=== PATIENT | female | born 1950 | race Caucasian/White ===

== ENCOUNTER 2021-12-03 17:05 | Outpatient (CLI) | payer MEDICARE, BC, SELFPAY | END 2021-12-03 17:06 | disposition home or self-care (01) | LOC: AMB 12-08 12:17 | PROVIDERS: Visit Provider Family Medicine | DX: E11.65 Type 2 diabetes mellitus with hyperglycemia (principal); R42 Dizziness and giddiness | CPT/HCPCS: A0425; A0428; A0429 ==

== ENCOUNTER 2021-12-03 17:31 | Emergency (ER) | payer MEDICARE, BC, SELFPAY ==
[2021-12-03 17:50] VITALS: BP 159/56; PULSE 74; RESP 18; TEMP 36; O2SAT 91; BMI 50.9
--- NOTE | 2021-12-03 18:02 | ED_ITS ---
HPI - General Adult General Chief complaint: Diabetic Related Problem Stated complaint: Ill Time Seen by Provider: 12/03/21 18:02 History of Present Illness HPI narrative: 71yo morbidly obese female patient with h/o diabetes-poorly controlled, HTN, thyroid disease, and anxiety presents to the ED for concerns of elevated glucose. The patient's glucose was 489 at [place] when checked. She then took 40u of her insulin and requested transfer to the ED for evaluation. The patient has recently been treated for chronic pain with a spinal stimulator that was implanted. The patient states that she was also recently seen and evaluated for bilateral buttock ulcers, but she reports she was discharged from wound care. The patient reports continued chronic pain, poorly controlled. She denies other acute concern or complaint. See nursing notes for details. Related Data Previous Rx's Medication Instructions Recorded menthol 0.44 %-zinc oxide 20.6 % 1 applic TOPICAL QID PRN #113 g 12/03/21 topical ointment (Calmoseptine) Allergies Allergy/AdvReac Type Severity Reaction Status Date / Time clarithromycin [From Biaxin] Allergy Verified 12/03/21 17:50 codeine Allergy Verified 12/03/21 17:50 morphine Allergy Verified 12/03/21 17:50 tramadol [From Ultram] Allergy Verified 12/03/21 17:50 vancomycin Allergy Verified 12/03/21 17:50 Review of Systems Const: Reports: fatigue and malaise; Denies: fever or chills Cardio: Reports: shortness of breath with exertion; Denies: chest pain, palpitations or shortness of breath when lying down Resp: Reports: shortness of breath GI: Denies: nausea, vomiting, diarrhea or constipation : Denies: painful urination or urinary frequency Musculo: Reports: back pain, extremity pain, limited range of motion, muscle cramps and muscle weakness Integ/Breast: Reports: sores (bilateral buttock) Neuro: Reports: lack of coordination (due to significant chronic pain, poorly controlled) Psych: Reports: anxiety Endo: Reports: fatigue PFSH PFSH Medical History Anxiety Chronic CHF (congestive heart failure) Chronic venous hypertension (idiopathic) with inflammation of unspecified lower extremity Disorder of lipoprotein metabolism Erythema Essential hypertension Gastro-esophageal reflux disease with esophagitis Gastroparesis Hypothyroid Iron deficiency anemia Lymphedema Major depression Methicillin resistant Staphylococcus aureus infection as the cause of diseases classified elsewhere Morbid (severe) obesity due to excess calories Non-pressure 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 limited to breakdown of skin Obstructive sleep apnea Paroxysmal atrial fibrillation Type 2 diabetes mellitus Social History Smoking Status: Never smoker Do you use any of these nicotine containing products: None How often do you have a drink containing alcohol: never AUDIT-C Alcohol total score: 0 Non-prescribed substance use: denies use Exam Const: Vital Signs, click to edit/add: Vital Signs - 24 hr 12/03/21 17:50 Temperature 96.8 F L Pulse Rate [Right Pulse Oximeter] 74 Respiratory Rate 18 Blood Pressure [Ri ght Upper Arm] 159/56 H Pulse Oximetry 91 Documenting provider has reviewed patient's vital signs: yes Common normals: no apparent distress, oriented x3, alert and well nourished General appearance: cooperative and in distress (appears uncomfortable) moderate Nutritional appearance: obese morbidly obese Orientation/consciousness: Yes awake, Yes oriented to person, Yes oriented to place and Yes oriented to time Resp: Common normals: normal respiratory effort, no use of accessory muscles and clear to auscultation bilaterally Auscultation: clear to auscultation bilaterally Cardio: Common normals: regular rate, regular rhythm, S1 normal heart sound and S2 normal heart sound Rate: regular rate Rhythm: regular rhythm Heart sounds: S1 normal and S2 normal GI: Common normals: soft to palpation and non-tender Inspection: normal to inspection Palpation: soft Rectal Exam - Female: visual inspection normal and other (bilateral buttock pressure ulcers, stage I) Back & Pelvis: General back: tenderness (wound CDI some serous drainage noted on bandage, healing as expected) Lumbar spine/lower back: pain with ROM Pelvis: buttock abnormal Buttock abnormal laterality: bilateral Bilateral buttock abnormal details: tenderness and other (stage 1 pressure ulcers over ischial prominences) Extremity: Other: bilateral LE wrapped with compression velcro bandages; ROM limited 2/2 body habitus and chronic pain Neuro: Common normals: oriented x3 Sensorium/orientation: awake, alert, oriented to person, oriented to place and oriented to time Gait (neuro): shuffling (stooped, requiring assistance of three) Psych: Appearance: grossly normal and unkempt Insight: insight good Judgement: judgment good Course Course Hospital Course: Naomie presented to the ED with elevated glucoses. Her recent change in medications have been insufficient to control her elevated glucoses. In addition, she has poorly controlled pain that is chronic that is currently under evaluation with her primary and surgeon. Finally, the patient has bilateral buttock ulcers, stage 1, that need monitoring due to body habitus and poor mobility. She has had improvement in her glucose values - which while high will continue to benefit from her dose adjustments of insulin and continued dietary modifications. 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 Reevaluation(s) Reevaluation #1: The results have been discussed with the patient, and she has verbalized understanding. She understands the importance of increasing protein and decreasing carbohydrates. In addition, she will attempt follow-up with increased fluids and improved sliding scale coverage. She will have her chronic pain managed by her primary and surgical consultants. Her vital signs have remained stable and her glucose has improved with fluids. Time: 20:49 Vital Signs Vital signs: Initial Vital Signs Temperature 96.8 F L 12/03/21 17:50 Temperature Source Temporal Artery Scan 12/03/21 17:50 Pulse Rate 74 12/03/21 17:50 Respiratory Rate 18 12/03/21 17:50 Blood Pressure 159/56 H 12/03/21 17:50 Blood Pressure Mean 90 12/03/21 17:50 Pulse Oximetry 91 12/03/21 17:50 Oxygen Delivery Method 12/03/21 17:50 Vital Signs Temperature 96.8 F L 12/03/21 17:50 Pulse Rate 74 12/03/21 17:50 Respiratory Rate 18 12/03/21 17:50 Blood Pressure 159/56 H 12/03/21 17:50 Pulse Oximetry 91 12/03/21 17:50 Temperature 96.8 F L 12/03/21 17:50 Pulse Rate 74 12/03/21 17:50 Respiratory Rate 18 12/03/21 17:50 Blood Pressure 159/56 H 12/03/21 17:50 Pulse Oximetry 91 12/03/21 17:50 Medical Decision Making Medical Records Medical records reviewed: Yes I reviewed the patient's medical records Lab Data Lab results reviewed: Yes I reviewed the patient's lab results Lab results narrative: Corrected Na 133 Labs: Lab Results 12/03/21 12/03/21 12/03/21 Range/Units 18:25 18:25 18:25 WBC 12.12 H (4.50-11.00) K/uL RBC 4.10 (4.00-5.20) m/uL Hgb 10.6 L (12.0-16.0) gm/dL Hct 33.5 (33.0-51.0) % MCV 82 (80-100) fL MCH 26 (26-34) pg MCHC 32 (32-36) gm/dL RDW Coeff of Trina 15.9 H (11.5-15.5) % Plt Count 331 (140-440) K/uL Neut % (Auto) 70.9 (42.0-72.0) % Lymph % (Auto) 16.9 L (20-44) % [place] % (Auto) 6.8 (0.0-11.0) % Eos % (Auto) 4.4 (0.0-7.0) % Baso % (Auto) 0.1 (0.0-3.0) % Neut # (Auto) 8.60 H (1.7-7.0) K/uL Lymph # (Auto) 2.00 (0.90-2.90) K/uL [place] # (Auto) 0.80 (0.00-0.90) K/UL Eos # (Auto) 0.50 (0.00-0.50) K/uL Baso # (Auto) 0.00 (0.00-0.30) K/uL Abs Immat Gran (auto) 0.11 (0.00-0.30) K/uL Sodium 128 L (135-149) mmol/L Potassium 3.5 L (3.6-5.1) mmol/L Chloride 94 L (96-114) mmol/L Carbon Dioxide 27 (20-32) mmol/L BUN 28 (7-30) mg/dL Creatinine 1.1 (0.5-1.5) mg/dL Estimated Creat Clear 42.21 Estimated GFR 54 ml/min Glucose 465 H* (60-115) mg/dL Calcium 8.7 (8.4-10.6) mg/dL Magnesium 1.9 (1.5-2.6) mg/dL Urine Color Yellow (Yellow) Urine Appearance Clear (Clear) Urine pH 6.0 (5.0-8.5) Ur Specific [place] <= 1.005 (1.000-1.030) Urine Protein Negative (Negative) Urine Glucose (UA) 3+ A (Negative) Urine Ketones Negative (Negative) Urine Blood Trace-lysed A (Negative) Urine Nitrite Negative (Negative) Urine Bilirubin Negative (Negative) Urine Urobilinogen 0.2 (0.2-1.0) Ur Leukocyte Esterase Negative (Negative) Urine RBC 0-2 (0-2) Urine WBC 0-2 (0-5) Ur Squamous Epith Cells Few (None-Few) Urine Bacteria Few A (None) Discharge Plan Discharge Clinical Impression: Chronic pain following surgery or procedure Decubitus ulcer of buttock, stage 1 Qualifiers: Laterality: unspecified laterality Qualified Code(s): L89.301 - Pressure ulcer of unspecified buttock, stage 1 Hyperglycemia due to type 2 diabetes mellitus Qualifiers: Diabetes mellitus [facility] insulin use: with [facility] use Qualified Code(s): E11.65 - Type 2 diabetes mellitus with hyperglycemia Patient Disposition: Home, Self-Care Condition: Improved Instructions: Chronic Pain (ED), Wound Healing and Your Diet (ED) Additional Instructions: Thank you for choosing [facility] for your care today. Your care today was on an emergency basis and is not intended to be a substitute for on-going care with your primary physician. I recommend calling primary care for follow-up in the next 3-5 days for follow-up as needed and to review any labs, testing, or imaging you have had in the Emergency Department. In addition, you will need wound care follow-up for a bilateral buttock ulcers to avoid progression or worsening of condition. Please make sure you take your insulin as directed, increase your fluids, and decrease your carbohydrate intake. If new or worsenin g symptoms develop or you have any concerns in the meantime, please call your primary care clinic or return to the ER for re-evaluation. Activity Level: Activity as Tolerated, Up with assist and Use Walker Discharge Diet: Diabetic and Heart Healthy (2 gm sodium, low fat) Prescriptions: New menthol-zinc oxide [Calmoseptine] 0.44-20.6 % ointment 1 applic topical QID PRN (Reason: skin irritation) Qty: 113 0RF Follow Up/Referrals: Provider,Not a Local [Primary Care Provider] - Stand Alone Forms: [facility] [employer] Info Instructions
[2021-12-03 18:50] LABS: Basophils Percent Auto 0.1 % (0.0-3.0); Eosinophils Percent Auto 4.4 % (0.0-7.0); Hematocrit 33.5 % (33.0-51.0); Hemoglobin* 10.6 gm/dL (12.0-16.0); Immature Granulocytes Abs Auto 0.11 K/uL (0.00-0.30); Lymphocytes Percent Auto 16.9 % (20-44); Mean Corpuscular HGB Conc 32 gm/dL (32-36); Mean Corpuscular Hemoglobin 26 pg (26-34); Mean Corpuscular Volume 82 fL (80-100); Monocytes Percent Auto 6.8 % (0.0-11.0); Neutrophils Percent Auto 70.9 % (42.0-72.0); Platelet Count* 331 K/uL (140-440); RDW Coefficient of Variation % 15.9 % (11.5-15.5); White Blood Count* 12.12 K/uL (4.50-11.00)
[2021-12-03 18:56] LABS: Slide Review Reflex No
[2021-12-03 19:00] LABS: Appearance Urine Clear (Clear); Bilirubin Urine Negative (Negative); Blood Urine Trace-lysed (Negative); Color Urine Yellow (Yellow); Glucose Urine 3+ (Negative); Ketones Urine Negative (Negative); Leukocyte Esterase Urine Negative (Negative); Nitrite Urine Negative (Negative); Protein Urine Negative (Negative); Specific Gravity Urine <= 1.005 (1.000-1.030); Urobilinogen Urine 0.2 (0.2-1.0)
--- NOTE | 2021-12-03 19:03 | ED.NURSE ---
1808--called [facility] and talked to Philip Dinero. patient receives flex inject touch pen insulin 32 units TID bfore meals and sliding scale of 0-12 units. patient received the 12 units at 1651. had a stimulator block in on other day. patient did not receive any steroids that would alter the blood sugar per Philip manager staffing nurse.
[2021-12-03 19:12] LABS: Chloride* 94 mmol/L (96-114)
[2021-12-03 19:13] LABS: Potassium* 3.5 mmol/L (3.6-5.1); Sodium* 128 mmol/L (135-149)
[2021-12-03] MEDS: 0.9 % SODIUM CHLORIDE 1000 ml 1,000 ML IV (19:13)
[2021-12-03 19:15] LABS: Creatinine* 1.1 mg/dL (0.5-1.5); Est. Creatinine Clearance* 42.21; Estimated Glomerular Filt Rate 54 ml/min
[2021-12-03 19:16] LABS: Blood Urea Nitrogen* 28 mg/dL (7-30); Calcium* 8.7 mg/dL (8.4-10.6); Carbon Dioxide* 27 mmol/L (20-32); Magnesium* 1.9 mg/dL (1.5-2.6)
[2021-12-03 19:19] LABS: Bacteria Urine Few; RBC Urine 0-2 (0-2); Squamous Epithelial Cell Urine Few (None-Few); WBC Urine 0-2 (0-5)
[2021-12-03 19:22] LABS: Glucose* 465 mg/dL (60-115)
[2021-12-03] MEDS: ONDANSETRON 2 MG/ML inj 4 MG IVP (20:46)
[2021-12-03 21:19] VITALS: BP 142/72; PULSE 74; RESP 18; TEMP 36.7; O2SAT 96
== END 2021-12-03 21:39 | disposition home or self-care (01) ==
PROVIDERS: Emergency Provider Family Medicine
DX: M54.9 Dorsalgia, unspecified (principal); E11.65 Type 2 diabetes mellitus with hyperglycemia; Z79.4 Long term (current) use of insulin; L89.301 Pressure ulcer of unspecified buttock, stage 1
CPT/HCPCS: 36415; 80048; 81003; 81015; 82947; 83735; 85025; 87086; 87186; 96374; 99284; J2405; J7030

== ENCOUNTER 2021-12-03 21:30 | Outpatient (CLI) | payer MEDICARE, BC, SELFPAY | END 2021-12-03 21:31 | disposition home or self-care (01) | LOC: AMB 12-08 20:39 | PROVIDERS: Visit Provider Family Medicine | DX: R53.1 Weakness (principal) | CPT/HCPCS: A0425; A0428 ==

== ENCOUNTER 2021-12-17 21:00 | Outpatient (CLI) | payer MEDICARE, BC, SELFPAY | END 2021-12-17 21:01 | disposition home or self-care (01) | LOC: SLEEP 06-03 10:02 | PROVIDERS: PCP Family Medicine; Visit Provider Internal Medicine | DX: G47.33 Obstructive sleep apnea (adult) (pediatric) (principal) | CPT/HCPCS: 95810 ==

== ENCOUNTER 2022-01-24 14:26 | Outpatient (CLI) | payer MEDICARE, BC, SELFPAY | END 2022-01-24 14:27 | disposition home or self-care (01) | LOC: AMB 02-06 16:08 | PROVIDERS: PCP Family Medicine; Visit Provider Family Medicine | DX: I95.9 Hypotension, unspecified (principal); I49.9 Cardiac arrhythmia, unspecified | CPT/HCPCS: A0425; A0427 ==

== ENCOUNTER 2022-01-24 15:03 | Inpatient (IN) | payer MEDICARE, BC, SELFPAY ==
[2022-01-24] VITALS (11 sets, daily range): BP systolic 91–147; BP diastolic 43–91; PULSE 42–82; RESP 16–24; TEMP 36.4–36.7; O2SAT 82–95; BMI 50.1; BMI 55.7
--- NOTE | 2022-01-24 15:23 | ED.GENADULT ---
HPI - General Adult General Time Seen by Provider: 15:23 Date Seen: 01/24/22 Chief complaint: Hypotension Stated complaint: Lightheaded Time Seen by Provider: 01/24/22 15:22 Source: patient, RN notes reviewed and other (Clinic provider did call ahead, Dr. Stewart) Mode of arrival: ambulatory Limitations: no limitations History of Present Illness HPI narrative: Patient is a 71-year-old female referred by Dr. Stewart from [facility] where she was being seen for concern of her legs being red warm and more swollen. Patient had refused to reportedly come to the ER this past Thursday. Dr. Stewart noted that she was hypotensive, pulse was 42. He felt that her mental status was a bit more altered with difficulty concentrating and difficulty following directions. He thought she had increased lower extremity edema and they were somewhat red but she has a history of bilateral edema. She also is in chronic respiratory failure with hypercapnia and hypoxia per his report. She has had a history of septic shock as well. He felt she would be best suited coming in for further evaluation management. She states she has been short of breath. She does not wear home oxygen. She resides at [place]. She does endorse increasing edema. She has no acute pain complaints at this time, has had no chest pain. On arrival from the clinic via EMS, she was noted to be hypoxic in the 80s, looked pale and did not look well per nursing staff. On our initial monitoring her pulse was in the 30s, they did put on pacer pads but then she came up into the 40s and 50s, by the time I was in the room they were attempting to establish an IV and she was back into the 60s. Her physician had wrote to stop her metoprolol 200 mg and start 100 mg. When I review her med rec she is on a total of 300 mg of metoprolol XL daily and Cardizem CD 120 mg daily. He did also order Duricef twice daily for 7 days, obviously neither of these changes have been initiated as she came to the ED instead of going back to [place]. She does have diabetes, historically poorly controlled, hypertension, thyroid disease, anxiety. She also has chronic pain and has a spinal stimulator and is on chronic pain meds. Related Data Home Medications Medication Instructions Recorded Confirmed albuterol sulfate 90 mcg/actuation 2 puff inhalation Q6H PRN 01/24/22 01/24/22 aerosol inhaler (Ventolin HFA) aspirin 81 mg tablet,delayed 81 mg PO DAILY 01/24/22 01/24/22 release (Adult Low Dose Aspirin) atorvastatin 80 mg tablet 80 mg PO DAILY 01/24/22 01/24/22 buprenorphine HCl 150 mcg buccal 150 mcg buccal Q12H 01/24/22 01/24/22 film (Belbuca) buspirone 30 mg tablet 30 mg PO BID 01/24/22 01/24/22 diltiazem HCl 120 mg 120 mg PO DAILY 01/24/22 01/24/22 capsule,extended release 24 hr duloxetine 60 mg capsule,delayed 120 mg PO DAILY 01/24/22 01/24/22 release ferrous gluconate 324 mg (37.5 mg 324 mg PO TIDWM 01/24/22 01/24/22 iron) tablet fluticasone propionate 50 1 spray intranasal DAILY PRN 01/24/22 01/24/22 mcg/actuation nasal spray,suspension gabapentin 400 mg capsule 400 mg PO DAILY 01/24/22 01/24/22 insulin aspart 32 unit subcut TIDWM 01/24/22 01/24/22 (niacinamide)(U-100) 100 unit/mL(3 mL) subcutaneous pen (Fiasp FlexTouch U-100 Insulin) levothyroxine 50 mcg tablet 50 mcg PO DAILY 01/24/22 01/24/22 magnesium oxide 400 mg PO DAILY 01/24/22 01/24/22 metoclopramide HCl 10 mg tablet 10 mg PO ACHS 01/24/22 01/24/22 metoprolol succinate 100 mg 100 mg PO DAILY 01/24/22 01/24/22 tablet,extended release 24 hr montelukast 10 mg tablet 10 mg PO HS 01/24/22 01/24/22 omeprazole 20 mg capsule,delayed 20 mg PO BID 01/24/22 01/24/22 release sumatriptan succinate 50 mg tablet 50 mg PO BID PRN 01/24/22 01/24/22 tizanidine 4 mg tablet 4 mg PO TID 01/24/22 01/24/22 torsemide 20 mg tablet 20 mg PO DAILY 01/24/22 01/24/22 trazodone 100 mg tablet 100 mg PO HS PRN 01/24/22 01/24/22 Previous Rx's Medication Instructions Recorded menthol 0.44 %-zinc oxide 20.6 % 1 applic topical QID PRN skin 12/03/21 topical ointment (Calmoseptine) irritation #113 grams Allergies Allergy/AdvReac Type Severity Reaction Status Date / Time clarithromycin [From Biaxin] Allergy Verified 12/03/21 17:50 codeine Allergy Verified 12/03/21 17:50 morphine Allergy Verified 12/03/21 17:50 tramadol [From Ultram] Allergy Verified 12/03/21 17:50 vancomycin Allergy Verified 12/03/21 17:50 Review of Systems Status of ROS: Reports: 10 or more systems reviewed and unremarkable except as noted in History and below [facility] Medical History Anxiety Chronic CHF (congestive heart failure) Chronic venous hypertension (idiopathic) with inflammation of unspecified lower extremity Disorder of lipoprotein metabolism Erythema Essential hypertension Gastro-esophageal reflux disease with esophagitis Gastroparesis Hypothyroid Iron deficiency anemia Lymphedema Major depression Methicillin resistant Staphylococcus aureus infection as the cause of diseases classified elsewhere Morbid (severe) obesity due to excess calories Non-pressure 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 limited to breakdown of skin Obstructive sleep apnea Paroxysmal atrial fibrillation Type 2 diabetes mellitus Social History Smoking Status: Never smoker Do you use any of these nicotine containing products: None How often do you have a drink containing alcohol: never AUDIT-C Alcohol total score: 0 Non-prescribed substance use: denies use Exam Const: Vital Signs, click to edit/add: Vital Signs - 24 hr 01/24/22 15:06 01/24/22 16:07 01/24/22 15:48 Temperature 97.5 F L Pulse Rate [Pulse Oximeter] 42 L 63 61 Respiratory Rate 24 Blood Pressure [Le ft Upper Arm] 91/43 L 117/57 L 101/62 Pulse Oximetry 91 95 95 Oxygen Delivery Me thod Room Air Nasal Cannula Nasal Cannula Oxygen Flow Rate 2 Documenting provider has reviewed patient's vital signs: yes Common normals: no apparent distress, oriented x3, no limitations and alert General appearance: cooperative and comfortable Nutritional appearance: obese morbidly obese HENMT: Common normals: normocephalic, head/scalp atraumatic, hearing grossly normal bilaterally, external nose normal, nasal mucous membranes and turbinates normal and moist oral mucous membranes Head and scalp: normocephalic and atraumatic Nose: external nose normal and nasal mucous membranes and turbinates normal Eye: Common normals: PERRL, EOMs intact bilaterally, conjunctivae normal and no scleral icterus Conjunctiva: conjunctiva(e) normal Pupil: PERRL Neck & C-Spine: Common normals: full ROM (Neck is thick, very difficult to appreciate any jugular venous distention.), no lymphadenopathy, no JVD and thyroid normal Thyroid: thyroid normal Resp: Common normals: normal respiratory effort, no retractions, no use of accessory muscles and clear to auscultation bilaterally Auscultation: clear to auscultation bilaterally Cardio: Common normals: no JVD, regular rate, regular rhythm, S1 normal heart sound, S2 normal heart sound, no gallops, no clicks, no murmurs and no rub Rate: regular rate Rhythm: regular rhythm Heart sounds: S1 normal and S2 normal GI: Common normals: Normal to inspection, nondistended, normoactive bowel sounds present, soft to palpation, non-tender, no hepatosplenomegaly and no masses Palpation: soft and no hepatosplenomegaly Extremity: Other: Has compression stockings and wraps on her lower extremities. Can see some mildly warm erythema extending particularly above the right 1, does seem to be some dependent erythema that I can see peaking above the stocking and wraps on both legs. She does not seem to be tender, has severe lower extremity edema. We will need to take down the leg wraps. Neuro: Common normals: oriented x3 Sensorium/orientation: alert Course Course Hospital Course: Nursing staff alerted me to the fact that shortly after arriving here while on monitoring her pulse dropped into the 30s. Nursing staff did place pacer pads, they were attempting to start an IV and it did rebound back up into the 60s. She was denying any significant symptomatology at that time. We will work her up for cardiac, pulmonary, infectious etiology. Will give her a 250 normal mL saline bolus. They are going to initiate Duricef today and have her metoprolol dose dropped in half due to low blood pressure of 40s in the clinic. It may need to be further withheld seen her drop into the 30s. Will make sure her troponin is okay. Is likely going to need hospitalization. Will need to help differentiate her erythema of her lower extremities from it being from cellulitis versus pseudo cellulitis with other possible etiologies being venous stasis/lymphedema/dermatitis. Reevaluation(s) Reevaluation #1: We had attempted to turn patient's oxygen off a bit ago and she went down back into the low 80s. Nursing staff did put her on 1 L. I recommended maybe going to just half a L. This is a patient with chronic respiratory failure. Respiratory therapy did come down to see her. Have talked to our hospitalist and a.m. awaiting him to come down for admission. With the bradycardic spells, I think she needs cardiac monitoring and titration down of her rate suppressing medicines. Time: 17:33 Vital Signs Vital signs: Initial Vital Signs Temperature 97.5 F L 01/24/22 15:06 Temperature Source Oral 01/24/22 15:06 Pulse Rate 42 L 01/24/22 15:06 Respiratory Rate 24 01/24/22 15:06 Blood Pressure 91/43 L 01/24/22 15:06 Blood Pressure Mean 59 01/24/22 15:06 Blood Pressure Position Supine 01/24/22 15:06 Pulse Oximetry 91 01/24/22 15:06 Oxygen Delivery Method 01/24/22 15:06 Vital Signs Temperature 97.5 F L 01/24/22 15:06 Pulse Rate 42 L 01/24/22 15:06 Respiratory Rate 24 01/24/22 15:06 Blood Pressure 91/43 L 01/24/22 15:06 Pulse Oximetry 91 01/24/22 15:06 Oxygen Delivery Method 01/24/22 15:06 Temperature 97.5 F L 01/24/22 15:06 Pulse Rate 63 01/24/22 16:07 Respiratory Rate 24 01/24/22 15:06 Blood Pressure 117/57 L 01/24/22 16:07 Pulse Oximetry 95 01/24/22 16:07 Oxygen Delivery Method 01/24/22 16:07 Oxygen Flow Rate 2 01/24/22 16:07 Medical Decision Making Lab Data Lab results reviewed: Yes I reviewed the patient's lab results Labs: Lab Results 01/24/22 01/24/22 01/24/22 Range/Units 15:20 15:25 15:25 WBC 14.00 H (4.50-11.00) K/uL RBC 3.91 L (4.00-5.20) m/uL Hgb 10.4 L (12.0-16.0) gm/dL Hct 34.7 (33.0-51.0) % MCV 89 (80-100) fL MCH 27 (26-34) pg MCHC 30 L (32-36) gm/dL RDW Coeff of Trina 16.2 H (11.5-15.5) % Plt Count 401 (140-440) K/uL Neut % (Auto) 74.6 H (42.0-72.0) % Lymph % (Auto) 11.6 L (20-44) % [place] % (Auto) 8.7 (0.0-11.0) % Eos % (Auto) 3.5 (0.0-7.0) % Baso % (Auto) 0.2 (0.0-3.0) % Neut # (Auto) 10.40 H (1.7-7.0) K/uL Lymph # (Auto) 1.60 (0.90-2.90) K/uL [place] # (Auto) 1.20 H (0.00-0.90) K/UL Eos # (Auto) 0.50 (0.00-0.50) K/uL Baso # (Auto) 0.00 (0.00-0.30) K/uL Abs Immat Gran (auto) 0.19 (0.00-0.30) K/uL VBG pH (7.32-7.43) VBG pCO2 (40-50) mmHG VBG pO2 (25-47) mmHG VBG HCO3 (21-28) mmol/L Sodium 137 (135-149) mmol/L Potassium 4.8 (3.6-5.1) mmol/L Chloride 99 (96-114) mmol/L Carbon Dioxide 28 (20-32) mmol/L BUN 28 (7-30) mg/dL Creatinine 1.5 (0.5-1.5) mg/dL Estimated Creat Clear 30.95 Estimated GFR 37 ml/min Glucose 119 H (60-115) mg/dL Lactate (0.5-1.9) mmol/L Calcium 9.1 (8.4-10.6) mg/dL Magnesium (1.5-2.6) mg/dL Total Bilirubin 0.5 (0.1-1.5) mg/dL AST 26 (12-35) U/L ALT 19 (4-35) U/L Alkaline Phosphatase 183 H (40-150) U/L Troponin I (0.01-0.04) ng/mL C-Reactive Protein 1.7 H (0.5-1.0) mg/dL NT-Pro-B Natriuret Pep (0-125) PG/mL Total Protein 7.6 (6.0-8.3) g/dL Albumin 3.9 (3.3-5.0) g/dL Procalcitonin (<0.50) ng/mL SARS-CoV-2 (PCR) Negative SARS-CoV-2 (Negative) 01/24/22 01/24/22 Range/Units 15:25 15:25 WBC (4.50-11.00) K/uL RBC (4.00-5.20) m/uL Hgb (12.0-16.0) gm/dL Hct (33.0-51.0) % MCV (80-100) fL MCH (26-34) pg MCHC (32-36) gm/dL RDW Coeff of Trina (11.5-15.5) % Plt Count (140-440) K/uL Neut % (Auto) (42.0-72.0) % Lymph % (Auto) (20-44) % [place] % (Auto) (0.0-11.0) % Eos % (Auto) (0.0-7.0) % Baso % (Auto) (0.0-3.0) % Neut # (Auto) (1.7-7.0) K/uL Lymph # (Auto) (0.90-2.90) K/uL [place] # (Auto) (0.00-0.90) K/UL Eos # (Auto) (0.00-0.50) K/uL Baso # (Auto) (0.00-0.30) K/uL Abs Immat Gran (auto) (0.00-0.30) K/uL VBG pH 7.293 L (7.32-7.43) VBG pCO2 61 H* (40-50) mmHG VBG pO2 22.8 L (25-47) mmHG VBG HCO3 30 H (21-28) mmol/L Sodium (135-149) mmol/L Potassium (3.6-5.1) mmol/L Chloride (96-114) mmol/L Carbon Dioxide (20-32) mmol/L BUN (7-30) mg/dL Creatinine (0.5-1.5) mg/dL Estimated Creat Clear Estimated GFR ml/min Glucose (60-115) mg/dL Lactate 2.5 H (0.5-1.9) mmol/L Calcium (8.4-10.6) mg/dL Magnesium 2.3 (1.5-2.6) mg/dL Total Bilirubin (0.1-1.5) mg/dL AST (12-35) U/L ALT (4-35) U/L Alkaline Phosphatase (40-150) U/L Troponin I < 0.01 L (0.01-0.04) ng/mL C-Reactive Protein (0.5-1.0) mg/dL NT-Pro-B Natriuret Pep 2730 H (0-125) PG/mL Total Protein (6.0-8.3) g/dL Albumin (3.3-5.0) g/dL Procalcitonin 0.07 (<0.50) ng/mL SARS-CoV-2 (PCR) (Negative) Imaging Data Chest x-ray: Attestation: I have reviewed the pertinent imaging results. Radiologist's impression: Patient: CROW ALMAZAN Facility:?[facility] Patient ID:?[id number] Site Patient ID:?[id number]. Site :?[id number] Study:?XRay Chest PORTABLE-01/24/2022 3:45:19 PM Ordering Physician:Shama Pena Final Report: INDICATION: sob, hypotension, bradycardia TECHNIQUE: Chest 1 view. COMPARISON: 07/02/21 FINDINGS: Cardiovascular and mediastinum: Heart size and vasculature are normal in caliber and appearance. Mediastinum is within normal limits. Lungs and pleural space: Lungs are clear. No sign of infiltrate or mass. No sign of pleural effusion. No pneumothorax. Bones and soft tissues: No significant findings. IMPRESSION: Unremarkable chest. Dictated by: Carlos Pagan MD @ 01/24/2022 16:02:01 (Electronic Signature) ECG Data Attestation: I personally reviewed and interpreted this ECG as follows: (Sinus rhythm, 64 beats per minute, first-degree AV block. Bifascicular block. No acute ischemia noted.) Critical Care Time Critical Care Time Critical Care Time: No Discharge Plan Discharge Clinical Impression: Chronic respiratory failure with hypoxia and hypercapnia, Bradycardia, Hypotension Patient Disposition: Admitted As Inpatient Prescriptions: No Action menthol-zinc oxide [Calmoseptine] 0.44-20.6 % ointment 1 applic topical QID PRN (Reason: skin irritation) Qty: 113 0RF albuterol sulfate [Ventolin HFA] 90 mcg/actuation HFA aerosol inhaler 2 puff INHALATION Q6H PRN aspirin [Adult Low Dose Aspirin] 81 mg tablet,delayed release (DR/EC) 81 mg PO DAILY atorvastatin 80 mg tablet 80 mg PO DAILY buspirone 30 mg tablet 30 mg PO BID diltiazem HCl 120 mg capsule,extended release 24hr 120 mg PO DAILY duloxetine 60 mg capsule,delayed release(DR/EC) 120 mg PO DAILY buprenorphine HCl [Belbuca] 150 mcg film 150 mcg BUCCAL Q12H ferrous gluconate 324 mg (37.5 mg iron) tablet 324 mg PO TIDWM gabapentin 400 mg capsule 400 mg PO DAILY levothyroxine 50 mcg tablet 50 mcg PO DAILY fluticasone propionate 50 mcg/actuation spray,suspension 1 spray INTRANASAL DAILY PRN Fiasp FlexTouch U-100 Insulin 100 unit/mL (3 mL) insulin pen 32 unit SUBCUT TIDWM magnesium oxide 400 mg magnesium capsule 400 mg PO DAILY torsemide 20 mg tablet 20 mg PO DAILY tizanidine 4 mg tablet 4 mg PO TID metoprolol succinate 100 mg tablet extended release 24 hr 100 mg PO DAILY sumatriptan succinate 50 mg tablet 50 mg PO BID PRN trazodone 100 mg tablet 100 mg PO HS PRN omeprazole 20 mg capsule,delayed release(DR/EC) 20 mg PO BID montelukast 10 mg tablet 10 mg PO HS metoclopramide HCl 10 mg tablet 10 mg PO ACHS Follow Up/Referrals: Germania Jones MD [Primary Care Provider] -
[2022-01-24] MEDS: 0.9 % SODIUM CHLORIDE 250 ml 250 ML IV (15:25)
--- NOTE | 2022-01-24 15:28 | CRLHL7_ITS ---
For Patients: As a result of the Century Cures Act, medical imaging exams and procedure reports are released immediately into your electronic medical record. You may view this report before your referring provider. If you have questions, please contact your health care provider. INDICATION: sob, hypotension, bradycardia TECHNIQUE: Chest 1 view. COMPARISON: 07/02/21 FINDINGS: Cardiovascular and mediastinum: Heart size and vasculature are normal in caliber and appearance. Mediastinum is within normal limits. Lungs and pleural space: Lungs are clear. No sign of infiltrate or mass. No sign of pleural effusion. No pneumothorax. Bones and soft tissues: No significant findings. IMPRESSION: Unremarkable chest. Dictated by: Carlos Pagan MD @ 01/24/2022 16:02:01 (Electronically Signed)
[2022-01-24 15:43] LABS: HCO3 VBG 30 mmol/L (21-28); Lactate* 2.5 mmol/L (0.5-1.9); PO2 VBG 22.8 mmHG (25-47); pH VBG 7.293 (7.32-7.43)
[2022-01-24 15:44] LABS: Basophils Percent Auto 0.2 % (0.0-3.0); Eosinophils Percent Auto 3.5 % (0.0-7.0); Hematocrit 34.7 % (33.0-51.0); Hemoglobin* 10.4 gm/dL (12.0-16.0); Immature Granulocytes Abs Auto 0.19 K/uL (0.00-0.30); Lymphocytes Percent Auto 11.6 % (20-44); Mean Corpuscular HGB Conc 30 gm/dL (32-36); Mean Corpuscular Hemoglobin 27 pg (26-34); Mean Corpuscular Volume 89 fL (80-100); Monocytes Percent Auto 8.7 % (0.0-11.0); Neutrophils Percent Auto 74.6 % (42.0-72.0); Platelet Count* 401 K/uL (140-440); RDW Coefficient of Variation % 16.2 % (11.5-15.5); Red Blood Count 3.91 m/uL (4.00-5.20)
[2022-01-24 15:45] LABS: PCO2 VBG 61 mmHG (40-50); Slide Review Reflex No
[2022-01-24 15:56] LABS: Chloride* 99 mmol/L (96-114)
[2022-01-24 15:57] LABS: Albumin* 3.9 g/dL (3.3-5.0); Sodium* 137 mmol/L (135-149)
[2022-01-24 15:58] LABS: Potassium* 4.8 mmol/L (3.6-5.1)
[2022-01-24 15:59] LABS: Magnesium* 2.3 mg/dL (1.5-2.6)
[2022-01-24 16:00] LABS: Bilirubin Total* 0.5 mg/dL (0.1-1.5); Creatinine* 1.5 mg/dL (0.5-1.5); Est. Creatinine Clearance* 30.95; Estimated Glomerular Filt Rate 37 ml/min
[2022-01-24 16:01] LABS: Alanine Aminotransferase* 19 U/L (4-35); Alkaline Phosphatase* 183 U/L (40-150); Aspartate Amino Transferase* 26 U/L (12-35); Blood Urea Nitrogen* 28 mg/dL (7-30); Calcium* 9.1 mg/dL (8.4-10.6); Carbon Dioxide* 28 mmol/L (20-32); Glucose* 119 mg/dL (60-115); Total Protein* 7.6 g/dL (6.0-8.3)
[2022-01-24 16:03] LABS: C Reactive Protein* 1.7 mg/dL (0.5-1.0)
[2022-01-24 16:09] LABS: NT Pro B Type NatriureticPept* 2730 PG/mL (0-125)
[2022-01-24 16:13] LABS: Troponin I* < 0.01 ng/mL (0.01-0.04)
[2022-01-24 16:14] LABS: SARS PCR* Negative SARS-CoV-2 (Negative)
[2022-01-24 16:17] LABS: Procalcitonin* 0.07 ng/mL (<0.50)
--- NOTE | 2022-01-24 16:26 | ED.NURSE ---
dr keen aware of pco2 of 61. is less diaphoretic. hr in the low 60s, 02 sats have been greater than 93% on 1 l n/c. has chronic pain in her back 09/24.
--- NOTE | 2022-01-24 16:51 | ED.NURSE ---
02 off per request of dr keen. will be admitted. venkata damico aware of admission. has been sleepy. hr has been 58-64.
--- NOTE | 2022-01-24 17:10 | ED.NURSE ---
sats dropped to 80 after 02 removed. need ed to replace the 02 at 1 l nc and sats increased to low 90s. dr keen informed.
--- NOTE | 2022-01-24 17:51 | W.PC.EDHO ---
Primary Language: Preferred Language: Orientation Status: [] Alert & Oriented [] Slight Confusion [] Known Dx Dementia Transfers By: [] Assist of 1 [] Assist of 2 [] Lift Active Medications Discontinued Medications Generic Name Dose Route Start Last Admin Trade Name Meagan PRN Reason Stop Dose Admin Sodium Chloride 250 mls @ 250 mls/hr 01/24/22 15:29 01/24/22 16:25 0.9 % Sodium Chloride 250 Ml IV 01/24/22 16:28 Infused .Q1H ONE Infusion Description of Symptoms ED Triage Present Problem pt at [facility] for appointment for lower Description extremities. pt found to be hypotensive 80-90's and bradycardiac 40-50's there. pt does c/o lightheaded and dizzy. nausea during ambulance ride. Female History Patient No Pain Pain Intensity [Back] 5 Pain Intensity 5 Pain Scale Used Numeric (1 - 10) IV Insertion/Site Date of IV Line Insertion [ 01/24/22 Right Antecubital] Oxygen Administration Pulse Oximetry 95 Pulse Oximetry 95 Pulse Oximetry 91 Oxygen Delivery Method Nasal Cannula Oxygen Delivery Method Nasal Cannula Oxygen Delivery Method Room Air Oxygen Flow Rate 2 Cardiac Monitoring EKG Method 12 Lead
--- NOTE | 2022-01-24 18:13 | P.IMHP_ITS ---
Hospitalist- H&P: HPI History of Present Illness Time Seen by Provider: 17:45 Date Seen: 01/24/22 Chief complaint: Lightheaded Narrative: Naomie Pena is a 71 year old woman who presented to her primary care clinic today to see her primary care physician, Dr. Stewart, for evaluation of concerns of increasing erythema of bilateral lower extremities. This is not a new problem for the patient. She often presents for assessment and management of unilateral or bilateral lower extremity erythema. She is often treated empirically for possible cellulitis. Such was the case today. Her physician recommended that she take a 7 day course of Duricef twice daily. Noteworthy however is the fact that the patient has chronic bilateral lower extremity venous insufficiency. She does have a Velcro compression wraps that she utilizes. Unfortunately she does not keep her legs elevated throughout the day and often keeps her legs in the dip in the dependent position. Still not clear to me the most recent time that she was properly fitted for her Velcro compression wraps. Noteworthy is that she historically has had venous stasis ulcers and has historically been treated for the same in the [place] wound clinic but these wounds have since resolved. While being assessed in the clinic she was also found to be bradycardic with a heart rate of about 40 beats per minute. This is new for this patient. She does ordinarily take 2 different negative chronotropic agents, metoprolol succinate 200 mg once daily as well as diltiazem CD 120 mg once daily. Patient noted a sense of dizziness or lightheadedness when her heart rate was so low. Her clinician made the recommendation that the patient decrease her dose of the metoprolol succinate from 200 mg daily down to 100 mg daily. Because of this bradycardia however the patient's physician refer the patient to the emergency department for further assessment and interventions. When patient 1st arrived in our emergency department her heart rate was in the upper 30s to lower 40s. She complains lightheadedness. Denied any chest heaviness, pressure, tightness, or pain. Denies any dyspnea at rest, paroxysmal nocturnal dyspnea, orthopnea. Denied any syncope. Denied nausea or vomiting. Denies any new arm or back or neck discomforts. Denies any palpitations. Patient was given 250 mg of normal saline IV. Her symptoms improved. Her heart rate gradually improved. She has been in our emergency department for a few hours and her heart rate has been stable in the 60s. She has been on 1 L oxygen per minute via nasal cannula continuously maintaining her saturations in the mid 90s, with end-tidal CO2 is ranging from 30-50. Electrocardiogram demonstrated a sinus bradycardia with no ischemic changes. Normal troponin I levels. Lactate minimally elevated at 2.5. BNP 2700. Procalcitonin 0.07. Chest x-ray without any acute findings. White blood cell count and electrolyte assessment unchanged from baseline. Given the patient's symptoms and low heart rates it is decided to admit the patient to the hospital for observation overnight and monitor her response to the lower dose of her metoprolol succinate in combination with her standard dose of diltiazem CD. Review of Systems Status of ROS: Reports: 10 or more systems reviewed and unremarkable except as noted in History and below Narrative: Resides at [facility] in [place]. Requires assistance with many of her activities of daily living. Needs assistance with medication setup and dispensation. Needs assistance with application of her Velcro compression wraps. Needs assistance with other self cares. Has chronic back pain. On chronic opioids for treatment of the same. Denies fevers, rigors, diaphoresis. No recent trauma or injury. Continues to use her CPAP at night. An overnight sleep study performed on 12/17/2021 confirmed underlying obstructive sleep apnea and was undertaken to assess adequacy of her intervention. CPAP started at 8 cm of water and ended up with 12 cm of water with much better control of her obstructive events. That adjustment was made about 1 month ago. No weight gain or weight loss. No night sweats. No polyuria, polydipsia, polyphagia. No heat or cold intolerance. Blood sugars have been elevated as high as 500 recently. Continues to adjust insulin levels accordingly. Denies any change in bowel or bladder habits. No new focal motor neurologic deficits. Quite weak and requires assistance with repositioning while in the emergency department. This is not new. Primary care physician is Dr. Prince. Her brother Jaden and her friend Jaden are her designated melendez of litigation attorney. [facility] Medical History Anxiety Chronic CHF (congestive heart failure) Chronic venous hypertension (idiopathic) with inflammation of unspecified lower extremity Disorder of lipoprotein metabolism Erythema Essential hypertension Gastro-esophageal reflux disease with esophagitis Gastroparesis Hypothyroid Iron deficiency anemia Lymphedema Major depression Methicillin resistant Staphylococcus aureus infection as the cause of diseases classified elsewhere Morbid (severe) obesity due to excess calories Non-pressure 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 limited to breakdown of skin Obstructive sleep apnea Paroxysmal atrial fibrillation Polypharmacy Type 2 diabetes mellitus Social History Smoking Status: Never smoker Do you use any of these nicotine containing products: None How often do you have a drink containing alcohol: never AUDIT-C Alcohol total score: 0 Non-prescribed substance use: denies use Meds Home Medications and Allergies Home Medications Medication Instructions Recorded Confirmed Type acetaminophen 500 mg tablet 1,000 mg PO TID 01/24/22 01/24/22 History albuterol sulfate 90 mcg/actuation 2 puff inhalation Q6H PRN 01/24/22 01/24/22 History aerosol inhaler (Ventolin HFA) aluminum-mag hydroxide-simethicone 5 - 10 ml PO TID PRN 01/24/22 01/24/22 History 200 mg-200 mg-20 mg/5 mL oral susp (Advanced Antacid-Antigas) aspirin 81 mg tablet,delayed 81 mg PO DAILY 01/24/22 01/24/22 History release (Adult Low Dose Aspirin) atorvastatin 80 mg tablet 80 mg PO DAILY 01/24/22 01/24/22 History buprenorphine HCl 300 mcg buccal 300 mcg buccal BID 01/24/22 01/24/22 History film (Belbuca) buspirone 30 mg tablet 30 mg PO BID 01/24/22 01/24/22 History calcium carbonate 500 mg calcium 1,000 - 2,000 mg PO TID PRN 01/24/22 01/24/22 History (1,250 mg) chewable tablet (Calcium 500) cefadroxil 500 mg capsule 500 mg PO BID 01/24/22 01/24/22 History dextromethorphan HBr 15 mg/5 mL 15 - 30 mg PO Q6H PRN 01/24/22 01/24/22 History oral liquid diclofenac sodium 1 % topical gel 2 g topical QID 01/24/22 01/24/22 History (Arthritis Pain (diclofenac)) diltiazem HCl 120 mg 120 mg PO DAILY 01/24/22 01/24/22 History capsule,extended release 24 hr diphenhydramine HCl 25 mg capsule 25 - 50 mg PO Q8H PRN 01/24/22 01/24/22 History (Aler-Cap) duloxetine 60 mg capsule,delayed 120 mg PO DAILY 01/24/22 01/24/22 History release ferrous gluconate 324 mg (37.5 mg 324 mg PO TIDWM 01/24/22 01/24/22 History iron) tablet fluconazole 150 mg tablet 150 mg PO Q7D 01/24/22 01/24/22 History fluticasone propionate 50 1 spray intranasal DAILY PRN 01/24/22 01/24/22 History mcg/actuation nasal spray,suspension gabapentin 400 mg capsule 400 mg PO DAILY 01/24/22 01/24/22 History guaifenesin 100 mg/5 mL oral 100 - 200 mg PO Q6H PRN 01/24/22 01/24/22 History liquid (Adult Tussin Chest Congestion) ibuprofen 200 mg tablet (Addaprin) 200 - 400 mg PO Q6H PRN 01/24/22 01/24/22 History insulin aspart 32 unit subcut TIDWM 01/24/22 01/24/22 History (niacinamide)(U-100) 100 unit/mL(3 mL) subcutaneous pen (Fiasp FlexTouch U-100 Insulin) insulin degludec 200 unit/mL (3 130 unit subcut HS 01/24/22 01/24/22 History mL) subcutaneous pen (Tresiba FlexTouch U-200 insulin) levothyroxine 50 mcg tablet 50 mcg PO DAILY 01/24/22 01/24/22 History loperamide 2 mg capsule 2 - 4 mg PO Q6H PRN 01/24/22 01/24/22 History magnesium hydroxide 400 mg/5 mL 15 - 30 ml PO DAILY PRN 01/24/22 01/24/22 History oral suspension (Milk of Magnesia) magnesium oxide 400 mg PO DAILY 01/24/22 01/24/22 History metoclopramide HCl 10 mg tablet 10 mg PO ACHS 01/24/22 01/24/22 History metoprolol succinate 100 mg 100 mg PO DAILY 01/24/22 01/24/22 History tablet,extended release 24 hr montelukast 10 mg tablet 10 mg PO HS 01/24/22 01/24/22 History nystatin 100,000 unit/gram topical 1 applic topical TID 01/24/22 01/24/22 History powder (Nystop) omeprazole 20 mg capsule,delayed 20 mg PO BID 01/24/22 01/24/22 History release ondansetron 4 mg disintegrating 4 mg PO Q8H PRN 01/24/22 01/24/22 History tablet oxycodone 5 mg tablet 5 - 10 mg PO Q4H PRN 01/24/22 01/24/22 History polyethylene glycol 3350 17 17 g PO DAILY 01/24/22 01/24/22 History gram/dose oral powder (Miralax) sumatriptan succinate 50 mg tablet 50 mg PO BID PRN 01/24/22 01/24/22 History tizanidine 4 mg tablet 4 mg PO TID 01/24/22 01/24/22 History torsemide 20 mg tablet 20 mg PO DAILY 01/24/22 01/24/22 History trazodone 100 mg tablet 100 mg PO HS PRN 01/24/22 01/24/22 History Allergies Allergy/AdvReac Type Severity Reaction Status Date / Time clarithromycin [From Biaxin] Allergy Verified 12/03/21 17:50 codeine Allergy Verified 12/03/21 17:50 morphine Allergy Verified 12/03/21 17:50 tramadol [From Ultram] Allergy Verified 12/03/21 17:50 vancomycin Allergy Verified 12/03/21 17:50 Exam Narrative: Exam Narrative: Awake, alert, articulate, cooperative. Oriented to self, place, time, situation. Mood and affect are congruent. Hearing is preserved. Normal tympanic membranes. Midline nasal septum. Dentition in fair repair. Tight oral aperture. No icterus. Pupils equally round and reactive to light and accommodation. Extraocular muscles intact. Vision grossly normal. Full neck. Midline trachea. Normal thyroid. No lymphadenopathy in the pre or postauricular chains, anterior or posterior cervical chains, submandibular or submental fossa, supra or infraclavicular fossa, or axilla bilaterally. Lungs are clear to auscultation. Heart tones are slow but regular with normal S1-S2, without murmur, gallop, or rub. Abdomen is obese, with active bowel sounds, soft, nontender. No CVA tenderness. Extremities with chronic lymphedema with erythema of both legs below the knee, well-circumscribed, consistent with chronic stasis dermatitis. No lymphangitis spread of any kind. No focal motor neurologic deficits. She needs assistance adjusting herself in the exam table in order to be comfortable. It takes 2 to assist her with this. Const: Vital Signs, click to edit/add: Vital Signs - 24 hr 01/24/22 15:06 01/24/22 16:07 01/24/22 15:48 Temperature 97.5 F L Pulse Rate [Pulse Oximeter] 42 L 63 61 Respiratory Rate 24 Blood Pressure [Le ft Upper Arm] 91/43 L 117/57 L 101/62 Pulse Oximetry 91 95 95 Oxygen Delivery Me thod Room Air Nasal Cannula Nasal Cannula Oxygen Flow Rate 2 Documenting provider has reviewed patient's vital signs: yes Hospitalist - H&P: Result Labs Labs: Short CBC 01/24/22 Range/Units 15:25 WBC 14.00 H (4.50-11.00) K/uL Hgb 10.4 L (12.0-16.0) gm/dL Hct 34.7 (33.0-51.0) % Plt Count 401 (140-440) K/uL BMP 01/24/22 15:25 Sodium 137 Potassium 4.8 Chloride 99 Carbon Dioxide 28 BUN 28 Creatinine 1.5 Glucose 119 H Calcium 9.1 Cardiac Enzymes 01/24/22 Range/Units 15:25 Troponin I < 0.01 L (0.01-0.04) ng/mL Liver Function 01/24/22 Range/Units 15:25 Total Bilirubin 0.5 (0.1-1.5) mg/dL AST 26 (12-35) U/L ALT 19 (4-35) U/L Alkaline Phosphatase 183 H (40-150) U/L Albumin 3.9 (3.3-5.0) g/dL ECG Attestation: I personally reviewed and interpreted this ECG as follows: ECG interpretation date: 01/24/22 ECG interpretation time: 18:00 Prior ECG tracings: not available for review Interpretation: Sinus bradycardia without ischemic changes or dysrhythmia. Heart rate 64. First degree AV block and bifascicular block. Imaging Chest x-ray: Attestation: I have reviewed the pertinent imaging results. Radiologist's impression: No acute changes. Unremarkable chest. Assessment and Plan Assessment and plan (1) Bradycardia: Problem comment: Likely related to use of negative chronotropic agents, metoprolol succinate and diltiazem CD. Status: Acute Assessment and Plan: 1. Admit to observation. 2. Hold the metoprolol succinate and diltiazem CD for now. 3. Monitor on telemetry. Serial electrocardiogram. Serial troponin I's. (2) Hypotension: Problem comment: Likely related to various antihypertensive medications and diuretics. Status: Acute Assessment and Plan: 1. Improved with low volume saline IV fluid bolus. 2. Continue to monitor closely while she is in observation status. (3) Polypharmacy: Status: Acute Assessment and Plan: 1. Patient is on so many medications that even with help from the staff at [facility] it appears as though she is having complications from her use of multiple medications. 2. This will require ongoing monitoring and intervention per her primary care physician. (4) Stasis dermatitis of lower extremity due to chronic peripheral vascular hypertension: Problem comment: bilateral Status: Acute Assessment and Plan: 1. Will order compression wraps while here in the hospital. 2. Will need ongoing monitoring and measurement to make certain that her Velcro compression wraps are the proper size and fit for her. 3. Her primary care physician started her on Duricef 500 mg twice daily, will continue the same while she is here in the hospital for now. (5) Chronic respiratory failure with hypoxia and hypercapnia: Status: Acute Assessment and Plan: 1. Monitor closely while in hospital. 2. Continue with her CPAP. Plan 1. Reviewed with patient. She is agreeable to the above stated plans and recommendations. 2. Continue with other supportive efforts.
--- NOTE | 2022-01-24 18:25 | ED.NURSE ---
to m/s 260 via cart.
[2022-01-24 19:20] LABS: HCO3 VBG 32 mmol/L (21-28); PCO2 VBG 58 mmHG (40-50); PO2 VBG 23.9 mmHG (25-47); pH VBG 7.348 (7.32-7.43)
--- NOTE | 2022-01-24 19:36 | PC.NURSE ---
Pt up to floor at 1830. up to commode to void 50cc's with Ax2 and can be Ax1 going further as she tolerated this well and steady on feet with BSC, walker and GB. 02 88% when sleeping, 1L 02 placed. Pt has old healed pressure wound to L and R buttock, closed, blanchable and covered with Mepi's. Erythema to BLE - outlined with marker. Report given to BRAN Bray at 1900.
[2022-01-24] MEDS: OXYCODONE 5 MG TABLET PO (20:33)
[2022-01-24] MEDS: OMEPRAZOLE 20 MG CAPSULE DR PO (20:33)
[2022-01-24] MEDS: ACETAMINOPHEN 500 MG TABLET 1000 MG PO (20:33)
[2022-01-24] MEDS: METOCLOPRAMIDE 10 MG TABLET PO (20:34)
[2022-01-24] MEDS: BUSPIRONE 10 MG TABLET 30 MG PO (20:34)
[2022-01-24] MEDS: MONTELUKAST 10 MG TABLET PO (20:34)
[2022-01-24] MEDS: TIZANIDINE HCL 4 MG TABLET PO (20:34)
--- NOTE | 2022-01-24 21:08 | PC.NURSE ---
Nurse from [facility] called to check on pt. Pt gave verbal ok to discuss her stay here and medically why she was here.
[2022-01-25] VITALS (12 sets, daily range): BP systolic 144–188; BP diastolic 64–90; PULSE 74–80; RESP 18–22; TEMP 36.8–36.9; O2SAT 91–95
[2022-01-25] MEDS: TRAZODONE HCL 50 MG TABLET 100 MG PO ×2 (02:38→22:30)
[2022-01-25] MEDS: OXYCODONE 5 MG TABLET PO ×3 (02:38→22:20)
[2022-01-25] MEDS: LEVOTHYROXINE 50 MCG TABLET PO (06:22)
[2022-01-25] MEDS: OMEPRAZOLE 20 MG CAPSULE DR PO ×3 (06:22→22:22)
--- NOTE | 2022-01-25 06:40 | PC.NURSE ---
Addendum entered by Inez Garcia RN 01/25/22 06:52: Cellulitis to bilateral extremities remained within previously drawn lines. Original Note: [id number]: Patient cooperative with cares. Chronic pain controlled with PRN Oxycodone and Aqua-K pad. A1,walker,GB. Patient is not feeling as lightheaded as when I came in. BG 113. VSS. 1Lt NC to maintain O2 sats >90%.
[2022-01-25 06:57] LABS: HCO3 VBG 30 mmol/L (21-28); PCO2 VBG 45 mmHG (40-50); pH VBG 7.434 (7.32-7.43)
[2022-01-25 07:00] LABS: Hematocrit 30.2 % (33.0-51.0); Hemoglobin* 9.4 gm/dL (12.0-16.0); Mean Corpuscular HGB Conc 31 gm/dL (32-36); Mean Corpuscular Hemoglobin 27 pg (26-34); Mean Corpuscular Volume 88 fL (80-100); Platelet Count* 324 K/uL (140-440); Red Blood Count 3.45 m/uL (4.00-5.20); White Blood Count* 11.01 K/uL (4.50-11.00)
[2022-01-25 07:05] LABS: Slide Review Reflex No
[2022-01-25 07:23] LABS: Albumin* 3.6 g/dL (3.3-5.0); Chloride* 101 mmol/L (96-114); Potassium* 4.7 mmol/L (3.6-5.1); Sodium* 135 mmol/L (135-149)
[2022-01-25 07:26] LABS: Blood Urea Nitrogen* 27 mg/dL (7-30); Calcium* 8.8 mg/dL (8.4-10.6); Carbon Dioxide* 29 mmol/L (20-32); Creatinine* 1.1 mg/dL (0.5-1.5); Est. Creatinine Clearance* 42.21; Estimated Glomerular Filt Rate 54 ml/min; Glucose* 111 mg/dL (60-115); Phosphorus* 4.1 mg/dL (2.5-4.5)
[2022-01-25] MEDS: METOCLOPRAMIDE 10 MG TABLET PO ×3 (08:05→22:40)
[2022-01-25] MEDS: ACETAMINOPHEN 500 MG TABLET 1000 MG PO ×3 (08:45→22:29)
[2022-01-25] MEDS: CEFAZOLIN 1 GM in 0.9 % SODIUM CHLORIDE Mini-bag 100 ML IVPB ×2 (08:46→16:18)
[2022-01-25] MEDS: FERROUS SULFATE 325 MG TABLET PO ×3 (08:46→20:47)
[2022-01-25] MEDS: GABAPENTIN 100 MG CAPSULE 400 MG PO (09:34)
[2022-01-25] MEDS: SODIUM CHLORIDE 0.9 % (FLUSH) 10 ML SYRINGE 5 ML IVF ×2 (09:35→22:25)
[2022-01-25] MEDS: TIZANIDINE HCL 4 MG TABLET PO ×3 (09:36→22:21)
[2022-01-25] MEDS: BUSPIRONE 10 MG TABLET 30 MG PO ×2 (09:36→22:22)
[2022-01-25] MEDS: ASPIRIN 81 MG TABLET EC PO (09:37)
[2022-01-25] MEDS: ATORVASTATIN CALCIUM 40 MG TABLET 80 MG PO (09:37)
[2022-01-25] MEDS: dilTIAZem 120 MG CAP.ER.24H PO (09:38)
[2022-01-25] MEDS: DULOXETINE 30 MG CAPSULE DR 120 MG PO (09:38)
[2022-01-25] MEDS: MAGNESIUM OXIDE 400 MG TABLET PO (09:39)
[2022-01-25] MEDS: METOPROLOL SUCCINATE (XL) 100 MG TAB PO (09:39)
[2022-01-25] MEDS: TORSEMIDE 20 MG TABLET PO (09:40)
[2022-01-25 09:44] LABS: Hemoglobin A1C* 9.55 % (0-5.6)
--- NOTE | 2022-01-25 10:13 | PM.IMPN1 ---
Progress Note: A&P Assessment and plan (1) Stasis dermatitis of lower extremity due to chronic peripheral vascular hypertension: Problem details: bilateral Status: Acute Assessment and Plan: Not super clear if this is a superimposed cellulitis. However there is a dramatic improvement overnight which would really only be from compression and elevation. She did not receive antibiotics till this morning. But I will continue Ancef over the next 24 hours and continue to monitor the improvement in both swelling and, erythema (2) Chronic respiratory failure with hypoxia and hypercapnia: Status: Acute Assessment and Plan: Much improved since her rate improved. Continue to monitor. CO2 retention has resolved. Chest x-ray was reviewed. (3) Chronic CHF (congestive heart failure): Problem details: Preliminary echo results showed that he she has good LV systolic function. LVH which is not new. MR which is not new. However her tricuspid regurg has increased and her pulmonary hypertension has worsened. Status: Acute Assessment and Plan: BMP is much above baseline. The last I can see is 205 in 05/06. It is over 2730 this morning. We will follow this up with an echocardiogram and daily weights. She needs a low-salt diet. (4) Polypharmacy: Status: Acute Assessment and Plan: Pharmacy to help we review and remove unnecessary medications or medications that are causing side effects. (5) Lymphedema: Status: Acute Assessment and Plan: Lymphatic pumps be ideal for this patient. (6) Type 2 diabetes mellitus: Status: Acute Assessment and Plan: Surprisingly her blood sugar is about 105 this morning. We have held her long-acting insulin which is Tresiba, which would be substituted for Levemir here in the hospital. I have also held her scheduled NovoLog. She still has sliding scale. Ave A1c is greater than 9. So most certainly she will need treatment we need to avoid hypoglycemia. (7) Hypothyroid: Status: Acute Assessment and Plan: I will add a TSH to her morning labs (8) Bradycardia: Problem details: Likely related to use of negative chronotropic agents, metoprolol succinate and diltiazem CD. Status: Acute Assessment and Plan: Essentially resolved. Her hypertension without the side effect of bradycardia will be the next step. Subjective Date Seen: 01/25/22 Interval history: Daily Progress Note - Hospital Medicine Day #: 2 CC: I feel better, more energy. I think I have a UTI again. Did yesterday with symptomatic bradycardia and worsening cellulitis verses stasis dermatitis/venous insufficiency. Patient lives at [facility] and walks with a walker. It may be appointment in clinic because her legs looked redder and bigger to her. Right greater than left. But while at the clinic she was noted to have a heart rate at 40 with significant doses of Lopressor. She was sent to the ED for further management. Her ?cellulitis? was outlined. However there were no antibiotics administered. Her home meds were continued. Other than, obviously, her negative chronotropic agents. This morning she feels better. She UTI. When I unwrapped her legs, I sat her up and she was able to tell me that they definitely looked better. OVERNIGHT UPDATES FROM STAFF & MED, LAB, IMAGING UPDATES Total time is 35 minutes with greater than 50% spent in counseling and coordination of care. 144/70 Pulse 80 Resp is 18 afebrile 1 L nasal cannula oxygen 152 kilos CBC is remarkable for a drop in her hemoglobin from baseline of 10.6 down to 9.4 Wbc's 11,000 mildly elevated from a baseline CO2 retention has much improved. A1c 9.5 which is consistent with her history of 9.7 No urine was collected EKG shows first-degree AV block, much improved sinus bradycardia Unremarkable chest x-ray 2 blood cultures pending Review of Systems: See subjective Cardiac: No new chest pain/pressure/palpitations. Respiratory: no new dyspnea. GI: No abdominal bloating Objective: No acute distress Vitals: see above Lungs: Clear. Cardiac: S1S2. Legs: Large lower extremities with intact skin. Bright erythema noted right greater than left. Outlined, previously and is receding. Warm to the touch. Disposition/Potential discharge - Likely to return to previous living situation. Exam Const: Vital Signs, click to edit/add: Vital Signs - 24 hr 01/24/22 15:06 01/24/22 16:07 01/24/22 15:48 Temperature 97.5 F L Pulse Rate Pulse Rate [Pulse Oximeter] 42 L 63 61 Respiratory Rate 24 Blood Pressure [Le ft Arm] Blood Pressure [Le ft Upper Arm] 91/43 L 117/57 L 101/62 Pulse Oximetry 91 95 95 Oxygen Delivery Me thod Room Air Nasal Cannula Nasal Cannula Oxygen Flow Rate 2 01/24/22 16:30 01/24/22 17:00 01/24/22 17:30 Temperature Pulse Rate Pulse Rate [Pulse Oximeter] 59 L 82 65 Respiratory Rate 16 16 24 Blood Pressure [Le ft Arm] Blood Pressure [Le ft Upper Arm] 122/64 130/65 143/72 H Pulse Oximetry 94 82 L 94 Oxygen Delivery Me thod Nasal Cannula Room Air Room Air Oxygen Flow Rate 1 01/24/22 18:00 01/24/22 18:56 01/24/22 21:00 Temperature 98.1 F Pulse Rate Pulse Rate [Pulse Oximeter] 63 70 Respiratory Rate 22 20 Blood Pressure [Le ft Arm] 147/69 H Blood Pressure [Le ft Upper Arm] 134/91 H Pulse Oximetry 95 93 94 Oxygen Delivery Me thod Nasal Cannula Nasal Cannula Nasal Cannula Oxygen Flow Rate 1.0 1.0 01/24/22 21:00 01/24/22 22:52 01/24/22 23:00 Temperature 97.9 F Pulse Rate 59 L Pulse Rate [Pulse Oximeter] 59 L Respiratory Rate 20 Blood Pressure [Le ft Arm] 127/59 L Blood Pressure [Le ft Upper Arm] Pulse Oximetry 94 93 Oxygen Delivery Me thod Nasal Cannula Nasal Cannula Oxygen Flow Rate 1.0 1.0 01/24/22 23:00 01/24/22 23:00 01/25/22 03:00 Temperature 98.5 F Pulse Rate Pulse Rate [Pulse Oximeter] 59 L 74 Respiratory Rate 20 20 22 Blood Pressure [Le ft Arm] 168/70 H Blood Pressure [Le ft Upper Arm] Pulse Oximetry 93 94 Oxygen Delivery Me thod Nasal Cannula Nasal Cannula Oxygen Flow Rate 1.0 1.0 01/25/22 08:36 01/25/22 08:41 01/25/22 07:31 Temperature 98.4 F Pulse Rate 76 Pulse Rate [Pulse Oximeter] 80 Respiratory Rate 18 Blood Pressure [Le ft Arm] 144/70 H Blood Pressure [Le ft Upper Arm] Pulse Oximetry 95 95 Oxygen Delivery Me thod Nasal Cannula Nasal Cannula Oxygen Flow Rate 1 1 Labs Labs: Laboratory Results - last 24 hr 01/24/22 01/24/22 01/24/22 15:20 15:25 15:25 WBC 14.00 H RBC 3.91 L Hgb 10.4 L Hct 34.7 MCV 89 MCH 27 MCHC 30 L RDW Coeff of Trina 16.2 H Plt Count 401 Neut % (Auto) 74.6 H Lymph % (Auto) 11.6 L [place] % (Auto) 8.7 Eos % (Auto) 3.5 Baso % (Auto) 0.2 Neut # (Auto) 10.40 H Lymph # (Auto) 1.60 [place] # (Auto) 1.20 H Eos # (Auto) 0.50 Baso # (Auto) 0.00 Abs Immat Gran (auto) 0.19 VBG pH VBG pCO2 VBG pO2 VBG HCO3 Sodium 137 Potassium 4.8 Chloride 99 Carbon Dioxide 28 BUN 28 Creatinine 1.5 Estimated Creat Clear 30.95 Estimated GFR 37 Glucose 119 H Hemoglobin A1c Lactate Calcium 9.1 Phosphorus Magnesium Total Bilirubin 0.5 AST 26 ALT 19 Alkaline Phosphatase 183 H Troponin I C-Reactive Protein 1.7 H NT-Pro-B Natriuret Pep Total Protein 7.6 Albumin 3.9 Procalcitonin SARS-CoV-2 (PCR) Negative SARS-CoV-2 01/24/22 01/24/22 01/24/22 15:25 15:25 19:16 WBC RBC Hgb Hct MCV MCH MCHC RDW Coeff of Trina Plt Count Neut % (Auto) Lymph % (Auto) [place] % (Auto) Eos % (Auto) Baso % (Auto) Neut # (Auto) Lymph # (Auto) [place] # (Auto) Eos # (Auto) Baso # (Auto) Abs Immat Gran (auto) VBG pH 7.293 L 7.348 VBG pCO2 61 H* 58 H VBG pO2 22.8 L 23.9 L VBG HCO3 30 H 32 H Sodium Potassium Chloride Carbon Dioxide BUN Creatinine Estimated Creat Clear Estimated GFR Glucose Hemoglobin A1c Lactate 2.5 H 1.0 Calcium Phosphorus Magnesium 2.3 Total Bilirubin AST ALT Alkaline Phosphatase Troponin I < 0.01 L C-Reactive Protein NT-Pro-B Natriuret Pep 2730 H Total Protein Albumin Procalcitonin 0.07 SARS-CoV-2 (PCR) 01/25/22 01/25/22 01/25/22 06:22 06:22 06:22 WBC 11.01 H RBC 3.45 L Hgb 9.4 L Hct 30.2 L MCV 88 MCH 27 MCHC 31 L RDW Coeff of Trina Plt Count 324 Neut % (Auto) Lymph % (Auto) [place] % (Auto) Eos % (Auto) Baso % (Auto) Neut # (Auto) Lymph # (Auto) [place] # (Auto) Eos # (Auto) Baso # (Auto) Abs Immat Gran (auto) VBG pH 7.434 H VBG pCO2 45 VBG pO2 194.0 H VBG HCO3 30 H Sodium 135 Potassium 4.7 Chloride 101 Carbon Dioxide 29 BUN 27 Creatinine 1.1 Estimated Creat Clear 42.21 Estimated GFR 54 Glucose 111 Hemoglobin A1c Lactate 1.0 Calcium 8.8 Phosphorus 4.1 Magnesium Total Bilirubin AST ALT Alkaline Phosphatase Troponin I C-Reactive Protein NT-Pro-B Natriuret Pep Total Protein Albumin 3.6 Procalcitonin SARS-CoV-2 (PCR) 01/25/22 06:53 WBC RBC Hgb Hct MCV MCH MCHC RDW Coeff of Trina Plt Count Neut % (Auto) Lymph % (Auto) [place] % (Auto) Eos % (Auto) Baso % (Auto) Neut # (Auto) Lymph # (Auto) [place] # (Auto) Eos # (Auto) Baso # (Auto) Abs Immat Gran (auto) VBG pH VBG pCO2 VBG pO2 VBG HCO3 Sodium Potassium Chloride Carbon Dioxide BUN Creatinine Estimated Creat Clear Estimated GFR Glucose Hemoglobin A1c 9.55 H Lactate Calcium Phosphorus Magnesium Total Bilirubin AST ALT Alkaline Phosphatase Troponin I C-Reactive Protein NT-Pro-B Natriuret Pep Total Protein Albumin Procalcitonin SARS-CoV-2 (PCR)
[2022-01-25 13:12] LABS: Appearance Urine Clear (Clear); Color Urine Yellow (Yellow)
[2022-01-25 13:13] LABS: Bilirubin Urine Negative (Negative); Blood Urine Negative (Negative); Glucose Urine Negative (Negative); Ketones Urine Negative (Negative); Protein Urine Negative (Negative); Specific Gravity Urine <= 1.005 (1.000-1.030); pH Urine 5.5 (5.0-8.5)
[2022-01-25 13:14] LABS: Leukocyte Esterase Urine 1+ (Negative); Nitrite Urine Negative (Negative); RBC Urine 0-2 (0-2); Squamous Epithelial Cell Urine Few (None-Few); Urobilinogen Urine 0.2 (0.2-1.0); WBC Urine 25-50 (0-5)
[2022-01-25 13:15] LABS: Bacteria Urine Few
[2022-01-25] MEDS: FUROSEMIDE 10 MG/ML inj 40 MG IVP (16:17)
[2022-01-25] MEDS: ONDANSETRON ODT 4 MG TAB PO (21:31)
[2022-01-25] MEDS: MONTELUKAST 10 MG TABLET PO (22:21)
[2022-01-25] MEDS: NYSTATIN POWDER 1 APPLIC TOPICAL (22:22)
[2022-01-26] VITALS (9 sets, daily range): BP systolic 148–190; BP diastolic 59–84; PULSE 72–97; RESP 16–20; TEMP 36.6–36.8; O2SAT 90–92
[2022-01-26] MEDS: CEFAZOLIN 1 GM in 0.9 % SODIUM CHLORIDE Mini-bag 100 ML IVPB ×3 (00:38→16:23)
[2022-01-26] MEDS: OXYCODONE 5 MG TABLET PO ×4 (02:30→22:48)
[2022-01-26] MEDS: LEVOTHYROXINE 50 MCG TABLET PO (06:45)
[2022-01-26 07:08] LABS: HCO3 VBG 34 mmol/L (21-28); PCO2 VBG 56 mmHG (40-50); pH VBG 7.393 (7.32-7.43)
--- NOTE | 2022-01-26 07:11 | PC.NURSE ---
END OF SHIFT NOTE: NIGHT UNEVENTFUL. PT WITH MULTIPLE INCONTINENT VOIDS IN BRIEF. PT UNABLE TO SLEEP IN BED D/T BACK PAIN. BLE REDNESS DECREASING. PT HOME TEDS WET FROM URINE; HANDWASHED AND HANG DRYING IN BATHROOM. PAIN RELIEVED WITH PRN OXY. AMBULATES WITH WALKER, A1, GB.
[2022-01-26 07:30] LABS: Albumin* 3.7 g/dL (3.3-5.0); Chloride* 97 mmol/L (96-114); Potassium* 4.1 mmol/L (3.6-5.1); Sodium* 136 mmol/L (135-149)
[2022-01-26 07:33] LABS: Aspartate Amino Transferase* 16 U/L (12-35); Bilirubin Total* 0.5 mg/dL (0.1-1.5); Blood Urea Nitrogen* 22 mg/dL (7-30); Carbon Dioxide* 34 mmol/L (20-32); Cholesterol* 109 mg/dL (90-199); Creatinine* 0.9 mg/dL (0.5-1.5); Est. Creatinine Clearance* 46.43; Estimated Glomerular Filt Rate 68 ml/min; Total Protein* 7.1 g/dL (6.0-8.3)
[2022-01-26 07:34] LABS: Alanine Aminotransferase* 13 U/L (4-35); Alkaline Phosphatase* 155 U/L (40-150); Calcium* 9.1 mg/dL (8.4-10.6); Glucose* 187 mg/dL (60-115); HDL Cholesterol* 26 mg/dL (>=50); LDL Cholesterol Calculated 49 mg/dL (<100); Magnesium* 2.1 mg/dL (1.5-2.6); Triglycerides* 171 mg/dL (40-149)
[2022-01-26 07:36] LABS: C Reactive Protein* 2.1 mg/dL (0.5-1.0)
[2022-01-26 08:01] LABS: Hematocrit 30.7 % (33.0-51.0); Hemoglobin* 9.6 gm/dL (12.0-16.0); Mean Corpuscular HGB Conc 31 gm/dL (32-36); Mean Corpuscular Hemoglobin 27 pg (26-34); Mean Corpuscular Volume 87 fL (80-100); Red Blood Count 3.53 m/uL (4.00-5.20); White Blood Count* 8.48 K/uL (4.50-11.00)
[2022-01-26 08:02] LABS: Platelet Count* 283 K/uL (140-440)
[2022-01-26 08:04] LABS: Slide Review Reflex No
[2022-01-26] MEDS: ATORVASTATIN CALCIUM 40 MG TABLET 80 MG PO (08:43)
[2022-01-26] MEDS: TORSEMIDE 20 MG TABLET PO (08:43)
[2022-01-26] MEDS: GABAPENTIN 100 MG CAPSULE 400 MG PO (08:44)
[2022-01-26] MEDS: ACETAMINOPHEN 500 MG TABLET 1000 MG PO ×3 (08:44→20:40)
[2022-01-26] MEDS: MAGNESIUM OXIDE 400 MG TABLET PO (08:45)
[2022-01-26] MEDS: TIZANIDINE HCL 4 MG TABLET PO ×3 (08:45→20:40)
[2022-01-26] MEDS: METOPROLOL SUCCINATE (XL) 100 MG TAB PO (08:46)
[2022-01-26] MEDS: ASPIRIN 81 MG TABLET EC PO (08:46)
[2022-01-26] MEDS: dilTIAZem 120 MG CAP.ER.24H PO (08:47)
[2022-01-26] MEDS: OMEPRAZOLE 20 MG CAPSULE DR PO ×2 (08:47→20:40)
[2022-01-26] MEDS: FERROUS SULFATE 325 MG TABLET PO ×3 (08:47→17:33)
[2022-01-26] MEDS: NYSTATIN POWDER 1 APPLIC TOPICAL ×3 (08:48→21:03)
[2022-01-26] MEDS: polyethylene glycoL 3350 17 GM PACK PO (08:48)
[2022-01-26] MEDS: METOCLOPRAMIDE 10 MG TABLET PO ×4 (08:48→20:41)
[2022-01-26] MEDS: DULOXETINE 30 MG CAPSULE DR 120 MG PO (08:51)
[2022-01-26] MEDS: BUSPIRONE 10 MG TABLET 30 MG PO ×2 (08:56→20:41)
--- NOTE | 2022-01-26 08:59 | P.IMPN_ITS ---
Progress Note: A&P Assessment and plan (1) Stasis dermatitis of lower extremity due to chronic peripheral vascular hypertension: Problem details: bilateral, shiny red. Hint of bolus formation. Not extending past outlined ink. Swollen. 2+ pedal edema. -reviewed 2019 lymphedema clinic notes. Patient did not follow-up. Patient states that she does not like compression pumps -continue Ancef Q 8. Likely switch to oral tomorrow. Referral back to outpatient lymphedema clinic. Status: Acute (2) Pulmonary hypertension: Problem details: Continue diuretic plan. She got 1 dose of IV Lasix with excellent diuresis overnight. She is down 3.5 kg 1. Normal left ventricular size, moderately increased wall thickness, normal global systolic function, calculated EF of 69 %. 2. Right ventricular cavity size is normal, global systolic RV function is normal. 3. Mildly enlarged left atrium. 4. The aortic valve is sclerotic, no stenosis and mild regurgitation. 5. The mitral valve is sclerotic, mild to moderate mitral regurgitation. 6. Moderate tricuspid regurgitation. 7. Grade 2 pattern of LV diastolic filling. Tricuspid regurgitation is moderate. The tricuspid regurgitant velocity is 3.4 m/s, the estimated right ventricular systolic pressure is 47 mmHg plus right atrial pressure. There is elevated estimated pulmonary pressure by tricuspid regurgitation velocity and right atrial pressure Status: Acute Assessment and Plan: . (3) Chronic respiratory failure with hypoxia and hypercapnia: Problem details: O2 dependence has resolved. This is most likely related to chronic pulmonary hypertension related to her body habitus. Status: Acute (4) Polypharmacy: Status: Acute (5) Lymphedema: Problem details: Patient will need referral back to the lymphedema clinic. Status: Acute (6) Type 2 diabetes mellitus: Problem details: She was on a tremendous amount a Tresiba insulin, 130 units at bedtime from her home medication reconciliation. Knowing that we have not really used that eleazar unt of insulin here in the hospital, makes me wonder if she was either adherent to the 130 units or if she was not absorbing such a large dose of insulin into her subcutaneous tissue. I have restarted her mealtime insulin as her blood sugars have climbed and I am going to start back with just 20 units of insulin glargine at night. Insulin Education once again will be given to the patient. Status: Acute (7) Hypothyroid: Problem details: Continue home med Status: Acute (8) Bradycardia: Problem details: Resolved. Likely related to use of negative chronotropic agents, metoprolol succinate and diltiazem CD. Status: Acute (9) Chronic CHF (congestive heart failure): Problem details: Chronic systolic congestive Heart failure, preserved EF. Primarily pulmonary hypertension. Class 2. Status: Acute (10) Essential hypertension: Problem details: We decreased her metoprolol to 100 mg daily secondary to bradycardia and hypotension. We will continue her diltiazem at 120 mg. I have added losartan 50 mg daily. Status: Acute Subjective Date Seen: 01/26/22 Interval history: Daily Progress Note - Hospital Medicine Day #: 3 CC: I am not sure my legs are any better. I was up a lot urinating. I breathing better. Bradycardia has resolved with reduction in her Lopressor. Blood pressure has clearly increased without the extra chronotropic agent. I have added losartan.. Patient lives at [place] and walks with a walker. Patient that she had a UTI. We checked a urine and this was a mildly suspicious. There has been no growth overnight in her urine culture. OVERNIGHT UPDATES FROM STAFF & MED, LAB, IMAGING UPDATES Blood pressures jumped to 190/84. Pulse 79. Afebrile. Now on room air Admitted at 152 kilos, now 148 kilos CBC has downtrended nicely now there is no significant leukocytosis Hemoglobin is stable at 9.6 CO2 retention has climbed back to 56. For echo yesterday shows her LVH which is chronic but her pulmonary hypertension is worse. Metabolic panel is reassuring CRP marginally elevated 1.8-2.1 BMP 2750, up from 2730 A1c 9.5 which is consistent with her history of 9.7 EKG shows first-degree AV block, much improved sinus bradycardia Unremarkable chest x-ray 2 blood cultures remain negative Review of Systems: See subjective Cardiac: No new chest pain/pressure/palpitations. Respiratory: no new dyspnea. GI: No abdominal bloating Objective: No acute distress Vitals: see above Lungs: Clear. Cardiac: S1S2. Legs: Large lower extremities with intact skin. Bright erythema noted right greater than left. A couple of early forming blisters noted, especially on the right. Not consistent with bolus pemphigoidlined, previously outline initially receded, about the same as yesterday. Warm to the touch. 2+ pedal edema. Disposition/Potential discharge - hopefully in the morning. Likely to return to previous living situation. [place]. Exam Const: Vital Signs, click to edit/add: Vital Signs - 24 hr 01/25/22 11:19 01/25/22 15:00 01/25/22 15:00 Temperature 98.5 F Pulse Rate 78 Pulse Rate [Pulse Oximeter] 78 76 Respiratory Rate 18 18 Blood Pressure [Le ft Arm] 154/64 H Pulse Oximetry 91 Oxygen Delivery Me thod Room Air Oxygen Flow Rate 01/25/22 15:00 01/25/22 15:32 01/25/22 21:00 Temperature 98.5 F 98.4 F Pulse Rate Pulse Rate [Pulse Oximeter] 76 74 Respiratory Rate 18 18 20 Blood Pressure [Le ft Arm] 151/67 H 170/90 H Pulse Oximetry 92 92 92 Oxygen Delivery Me thod Room Air Room Air Room Air Oxygen Flow Rate 1 01/26/22 01:00 01/25/22 23:00 01/25/22 23:00 Temperature Pulse Rate 72 Pulse Rate [Pulse Oximeter] 74 Respiratory Rate 20 20 Blood Pressure [Le ft Arm] Pulse Oximetry 92 Oxygen Delivery Me thod Room Air Oxygen Flow Rate 0 01/25/22 23:55 01/26/22 03:00 Temperature 98.2 F 97.8 F Pulse Rate Pulse Rate [Pulse Oximeter] 77 79 Respiratory Rate 18 20 Blood Pressure [Le ft Arm] 188/78 H 190/84 H Pulse Oximetry 92 90 Oxygen Delivery Me thod Room Air Room Air Oxygen Flow Rate 0 Labs Labs: Laboratory Results - last 24 hr 01/25/22 01/25/22 01/25/22 06:22 06:53 11:29 WBC RBC Hgb Hct MCV MCH MCHC Plt Count VBG pH VBG pCO2 VBG pO2 VBG HCO3 Sodium Potassium Chloride Carbon Dioxide BUN Creatinine Estimated Creat Clear Estimated GFR Glucose Hemoglobin A1c 9.55 H Calcium Magnesium Total Bilirubin AST ALT Alkaline Phosphatase C-Reactive Protein Total Protein Albumin Triglycerides Cholesterol LDL Cholesterol, Calc HDL Cholesterol TSH 4.340 H Urine Color Yellow Urine Appearance Clear Urine pH 5.5 Ur Specific [place] <= 1.005 Urine Protein Negative Urine Glucose (UA) Negative Urine Ketones Negative Urine Blood Negative Urine Nitrite Negative Urine Bilirubin Negative Urine Urobilinogen 0.2 Ur Leukocyte Esterase 1+ A Urine RBC 0-2 Urine WBC 25-50 A Ur Squamous Epith Cells Few Urine Bacteria Few A 09/11/22 09/11/22 09/11/22 06:15 06:15 06:15 WBC 8.48 RBC 3.53 L Hgb 9.6 L Hct 30.7 L MCV 87 MCH 27 MCHC 31 L Plt Count 283 VBG pH 7.393 VBG pCO2 56 H VBG pO2 39.0 VBG HCO3 34 H Sodium 136 Potassium 4.1 Chloride 97 Carbon Dioxide 34 H BUN 22 Creatinine 0.9 Estimated Creat Clear 46.43 Estimated GFR 68 Glucose 187 H Hemoglobin A1c Calcium 9.1 Magnesium 2.1 Total Bilirubin 0.5 AST 16 ALT 13 Alkaline Phosphatase 155 H C-Reactive Protein 2.1 H Total Protein 7.1 Albumin 3.7 Triglycerides 171 H Cholesterol 109 LDL Cholesterol, Calc 49 HDL Cholesterol 26 L TSH Urine Color Urine Appearance Urine pH Ur Specific Magnolia Urine Protein Urine Glucose (UA) Urine Ketones Urine Blood Urine Nitrite Urine Bilirubin Urine Urobilinogen Ur Leukocyte Esterase Urine RBC Urine WBC Ur Squamous Epith Cells Urine Bacteria
[2022-01-26] MEDS: SODIUM CHLORIDE 0.9 % (FLUSH) 10 ML SYRINGE 5 ML IVF ×2 (09:04→21:03)
[2022-01-26] MEDS: LOSARTAN POTASSIUM 50 MG TABLET PO (09:09)
[2022-01-26 09:16] LABS: NT Pro B Type NatriureticPept* 2750 PG/mL (0-125)
--- NOTE | 2022-01-26 15:39 | PC.NURSE ---
End of shift: Patient pleasant and cooperative. Patient vitally stable, lungs clear, BS WNL, IV intact. Patient SBA with walker. Patient rates leg and back pain 7-8/10, 5 mg of oxy given once along with scheduled Tylenol. Bilateral extremities are reddened but not hot. Bilateral legs sarah wrapped with patient's Velcro wraps over them. Patient tolerating regular diet and urinating. Patient used toilet x3 and brief was changed once. Brief was well soiled. Patient's BS's were 160 and 178
[2022-01-26] MEDS: MONTELUKAST 10 MG TABLET PO (20:41)
[2022-01-26] MEDS: TRAZODONE HCL 50 MG TABLET 100 MG PO (22:48)
[2022-01-27] MEDS: CEFAZOLIN 1 GM in 0.9 % SODIUM CHLORIDE Mini-bag 100 ML IVPB ×2 (00:33→09:13)
[2022-01-27 00:35] VITALS: PULSE 71
[2022-01-27] MEDS: LEVOTHYROXINE 50 MCG TABLET PO (06:33)
[2022-01-27 06:43] LABS: HCO3 VBG 34 mmol/L (21-28); PCO2 VBG 48 mmHG (40-50); PO2 VBG 95.1 mmHG (25-47); pH VBG 7.462 (7.32-7.43)
[2022-01-27 06:44] LABS: Hematocrit 31.2 % (33.0-51.0); Hemoglobin* 9.7 gm/dL (12.0-16.0); Mean Corpuscular HGB Conc 31 gm/dL (32-36); Mean Corpuscular Hemoglobin 27 pg (26-34); Mean Corpuscular Volume 87 fL (80-100); Platelet Count* 274 K/uL (140-440); White Blood Count* 8.36 K/uL (4.50-11.00)
--- NOTE | 2022-01-27 06:53 | PC.NURSE ---
END OF SHIFT NOTE: PT PLEASANT AND COOPERATIVE. INCONTINENT OF BLADDER. WEARS BRIEF WITH XL PAD INSERT. AMBULATES WITH WALKER, GB, SBA. RATES CHRONIC BLE AND BACK PAIN 6-8/10 WITH RELIEF WITH PRN OXY. VS AND WNL; AFEBRILE.
[2022-01-27 07:11] LABS: Slide Review Reflex No
[2022-01-27 07:50] VITALS: BP 157/63; PULSE 89; RESP 22; TEMP 37; O2SAT 92
[2022-01-27 07:52] LABS: Chloride* 99 mmol/L (96-114); Sodium* 136 mmol/L (135-149)
[2022-01-27 07:55] LABS: Carbon Dioxide* 31 mmol/L (20-32); Creatinine* 0.8 mg/dL (0.5-1.5); Est. Creatinine Clearance* 46.43; Estimated Glomerular Filt Rate 79 ml/min
[2022-01-27 07:56] LABS: Blood Urea Nitrogen* 19 mg/dL (7-30); Calcium* 9.3 mg/dL (8.4-10.6); Glucose* 126 mg/dL (60-115)
[2022-01-27 07:58] LABS: C Reactive Protein* 1.2 mg/dL (0.5-1.0)
[2022-01-27 08:05] LABS: NT Pro B Type NatriureticPept* 2000 PG/mL (0-125)
[2022-01-27] MEDS: GABAPENTIN 100 MG CAPSULE 400 MG PO (09:09)
[2022-01-27] MEDS: FERROUS SULFATE 325 MG TABLET PO ×2 (09:09→11:30)
[2022-01-27] MEDS: BUSPIRONE 10 MG TABLET 30 MG PO (09:09)
[2022-01-27] MEDS: ACETAMINOPHEN 500 MG TABLET 1000 MG PO (09:09)
[2022-01-27] MEDS: TORSEMIDE 20 MG TABLET PO (09:10)
[2022-01-27] MEDS: ATORVASTATIN CALCIUM 40 MG TABLET 80 MG PO (09:10)
[2022-01-27] MEDS: polyethylene glycoL 3350 17 GM PACK PO (09:10)
[2022-01-27] MEDS: MAGNESIUM OXIDE 400 MG TABLET PO (09:10)
[2022-01-27] MEDS: LOSARTAN POTASSIUM 50 MG TABLET PO (09:10)
[2022-01-27] MEDS: dilTIAZem 120 MG CAP.ER.24H PO (09:10)
[2022-01-27] MEDS: TIZANIDINE HCL 4 MG TABLET PO (09:10)
[2022-01-27] MEDS: ASPIRIN 81 MG TABLET EC PO (09:11)
[2022-01-27] MEDS: NYSTATIN POWDER 1 APPLIC TOPICAL (09:11)
[2022-01-27] MEDS: METOPROLOL SUCCINATE (XL) 100 MG TAB PO (09:11)
[2022-01-27] MEDS: SODIUM CHLORIDE 0.9 % (FLUSH) 10 ML SYRINGE 5 ML IVF (09:12)
[2022-01-27] MEDS: DULOXETINE 30 MG CAPSULE DR 120 MG PO (09:20)
[2022-01-27] MEDS: OXYCODONE 5 MG TABLET PO (11:30)
[2022-01-27] MEDS: METOCLOPRAMIDE 10 MG TABLET PO (11:30)
--- NOTE | 2022-01-27 12:09 | P.DS_ITS ---
DS: Providers Provider Date Seen: 01/27/22 Date of admission: 01/26/22 20:33 Primary care physician: Germania Jones MD Admitting Clinician: Daniel Sibley MD Consults: 01/24/22 21:45 Consult to Occupational Therapy [CONS] Routine Comment: Reason(s) for OT Consult:: Difficulty Managing ADLs Any Restrictions?:: Unknown Consult to Physical Therapy [CONS] Routine Comment: Reason(s) for PT Consult:: Unstable Gait Any Restrictions?:: Unknown Attending Physician on discharge: Dayami Washburn MD Date of Discharge: 01/27/22 DS: Diagnosis Discharge Diagnosis (1) Pulmonary hypertension: Status: Acute Problem details: I kept her on her daily Demadex at discharge, no change. 1. Normal left ventricular size, moderately increased wall thickness, normal global systolic function, calculated EF of 69 %. 2. Right ventricular cavity size is normal, global systolic RV function is normal. 3. Mildly enlarged left atrium. 4. The aortic valve is sclerotic, no stenosis and mild regurgitation. 5. The mitral valve is sclerotic, mild to moderate mitral regurgitation. 6. Moderate tricuspid regurgitation. 7. Grade 2 pattern of LV diastolic filling. Tricuspid regurgitation is moderate. The tricuspid regurgitant velocity is 3.4 m/s, the estimated right ventricular systolic pressure is 47 mmHg plus right atrial pressure. There is elevated estimated pulmonary pressure by tricuspid regurgitation velocity and right atrial pressure (2) Essential hypertension: Status: Acute Problem details: We decreased her metoprolol to 100 mg daily secondary to bradycardia and hypote nsion. We will continue her diltiazem at 120 mg. I have added losartan 50 mg daily. (3) Type 2 diabetes mellitus: Status: Acute Problem details: She was on a tremendous amount a Tresiba insulin, 130 units at bedtime from her home medication reconciliation. Knowing that we have not really used that a mount of insulin here in the hospital, makes me wonder if she was either adherent to the 130 units or if she was not absorbing such a large dose of insulin into her subcutaneous tissue. I have restarted her mealtime insulin as her blood sugars have climbed and I am going to start back with just 20 units of insulin glargine at night. Insulin Education once again will be given to the patient. (4) Hypothyroid: Status: Acute Problem details: Continue home med (5) Lymphedema: Status: Acute Problem details: Patient will need referral back to the lymphedema clinic. (6) Chronic CHF (congestive heart failure): Status: Acute Problem details: Chronic systolic congestive Heart failure, preserved EF. Primarily pulmonary hypertension. Class 2. (7) Polypharmacy: Status: Acute (8) Stasis dermatitis of lower extremity due to chronic peripheral vascular hypertension: Status: Acute Problem details: cefadroxil 500mg BID. Referral back to outpatient lymphedema clinic. DS: Summary Hospital Course Hospital Course: HOSPITALIST DISCHARGE SUMMARY ATTENDING PHYSICIAN: Dayami Washburn MD FINAL DIAGNOSIS: Pulmonary hypertension with mild acute congestive symptoms Mild cellulitis, superimposed chronic stasis dermatitis HOSPITAL FOLLOWUP ISSUES: 1. History of acute bradycardia. This was felt to be secondary to a 200 mg dose of Lopressor she had previously been on. Once we stopped the 200 mg, changing it to 100 mg, her bradycardia resolved. This can continue to be monitored including her new hypertensive regimen. 2.. Blood glucose monitoring. Patient should check her sugars 3 to 4 times a day. We drastically changed does of her Tresiba, long-acting insulin. She came in on 130 units at bedtime, we felt she was not absorbing this large amount. We changed her to 20 units of an equivalent long-acting insulin and we feel she can resume her meal-time insulin, FIASP at 15 UNITS, with meals. Her blood sugars ran 100 and 200s. 3. Mild cellulitis on superimposed stasis dermatitis. Finish oral antibiotic as previously prescribed before admission. Cefadroxil 500mg BID for 5 days. REFERRALS WHILE ADMITTED: PT, OT REFERRALS AFTER DISCHARGE: 1. Lymphedema clinic. Patient needs continued Education about wraps and pumps. BRIEF HOSPITAL COURSE: Maite came in with acute bradycardia and presyncope. Reading this was likely related to beta blockade. Change the dose of her beta-dena, her bradycardia resolved. We updated her echocardiogram and this showed worsening pulmonary hypertension but otherwise stable findings. We adjusted her blood pressure medication. With the reduction of Lopressor to 100 mg, we added losartan 50 mg daily. We also diuresed her and she lost a few lb related to some acute mild acute congestive symptoms. We gave her IV Ancef for bilateral mild cellulitis. Her legs will likely chronically be swollen and red. Would like to see her return to the lymphedema clinic for further cares. VITAL SIGN, MEDICATION, LAB/MICRO, IMAGING SUMMARY (full details available in account tabs or by records request) DISCHARGE MEDICATIONS: See Reconciled list REVIEW OF SYSTEMS No new chest pain or dyspnea Pain controlled No voiding difficulties Tolerating diet challenge PHYSICAL EXAM: CONSTITUTIONAL: Alert. Stating she feels better today than she has previously. VITAL SIGNS: see record. HEENT: Normocephalic, atraumatic. PERRL, EOMI, conjunctivae pink, no scleral icterus. Ears and nose externally normal. Pharynx normal. NECK: No JVD. No carotid bruit, no thyromegaly, no adenopathy. CHEST: Clear to auscultation bilaterally. HEART: S1 and S2 normal. Edema 2+ pitting edema ABDOMEN: Soft, nontender. Normal bowel sounds. MUSCULOSKELETAL: No gross joint deformity or swelling. NEURO: Cranial nerves intact. Grossly intact. No asymmetric findings. SKIN: Large erythematous swollen bilateral lower extremities. 2+ pitting edema PSYCHIATRIC: Mood euthymic. DISPOSITION: [facility] Time spent on discharge 37 minutes. . Time Spent with Patient Time attestation: Total time spent providing and/or coordinating discharge services: Exam Const: Vital Signs, click to edit/add: Vital Signs - 24 hr 01/26/22 16:00 01/26/22 16:00 01/26/22 16:00 Temperature 98.3 F Pulse Rate Pulse Rate [Pulse Oximeter] 82 82 Respiratory Rate 18 20 18 Blood Pressure [Le ft Forearm] 169/70 H Pulse Oximetry 90 90 Oxygen Delivery Me thod Room Air Room Air Oxygen Flow Rate 0 0 01/26/22 18:25 01/26/22 20:45 01/27/22 00:35 Temperature 98.0 F Pulse Rate 75 71 Pulse Rate [Pulse Oximeter] 75 Respiratory Rate 18 Blood Pressure [Le ft Forearm] 161/74 H Pulse Oximetry 92 Oxygen Delivery Me thod Room Air Oxygen Flow Rate 0 01/26/22 23:00 01/26/22 23:00 01/26/22 23:00 Temperature 98.1 F Pulse Rate Pulse Rate [Pulse Oximeter] 74 74 Respiratory Rate 18 18 18 Blood Pressure [Le ft Forearm] 162/67 H Pulse Oximetry 91 91 Oxygen Delivery Me thod Room Air Room Air Oxygen Flow Rate 0 0 DS: Data Data Completed and Pending Labs on day of discharge: Labs from last 24 hours 01/27/22 01/27/22 01/27/22 06:11 06:11 06:11 WBC 8.36 RBC 3.60 L Hgb 9.7 L Hct 31.2 L MCV 87 MCH 27 MCHC 31 L Plt Count 274 VBG pH 7.462 H VBG pCO2 48 VBG pO2 95.1 H VBG HCO3 34 H Sodium 136 Potassium 4.0 Chloride 99 Carbon Dioxide 31 BUN 19 Creatinine 0.8 Estimated Creat Clear 46.43 Estimated GFR 79 Glucose 126 H Calcium 9.3 C-Reactive Protein 1.2 H NT-Pro-B Natriuret Pep 2000 H Preliminary micro results at discharge 01/24/22 15:45 Blood Culture - Preliminary Blood NO GROWTH AFTER 48 HOURS 01/24/22 15:25 Blood Culture - Preliminary Blood NO GROWTH AFTER 48 HOURS Discharge Plan Discharge Disposition: Xfer Other Date of Admission: 01/26/22 20:33 Attending Provider on Discharge: Dayami Washburn Primary Care Provider: Germania Jones I Condition: Improved Anticipated Discharge Date/Time: 01/27/22 11:39 Discharge Medications: New metoprolol succinate 100 mg Tablet Extended Release 24 Hr 100 mg PO DAILY Qty: 30 0RF losartan 50 mg Tablet 50 mg PO DAILY Qty: 30 0RF Continued menthol-zinc oxide [Calmoseptine] 0.44-20.6 % ointment 1 applic topical QID PRN (Reason: skin irritation) Qty: 113 0RF albuterol sulfate [Ventolin HFA] 90 mcg/actuation HFA aerosol inhaler 2 puff INHALATION Q6H PRN aspirin [Adult Low Dose Aspirin] 81 mg tablet,delayed release (DR/EC) 81 mg PO DAILY atorvastatin 80 mg tablet 80 mg PO DAILY buspirone 30 mg tablet 30 mg PO BID diltiazem HCl 120 mg capsule,extended release 24hr 120 mg PO DAILY duloxetine 60 mg capsule,delayed release(DR/EC) 120 mg PO DAILY ferrous gluconate 324 mg (37.5 mg iron) tablet 324 mg PO TIDWM gabapentin 400 mg capsule 400 mg PO DAILY levothyroxine 50 mcg tablet 50 mcg PO DAILY fluticasone propionate 50 mcg/actuation spray,suspension 1 spray INTRANASAL DAILY PRN magnesium oxide 400 mg magnesium capsule 400 mg PO DAILY torsemide 20 mg tablet 20 mg PO DAILY tizanidine 4 mg tablet 4 mg PO TID sumatriptan succinate 50 mg tablet 50 mg PO BID PRN trazodone 100 mg tablet 100 mg PO HS PRN omeprazole 20 mg capsule,delayed release(DR/EC) 20 mg PO BID montelukast 10 mg tablet 10 mg PO HS metoclopramide HCl 10 mg tablet 10 mg PO ACHS acetaminophen 500 mg tablet 1,000 mg PO TID diclofenac sodium [Arthritis Pain (diclofenac)] 1 % gel 2 g topical QID fluconazole 150 mg tablet 150 mg PO Q7D Rx Instructions: WEEKLY ON THURSDAY nystatin [Nystop] 100,000 unit/gram powder 1 applic TOPICAL TID polyethylene glycol 3350 [Miralax] 17 gram/dose powder 17 g PO DAILY alum-mag hydroxide-simeth [Advanced Antacid-Antigas] 200-200-20 mg/5 mL suspension 5 - 10 ml PO TID PRN loperamide 2 mg capsule 2 - 4 mg PO Q6H PRN calcium carbonate [Calcium 500] 500 mg calcium (1,250 mg) tablet,chewable 1,000 - 2,000 mg PO TID PRN dextromethorphan HBr 15 mg/5 mL liquid 15 - 30 mg PO Q6H PRN guaifenesin [Adult Tussin Chest Congestion] 100 mg/5 mL liquid 100 - 200 mg PO Q6H PRN diphenhydramine HCl [Aler-Cap] 25 mg capsule 25 - 50 mg PO Q8H PRN ibuprofen [Addaprin] 200 mg tablet 200 - 400 mg PO Q6H PRN magnesium hydroxide [Milk of Magnesia] 400 mg/5 mL suspension 15 - 30 ml PO DAILY PRN ondansetron 4 mg tablet,disintegrating 4 mg PO Q8H PRN oxycodone 5 mg tablet 5 - 10 mg PO Q4H PRN buprenorphine HCl [Belbuca] 300 mcg film 300 mcg BUCCAL BID cefadroxil 500 mg capsule 500 mg PO BID Qty: 10 0RF Changed Tresiba FlexTouch U-200 200 unit/mL (3 mL) insulin pen 20 unit subcut HS Qty: 9 0RF Fiasp FlexTouch U-100 Insulin 100 unit/mL (3 mL) insulin pen 15 unit SUBCUT TIDWM Qty: 15 0RF Rx Instructions: PLUS SLIDING SCALE Discontinued metoprolol succinate 100 mg tablet extended release 24 hr 100 mg PO DAILY Discharge Orders: Discharge Order (Routine); Ordered 01/27/22 Ordered By: Dayami Washburn Activity Restrictions/Additional Instructions: Important change to her insulin therapy UPDATED 01/27/22 @ 3460 1. RESUME FIASP INSULIN AT 15 UNITS WITH MEALS AND SLIDING SCALE 2. ONLY 20 units of Tresiba (long acting insulin) each night. Previously she had been on 130 UNITS and we don't feel she was absorbing this insulin thus it isn't such a giant drop in dose of insulin. Her blood sugars have fairly well controlled here. 3. DECREASED her metoprolol XL from 200 mg daily to 100 mg daily. 4. Added losartan 50 mg daily for hypertension Activity Level: Activity as Tolerated Discharge Diet: Heart Healthy (2 gm sodium, low fat) Follow Up Appointments: Germania Jones MD [Primary Care Provider] - None (as needed) Forms: [facility] Info Instructions Hospital Course: HOSPITALIST DISCHARGE SUMMARY ATTENDING PHYSICIAN: Dayami Washburn MD FINAL DIAGNOSIS: Pulmonary hypertension with mild acute congestive symptoms Mild cellulitis, superimposed chronic stasis dermatitis HOSPITAL FOLLOWUP ISSUES: 1. History of acute bradycardia. This was felt to be secondary to a 200 mg dose of Lopressor she had previously been on. Once we stopped the 200 mg, changing it to 100 mg, her bradycardia resolved. This can continue to be monitored including her new hypertensive regimen. 2.. Blood glucose monitoring. Patient should check her sugars 3 to 4 times a day. We drastically changed does of her Tresiba, long-acting insulin. She came in on 130 units at bedtime, we felt she was not absorbing this large amount. We changed her to 20 units of an equivalent long-acting insulin and we feel she can resume her meal-time insulin, FIASP at 15 UNITS, with meals. Her blood sugars ran 100 and 200s. 3. Mild cellulitis on superimposed stasis dermatitis. Finish oral antibiotic as previously prescribed before admission. Cefadroxil 500mg BID for 5 days. REFERRALS WHILE ADMITTED: PT, OT REFERRALS AFTER DISCHARGE: 1. Lymphedema clinic. Patient needs continued Education about wraps and pumps. BRIEF HOSPITAL COURSE: Maite came in with acute bradycardia and presyncope. Reading this was likely related to beta blockade. Change the dose of her beta-dena, her bradycardia resolved. We updated her echocardiogram and this showed worsening pulmonary hypertension but otherwise stable findings. We adjusted her blood pressure medication. With the reduction of Lopressor to 100 mg, we added losartan 50 mg daily. We also diuresed her and she lost a few lb related to some acute mild acute congestive symptoms. We gave her IV Ancef for bilateral mild cellulitis. Her legs will likely chronically be swollen and red. Would like to see her return to the lymphedema clinic for further cares. VITAL SIGN, MEDICATION, LAB/MICRO, IMAGING SUMMARY (full details available in account tabs or by records request) DISCHARGE MEDICATIONS: See Reconciled list REVIEW OF SYSTEMS No new chest pain or dyspnea Pain controlled No voiding difficulties Tolerating diet challenge PHYSICAL EXAM: CONSTITUTIONAL: Alert. Stating she feels better today than she has previously. VITAL SIGNS: see record. HEENT: Normocephalic, atraumatic. PERRL, EOMI, conjunctivae pink, no scleral icterus. Ears and nose externally normal. Pharynx normal. NECK: No JVD. No carotid bruit, no thyromegaly, no adenopathy. CHEST: Clear to auscultation bilaterally. HEART: S1 and S2 normal. Edema 2+ pitting edema ABDOMEN: Soft, nontender. Normal bowel sounds. MUSCULOSKELETAL: No gross joint deformity or swelling. NEURO: Cranial nerves intact. Grossly intact. No asymmetric findings. SKIN: Large erythematous swollen bilateral lower extremities. 2+ pitting edema PSYCHIATRIC: Mood euthymic. DISPOSITION: [facility] home Time spent on discharge 37 minutes. .
[2022-01-27 12:56] VITALS: PULSE 80
--- NOTE | 2022-01-27 13:18 | PC.NURSE ---
Please see [facility] for medications provided on day shift. BG 118 prior to bkfst and 195 prior to lunch. Report called to Ktety @ 1040am ([phone]) at [place], d/c orders faxed per request of accepting facility. Pt signed her d/c paperwork per protocol. Care information provided for [facility] in manila envelope. Pt discharged via w/c to 1320 pm with her belongings via van transport to [facility].
--- NOTE | 2022-01-27 13:51 | PC.SOCIAL ---
Pt will return to [facility] per their transportation, Pt. has [facility] for a nurse for wound care. They have been sent a new face to face form for home care services.
== END 2022-01-27 13:20 | disposition home health service (06) | DRG 314 ==
LOC: ED 17:58 → MEDSURG 18:03
PROVIDERS: Admitting Provider Internal Medicine; Emergency Provider Family Medicine; PCP Family Medicine; Visit Provider Family Medicine
DX: I27.20 Pulmonary hypertension, unspecified (principal); J96.21 Acute and chronic respiratory failure with hypoxia; J96.22 Acute and chronic respiratory failure with hypercapnia; L03.116 Cellulitis of left lower limb; L03.115 Cellulitis of right lower limb; Z68.43 Body mass index [BMI] 50.0-59.9, adult; I50.22 Chronic systolic (congestive) heart failure; I45.2 Bifascicular block; I95.9 Hypotension, unspecified; R00.1 Bradycardia, unspecified; T44.7X5A Adverse effect of beta-adrenoreceptor antagonists, initial encounter; I08.1 Rheumatic disorders of both mitral and tricuspid valves; I89.0 Lymphedema, not elsewhere classified; I87.2 Venous insufficiency (chronic) (peripheral); E66.01 Morbid (severe) obesity due to excess calories; I48.0 Paroxysmal atrial fibrillation; G47.33 Obstructive sleep apnea (adult) (pediatric); I11.0 Hypertensive heart disease with heart failure; E11.9 Type 2 diabetes mellitus without complications; Z79.4 Long term (current) use of insulin; I44.0 Atrioventricular block, first degree; E03.9 Hypothyroidism, unspecified; F41.9 Anxiety disorder, unspecified; F32.9 Major depressive disorder, single episode, unspecified; K21.9 Gastro-esophageal reflux disease without esophagitis
CPT/HCPCS: 36415; 71045; 80048; 80053; 80061; 80069; 81001; 82803; 82947; 83036; 83605; 83735; 83880; 84145; 84443; 84484; 85025; 85027; 86140; 87040; 87086; 87635; 93005; 93306; 93307; 97116; 97161; 97165; 97535; 99284; 99285; G0378; A9270; J0690; J1940; J7050

== ENCOUNTER 2022-03-24 15:23 | Emergency (ER) | payer MEDICARE, BC, SELFPAY ==
[2022-03-24 15:37] VITALS: BP 148/76; PULSE 70; RESP 18; TEMP 36.3; O2SAT 95; BMI 54.2
--- NOTE | 2022-03-24 17:17 | ED.GENADULT ---
HPI - General Adult General Time Seen by Provider: 17:18 Date Seen: 03/24/22 Chief complaint: Extremity Pain/Injury, Lower Stated complaint: Sores,rashes on legs - Swollen / Red Time Seen by Provider: 03/24/22 16:45 Source: patient Mode of arrival: wheelchair Limitations: no limitations History of Present Illness HPI narrative: Patient is a 71 year white female with congestive heart failure who wears braces on her legs for edema/basically compression wraps, he has noticed redness over the medial upper knees bilaterally down to her ankles staff is concerned about cellulitis and sent her to the emergency department she has apparently had chronic lymphedema, stasis dermatitis lower extremities with peripheral vascular hypertension. She has had no fevers chills shortness of breath. She has had no rigors. She has not been on antibiotics by her report. She is on a multitude of medications that are reviewed, her chart was reviewed. His medical history is reviewed. She has multiple allergies but does not appear to be allergic to penicillin or cephalosporin. Related Data Home Medications Medication Instructions Recorded Confirmed acetaminophen 500 mg tablet 1,000 mg PO TID 01/24/22 01/24/22 albuterol sulfate 90 mcg/actuation 2 puff inhalation Q6H PRN 01/24/22 01/24/22 aerosol inhaler (Ventolin HFA) aluminum-mag hydroxide-simethicone 5 - 10 ml PO TID PRN 01/24/22 01/24/22 200 mg-200 mg-20 mg/5 mL oral susp (Advanced Antacid-Antigas) aspirin 81 mg tablet,delayed 81 mg PO DAILY 01/24/22 01/24/22 release (Adult Low Dose Aspirin) atorvastatin 80 mg tablet 80 mg PO DAILY 01/24/22 01/24/22 buprenorphine HCl 300 mcg buccal 300 mcg buccal BID 01/24/22 01/24/22 film (Belbuca) buspirone 30 mg tablet 30 mg PO BID 01/24/22 01/24/22 calcium carbonate 500 mg calcium 1,000 - 2,000 mg PO TID PRN 01/24/22 01/24/22 (1,250 mg) chewable tablet (Calcium 500) dextromethorphan HBr 15 mg/5 mL 15 - 30 mg PO Q6H PRN 01/24/22 01/24/22 oral liquid diclofenac sodium 1 % topical gel 2 g topical QID 01/24/22 01/24/22 (Arthritis Pain (diclofenac)) diltiazem HCl 120 mg 120 mg PO DAILY 01/24/22 01/24/22 capsule,extended release 24 hr diphenhydramine HCl 25 mg capsule 25 - 50 mg PO Q8H PRN 01/24/22 01/24/22 (Aler-Cap) duloxetine 60 mg capsule,delayed 120 mg PO DAILY 01/24/22 01/24/22 release ferrous gluconate 324 mg (37.5 mg 324 mg PO TIDWM 01/24/22 01/24/22 iron) tablet fluconazole 150 mg tablet 150 mg PO Q7D 01/24/22 01/24/22 fluticasone propionate 50 1 spray intranasal DAILY PRN 01/24/22 01/24/22 mcg/actuation nasal spray,suspension gabapentin 400 mg capsule 400 mg PO DAILY 01/24/22 01/24/22 guaifenesin 100 mg/5 mL oral 100 - 200 mg PO Q6H PRN 01/24/22 01/24/22 liquid (Adult Tussin Chest Congestion) ibuprofen 200 mg tablet (Addaprin) 200 - 400 mg PO Q6H PRN 01/24/22 01/24/22 levothyroxine 50 mcg tablet 50 mcg PO DAILY 01/24/22 01/24/22 loperamide 2 mg capsule 2 - 4 mg PO Q6H PRN 01/24/22 01/24/22 magnesium hydroxide 400 mg/5 mL 15 - 30 ml PO DAILY PRN 01/24/22 01/24/22 oral suspension (Milk of Magnesia) magnesium oxide 400 mg PO DAILY 01/24/22 01/24/22 metoclopramide HCl 10 mg tablet 10 mg PO ACHS 01/24/22 01/24/22 montelukast 10 mg tablet 10 mg PO HS 01/24/22 01/24/22 nystatin 100,000 unit/gram topical 1 applic topical TID 01/24/22 01/24/22 powder (Nystop) omeprazole 20 mg capsule,delayed 20 mg PO BID 01/24/22 01/24/22 release ondansetron 4 mg disintegrating 4 mg PO Q8H PRN 01/24/22 01/24/22 tablet oxycodone 5 mg tablet 5 - 10 mg PO Q4H PRN 01/24/22 01/24/22 polyethylene glycol 3350 17 17 g PO DAILY 01/24/22 01/24/22 gram/dose oral powder (Miralax) sumatriptan succinate 50 mg tablet 50 mg PO BID PRN 01/24/22 01/24/22 tizanidine 4 mg tablet 4 mg PO TID 01/24/22 01/24/22 torsemide 20 mg tablet 20 mg PO DAILY 01/24/22 01/24/22 trazodone 100 mg tablet 100 mg PO HS PRN 01/24/22 01/24/22 Previous Rx's Medication Instructions Recorded menthol 0.44 %-zinc oxide 20.6 % 1 applic topical QID PRN skin 12/03/21 topical ointment (Calmoseptine) irritation #113 grams cefadroxil 500 mg capsule 500 mg PO BID #10 caps 01/27/22 insulin aspart 15 unit subcut TIDWM #15 mL 01/27/22 (niacinamide)(U-100) 100 unit/mL(3 mL) subcutaneous pen (Fiasp FlexTouch U-100 Insulin) insulin degludec 200 unit/mL (3 20 unit (0.1 mL) subcut HS #9 mL 01/27/22 mL) subcutaneous pen (Tresiba FlexTouch U-200 insulin) losartan 50 mg tablet 50 mg PO DAILY #30 tabs 01/27/22 metoprolol succinate 100 mg 100 mg PO DAILY #30 tabs 01/27/22 tablet,extended release 24 hr amoxicillin 875 mg-potassium 1 tab PO BID #14 tabs 03/24/22 clavulanate 125 mg tablet cephalexin 500 mg capsule 500 mg PO BID #14 caps 03/24/22 Allergies Allergy/AdvReac Type Severity Reaction Status Date / Time amoxicillin Allergy Unknown Verified 03/24/22 17:43 celecoxib Allergy Unknown Verified 03/24/22 17:43 nickel Allergy Unknown Verified 03/24/22 17:43 rofecoxib Allergy Unknown Verified 03/24/22 17:43 clarithromycin [From Biaxin] Allergy Verified 12/03/21 17:50 codeine Allergy Verified 12/03/21 17:50 morphine Allergy Verified 12/03/21 17:50 tramadol [From Ultram] Allergy Verified 12/03/21 17:50 vancomycin Allergy Verified 12/03/21 17:50 Review of Systems Status of ROS: Reports: 6 or more systems reviewed and unremarkable except as noted in History and below [facility] Medical History Anxiety Chronic CHF (congestive heart failure) Chronic venous hypertension (idiopathic) with inflammation of unspecified lower extremity Disorder of lipoprotein metabolism Erythema Essential hypertension Gastro-esophageal reflux disease with esophagitis Gastroparesis Hypothyroid Iron deficiency anemia Lymphedema Major depression Methicillin resistant Staphylococcus aureus infection as the cause of diseases classified elsewhere Morbid (severe) obesity due to excess calories Non-pressure 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 limited to breakdown of skin Obstructive sleep apnea Paroxysmal atrial fibrillation Polypharmacy Pulmonary hypertension Type 2 diabetes mellitus Social History 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, ISAMAR, DVM, DDS) Smoking Status: Former smoker Do you use any of these nicotine containing products: None How often do you have a drink containing alcohol: monthly or less How often do you have six or more drinks on one occasion: Never AUDIT-C Alcohol total score: 1 Non-prescribed substance use: denies use Caffeine: Yes (coke) service: No Exam Narrative: Exam Narrative: Objective patient's vital signs unremarkable, she is alert and pleasant Lower extremities show red cells and some warmth bilaterally up to her knees from her ankles. She does have a elastic type wrap on both legs. Send reports that both legs are identical. Pulses regular There is no eggs, they are mildly tender and her legs are slightly warm. Const: Vital Signs, click to edit/add: Vital Signs - 24 hr 03/24/22 15:37 Temperature 97.3 F L Pulse Rate [Pulse Oximeter] 70 Respiratory Rate 18 Blood Pressure [Le ft Upper Arm] 148/76 H Pulse Oximetry 95 Oxygen Delivery Me thod Room Air Course Vital Signs Vital signs: Initial Vital Signs Temperature 97.3 F L 03/24/22 15:37 Temperature Source Temporal Artery Scan 03/24/22 15:37 Pulse Rate 70 03/24/22 15:37 Respiratory Rate 18 03/24/22 15:37 Blood Pressure 148/76 H 03/24/22 15:37 Blood Pressure Mean 100 03/24/22 15:37 Blood Pressure Position Sitting 03/24/22 15:37 Pulse Oximetry 95 03/24/22 15:37 Oxygen Delivery Method 03/24/22 15:37 Vital Signs Temperature 97.3 F L 03/24/22 15:37 Pulse Rate 70 03/24/22 15:37 Respiratory Rate 18 03/24/22 15:37 Blood Pressure 148/76 H 03/24/22 15:37 Pulse Oximetry 95 03/24/22 15:37 Oxygen Delivery Method 03/24/22 15:37 Temperature 97.3 F L 03/24/22 15:37 Pulse Rate 70 03/24/22 15:37 Respiratory Rate 18 03/24/22 15:37 Blood Pressure 148/76 H 03/24/22 15:37 Pulse Oximetry 95 03/24/22 15:37 Oxygen Delivery Method 03/24/22 15:37 Medical Decision Making MDM Narrative Medical decision making narrative: She has been wearing compression wraps on her legs for congestive heart failure chronic lymphedema. It appears cellulitis of the legs as well, possibly an allergic reaction even to the wraps, but I a favored cellulitic process. She does not have a fever, I think we can treat her with antibiotics would give her Rocephin 1 g IV IM and follow that with Augmentin 875 b.i.d. x7 days. Would have her not use her compression dressed dressings are still leggings for the next few days, update primary care in the next 48 hours with symptoms, return to ED sooner problems or concerns. Of note she has no shortness of breath, rigors, chills, fever. Addendum: The patient had an allergy to amoxicillin listed on her retirement chart, so she was given Keflex instead 500 b.i.d. x7 days thanks Discharge Plan Discharge Clinical Impression: Cellulitis Patient Disposition: Home w/ Parent or Adult Condition: Stable Additional Instructions: Rocephin IM now, start cephalexin b.i.d. x7 days tomorrow would also avoid using the lower extremity wraps for the next few days, update primary care in the next 48 hours, elevate the legs as much as possible. Return as needed Activity Level: Light activity Diet Detail: No change in her present diet Prescriptions: New amoxicillin-pot clavulanate 875-125 mg tablet 1 tab PO BID Qty: 14 0RF cephalexin 500 mg capsule 500 mg PO BID Qty: 14 0RF No Action menthol-zinc oxide [Calmoseptine] 0.44-20.6 % ointment 1 applic topical QID PRN (Reason: skin irritation) Qty: 113 0RF albuterol sulfate [Ventolin HFA] 90 mcg/actuation HFA aerosol inhaler 2 puff INHALATION Q6H PRN aspirin [Adult Low Dose Aspirin] 81 mg tablet,delayed release (DR/EC) 81 mg PO DAILY atorvastatin 80 mg tablet 80 mg PO DAILY buspirone 30 mg tablet 30 mg PO BID diltiazem HCl 120 mg capsule,extended release 24hr 120 mg PO DAILY duloxetine 60 mg capsule,delayed release(DR/EC) 120 mg PO DAILY ferrous gluconate 324 mg (37.5 mg iron) tablet 324 mg PO TIDWM gabapentin 400 mg capsule 400 mg PO DAILY levothyroxine 50 mcg tablet 50 mcg PO DAILY fluticasone propionate 50 mcg/actuation spray,suspension 1 spray INTRANASAL DAILY PRN magnesium oxide 400 mg magnesium capsule 400 mg PO DAILY torsemide 20 mg tablet 20 mg PO DAILY tizanidine 4 mg tablet 4 mg PO TID sumatriptan succinate 50 mg tablet 50 mg PO BID PRN trazodone 100 mg tablet 100 mg PO HS PRN omeprazole 20 mg capsule,delayed release(DR/EC) 20 mg PO BID montelukast 10 mg tablet 10 mg PO HS metoclopramide HCl 10 mg tablet 10 mg PO ACHS acetaminophen 500 mg tablet 1,000 mg PO TID diclofenac sodium [Arthritis Pain (diclofenac)] 1 % gel 2 g topical QID fluconazole 150 mg tablet 150 mg PO Q7D Rx Instructions: WEEKLY ON THURSDAY nystatin [Nystop] 100,000 unit/gram powder 1 applic TOPICAL TID polyethylene glycol 3350 [Miralax] 17 gram/dose powder 17 g PO DAILY alum-mag hydroxide-simeth [Advanced Antacid-Antigas] 200-200-20 mg/5 mL suspension 5 - 10 ml PO TID PRN loperamide 2 mg capsule 2 - 4 mg PO Q6H PRN calcium carbonate [Calcium 500] 500 mg calcium (1,250 mg) tablet,chewable 1,000 - 2,000 mg PO TID PRN dextromethorphan HBr 15 mg/5 mL liquid 15 - 30 mg PO Q6H PRN guaifenesin [Adult Tussin Chest Congestion] 100 mg/5 mL liquid 100 - 200 mg PO Q6H PRN diphenhydramine HCl [Aler-Cap] 25 mg capsule 25 - 50 mg PO Q8H PRN ibuprofen [Addaprin] 200 mg tablet 200 - 400 mg PO Q6H PRN magnesium hydroxide [Milk of Magnesia] 400 mg/5 mL suspension 15 - 30 ml PO DAILY PRN ondansetron 4 mg tablet,disintegrating 4 mg PO Q8H PRN oxycodone 5 mg tablet 5 - 10 mg PO Q4H PRN buprenorphine HCl [Belbuca] 300 mcg film 300 mcg BUCCAL BID cefadroxil 500 mg capsule 500 mg PO BID Qty: 10 0RF Tresiba FlexTouch U-200 200 unit/mL (3 mL) insulin pen 20 unit subcut HS Qty: 9 0RF metoprolol succinate 100 mg Tablet Extended Release 24 Hr 100 mg PO DAILY Qty: 30 0RF losartan 50 mg Tablet 50 mg PO DAILY Qty: 30 0RF Fiasp FlexTouch U-100 Insulin 100 unit/mL (3 mL) insulin pen 15 unit SUBCUT TIDWM Qty: 15 0RF Rx Instructions: PLUS SLIDING SCALE Follow Up/Referrals: Germania Jones MD [Primary Care Provider] - Stand Alone Forms: MyHealth Info Instructions
[2022-03-24] MEDS: cefTRIAXone 1 GM VIAL IM (17:52)
[2022-03-24] MEDS: LIDOCAINE 1% 5 ml (pf) 5 ML VIAL 2.1 ML IM (17:53)
== END 2022-03-24 18:13 | disposition home or self-care (01) ==
PROVIDERS: Emergency Provider Family Medicine; PCP Family Medicine
DX: L03.116 Cellulitis of left lower limb (principal); L03.115 Cellulitis of right lower limb
CPT/HCPCS: 96372; 99283; J0696

== ENCOUNTER 2022-07-08 05:00 | Outpatient (CLI) | payer MEDICARE, BC, SELFPAY | END 2022-07-08 05:01 | disposition home or self-care (01) | LOC: AMB 11:59 | PROVIDERS: PCP Family Medicine; Visit Provider Family Medicine | DX: R11.2 Nausea with vomiting, unspecified (principal) | CPT/HCPCS: A0425; A0427 ==

== ENCOUNTER 2022-07-08 05:31 | Emergency (ER) | payer MEDICARE, BC, SELFPAY ==
[2022-07-08 05:41] VITALS: BP 188/82; PULSE 79; RESP 18; TEMP 36.6; O2SAT 92; BMI 59.9
--- NOTE | 2022-07-08 05:57 | ED.NAVMDI ---
HPI - Nausea/Vomiting/Diarrhea General Chief complaint: Nausea/Vomiting Stated complaint: Vomiting Time Seen by Provider: 07/08/22 05:36 History of Present Illness HPI Narrative: 71-year-old woman presenting to the emergency department via EMS after an episode of vomiting. She had 1 episode of vomiting. 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 Fell asleep again woke nauseated shortly after that and vomited. Extensive past medical and does take a lot of pills typically. She does take proton pump inhibitor. Otherwise notes that has been experiencing lot of shaking lately. Sounds like that is been going back for many months. She has inquired about this. Sounds as though there was some question about whether might be medication related. She did receive she says Zofran from EMS and feels better in that regard. Did not have fever particular pain prior to this episode today. She feels better now overall. She would like to avoid an IV if possible she says. No chest pain or new shortness of breath. Related Data Home Medications Medication Instructions Recorded Confirmed acetaminophen 500 mg tablet 1,000 mg PO TID 01/24/22 01/24/22 albuterol sulfate 90 mcg/actuation 2 puff inhalation Q6H PRN 01/24/22 01/24/22 aerosol inhaler (Ventolin HFA) aluminum-mag hydroxide-simethicone 5 - 10 ml PO TID PRN 01/24/22 01/24/22 200 mg-200 mg-20 mg/5 mL oral susp (Advanced Antacid-Antigas) aspirin 81 mg tablet,delayed 81 mg PO DAILY 01/24/22 01/24/22 release (Adult Low Dose Aspirin) atorvastatin 80 mg tablet 80 mg PO DAILY 01/24/22 01/24/22 buprenorphine HCl 300 mcg buccal 300 mcg buccal BID 01/24/22 01/24/22 film (Belbuca) buspirone 30 mg tablet 30 mg PO BID 01/24/22 01/24/22 calcium carbonate 500 mg calcium 1,000 - 2,000 mg PO TID PRN 01/24/22 01/24/22 (1,250 mg) chewable tablet (Calcium 500) dextromethorphan HBr 15 mg/5 mL 15 - 30 mg PO Q6H PRN 01/24/22 01/24/22 oral liquid diclofenac sodium 1 % topical gel 2 g topical QID 01/24/22 01/24/22 (Arthritis Pain (diclofenac)) diltiazem HCl 120 mg 120 mg PO DAILY 01/24/22 01/24/22 capsule,extended release 24 hr diphenhydramine HCl 25 mg capsule 25 - 50 mg PO Q8H PRN 01/24/22 01/24/22 (Aler-Cap) duloxetine 60 mg capsule,delayed 120 mg PO DAILY 01/24/22 01/24/22 release ferrous gluconate 324 mg (37.5 mg 324 mg PO TIDWM 01/24/22 01/24/22 iron) tablet fluconazole 150 mg tablet 150 mg PO Q7D 01/24/22 01/24/22 fluticasone propionate 50 1 spray intranasal DAILY PRN 01/24/22 01/24/22 mcg/actuation nasal spray,suspension gabapentin 400 mg capsule 400 mg PO DAILY 01/24/22 01/24/22 guaifenesin 100 mg/5 mL oral 100 - 200 mg PO Q6H PRN 01/24/22 01/24/22 liquid (Adult Tussin Chest Congestion) ibuprofen 200 mg tablet (Addaprin) 200 - 400 mg PO Q6H PRN 01/24/22 01/24/22 levothyroxine 50 mcg tablet 50 mcg PO DAILY 01/24/22 01/24/22 loperamide 2 mg capsule 2 - 4 mg PO Q6H PRN 01/24/22 01/24/22 magnesium hydroxide 400 mg/5 mL 15 - 30 ml PO DAILY PRN 01/24/22 01/24/22 oral suspension (Milk of Magnesia) magnesium oxide 400 mg PO DAILY 01/24/22 01/24/22 metoclopramide HCl 10 mg tablet 10 mg PO ACHS 01/24/22 01/24/22 montelukast 10 mg tablet 10 mg PO HS 01/24/22 01/24/22 nystatin 100,000 unit/gram topical 1 applic topical TID 01/24/22 01/24/22 powder (Nystop) omeprazole 20 mg capsule,delayed 20 mg PO BID 01/24/22 01/24/22 release ondansetron 4 mg disintegrating 4 mg PO Q8H PRN 01/24/22 01/24/22 tablet oxycodone 5 mg tablet 5 - 10 mg PO Q4H PRN 01/24/22 01/24/22 polyethylene glycol 3350 17 17 g PO DAILY 01/24/22 01/24/22 gram/dose oral powder (Miralax) sumatriptan succinate 50 mg tablet 50 mg PO BID PRN 01/24/22 01/24/22 tizanidine 4 mg tablet 4 mg PO TID 01/24/22 01/24/22 torsemide 20 mg tablet 20 mg PO DAILY 01/24/22 01/24/22 trazodone 100 mg tablet 100 mg PO HS PRN 01/24/22 01/24/22 Previous Rx's Medication Instructions Recorded menthol 0.44 %-zinc oxide 20.6 % 1 applic topical QID PRN skin 12/03/21 topical ointment (Calmoseptine) irritation #113 grams cefadroxil 500 mg capsule 500 mg PO BID #10 caps 01/27/22 insulin aspart 15 unit subcut TIDWM #15 mL 01/27/22 (niacinamide)(U-100) 100 unit/mL(3 mL) subcutaneous pen (Fiasp FlexTouch U-100 Insulin) insulin degludec 200 unit/mL (3 20 unit (0.1 mL) subcut HS #9 mL 01/27/22 mL) subcutaneous pen (Tresiba FlexTouch U-200 insulin) losartan 50 mg tablet 50 mg PO DAILY #30 tabs 01/27/22 metoprolol succinate 100 mg 100 mg PO DAILY #30 tabs 01/27/22 tablet,extended release 24 hr amoxicillin 875 mg-potassium 1 tab PO BID #14 tabs 03/24/22 clavulanate 125 mg tablet cephalexin 500 mg capsule 500 mg PO BID #14 caps 03/24/22 ondansetron 4 mg disintegrating 4 mg PO Q4-6H PRN nausea and 07/08/22 tablet vomiting 0 days #12 tabs Allergies Allergy/AdvReac Type Severity Reaction Status Date / Time amoxicillin Allergy Unknown Verified 07/08/22 05:43 celecoxib Allergy Unknown Verified 07/08/22 05:43 nickel Allergy Unknown Verified 07/08/22 05:43 rofecoxib Allergy Unknown Verified 07/08/22 05:43 clarithromycin [From Biaxin] Allergy Verified 07/08/22 05:43 codeine Allergy Verified 07/08/22 05:43 morphine Allergy Verified 07/08/22 05:43 tramadol [From Ultram] Allergy Verified 07/08/22 05:43 vancomycin Allergy Verified 07/08/22 05:43 Review of Systems Status of ROS: Reports: 6 or more systems reviewed and unremarkable except as noted in History and below [facility] Medical History Anxiety Chronic CHF (congestive heart failure) Chronic venous hypertension (idiopathic) with inflammation of unspecified lower extremity Disorder of lipoprotein metabolism Erythema Essential hypertension Gastro-esophageal reflux disease with esophagitis Gastroparesis Hypothyroid Iron deficiency anemia Lymphedema Major depression Methicillin resistant Staphylococcus aureus infection as the cause of diseases classified elsewhere Morbid (severe) obesity due to excess calories Non-pressure 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 limited to breakdown of skin Obstructive sleep apnea Paroxysmal atrial fibrillation Polypharmacy Pulmonary hypertension Type 2 diabetes mellitus Social History 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, ISAMAR, DVM, DDS) Smoking Status: Former smoker Do you use any of these nicotine containing products: None How often do you have a drink containing alcohol: monthly or less How often do you have six or more drinks on one occasion: Never AUDIT-C Alcohol total score: 1 Non-prescribed substance use: denies use Caffeine: Yes (coke) service: No Exam Narrative: Exam Narrative: Pleasant. NAD. Oxygen saturations are noted to be little low. She says this is actually better than her baseline. Generalized resting tremor affecting head/neck and right greater than left arm and hand.. Lungs appear to be clear. Heart in a regular rate and rhythm albeit distant. Abdomen is soft and sore in the epigastrium. Obese. Difficult to discern any masses. There are no blisters or particular erythema on the skin in the area discomfort. Extremities with some dependent edema lower extremities. Well perfused peripherally. Oropharynx is mostly edentulous. Little dry. Const: Vital Signs, click to edit/add: Vital Signs - 24 hr 07/08/22 05:41 Temperature 97.8 F Pulse Rate [Right Pulse Oximeter] 79 Respiratory Rate 18 Blood Pressure [Ri ght Upper Arm] 188/82 H Pulse Oximetry 92 Oxygen Delivery Me thod Room Air Documenting provider has reviewed patient's vital signs: yes Course Vital Signs Vital signs: Initial Vital Signs Temperature 97.8 F 07/08/22 05:41 Temperature Source Temporal Artery Scan 07/08/22 05:41 Pulse Rate 79 07/08/22 05:41 Respiratory Rate 18 07/08/22 05:41 Blood Pressure 188/82 H 07/08/22 05:41 Blood Pressure Mean 117 07/08/22 05:41 Blood Pressure Position Sitting 07/08/22 05:41 Pulse Oximetry 92 07/08/22 05:41 Oxygen Delivery Method 07/08/22 05:41 Vital Signs Temperature 97.8 F 07/08/22 05:41 Pulse Rate 79 07/08/22 05:41 Respiratory Rate 18 07/08/22 05:41 Blood Pressure 188/82 H 07/08/22 05:41 Pulse Oximetry 92 07/08/22 05:41 Oxygen Delivery Method 07/08/22 05:41 Temperature 97.8 F 07/08/22 05:41 Pulse Rate 79 07/08/22 05:41 Respiratory Rate 18 07/08/22 05:41 Blood Pressure 188/82 H 07/08/22 05:41 Pulse Oximetry 92 07/08/22 05:41 Oxygen Delivery Method 07/08/22 05:41 MDM - Nausea/Vomiting/Diarrhea MDM Narrative Medical decision making narrative: This 1 episode of vomiting I am not sure was diagnostic of anything. She sounds like she did take the load of pills on an empty stomach. Certainly this could have precipitated some nausea. Overall she is feeling better noting a EMS did give some Zofran. Still with some discomfort in the epigastrium. She does not have fever or other infectious etiology apparently. She would like to avoid an IV. I think treating her symptoms isn't unreasonable. We will give GI cocktail as a trial. Was given. Overall notably improved. She feels she can return home. Discharge Plan Discharge Clinical Impression: Essential tremor, Indigestion Patient Disposition: Home, Self-Care Condition: Improved Additional Instructions: Unless you have been instructed otherwise, might be a good idea to take some of your pills at least with some food. Maybe a recreation manager diet over the next 24-36 hours would be a good idea. Soup broths, thicker soups, smoothies, rice, toast. I think it would be a good idea to schedule a follow-up with your primary care provider to discuss this tremor. Prescriptions: New ondansetron 4 mg tablet,disintegrating 4 mg PO Q4-6H PRN (Reason: nausea and vomiting) Qty: 12 0RF No Action menthol-zinc oxide [Calmoseptine] 0.44-20.6 % ointment 1 applic topical QID PRN (Reason: skin irritation) Qty: 113 0RF albuterol sulfate [Ventolin HFA] 90 mcg/actuation HFA aerosol inhaler 2 puff INHALATION Q6H PRN aspirin [Adult Low Dose Aspirin] 81 mg tablet,delayed release (DR/EC) 81 mg PO DAILY atorvastatin 80 mg tablet 80 mg PO DAILY buspirone 30 mg tablet 30 mg PO BID diltiazem HCl 120 mg capsule,extended release 24hr 120 mg PO DAILY duloxetine 60 mg capsule,delayed release(DR/EC) 120 mg PO DAILY ferrous gluconate 324 mg (37.5 mg iron) tablet 324 mg PO TIDWM gabapentin 400 mg capsule 400 mg PO DAILY levothyroxine 50 mcg tablet 50 mcg PO DAILY fluticasone propionate 50 mcg/actuation spray,suspension 1 spray INTRANASAL DAILY PRN magnesium oxide 400 mg magnesium capsule 400 mg PO DAILY torsemide 20 mg tablet 20 mg PO DAILY tizanidine 4 mg tablet 4 mg PO TID sumatriptan succinate 50 mg tablet 50 mg PO BID PRN trazodone 100 mg tablet 100 mg PO HS PRN omeprazole 20 mg capsule,delayed release(DR/EC) 20 mg PO BID montelukast 10 mg tablet 10 mg PO HS metoclopramide HCl 10 mg tablet 10 mg PO ACHS acetaminophen 500 mg tablet 1,000 mg PO TID diclofenac sodium [Arthritis Pain (diclofenac)] 1 % gel 2 g topical QID fluconazole 150 mg tablet 150 mg PO Q7D Rx Instructions: WEEKLY ON THURSDAY nystatin [Nystop] 100,000 unit/gram powder 1 applic TOPICAL TID polyethylene glycol 3350 [Miralax] 17 gram/dose powder 17 g PO DAILY alum-mag hydroxide-simeth [Advanced Antacid-Antigas] 200-200-20 mg/5 mL suspension 5 - 10 ml PO TID PRN loperamide 2 mg capsule 2 - 4 mg PO Q6H PRN calcium carbonate [Calcium 500] 500 mg calcium (1,250 mg) tablet,chewable 1,000 - 2,000 mg PO TID PRN dextromethorphan HBr 15 mg/5 mL liquid 15 - 30 mg PO Q6H PRN guaifenesin [Adult Tussin Chest Congestion] 100 mg/5 mL liquid 100 - 200 mg PO Q6H PRN diphenhydramine HCl [Aler-Cap] 25 mg capsule 25 - 50 mg PO Q8H PRN ibuprofen [Addaprin] 200 mg tablet 200 - 400 mg PO Q6H PRN magnesium hydroxide [Milk of Magnesia] 400 mg/5 mL suspension 15 - 30 ml PO DAILY PRN ondansetron 4 mg tablet,disintegrating 4 mg PO Q8H PRN oxycodone 5 mg tablet 5 - 10 mg PO Q4H PRN buprenorphine HCl [Belbuca] 300 mcg film 300 mcg BUCCAL BID cefadroxil 500 mg capsule 500 mg PO BID Qty: 10 0RF Tresiba FlexTouch U-200 200 unit/mL (3 mL) insulin pen 20 unit subcut HS Qty: 9 0RF metoprolol succinate 100 mg Tablet Extended Release 24 Hr 100 mg PO DAILY Qty: 30 0RF losartan 50 mg Tablet 50 mg PO DAILY Qty: 30 0RF Fiasp FlexTouch U-100 Insulin 100 unit/mL (3 mL) insulin pen 15 unit SUBCUT TIDWM Qty: 15 0RF Rx Instructions: PLUS SLIDING SCALE amoxicillin-pot clavulanate 875-125 mg tablet 1 tab PO BID Qty: 14 0RF cephalexin 500 mg capsule 500 mg PO BID Qty: 14 0RF Follow Up/Referrals: Germania Jones MD [Primary Care Provider] - Stand Alone Forms: [facility] Info Instructions
[2022-07-08] MEDS: GI COCKTAIL (VISC LIDO/ANTACID) 30 ML PO (06:06)
--- NOTE | 2022-07-08 06:31 | ED.NURSE ---
RN spoke with RN at [facility], [facility]- accepted patient back.
--- NOTE | 2022-07-08 07:46 | ED.NURSE ---
Patient left via non emergent EMS. Paperwork given to EMS. All questions answered.
== END 2022-07-08 07:47 | disposition home or self-care (01) ==
PROVIDERS: Emergency Provider Family Medicine; PCP Family Medicine
DX: K30 Functional dyspepsia (principal); R25.1 Tremor, unspecified
CPT/HCPCS: 99283; A9270

== ENCOUNTER 2022-07-08 07:39 | Outpatient (CLI) | payer MEDICARE, BC, SELFPAY | END 2022-07-08 07:40 | disposition home or self-care (01) | LOC: AMB 07-09 23:11 | PROVIDERS: PCP Family Medicine; Visit Provider Family Medicine | DX: R11.2 Nausea with vomiting, unspecified (principal) | CPT/HCPCS: A0425; A0427; A0428 ==

== ENCOUNTER 2022-08-20 10:15 | Outpatient (CLI) | payer MEDICARE, BC, SELFPAY ==
--- NOTE | 2022-08-20 10:15 | CRLHL7_ITS ---
For Patients: As a result of the Century Cures Act, medical imaging exams and procedure reports are released immediately into your electronic medical record. You may view this report before your referring provider. If you have questions, please contact your health care provider. Technique: Single contrast esophagram performed in the seated position with thick barium. The patient was unable to stand. Fluoroscopy time 32 seconds. Indication: Vomiting,gastroparesis Comparison: None. Findings: Esophagus: Normal morphology and motility. No stricture or mass. Gastroesophageal reflux: None. Normal passage of contrast through the stomach. Impression: No evidence of gastroparesis. Dictated by Carlos Calvillo MD @ 08/20/2022 12:17:13 PM (Electronically Signed)
== END 2022-08-20 10:16 | disposition home or self-care (01) ==
PROVIDERS: PCP Family Medicine; Visit Provider Family Medicine
DX: R11.10 Vomiting, unspecified (principal); K31.84 Gastroparesis
CPT/HCPCS: 74220; 74221

== ENCOUNTER 2022-08-26 19:13 | Outpatient (CLI) | payer MEDICARE, BC, SELFPAY | END 2022-08-26 19:14 | disposition home or self-care (01) | LOC: AMB 08-27 07:32 | PROVIDERS: PCP Family Medicine; Visit Provider Emergency Medicine Emergency Medical Services | DX: R11.2 Nausea with vomiting, unspecified (principal); R19.7 Diarrhea, unspecified | CPT/HCPCS: A0425; A0427 ==

== ENCOUNTER 2022-08-26 19:36 | Emergency (ER) | payer MEDICARE, BC, SELFPAY ==
[2022-08-26 19:39] VITALS: BP 194/94; PULSE 78; RESP 16; TEMP 35.8; O2SAT 99
--- NOTE | 2022-08-26 19:45 | ED.NURSE ---
Blood sugar checked, 88.
--- NOTE | 2022-08-26 20:10 | ED_ITS ---
HPI - Nausea/Vomiting/Diarrhea General Chief complaint: Nausea/Vomiting Stated complaint: Sick Time Seen by Provider: 08/26/22 19:42 History of Present Illness HPI Narrative: This 72-year-old female comes in reporting nausea, vomiting, and diarrhea for the past 4 days. She does not report any pain. She is morbidly obese at around 150 kg. She does have diabetes and states that she took her insulin but did not get any meal recently. Her blood glucose was around 60 and now after taking some food and drink her blood glucose is around 90. She does not report any fevers. She has been taking Zofran. Related Data Home Medications Medication Instructions Recorded Confirmed acetaminophen 500 mg tablet 1,000 mg PO TID 01/24/22 01/24/22 albuterol sulfate 90 mcg/actuation 2 puff inhalation Q6H PRN 01/24/22 01/24/22 aerosol inhaler (Ventolin HFA) aluminum-mag hydroxide-simethicone 5 - 10 ml PO TID PRN 01/24/22 01/24/22 200 mg-200 mg-20 mg/5 mL oral susp (Advanced Antacid-Antigas) aspirin 81 mg tablet,delayed 81 mg PO DAILY 01/24/22 01/24/22 release (Adult Low Dose Aspirin) atorvastatin 80 mg tablet 80 mg PO DAILY 01/24/22 01/24/22 buprenorphine HCl 300 mcg buccal 300 mcg buccal BID 01/24/22 01/24/22 film (Belbuca) buspirone 30 mg tablet 30 mg PO BID 01/24/22 01/24/22 calcium carbonate 500 mg calcium 1,000 - 2,000 mg PO TID PRN 01/24/22 01/24/22 (1,250 mg) chewable tablet (Calcium 500) dextromethorphan HBr 15 mg/5 mL 15 - 30 mg PO Q6H PRN 01/24/22 01/24/22 oral liquid diclofenac sodium 1 % topical gel 2 g topical QID 01/24/22 01/24/22 (Arthritis Pain (diclofenac)) diltiazem HCl 120 mg 120 mg PO DAILY 01/24/22 01/24/22 capsule,extended release 24 hr diphenhydramine HCl 25 mg capsule 25 - 50 mg PO Q8H PRN 01/24/22 01/24/22 (Aler-Cap) duloxetine 60 mg capsule,delayed 120 mg PO DAILY 01/24/22 01/24/22 release ferrous gluconate 324 mg (37.5 mg 324 mg PO TIDWM 01/24/22 01/24/22 iron) tablet fluconazole 150 mg tablet 150 mg PO Q7D 01/24/22 01/24/22 fluticasone propionate 50 1 spray intranasal DAILY PRN 01/24/22 01/24/22 mcg/actuation nasal spray,suspension gabapentin 400 mg capsule 400 mg PO DAILY 01/24/22 01/24/22 guaifenesin 100 mg/5 mL oral 100 - 200 mg PO Q6H PRN 01/24/22 01/24/22 liquid (Adult Tussin Chest Congestion) ibuprofen 200 mg tablet (Addaprin) 200 - 400 mg PO Q6H PRN 01/24/22 01/24/22 levothyroxine 50 mcg tablet 50 mcg PO DAILY 01/24/22 01/24/22 loperamide 2 mg capsule 2 - 4 mg PO Q6H PRN 01/24/22 01/24/22 magnesium hydroxide 400 mg/5 mL 15 - 30 ml PO DAILY PRN 01/24/22 01/24/22 oral suspension (Milk of Magnesia) magnesium oxide 400 mg PO DAILY 01/24/22 01/24/22 metoclopramide HCl 10 mg tablet 10 mg PO ACHS 01/24/22 01/24/22 montelukast 10 mg tablet 10 mg PO HS 01/24/22 01/24/22 nystatin 100,000 unit/gram topical 1 applic topical TID 01/24/22 01/24/22 powder (Nystop) omeprazole 20 mg capsule,delayed 20 mg PO BID 01/24/22 01/24/22 release ondansetron 4 mg disintegrating 4 mg PO Q8H PRN 01/24/22 01/24/22 tablet oxycodone 5 mg tablet 5 - 10 mg PO Q4H PRN 01/24/22 01/24/22 polyethylene glycol 3350 17 17 g PO DAILY 01/24/22 01/24/22 gram/dose oral powder (Miralax) sumatriptan succinate 50 mg tablet 50 mg PO BID PRN 01/24/22 01/24/22 tizanidine 4 mg tablet 4 mg PO TID 01/24/22 01/24/22 torsemide 20 mg tablet 20 mg PO DAILY 01/24/22 01/24/22 trazodone 100 mg tablet 100 mg PO HS PRN 01/24/22 01/24/22 Previous Rx's Medication Instructions Recorded menthol 0.44 %-zinc oxide 20.6 % 1 applic topical QID PRN skin 12/03/21 topical ointment (Calmoseptine) irritation #113 grams cefadroxil 500 mg capsule 500 mg PO BID #10 caps 01/27/22 insulin aspart 15 unit subcut TIDWM #15 mL 01/27/22 (niacinamide)(U-100) 100 unit/mL(3 mL) subcutaneous pen (Fiasp FlexTouch U-100 Insulin) insulin degludec 200 unit/mL (3 20 unit (0.1 mL) subcut HS #9 mL 01/27/22 mL) subcutaneous pen (Tresiba FlexTouch U-200 insulin) losartan 50 mg tablet 50 mg PO DAILY #30 tabs 01/27/22 metoprolol succinate 100 mg 100 mg PO DAILY #30 tabs 01/27/22 tablet,extended release 24 hr amoxicillin 875 mg-potassium 1 tab PO BID #14 tabs 03/24/22 clavulanate 125 mg tablet cephalexin 500 mg capsule 500 mg PO BID #14 caps 03/24/22 ondansetron 4 mg disintegrating 4 mg PO Q4-6H PRN nausea and 07/08/22 tablet vomiting 0 days #12 tabs Allergies Allergy/AdvReac Type Severity Reaction Status Date / Time amoxicillin Allergy Unknown Verified 07/08/22 05:43 celecoxib Allergy Unknown Verified 07/08/22 05:43 nickel Allergy Unknown Verified 07/08/22 05:43 rofecoxib Allergy Unknown Verified 07/08/22 05:43 clarithromycin [From Biaxin] Allergy Verified 07/08/22 05:43 codeine Allergy Verified 07/08/22 05:43 morphine Allergy Verified 07/08/22 05:43 tramadol [From Ultram] Allergy Verified 07/08/22 05:43 vancomycin Allergy Verified 07/08/22 05:43 Review of Systems Status of ROS: Reports: 10 or more systems reviewed and unremarkable except as noted in History and below Narrative: Constitutional: No fevers, no weight gain or loss. Eyes: No discharge. No vision changes. HENT: No congestion, no sore throat, no ear pain. Cardiovascular: No chest pain, no palpitations. Respiratory: No shortness of breath, no wheezes, no cough. Gastrointestinal: No abdominal pain. Nausea, vomiting, and diarrhea. Genitourinary: No dysuria, no hematuria. Musculoskeletal: Normal range of motion. Skin: No rashes, no pruritis. Neurological: No dizziness, weakness, sensory change, speech change. Endo/Heme/Allergies: No bruising or bleeding. No polydipsia. Pysch: no suicidality, no anxiety, no insomnia. All other systems reviewed and are negative. [facility] Medical History Anxiety Chronic CHF (congestive heart failure) Chronic venous hypertension (idiopathic) with inflammation of unspecified lower extremity Disorder of lipoprotein metabolism Erythema Essential hypertension Gastro-esophageal reflux disease with esophagitis Gastroparesis Hypothyroid Iron deficiency anemia Lymphedema Major depression Methicillin resistant Staphylococcus aureus infection as the cause of diseases classified elsewhere Morbid (severe) obesity due to excess calories Non-pressure 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 limited to breakdown of skin Obstructive sleep apnea Paroxysmal atrial fibrillation Polypharmacy Pulmonary hypertension Type 2 diabetes mellitus Social History Highest level of school completed/degree received: Professional degree (, ISAMAR, DVM, DDS) Smoking Status: Former smoker Do you use any of these nicotine containing products: None How often do you have a drink containing alcohol: monthly or less How often do you have six or more drinks on one occasion: Never AUDIT-C Alcohol total score: 1 Non-prescribed substance use: denies use Caffeine: Yes (coke) service: No Exam Narrative: Exam Narrative: Constitutional: Well-developed, well-nourished. Morbidly obese. HEENT: Normocephalic, atraumatic. Neck: Normal range of motion. Nontender. Supple. Heart: Regular. No murmurs. Normal rate. Intact distal pulses. Lungs: Clear to auscultation. No chest discomfort. No wheezes, rhonchi, or rales. Abdomen: Normal bowel sounds. Nontender. No rebound tenderness. Genitalia: Deferred. Back: No midline tenderness. Normal range of motion. Extremities: Normal range of motion. No injury. Bilateral lower extremity edema and chronic venous stasis. Skin: Intact. No rash. Warm. No erythema or pallor. Neurologic: No altered sensation. No weakness. Alert and oriented. Psychiatric: No suicidality. No anxiety or depression. No insomnia. Nursing notes and vitals signs are reviewed. Const: Vital Signs, click to edit/add: Vital Signs - 24 hr 08/26/22 19:39 Temperature 96.5 F L Pulse Rate [Right Femoral] 78 Respiratory Rate 16 Blood Pressure [Ri ght Upper Arm] 194/94 H Pulse Oximetry 99 Oxygen Delivery Me thod Room Air Course Vital Signs Vital signs: Initial Vital Signs Temperature 96.5 F L 08/26/22 19:39 Temperature Source Temporal Artery Scan 08/26/22 19:39 Pulse Rate 78 08/26/22 19:39 Pulse Rhythm Regular 08/26/22 19:39 Respiratory Rate 16 08/26/22 19:39 Blood Pressure 194/94 H 08/26/22 19:39 Blood Pressure Mean 127 08/26/22 19:39 Pulse Oximetry 99 08/26/22 19:39 Oxygen Delivery Method Room Air 08/26/22 19:39 Vital Signs Temperature 96.5 F L 08/26/22 19:39 Pulse Rate 78 08/26/22 19:39 Respiratory Rate 16 08/26/22 19:39 Blood Pressure 194/94 H 08/26/22 19:39 Pulse Oximetry 99 08/26/22 19:39 Oxygen Delivery Method Room Air 08/26/22 19:39 Temperature 96.5 F L 08/26/22 19:39 Pulse Rate 78 08/26/22 19:39 Respiratory Rate 16 08/26/22 19:39 Blood Pressure 194/94 H 08/26/22 19:39 Pulse Oximetry 99 08/26/22 19:39 Oxygen Delivery Method Room Air 08/26/22 19:39 MDM - Nausea/Vomiting/Diarrhea MDM Narrative Medical decision making narrative: This patient comes in reporting nausea and vomiting with some diarrhea over the past 4 days. She does arrive with some mild hypoglycemia and states that she did take her insulin but did not take any food. She was given oral food and drink and her glucose did improve some. She also received 1 L of normal saline and Zofran intravenously. This was followed by an amp of D50. Her glucose improved to 143. The patient states that she is feeling a lot better. Lab results also are reassuring. She feels okay to return home. At the time of discharge the patient appears safe for outpatient management. The treatment plan is reviewed along with written and verbal return precautions. Reasons to return and the importance of close followup were also reviewed. Lab Data Labs: Lab Results 08/26/22 Range/Units 20:47 WBC 8.73 (4.50-11.00) K/uL RBC 4.66 (4.00-5.20) m/uL Hgb 13.2 (12.0-16.0) gm/dL Hct 40.5 (33.0-51.0) % MCV 87 (80-100) fL MCH 28 (26-34) pg MCHC 33 (32-36) gm/dL RDW Coeff of Trina 15.3 (11.5-15.5) % Plt Count 305 (140-440) K/uL Neut % (Auto) 75.7 H (42.0-72.0) % Lymph % (Auto) 14.5 L (20-44) % [place] % (Auto) 6.6 (0.0-11.0) % Eos % (Auto) 1.8 (0.0-7.0) % Baso % (Auto) 0.1 (0.0-3.0) % Neut # (Auto) 6.60 (1.7-7.0) K/uL Lymph # (Auto) 1.30 (0.90-2.90) K/uL [place] # (Auto) 0.60 (0.00-0.90) K/UL Eos # (Auto) 0.16 (0.00-0.50) K/uL Baso # (Auto) 0.01 (0.00-0.30) K/uL Sodium 135 (135-149) mmol/L Potassium 4.2 (3.6-5.1) mmol/L Chloride 99 (96-114) mmol/L Carbon Dioxide 29 (20-32) mmol/L BUN 16 (7-30) mg/dL Creatinine 1.1 (0.5-1.5) mg/dL Estimated GFR 53 ml/min Glucose 85 (60-115) mg/dL Calcium 9.2 (8.4-10.6) mg/dL Discharge Plan Discharge Clinical Impression: Nausea vomiting and diarrhea, Hypoglycemia Patient Disposition: Home, Self-Care Condition: Improved Additional Instructions: Continue current plans. Increase diet as tolerated. Follow up with MD or return if worsening. Prescriptions: No Action menthol-zinc oxide [Calmoseptine] 0.44-20.6 % ointment 1 applic topical QID PRN (Reason: skin irritation) Qty: 113 0RF albuterol sulfate [Ventolin HFA] 90 mcg/actuation HFA aerosol inhaler 2 puff INHALATION Q6H PRN aspirin [Adult Low Dose Aspirin] 81 mg tablet,delayed release (DR/EC) 81 mg PO DAILY atorvastatin 80 mg tablet 80 mg PO DAILY buspirone 30 mg tablet 30 mg PO BID diltiazem HCl 120 mg capsule,extended release 24hr 120 mg PO DAILY duloxetine 60 mg capsule,delayed release(DR/EC) 120 mg PO DAILY ferrous gluconate 324 mg (37.5 mg iron) tablet 324 mg PO TIDWM gabapentin 400 mg capsule 400 mg PO DAILY levothyroxine 50 mcg tablet 50 mcg PO DAILY fluticasone propionate 50 mcg/actuation spray,suspension 1 spray INTRANASAL DAILY PRN magnesium oxide 400 mg magnesium capsule 400 mg PO DAILY torsemide 20 mg tablet 20 mg PO DAILY tizanidine 4 mg tablet 4 mg PO TID sumatriptan succinate 50 mg tablet 50 mg PO BID PRN trazodone 100 mg tablet 100 mg PO HS PRN omeprazole 20 mg capsule,delayed release(DR/EC) 20 mg PO BID montelukast 10 mg tablet 10 mg PO HS metoclopramide HCl 10 mg tablet 10 mg PO ACHS acetaminophen 500 mg tablet 1,000 mg PO TID diclofenac sodium [Arthritis Pain (diclofenac)] 1 % gel 2 g topical QID fluconazole 150 mg tablet 150 mg PO Q7D Rx Instructions: WEEKLY ON THURSDAY nystatin [Nystop] 100,000 unit/gram powder 1 applic TOPICAL TID polyethylene glycol 3350 [Miralax] 17 gram/dose powder 17 g PO DAILY alum-mag hydroxide-simeth [Advanced Antacid-Antigas] 200-200-20 mg/5 mL suspension 5 - 10 ml PO TID PRN loperamide 2 mg capsule 2 - 4 mg PO Q6H PRN calcium carbonate [Calcium 500] 500 mg calcium (1,250 mg) tablet,chewable 1,000 - 2,000 mg PO TID PRN dextromethorphan HBr 15 mg/5 mL liquid 15 - 30 mg PO Q6H PRN guaifenesin [Adult Tussin Chest Congestion] 100 mg/5 mL liquid 100 - 200 mg PO Q6H PRN diphenhydramine HCl [Aler-Cap] 25 mg capsule 25 - 50 mg PO Q8H PRN ibuprofen [Addaprin] 200 mg tablet 200 - 400 mg PO Q6H PRN magnesium hydroxide [Milk of Magnesia] 400 mg/5 mL suspension 15 - 30 ml PO DAILY PRN ondansetron 4 mg tablet,disintegrating 4 mg PO Q8H PRN oxycodone 5 mg tablet 5 - 10 mg PO Q4H PRN buprenorphine HCl [Belbuca] 300 mcg film 300 mcg BUCCAL BID cefadroxil 500 mg capsule 500 mg PO BID Qty: 10 0RF Tresiba FlexTouch U-200 200 unit/mL (3 mL) insulin pen 20 unit subcut HS Qty: 9 0RF metoprolol succinate 100 mg Tablet Extended Release 24 Hr 100 mg PO DAILY Qty: 30 0RF losartan 50 mg Tablet 50 mg PO DAILY Qty: 30 0RF Fiasp FlexTouch U-100 Insulin 100 unit/mL (3 mL) insulin pen 15 unit SUBCUT TIDWM Qty: 15 0RF Rx Instructions: PLUS SLIDING SCALE amoxicillin-pot clavulanate 875-125 mg tablet 1 tab PO BID Qty: 14 0RF cephalexin 500 mg capsule 500 mg PO BID Qty: 14 0RF ondansetron 4 mg tablet,disintegrating 4 mg PO Q4-6H PRN (Reason: nausea and vomiting) Qty: 12 0RF Follow Up/Referrals: Germania Jones MD [Primary Care Provider] - Stand Alone Forms: [facility] Info Instructions
[2022-08-26 20:53] LABS: Basophils Absolute Auto 0.01 K/uL (0.00-0.30); Basophils Percent Auto 0.1 % (0.0-3.0); Eosinophils Absolute Auto 0.16 K/uL (0.00-0.50); Eosinophils Percent Auto 1.8 % (0.0-7.0); Hematocrit 40.5 % (33.0-51.0); Hemoglobin* 13.2 gm/dL (12.0-16.0); Immature Granulocytes Abs Auto 0.11 K/uL (0.00-0.30); Immature Granulocytes Pct Auto 1.3 %; Lymphocytes Percent Auto 14.5 % (20-44); Mean Corpuscular HGB Conc 33 gm/dL (32-36); Mean Corpuscular Hemoglobin 28 pg (26-34); Mean Corpuscular Volume 87 fL (80-100); Monocytes Percent Auto 6.6 % (0.0-11.0); Neutrophils Percent Auto 75.7 % (42.0-72.0); Platelet Count* 305 K/uL (140-440); RDW Coefficient of Variation % 15.3 % (11.5-15.5); Red Blood Count 4.66 m/uL (4.00-5.20); White Blood Count* 8.73 K/uL (4.50-11.00)
[2022-08-26] MEDS: 0.9 % SODIUM CHLORIDE 1000 ml 1,000 ML IV (20:55)
[2022-08-26] MEDS: ONDANSETRON 2 MG/ML inj 4 MG IVP (20:55)
[2022-08-26 21:05] VITALS: PULSE 80; O2SAT 88
[2022-08-26 21:05] LABS: Slide Review Reflex No
[2022-08-26 21:07] LABS: Chloride* 99 mmol/L (96-114); Potassium* 4.2 mmol/L (3.6-5.1); Sodium* 135 mmol/L (135-149)
[2022-08-26 21:10] LABS: Blood Urea Nitrogen* 16 mg/dL (7-30); Calcium* 9.2 mg/dL (8.4-10.6); Carbon Dioxide* 29 mmol/L (20-32); Creatinine* 1.1 mg/dL (0.5-1.5); Estimated Glomerular Filt Rate 53 ml/min; Glucose* 85 mg/dL (60-115)
[2022-08-26 21:15] VITALS: PULSE 81; O2SAT 95
[2022-08-26 21:30] VITALS: PULSE 84; O2SAT 88
[2022-08-26 21:45] VITALS: PULSE 93; O2SAT 96
[2022-08-26] MEDS: DEXTROSE 50 % SYRINGE IVP (22:06)
--- NOTE | 2022-08-26 22:55 | ED.NURSE ---
Patient had intermittent blood sugar checks thus far during this ER visit. Blood sugar 75 at 21:00; 76 at 21:25; Dextrose solution given (see MAR). Check at 22:50 was 143.
--- NOTE | 2022-08-26 23:17 | ED.NURSE ---
Report called to [facility] with update on patient treatment and current health status. She is ready for discharge. No questions.
== END 2022-08-27 01:05 | disposition home or self-care (01) ==
PROVIDERS: Emergency Provider Emergency Medicine Emergency Medical Services; PCP Family Medicine
DX: E16.2 Hypoglycemia, unspecified (principal)
CPT/HCPCS: 36415; 80048; 85025; 96374; 96375; 99284; J2405; J7030

== ENCOUNTER 2022-08-27 01:06 | Outpatient (CLI) | payer MEDICARE, BC, SELFPAY | END 2022-08-27 01:07 | disposition home or self-care (01) | LOC: AMB 08:04 | PROVIDERS: PCP Family Medicine; Visit Provider Family Medicine | DX: E16.2 Hypoglycemia, unspecified (principal) | CPT/HCPCS: A0425; A0428 ==

== ENCOUNTER 2022-10-20 13:09 | Emergency (ER) | payer MEDICARE, BC, SELFPAY ==
[2022-10-20 13:16] VITALS: BP 113/49; PULSE 65; RESP 18; TEMP 36.4; O2SAT 93; BMI 53.9
--- NOTE | 2022-10-20 13:46 | ED_ITS ---
I signed up for this patient, but never saw here. Instead my colleague took care of the patient. Ivett De Souza MD HPI - Skin/Abscess/Foreign Bdy General Time Seen by Provider: 13:46 <Ivett De Souza MD - Last Filed: 10/20/22 13:47> Date Seen: 10/20/22 <Ivett De Souza MD - Last Filed: 10/20/22 13:47> Chief complaint: Skin/Abscess/Foreign Body <Ivett De Souza MD - Last Filed: 10/20/22 13:47> Stated complaint: Cellulitis <Ivett De Souza MD - Last Filed: 10/20/22 13:47> Time Seen by Provider: 10/20/22 13:36 <Ivett De Souza MD - Last Filed: 10/20/22 13:47> Source: patient, RN notes reviewed and old records reviewed <Ivett De Souza MD - Last Filed: 10/20/22 13:47> Mode of arrival: ambulatory <Ivett De Souza MD - Last Filed: 10/20/22 13:47> Limitations: no limitations <Ivett De Souza MD - Last Filed: 10/20/22 13:47> History of Present Illness HPI narrative: 72-year-old female coming in today concerned about increasing redness and pain of her bilateral lower extremities. Patient was seen a few days ago and started on Keflex. She states that her symptoms continue to get worse instead of better. She denies any systemic symptoms like fevers or chills. No nausea or vomiting. <Becky Bain MD - Last Filed: 10/20/22 16:25> Related Data Home medications: Home Medications Medication Instructions Recorded Confirmed acetaminophen 500 mg tablet 1,000 mg PO TID 01/24/22 01/24/22 albuterol sulfate 90 mcg/actuation 2 puff inhalation Q6H PRN 01/24/22 01/24/22 aerosol inhaler (Ventolin HFA) aluminum-mag hydroxide-simethicone 5 - 10 ml PO TID PRN 01/24/22 01/24/22 200 mg-200 mg-20 mg/5 mL oral susp (Advanced Antacid-Antigas) aspirin 81 mg tablet,delayed 81 mg PO DAILY 01/24/22 01/24/22 release (Adult Low Dose Aspirin) atorvastatin 80 mg tablet 80 mg PO DAILY 01/24/22 01/24/22 buprenorphine HCl 300 mcg buccal 300 mcg buccal BID 01/24/22 01/24/22 film (Belbuca) buspirone 30 mg tablet 30 mg PO BID 01/24/22 01/24/22 calcium carbonate 500 mg calcium 1,000 - 2,000 mg PO TID PRN 01/24/22 01/24/22 (1,250 mg) chewable tablet (Calcium 500) dextromethorphan HBr 15 mg/5 mL 15 - 30 mg PO Q6H PRN 01/24/22 01/24/22 oral liquid diclofenac sodium 1 % topical gel 2 g topical QID 01/24/22 01/24/22 (Arthritis Pain (diclofenac)) diltiazem HCl 120 mg 120 mg PO DAILY 01/24/22 01/24/22 capsule,extended release 24 hr diphenhydramine HCl 25 mg capsule 25 - 50 mg PO Q8H PRN 01/24/22 01/24/22 (Aler-Cap) duloxetine 60 mg capsule,delayed 120 mg PO DAILY 01/24/22 01/24/22 release ferrous gluconate 324 mg (37.5 mg 324 mg PO TIDWM 01/24/22 01/24/22 iron) tablet fluconazole 150 mg tablet 150 mg PO Q7D 01/24/22 01/24/22 fluticasone propionate 50 1 spray intranasal DAILY PRN 01/24/22 01/24/22 mcg/actuation nasal spray,suspension gabapentin 400 mg capsule 400 mg PO DAILY 01/24/22 01/24/22 guaifenesin 100 mg/5 mL oral 100 - 200 mg PO Q6H PRN 01/24/22 01/24/22 liquid (Adult Tussin Chest Congestion) ibuprofen 200 mg tablet (Addaprin) 200 - 400 mg PO Q6H PRN 01/24/22 01/24/22 levothyroxine 50 mcg tablet 50 mcg PO DAILY 01/24/22 01/24/22 loperamide 2 mg capsule 2 - 4 mg PO Q6H PRN 01/24/22 01/24/22 magnesium hydroxide 400 mg/5 mL 15 - 30 ml PO DAILY PRN 01/24/22 01/24/22 oral suspension (Milk of Magnesia) magnesium oxide 400 mg PO DAILY 01/24/22 01/24/22 metoclopramide HCl 10 mg tablet 10 mg PO ACHS 01/24/22 01/24/22 montelukast 10 mg tablet 10 mg PO HS 01/24/22 01/24/22 nystatin 100,000 unit/gram topical 1 applic topical TID 01/24/22 01/24/22 powder (Nystop) omeprazole 20 mg capsule,delayed 20 mg PO BID 01/24/22 01/24/22 release ondansetron 4 mg disintegrating 4 mg PO Q8H PRN 01/24/22 01/24/22 tablet polyethylene glycol 3350 17 17 g PO DAILY 01/24/22 01/24/22 gram/dose oral powder (Miralax) sumatriptan succinate 50 mg tablet 50 mg PO BID PRN 01/24/22 01/24/22 tizanidine 4 mg tablet 4 mg PO TID 01/24/22 01/24/22 torsemide 20 mg tablet 20 mg PO DAILY 01/24/22 01/24/22 trazodone 100 mg tablet 100 mg PO HS PRN 01/24/22 01/24/22 Previous Rx's Medication Instructions Recorded menthol 0.44 %-zinc oxide 20.6 % 1 applic topical QID PRN skin 12/03/21 topical ointment (Calmoseptine) irritation #113 grams cefadroxil 500 mg capsule 500 mg PO BID #10 caps 01/27/22 insulin aspart 15 unit subcut TIDWM #15 mL 01/27/22 (niacinamide)(U-100) 100 unit/mL(3 mL) subcutaneous pen (Fiasp FlexTouch U-100 Insulin) insulin degludec 200 unit/mL (3 20 unit (0.1 mL) subcut HS #9 mL 01/27/22 mL) subcutaneous pen (Tresiba FlexTouch U-200 insulin) losartan 50 mg tablet 50 mg PO DAILY #30 tabs 01/27/22 metoprolol succinate 100 mg 100 mg PO DAILY #30 tabs 01/27/22 tablet,extended release 24 hr amoxicillin 875 mg-potassium 1 tab PO BID #14 tabs 03/24/22 clavulanate 125 mg tablet cephalexin 500 mg capsule 500 mg PO BID #14 caps 03/24/22 furosemide 20 mg tablet (Lasix) 20 mg PO DAILY #20 tabs 09/26/22 cephalexin 500 mg capsule 500 mg PO TID 7 days #21 caps 10/15/22 <Ivett De Souza MD - Last Filed: 10/20/22 13:47> Allergies/Adverse reactions: Allergies Allergy/AdvReac Type Severity Reaction Status Date / Time amoxicillin Allergy Unknown Verified 10/15/22 13:10 celecoxib Allergy Unknown Verified 10/15/22 13:10 nickel Allergy Unknown Verified 10/15/22 13:10 rofecoxib Allergy Unknown Verified 10/15/22 13:10 clarithromycin [From Biaxin] Allergy Verified 10/15/22 13:10 codeine Allergy Verified 10/15/22 13:10 morphine Allergy Verified 10/15/22 13:10 tramadol [From Ultram] Allergy Verified 10/15/22 13:10 vancomycin Allergy Verified 10/15/22 13:10 <Ivett De Souza MD - Last Filed: 10/20/22 13:47> Review of Systems Status of ROS: Reports: 10 or more systems reviewed and unremarkable except as noted in History and below <Becky Bain MD - Last Filed: 10/20/22 16:25> [facility] Medical History: Medical History Pulmonary hypertension ?I27.20 - Pulmonary hypertension, unspecified (ICD-10) Polypharmacy ?Z79.899 - Other shelter (current) drug therapy (ICD-10) Methicillin resistant Staphylococcus aureus infection as the cause of diseases classified elsewhere ?B95.62 - Methicillin resistant Staphylococcus aureus infection as the cause of diseases classified elsewhere (ICD-10) Type 2 diabetes mellitus ?E11.9 - Type 2 diabetes mellitus without complications (ICD-10) Essential hypertension ?I10 - Essential (primary) hypertension (ICD-10) Obstructive sleep apnea ?G47.33 - Obstructive sleep apnea (adult) (pediatric) (ICD-10) Anxiety ?F41.9 - Anxiety disorder, unspecified (ICD-10) Major depression ?F32.9 - Major depressive disorder, single episode, unspecified (ICD-10) Non-pressure 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 limited to breakdown of skin ?L97.501 - Non-pressure 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 limited to breakdown of skin (ICD-10) Erythema ?L53.9 - Erythematous condition, unspecified (ICD-10) Chronic venous hypertension (idiopathic) with inflammation of unspecified lower extremity ?I87.329 - Chronic venous hypertension (idiopathic) with inflammation of unspecified lower extremity (ICD-10) Gastro-esophageal reflux disease with esophagitis ?K21.00 - Gastro-esophageal reflux disease with esophagitis, without bleeding (ICD-10) Lymphedema ?I89.0 - Lymphedema, not elsewhere classified (ICD-10) 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 - Disorder of lipoprotein metabolism, unspecified (ICD-10) Hypothyroid ?E03.9 - Hypothyroidism, unspecified (ICD-10) Iron deficiency anemia ?D50.9 - Iron deficiency anemia, unspecified (ICD-10) Gastroparesis ?K31.84 - Gastroparesis (ICD-10) Chronic CHF (congestive heart failure) ?I50.9 - Heart failure, unspecified (ICD-10) Paroxysmal atrial fibrillation ?I48.0 - Paroxysmal atrial fibrillation (ICD-10) Morbid (severe) obesity due to excess calories ?E66.01 - Morbid (severe) obesity due to excess calories (ICD-10) <Ivett De Souza MD - Last Filed: 10/20/22 13:47> Social History: Social History Highest 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 Alert and oriented. Answers questions appropriately. Patient speaks in full sentences without needing to catch her breath. HEENT: Normocephalic atraumatic. Pupils are equally round reactive to light. Extraocular muscles are intact. Conjunctivae are moist without any icterus noted. Moist mucous membranes. Cardiovascular: Heart is regular rate and rhythm S1 and S2 are present without any murmurs. Lungs: Clear to auscultation bilaterally no wheezes rhonchi or rales are appreciated. Patient takes deep breaths without any discomfort. Abdomen: Soft and nontender nondistended with normal bowel sounds. Extremities: Bilateral lower extremities show bilateral [place] induration with erythema extending from the ankles all the way up into the medial thighs. Legs are covered in small blisters with clear fluid. Both legs are hot to touch. Aside from increasing blistering, no significant change from previous exam a few days ago. <Becky Bain MD - Last Filed: 10/20/22 16:25> Const: Vital Signs, click to edit/add: Vital Signs - 24 hr 10/20/22 13:16 Temperature 97.5 F L Pulse Rate [Right Pulse Oximeter] 65 Respiratory Rate 18 Blood Pressure [Ri ght Upper Arm] 113/49 L Pulse Oximetry 93 Oxygen Delivery Me thod Room Air <Ivett De Souza MD - Last Filed: 10/20/22 13:47> Vital Signs, click to edit/add: Vital Signs - 24 hr 10/20/22 13:16 Temperature 97.5 F L Pulse Rate [Right Pulse Oximeter] 65 Respiratory Rate 18 Blood Pressure [Ri ght Upper Arm] 113/49 L Pulse Oximetry 93 Oxygen Delivery Me thod Room Air <Becky Bain MD - Last Filed: 10/20/22 16:25> Course Course Hospital Course: Labs were drawn and creatinine is found to be elevated as well as the lactate. Because of this I did discuss the patient with Dr. Chandra who recommended a bolus of IV fluids, bilateral ultrasounds and holding her diuretic today and tomorrow. Therefore, patient was given a L of normal saline. Legs or wrapped in the ER today. She will continue her Keflex just out of precaution as I do not think her symptoms are secondary to cellulitis at this time. Or torsemide will be held and restarted on Thursday. And she will follow up in the clinic with her primary care provider in the next 2-3 days. Ultrasound results and repeat lactate pending at this time. Care will be transferred to oncoming physician to follow-up on these exams. <Ivett De Souza MD - Last Filed: 10/20/22 13:47> Vital Signs Vital signs: Initial Vital Signs Temperature 97.5 F L 10/20/22 13:16 Temperature Source Temporal Artery Scan 10/20/22 13:16 Pulse Rate 65 10/20/22 13:16 Respiratory Rate 18 10/20/22 13:16 Blood Pressure 113/49 L 10/20/22 13:16 Blood Pressure Mean 70 10/20/22 13:16 Blood Pressure Position Sitting 10/20/22 13:16 Pulse Oximetry 93 10/20/22 13:16 Oxygen Delivery Method Room Air 10/20/22 13:16 Vital Signs Temperature 97.5 F L 10/20/22 13:16 Pulse Rate 65 10/20/22 13:16 Respiratory Rate 18 10/20/22 13:16 Blood Pressure 113/49 L 10/20/22 13:16 Pulse Oximetry 93 10/20/22 13:16 Oxygen Delivery Method Room Air 10/20/22 13:16 Temperature 97.5 F L 10/20/22 13:16 Pulse Rate 65 10/20/22 13:16 Respiratory Rate 18 10/20/22 13:16 Blood Pressure 113/49 L 10/20/22 13:16 Pulse Oximetry 93 10/20/22 13:16 Oxygen Delivery Method Room Air 10/20/22 13:16 <Ivett De Souza MD - Last Filed: 10/20/22 13:47> Initial Vital Signs Temperature 97.5 F L 10/20/22 13:16 Temperature Source Temporal Artery Scan 10/20/22 13:16 Pulse Rate 65 10/20/22 13:16 Respiratory Rate 18 10/20/22 13:16 Blood Pressure 113/49 L 10/20/22 13:16 Blood Pressure Mean 70 10/20/22 13:16 Blood Pressure Position Sitting 10/20/22 13:16 Pulse Oximetry 93 10/20/22 13:16 Oxygen Delivery Method Room Air 10/20/22 13:16 Vital Signs Temperature 97.5 F L 10/20/22 13:16 Pulse Rate 65 10/20/22 13:16 Respiratory Rate 18 10/20/22 13:16 Blood Pressure 113/49 L 10/20/22 13:16 Pulse Oximetry 93 10/20/22 13:16 Oxygen Delivery Method Room Air 10/20/22 13:16 Temperature 97.5 F L 10/20/22 13:16 Pulse Rate 65 10/20/22 13:16 Respiratory Rate 18 10/20/22 13:16 Blood Pressure 113/49 L 10/20/22 13:16 Pulse Oximetry 93 10/20/22 13:16 Oxygen Delivery Method Room Air 10/20/22 13:16 <Becky Bain MD - Last Filed: 10/20/22 16:25> MDM - Skin/Abscess/Foreign Bdy MDM Narrative Medical decision making narrative: Bilateral lymphedema, plan per above. <Becky Bain MD - Last Filed: 10/20/22 16:25> Medical Records Attestation: I reviewed the patient's medical records. <Becky Bain MD - Last Filed: 10/20/22 16:25> Lab Data Attestation: I reviewed the patient's lab results. <Becky Bain MD - Last Filed: 10/20/22 16:25> Labs: Lab Results 10/20/22 Range/Units 14:46 WBC 10.17 (4.50-11.00) K/uL RBC 4.13 (4.00-5.20) m/uL Hgb 12.3 (12.0-16.0) gm/dL Hct 39.2 (33.0-51.0) % MCV 95 (80-100) fL MCH 30 (26-34) pg MCHC 31 L (32-36) gm/dL RDW Coeff of Trina 16.1 H (11.5-15.5) % Plt Count 278 (140-440) K/uL Neut % (Auto) 69.1 (42.0-72.0) % Lymph % (Auto) 13.6 L (20-44) % [place] % (Auto) 10.1 (0.0-11.0) % Eos % (Auto) 4.5 (0.0-7.0) % Baso % (Auto) 0.2 (0.0-3.0) % Neut # (Auto) 7.03 H (1.7-7.0) K/uL Lymph # (Auto) 1.40 (0.90-2.90) K/uL [place] # (Auto) 1.00 H (0.00-0.90) K/UL Eos # (Auto) 0.46 (0.00-0.50) K/uL Baso # (Auto) 0.02 (0.00-0.30) K/uL Sodium 138 (135-149) mmol/L Chloride 99 (96-114) mmol/L Carbon Dioxide 30 (20-32) mmol/L BUN 29 (7-30) mg/dL Creatinine 1.6 H (0.5-1.5) mg/dL Estimated Creat Clear 28.60 Estimated GFR 34 ml/min Glucose 99 (60-115) mg/dL Lactate 2.0 H (0.5-1.9) mmol/L Calcium 9.2 (8.4-10.6) mg/dL Total Bilirubin 0.5 (0.1-1.5) mg/dL Direct Bilirubin 0.1 (0.0-0.5) mg/dL AST 19 (12-35) U/L ALT 18 (4-35) U/L Alkaline Phosphatase 138 (40-150) U/L C-Reactive Protein 2.2 H (0.5-1.0) mg/dL Total Protein 7.5 (6.0-8.3) g/dL Albumin 4.0 (3.3-5.0) g/dL <Ivett De Souza MD - Last Filed: 10/20/22 13:47> Lab Results 10/20/22 Range/Units 14:46 WBC 10.17 (4.50-11.00) K/uL RBC 4.13 (4.00-5.20) m/uL Hgb 12.3 (12.0-16.0) gm/dL Hct 39.2 (33.0-51.0) % MCV 95 (80-100) fL MCH 30 (26-34) pg MCHC 31 L (32-36) gm/dL RDW Coeff of Trina 16.1 H (11.5-15.5) % Plt Count 278 (140-440) K/uL Neut % (Auto) 69.1 (42.0-72.0) % Lymph % (Auto) 13.6 L (20-44) % [place] % (Auto) 10.1 (0.0-11.0) % Eos % (Auto) 4.5 (0.0-7.0) % Baso % (Auto) 0.2 (0.0-3.0) % Neut # (Auto) 7.03 H (1.7-7.0) K/uL Lymph # (Auto) 1.40 (0.90-2.90) K/uL [place] # (Auto) 1.00 H (0.00-0.90) K/UL Eos # (Auto) 0.46 (0.00-0.50) K/uL Baso # (Auto) 0.02 (0.00-0.30) K/uL Sodium 138 (135-149) mmol/L Chloride 99 (96-114) mmol/L Carbon Dioxide 30 (20-32) mmol/L BUN 29 (7-30) mg/dL Creatinine 1.6 H (0.5-1.5) mg/dL Estimated Creat Clear 28.60 Estimated GFR 34 ml/min Glucose 99 (60-115) mg/dL Lactate 2.0 H (0.5-1.9) mmol/L Calcium 9.2 (8.4-10.6) mg/dL Total Bilirubin 0.5 (0.1-1.5) mg/dL Direct Bilirubin 0.1 (0.0-0.5) mg/dL AST 19 (12-35) U/L ALT 18 (4-35) U/L Alkaline Phosphatase 138 (40-150) U/L C-Reactive Protein 2.2 H (0.5-1.0) mg/dL Total Protein 7.5 (6.0-8.3) g/dL Albumin 4.0 (3.3-5.0) g/dL <Becky Bain MD - Last Filed: 10/20/22 16:25> Discharge Plan Discharge Clinical Impression: Lymphedema of both lower extremities <Ivett De Souza MD - Last Filed: 10/20/22 13:47> Patient Disposition: Home w/ Parent or Adult <Ivett De Souza MD - Last Filed: 10/20/22 13:47> Condition: Stable <Ivett De Souza MD - Last Filed: 10/20/22 13:47> Additional Instructions: Legs need to be wrapped tight on a daily basis and elevated as much as possible. There needs to be a follow-up with primary care in the next 2-3 days. Hold torsemide on Thursday. Restart on Thursday. <Ivett De Souza MD - Last Filed: 10/20/22 13:47> Prescriptions: No Action furosemide [Lasix] 20 mg tablet 20 mg PO DAILY Qty: 20 2RF menthol-zinc oxide [Calmoseptine] 0.44-20.6 % ointment 1 applic topical QID PRN (Reason: skin irritation) Qty: 113 0RF albuterol sulfate [Ventolin HFA] 90 mcg/actuation HFA aerosol inhaler 2 puff INHALATION Q6H PRN aspirin [Adult Low Dose Aspirin] 81 mg tablet,delayed release (DR/EC) 81 mg PO DAILY atorvastatin 80 mg tablet 80 mg PO DAILY buspirone 30 mg tablet 30 mg PO BID diltiazem HCl 120 mg capsule,extended release 24hr 120 mg PO DAILY duloxetine 60 mg capsule,delayed release(DR/EC) 120 mg PO DAILY ferrous gluconate 324 mg (37.5 mg iron) tablet 324 mg PO TIDWM gabapentin 400 mg capsule 400 mg PO DAILY levothyroxine 50 mcg tablet 50 mcg PO DAILY fluticasone propionate 50 mcg/actuation spray,suspension 1 spray INTRANASAL DAILY PRN magnesium oxide 400 mg magnesium capsule 400 mg PO DAILY torsemide 20 mg tablet 20 mg PO DAILY tizanidine 4 mg tablet 4 mg PO TID sumatriptan succinate 50 mg tablet 50 mg PO BID PRN trazodone 100 mg tablet 100 mg PO HS PRN omeprazole 20 mg capsule,delayed release(DR/EC) 20 mg PO BID montelukast 10 mg tablet 10 mg PO HS metoclopramide HCl 10 mg tablet 10 mg PO ACHS acetaminophen 500 mg tablet 1,000 mg PO TID diclofenac sodium [Arthritis Pain (diclofenac)] 1 % gel 2 g topical QID fluconazole 150 mg tablet 150 mg PO Q7D Rx Instructions: WEEKLY ON THURSDAY nystatin [Nystop] 100,000 unit/gram powder 1 applic TOPICAL TID polyethylene glycol 3350 [Miralax] 17 gram/dose powder 17 g PO DAILY alum-mag hydroxide-simeth [Advanced Antacid-Antigas] 200-200-20 mg/5 mL suspension 5 - 10 ml PO TID PRN loperamide 2 mg capsule 2 - 4 mg PO Q6H PRN calcium carbonate [Calcium 500] 500 mg calcium (1,250 mg) tablet,chewable 1,000 - 2,000 mg PO TID PRN dextromethorphan HBr 15 mg/5 mL liquid 15 - 30 mg PO Q6H PRN guaifenesin [Adult Tussin Chest Congestion] 100 mg/5 mL liquid 100 - 200 mg PO Q6H PRN diphenhydramine HCl [Aler-Cap] 25 mg capsule 25 - 50 mg PO Q8H PRN ibuprofen [Addaprin] 200 mg tablet 200 - 400 mg PO Q6H PRN magnesium hydroxide [Milk of Magnesia] 400 mg/5 mL suspension 15 - 30 ml PO DAILY PRN ondansetron 4 mg tablet,disintegrating 4 mg PO Q8H PRN buprenorphine HCl [Belbuca] 300 mcg film 300 mcg BUCCAL BID cefadroxil 500 mg capsule 500 mg PO BID Qty: 10 0RF Tresiba FlexTouch U-200 200 unit/mL (3 mL) insulin pen 20 unit subcut HS Qty: 9 0RF metoprolol succinate 100 mg Tablet Extended Release 24 Hr 100 mg PO DAILY Qty: 30 0RF losartan 50 mg Tablet 50 mg PO DAILY Qty: 30 0RF Fiasp FlexTouch U-100 Insulin 100 unit/mL (3 mL) insulin pen 15 unit SUBCUT TIDWM Qty: 15 0RF Rx Instructions: PLUS SLIDING SCALE amoxicillin-pot clavulanate 875-125 mg tablet 1 tab PO BID Qty: 14 0RF cephalexin 500 mg capsule 500 mg PO BID Qty: 14 0RF cephalexin 500 mg capsule 500 mg PO TID 7 Days Qty: 21 0RF <Ivett De Souza MD - Last Filed: 10/20/22 13:47> Follow Up/Referrals: Germania Jones MD [Primary Care Provider] - <Ivett De Souza MD - Last Filed: 10/20/22 13:47> Stand Alone Forms: MyHealth Info Instructions <Ivett De Souza MD - Last Filed: 10/20/22 13:47>
--- NOTE | 2022-10-20 14:43 | PC.NURSE ---
pt has had several large loose BM with harder stool mixed in, pt is incontinent of stool, cleaned up and dressing on inner right buttock removed as it was soiled
[2022-10-20 14:54] LABS: Basophils Absolute Auto 0.02 K/uL (0.00-0.30); Basophils Percent Auto 0.2 % (0.0-3.0); Eosinophils Absolute Auto 0.46 K/uL (0.00-0.50); Eosinophils Percent Auto 4.5 % (0.0-7.0); Hematocrit 39.2 % (33.0-51.0); Hemoglobin* 12.3 gm/dL (12.0-16.0); Immature Granulocytes Abs Auto 0.25 K/uL (0.00-0.30); Immature Granulocytes Pct Auto 2.5 %; Lymphocytes Percent Auto 13.6 % (20-44); Mean Corpuscular HGB Conc 31 gm/dL (32-36); Mean Corpuscular Hemoglobin 30 pg (26-34); Mean Corpuscular Volume 95 fL (80-100); Monocytes Percent Auto 10.1 % (0.0-11.0); Neutrophils Absolute Auto 7.03 K/uL (1.7-7.0); Neutrophils Percent Auto 69.1 % (42.0-72.0); Platelet Count* 278 K/uL (140-440); RDW Coefficient of Variation % 16.1 % (11.5-15.5); Red Blood Count 4.13 m/uL (4.00-5.20); White Blood Count* 10.17 K/uL (4.50-11.00)
[2022-10-20 15:07] LABS: Slide Review Reflex No
[2022-10-20 15:08] LABS: Chloride* 99 mmol/L (96-114); Sodium* 138 mmol/L (135-149)
[2022-10-20 15:10] LABS: Creatinine* 1.6 mg/dL (0.5-1.5); Estimated Glomerular Filt Rate 34 ml/min
[2022-10-20 15:11] LABS: Alkaline Phosphatase* 138 U/L (40-150); Aspartate Amino Transferase* 19 U/L (12-35); Bilirubin Direct* 0.1 mg/dL (0.0-0.5); Bilirubin Total* 0.5 mg/dL (0.1-1.5); Blood Urea Nitrogen* 29 mg/dL (7-30); Carbon Dioxide* 30 mmol/L (20-32); Glucose* 99 mg/dL (60-115); Total Protein* 7.5 g/dL (6.0-8.3)
[2022-10-20 15:12] LABS: Alanine Aminotransferase* 18 U/L (4-35); Calcium* 9.2 mg/dL (8.4-10.6)
[2022-10-20 15:14] LABS: C Reactive Protein* 2.2 mg/dL (0.5-1.0)
--- NOTE | 2022-10-20 15:28 | CRLHL7_ITS ---
For Patients: As a result of the Cures Act, medical imaging exams and procedure reports are released immediately into your electronic medical record. You may view this report before your referring provider. If you have questions, please contact your health care provider. INDICATION: Swelling and cellulitis TECHNIQUE: : Ultrasound venous duplex lower extremity bilateral. Compression venous exam was performed using soliman scale, color Doppler, and spectral Doppler imaging. COMPARISON: None FINDINGS: Sonographic imaging demonstrates the common femoral, deep femoral, left superficial femoral, popliteal, posterior tibial and greater saphenous veins to be fully compressible with normal color Doppler blood flow in both lower extremities. The right distal femoral vein is not well visualized. IMPRESSION: Normal bilateral lower extremity venous ultrasound, no sign of deep venous thrombosis. The right superficial femoral vein is not well visualized. Dictated by Carlos Pagan MD @ 10/20/2022 4:59:08 PM Dictated by: Carlos Pagan MD @ 10/20/2022 16:59:14 (Electronically Signed)
[2022-10-20] MEDS: 0.9 % SODIUM CHLORIDE 1000 ml 1,000 ML IV (16:05)
[2022-10-20 17:26] LABS: Lactate* 1.7 mmol/L (0.5-1.9)
[2022-10-20 18:12] VITALS: BP 165/70; PULSE 80; RESP 17; O2SAT 93
== END 2022-10-20 19:00 | disposition home or self-care (01) ==
PROVIDERS: Emergency Provider Family Medicine; PCP Family Medicine
DX: I89.0 Lymphedema, not elsewhere classified (principal); M79.661 Pain in right lower leg; M79.662 Pain in left lower leg
CPT/HCPCS: 36415; 80048; 80076; 83605; 85025; 86140; 93970; 99284; J7030

== ENCOUNTER 2022-11-24 08:11 | Outpatient (CLI) | payer MEDICARE, BC, SELFPAY | END 2022-11-24 08:12 | disposition home or self-care (01) | LOC: AMB 11-25 09:22 | PROVIDERS: PCP Family Medicine; Visit Provider Family Medicine | DX: R53.1 Weakness (principal) | CPT/HCPCS: A0998 ==

== ENCOUNTER 2023-04-13 13:30 | Outpatient (CLI) | payer MEDICARE, BC, SELFPAY | END 2023-04-13 13:31 | disposition home or self-care (01) | LOC: AMB 04-14 10:31 | PROVIDERS: Visit Provider Emergency Medicine | DX: S89.91XA Unspecified injury of right lower leg, initial encounter (principal); S89.92XA Unspecified injury of left lower leg, initial encounter; S09.90XA Unspecified injury of head, initial encounter; W18.30XA Fall on same level, unspecified, initial encounter; Y92.122 Bedroom in nursing home as the place of occurrence of the external cause | CPT/HCPCS: A0425; A0429 ==

== ENCOUNTER 2023-04-13 13:59 | Inpatient (IN) | payer MEDICARE, BC, SELFPAY ==
[2023-04-13] VITALS (25 sets, daily range): BP systolic 75–157; BP diastolic 57–130; PULSE 63–86; RESP 18; TEMP 36.4–37.2; O2SAT 78–98; BMI 59.1
--- NOTE | 2023-04-13 14:19 | CRLHL7_ITS ---
For Patients: As a result of the Century Cures Act, medical imaging exams and procedure reports are released immediately into your electronic medical record. You may view this report before your referring provider. If you have questions, please contact your health care provider. INDICATION: FALL FOREHEAD TRAUMA. SYNCOPE. TECHNIQUE: Head CT without contrast. COMPARISON: None. FINDINGS: CSF spaces: Within normal limits for age. Brain parenchyma and extra-axial spaces: There are nonspecific low attenuation white matter changes consistent with chronic microvascular disease. No sign of mass, hemorrhage, or midline shift. Skull base and calvarium: The visualized paranasal sinuses and mastoid air cells demonstrate no acute or significant findings. The visualized orbits are grossly unremarkable. No skull fractures. Forehead laceration and underlying small foci of gas and small contusion. IMPRESSION: Forehead laceration with underlying small foci of gas and small contusion. No intracranial hemorrhage identified. No skull fractures identified. Please note that all CT scans at this facility use dose modulation, iterative reconstruction, and/or weight-based dosing when appropriate to reduce radiation dose to as low as reasonably achievable. Dictated by Julieta Rivera MD @ 04/13/2023 5:49:59 PM (Electronically Signed)
--- NOTE | 2023-04-13 14:49 | CRLHL7_ITS ---
For Patients: As a result of the Cures Act, medical imaging exams and procedure reports are released immediately into your electronic medical record. You may view this report before your referring provider. If you have questions, please contact your health care provider. Indication: Injury Technique: Three views of the right knee were obtained Comparison: None Findings: Decreased bone mineral density. Significant arthritic changes especially medially. Changes of a prior ACL repair. No significant joint effusion. No definite acute fracture, dislocation or destructive process. Soft tissue swelling is noted. Impression: No acute fracture, dislocation or destructive process. Significant degenerative change. Demineralization. Status post ACL repair. Soft tissue swelling. Dictated by Daniel Clements MD @ 04/13/2023 3:41:25 PM (Electronically Signed)
--- NOTE | 2023-04-13 14:49 | CRLHL7_ITS ---
For Patients: As a result of the Cures Act, medical imaging exams and procedure reports are released immediately into your electronic medical record. You may view this report before your referring provider. If you have questions, please contact your health care provider. Indication: Fall, pain Technique: Two views Comparison: None Findings/Impression: Bones: Alignment is normal. No fractures or bone lesions. Joint spaces: Unremarkable. Soft tissues: Unremarkable. Dictated by Grant Gomez MD @ 04/13/2023 3:38:47 PM (Electronically Signed)
--- NOTE | 2023-04-13 14:56 | ED.GENADULT ---
HPI - General Adult General Date Seen: 04/13/23 Chief complaint: Fall/Minor Trauma Stated complaint: Fall, head lac Time Seen by Provider: 04/13/23 14:13 History of Present Illness HPI narrative: This is a 72-year-old female brought to the ER today from her care center for evaluation of injuries after she fell while trying to pull her pants up after going to the bathroom. History from paramedics is that she was weak today, she had gone to the bathroom, she had stood to pull up her pants and then lost her balance and fell forward. She struck her forehead against the floor and suffered a forehead laceration. She had stable vital signs. She seemed a bit confused. Patient initially does seem somewhat drowsy. She is able to follow simple commands and answer simple questions. HPI is limited because of her mental status. It sounds like she has been feeling weak with ?wobbly knees? for the past couple of days. Along with that the patient did feel short of breath yesterday. She was apparently not feeling short of breath this morning. However she is now hypoxic requiring nasal cannula when she arrives by EMS. She initially denies any cough and then says she has been coughing ?occasionally? but it is unclear if she has actually been coughing today or not. Unknown if she has a fever. She denies any vomiting. She denies diarrhea. She denies chest pain. She denies palpitations. She denies headache. She denies sore throat. She denies stuffy nose. Related Data Home Medications Medication Instructions Recorded Confirmed acetaminophen 500 mg tablet 1,000 mg PO TID 01/24/22 01/24/22 albuterol sulfate 90 mcg/actuation 2 puff inhalation Q6H PRN 01/24/22 01/24/22 aerosol inhaler (Ventolin HFA) aluminum-mag hydroxide-simethicone 5 - 10 ml PO TID PRN 01/24/22 01/24/22 200 mg-200 mg-20 mg/5 mL oral susp (Advanced Antacid-Antigas) aspirin 81 mg tablet,delayed 81 mg PO DAILY 01/24/22 01/24/22 release (Adult Low Dose Aspirin) atorvastatin 80 mg tablet 80 mg PO DAILY 01/24/22 01/24/22 buprenorphine HCl 300 mcg buccal 300 mcg buccal BID 01/24/22 01/24/22 film (Belbuca) buspirone 30 mg tablet 30 mg PO BID 01/24/22 01/24/22 calcium carbonate 500 mg calcium 1,000 - 2,000 mg PO TID PRN 01/24/22 01/24/22 (1,250 mg) chewable tablet (Calcium 500) dextromethorphan HBr 15 mg/5 mL 15 - 30 mg PO Q6H PRN 01/24/22 01/24/22 oral liquid diclofenac sodium 1 % topical gel 2 g topical QID 01/24/22 01/24/22 (Arthritis Pain (diclofenac)) diltiazem HCl 120 mg 120 mg PO DAILY 01/24/22 01/24/22 capsule,extended release 24 hr diphenhydramine HCl 25 mg capsule 25 - 50 mg PO Q8H PRN 01/24/22 01/24/22 (Aler-Cap) duloxetine 60 mg capsule,delayed 120 mg PO DAILY 01/24/22 01/24/22 release ferrous gluconate 324 mg (37.5 mg 324 mg PO TIDWM 01/24/22 01/24/22 iron) tablet fluconazole 150 mg tablet 150 mg PO Q7D 01/24/22 01/24/22 fluticasone propionate 50 1 spray intranasal DAILY PRN 01/24/22 01/24/22 mcg/actuation nasal spray,suspension gabapentin 400 mg capsule 400 mg PO DAILY 01/24/22 01/24/22 guaifenesin 100 mg/5 mL oral 100 - 200 mg PO Q6H PRN 01/24/22 01/24/22 liquid (Adult Tussin Chest Congestion) ibuprofen 200 mg tablet (Addaprin) 200 - 400 mg PO Q6H PRN 01/24/22 01/24/22 levothyroxine 50 mcg tablet 50 mcg PO DAILY 01/24/22 01/24/22 loperamide 2 mg capsule 2 - 4 mg PO Q6H PRN 01/24/22 01/24/22 magnesium hydroxide 400 mg/5 mL 15 - 30 ml PO DAILY PRN 01/24/22 01/24/22 oral suspension (Milk of Magnesia) magnesium oxide 400 mg PO DAILY 01/24/22 01/24/22 metoclopramide HCl 10 mg tablet 10 mg PO ACHS 01/24/22 01/24/22 montelukast 10 mg tablet 10 mg PO HS 01/24/22 01/24/22 nystatin 100,000 unit/gram topical 1 applic topical TID 01/24/22 01/24/22 powder (Nystop) omeprazole 20 mg capsule,delayed 20 mg PO BID 01/24/22 01/24/22 release ondansetron 4 mg disintegrating 4 mg PO Q8H PRN 01/24/22 01/24/22 tablet polyethylene glycol 3350 17 17 g PO DAILY 01/24/22 01/24/22 gram/dose oral powder (Miralax) sumatriptan succinate 50 mg tablet 50 mg PO BID PRN 01/24/22 01/24/22 tizanidine 4 mg tablet 4 mg PO TID 01/24/22 01/24/22 torsemide 20 mg tablet 20 mg PO DAILY 01/24/22 01/24/22 trazodone 100 mg tablet 100 mg PO HS PRN 01/24/22 01/24/22 Previous Rx's Medication Instructions Recorded menthol 0.44 %-zinc oxide 20.6 % 1 applic topical QID PRN skin 12/03/21 topical ointment (Calmoseptine) irritation #113 grams cefadroxil 500 mg capsule 500 mg PO BID #10 caps 01/27/22 insulin aspart 15 unit subcut TIDWM #15 mL 01/27/22 (niacinamide)(U-100) 100 unit/mL(3 mL) subcutaneous pen (Fiasp FlexTouch U-100 Insulin) insulin degludec 200 unit/mL (3 20 unit (0.1 mL) subcut HS #9 mL 01/27/22 mL) subcutaneous pen (Tresiba FlexTouch U-200 insulin) losartan 50 mg tablet 50 mg PO DAILY #30 tabs 01/27/22 metoprolol succinate 100 mg 100 mg PO DAILY #30 tabs 01/27/22 tablet,extended release 24 hr amoxicillin 875 mg-potassium 1 tab PO BID #14 tabs 03/24/22 clavulanate 125 mg tablet cephalexin 500 mg capsule 500 mg PO BID #14 caps 03/24/22 furosemide 20 mg tablet (Lasix) 20 mg PO DAILY #20 tabs 09/26/22 cephalexin 500 mg capsule 500 mg PO TID 7 days #21 caps 10/15/22 Allergies Allergy/AdvReac Type Severity Reaction Status Date / Time amoxicillin Allergy Unknown Verified 10/15/22 13:10 celecoxib Allergy Unknown Verified 10/15/22 13:10 nickel Allergy Unknown Verified 10/15/22 13:10 rofecoxib Allergy Unknown Verified 10/15/22 13:10 clarithromycin [From Biaxin] Allergy Verified 10/15/22 13:10 codeine Allergy Verified 10/15/22 13:10 morphine Allergy Verified 10/15/22 13:10 tramadol [From Ultram] Allergy Verified 10/15/22 13:10 vancomycin Allergy Verified 10/15/22 13:10 [facility] Medical History Pulmonary hypertension ?I27.20 - Pulmonary hypertension, unspecified (ICD-10) Polypharmacy ?Z79.899 - Other custodial (current) drug therapy (ICD-10) Methicillin resistant Staphylococcus aureus infection as the cause of diseases classified elsewhere ?B95.62 - Methicillin resistant Staphylococcus aureus infection as the cause of diseases classified elsewhere (ICD-10) Type 2 diabetes mellitus ?E11.9 - Type 2 diabetes mellitus without complications (ICD-10) Essential hypertension ?I10 - Essential (primary) hypertension (ICD-10) Obstructive sleep apnea ?G47.33 - Obstructive sleep apnea (adult) (pediatric) (ICD-10) Anxiety ?F41.9 - Anxiety disorder, unspecified (ICD-10) Major depression ?F32.9 - Major depressive disorder, single episode, unspecified (ICD-10) Non-pressure 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 limited to breakdown of skin ?L97.501 - Non-pressure 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 limited to breakdown of skin (ICD-10) Erythema ?L53.9 - Erythematous condition, unspecified (ICD-10) Chronic venous hypertension (idiopathic) with inflammation of unspecified lower extremity ?I87.329 - Chronic venous hypertension (idiopathic) with inflammation of unspecified lower extremity (ICD-10) Gastro-esophageal reflux disease with esophagitis ?K21.00 - Gastro-esophageal reflux disease with esophagitis, without bleeding (ICD-10) Lymphedema ?I89.0 - Lymphedema, not elsewhere classified (ICD-10) 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 - Disorder of lipoprotein metabolism, unspecified (ICD-10) Hypothyroid ?E03.9 - Hypothyroidism, unspecified (ICD-10) Iron deficiency anemia ?D50.9 - Iron deficiency anemia, unspecified (ICD-10) Gastroparesis ?K31.84 - Gastroparesis (ICD-10) Chronic CHF (congestive heart failure) ?I50.9 - Heart failure, unspecified (ICD-10) Paroxysmal atrial fibrillation ?I48.0 - Paroxysmal atrial fibrillation (ICD-10) Morbid (severe) obesity due to excess calories ?E66.01 - Morbid (severe) obesity due to excess calories (ICD-10) Social History What is your current living situation?: I presently have a place to live Problems where you live: no known problems Problems where you live details: none In the past 12 months, utilities in danger of being shut off: no In past 12 months, lack of transportation kept you from medical appts, meetings, work, or getting things needed for daily living: yes In the past 12 mos, have been you worried that your food would run out before you had money to buy more?: never true In the past 12 mos, the food you bought just didn't last and you didn't have money to buy more?: never true 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, ISAMAR, DVM, DDS) Smoking Status: Former smoker Do you use any of these nicotine containing products: None Second hand tobacco smoke exposure: No How often do you have a drink containing alcohol: never How often do you have six or more drinks on one occasion: Never AUDIT-C Alcohol total score: 0 Non-prescribed substance use: denies use Caffeine: No How often does anyone, including family, friends and others, physically hurt you: never How often does anyone, including family, friends and others, insult or talk down to you: never How often does anyone, including family, friends and others, threaten you with harm: never How often does anyone, including family, friends and others, scream or curse at you: never service: No Exam Narrative: Exam Narrative: Constitutional: Appears well-developed and well-nourished. Alert. Conversant. Non toxic. HENT: Head: She has a 3 cm diagonal laceration in her central forehead. Wound edges are gaping about 3 mm at the center. No active bleeding. No foreign body. Laceration appears to penetrate through the epidermis and dermis but not down to the frontalis muscle or to the frontal bone. No raccoon eyes, philip sign. Nose: Nose normal. Mouth/Throat: Oral mucosa is clear and moist. no trismus. Pharynx normal. Tonsils symmetric. No tonsillar enlargement, erythema, or exudate. Eyes: Conjunctivae normal. EOM normal. Pupils equal, round, and reactive to light. No scleral icterus. Neck: Normal range of motion. Neck supple. No tracheal deviation present. Cardiovascular: Normal rate, regular rhythm. No gallop. No friction rub. No murmur heard. Symmetric radial artery pulses Pulmonary/Chest: Effort normal. But she is hypoxic in the high 80s on room air. Sats come up to the mid 90s on 2 L nasal cannula. No stridor. No respiratory distress. No wheezes. No rales. No rhonchi . No tenderness. Abdominal: Soft. Bowel sounds normal. No distension. No mass. No tenderness. No rebound. No guarding. Musculoskeletal: RUE: Normal range of motion. Mild tenderness over the right lateral epicondyle. No bony crepitus. No bruising. No obvious swelling but exam limited by body habitus. She has an abrasion over the right volar wrist without any bony tenderness. Normal range of motion in the wrist. No deformity LUE: Normal range of motion. No tenderness. No deformity RLE: Normal range of motion. She has an abrasion over the right anterior knee. Anterior knee tenderness. She is able to flex to about 45?. No tenderness of the femur, hip, pelvis. LLE: Normal range of motion. No tenderness. No deformity She has 3+ bilateral lower ?extremity edema extending all the way up to her knees bilaterally. She has wraps in place of on both feet and shins. Neurological: She is awake but somewhat slow to respond to questions. When asked, she is oriented to person, place, and time. Normal strength in both paper carrier, biceps, triceps, quadriceps, hip flexors, hamstrings, tibialis anterior, gastrocs.. CN II-VII intact. No sensory deficit. GCS eye subscore is 4. GCS verbal subscore is 5. GCS motor subscore is 6. Normal coordination Skin: Skin is warm and dry. No rash noted. No pallor. Normal capillary refill. Psychiatric: Limited. She is polite. Somewhat flat. Slow to respond to some questions. Const: Vital Signs, click to edit/add: Vital Signs - 24 hr 04/13/23 14:08 04/13/23 14:14 04/13/23 16:08 Temperature 98.4 F Pulse Rate 67 Pulse Rate [Pulse Oximeter] 63 Respiratory Rate 18 Blood Pressure Blood Pressure [Le ft Forearm] 141/68 H Pulse Oximetry 87 L 92 96 Oxygen Delivery Me thod Room Air Nasal Cannula Oxygen Flow Rate 2 04/13/23 16:15 04/13/23 16:36 04/13/23 16:45 Temperature Pulse Rate 68 70 67 Pulse Rate [Pulse Oximeter] Respiratory Rate Blood Pressure 126/57 L Blood Pressure [Le ft Forearm] Pulse Oximetry 94 89 98 Oxygen Delivery Me thod Oxygen Flow Rate 04/13/23 16:46 04/13/23 17:14 04/13/23 17:15 Temperature Pulse Rate 67 73 70 Pulse Rate [Pulse Oximeter] Respiratory Rate Blood Pressure Blood Pressure [Le ft Forearm] Pulse Oximetry 97 90 97 Oxygen Delivery Me thod Oxygen Flow Rate 04/13/23 17:30 04/13/23 17:32 04/13/23 17:35 Temperature Pulse Rate 67 67 Pulse Rate [Pulse Oximeter] Respiratory Rate Blood Pressure 75/64 L 146/73 H Blood Pressure [Le ft Forearm] Pulse Oximetry 96 96 Oxygen Delivery Me thod Oxygen Flow Rate 04/13/23 17:45 04/13/23 18:00 04/13/23 18:02 Temperature Pulse Rate 68 66 69 Pulse Rate [Pulse Oximeter] Respiratory Rate Blood Pressure 146/130 H Blood Pressure [Le ft Forearm] Pulse Oximetry 95 94 94 Oxygen Delivery Me thod Oxygen Flow Rate 04/13/23 18:15 04/13/23 18:32 04/13/23 18:51 Temperature Pulse Rate 66 Pulse Rate [Pulse Oximeter] Respiratory Rate Blood Pressure 134/101 H Blood Pressure [Le ft Forearm] Pulse Oximetry 95 78 L Oxygen Delivery Me thod Oxygen Flow Rate 04/13/23 19:00 04/13/23 19:02 Temperature Pulse Rate 69 69 Pulse Rate [Pulse Oximeter] Respiratory Rate 18 Blood Pressure 135/77 Blood Pressure [Le ft Forearm] Pulse Oximetry 95 96 Oxygen Delivery Me thod Nasal Cannula Oxygen Flow Rate 2 Course Vital Signs Vital signs: Initial Vital Signs Temperature 98.4 F 04/13/23 14:08 Temperature Source Temporal Artery Scan 04/13/23 14:08 Pulse Rate 63 04/13/23 14:08 Pulse Rhythm Regular 04/13/23 14:08 Respiratory Rate 18 04/13/23 14:08 Blood Pressure 141/68 H 04/13/23 14:08 Blood Pressure Mean 92 04/13/23 14:08 Blood Pressure Position Supine 04/13/23 14:08 Pulse Oximetry 87 L 04/13/23 14:08 Oxygen Delivery Method Room Air 04/13/23 14:08 Vital Signs Temperature 98.4 F 04/13/23 14:08 Pulse Rate 63 04/13/23 14:08 Respiratory Rate 18 04/13/23 14:08 Blood Pressure 141/68 H 04/13/23 14:08 Pulse Oximetry 87 L 04/13/23 14:08 Oxygen Delivery Method Room Air 04/13/23 14:08 Temperature 97.6 F 04/13/23 19:57 Pulse Rate 81 04/13/23 19:57 Respiratory Rate 18 04/13/23 20:07 Blood Pressure 157/75 H 04/13/23 19:57 Pulse Oximetry 94 04/13/23 20:07 Oxygen Delivery Method Nasal Cannula 04/13/23 20:07 Oxygen Flow Rate 1.5 04/13/23 20:07 Medications Administered Medications: Generic Name Dose Route Start Last Admin Trade Name Meagan PRN Reason Stop Dose Admin Enoxaparin Sodium 140 mg 04/13/23 18:50 04/13/23 19:30 Enoxaparin 120 Mg/0.8 Ml Inj SUBCUT 04/13/23 18:51 140 mg ONCE ONE Administration Discontinued Medications Generic Name Dose Route Start Last Admin Trade Name Meagan PRN Reason Stop Dose Admin Acetaminophen 1,000 mg 04/13/23 17:01 04/13/23 17:30 Acetaminophen 500 Mg Tablet PO 04/13/23 17:02 1,000 mg ONCE ONE Administration Lidocaine/Epinephrine 5 ml 04/13/23 14:19 04/13/23 15:30 Lidocaine 1%-Epi 1:100,000 20 Ml INFILTRATI 04/13/23 14:20 5 ml ONCE ONE Administration Medical Decision Making MDM Narrative Medical decision making narrative: 72-year-old female brought to the ER today for evaluation of injuries after she fell. She apparently had gone to the bathroom, stood up, and was trying to pull up her pants when she lost her balance and fell. She suffered a laceration to her forehead and also injuries to her right elbow, right knee, an abrasion to her right wrist. She had an uncomplicated forehead laceration which was repaired as noted above. There is no evidence at this time to suggest any associated fracture or foreign body. There is no evidence to suggest intracranial injury and patient is neurologically in tact. The patient is to follow up for suture removal as instructed in 5-7 days . Indications to seek urgent reevaluation and signs of infection (including but not limited to increasing pain, redness, swelling, fevers, and drainage) were reviewed. Tetanus is up-to-date. This is a clean and non-contaminated wound in which prophylactic antibiotics are not indicated. Consider possible head injury. She also struck her right elbow and right knee when she fell. Fortunately x-rays are negative for any fractures in those locations. She has also been weak for the past couple of days and was found to be hypoxic here in the ER. Consider possible PE. With no clear cough or fever, my initial concern was for possible pulmonary embolism. I ordered a CT chest PE protocol. Unfortunately this is not able to be obtained here in the ER today because of renal insufficiency. She also has very tenuous IV access were not able to establish a good enough IV to do a PE protocol chest CT at this time. We obtained chest x-ray which is limited by patient body habitus. We obtain D-dimer which is abnormal at 4.7. I think the patient would be at risk for possible PE as a cause for hypoxia. We cannot definitively rule out or confirm the diagnosis at this time because the gallegos was not available here in the ER. In discussion with admitting hospitalist we will treat the patient with a therapeutic dose of Lovenox (1 mg/kg actual body weight, as per up-to-date guidelines) f. hospitalist will follow-up on PE workup tomorrow with either V/Q scan or with CT pulmonary angiogram if kidney function improves and IV access can be achieved. No clear evidence for pneumonia or COVID. Unclear exactly how long she has been weak or what is causing her hypoxia. She does say she has a ?occasional? cough but unclear how much she has been coughing lately. She is not coughing here in the ER. COVID, influenza, RSV PCR negative. WBC 13.1. Differential shows 73% neutrophils, 11% lymphocytes, 11% monocytes. Chest x-ray show no definitive infiltrate but is limited by body habitus. Procalcitonin pending at the time of admission. We will obtain a noncontrast chest CT to look for possible infiltrates or pulmonary edema as a cause for her dyspnea. EKG shows no definitive ischemia. Troponin is negative. Chest CT does show coronary artery calcifications. N terminal proBNP is abnormal at 2590. This is near her baseline of BNP labs dating back to last January. No clear pulmonary edema on chest imaging to suggest CHF exacerbation as a cause for hypoxia. She does have a known history of pulmonary hypertension. She has a dilated main pulmonary artery on noncontrast chest CT which can be associated with pulmonary hypertension. Unable to assess for PE without contrast. Creatinine is abnormal at 1.8. Baseline creatinine was 1.1 in August, 1.6 in October. Unclear if this 1.8 reflects an acute kidney injury or gradual worsening of chronic kidney disease. Potassium normal at 4.8. Lab Data Labs: Lab Results 04/13/23 04/13/23 04/13/23 Range/Units 14:57 15:35 16:18 WBC 13.18 H (4.50-11.00) K/uL RBC 4.64 (4.00-5.20) m/uL Hgb 13.7 (12.0-16.0) gm/dL Hct 44.6 (33.0-51.0) % MCV 96 (80-100) fL MCH 30 (26-34) pg MCHC 31 L (32-36) gm/dL RDW Coeff of Trina 13.9 (11.5-15.5) % Plt Count 271 (140-440) K/uL Neut % (Auto) 73.3 H (42.0-72.0) % Lymph % (Auto) 11.8 L (20-44) % Platte % (Auto) 11.5 H (0.0-11.0) % Eos % (Auto) 2.1 (0.0-7.0) % Baso % (Auto) 0.2 (0.0-3.0) % Neut # (Auto) 9.70 H (1.7-7.0) K/uL Lymph # (Auto) 1.60 (0.90-2.90) K/uL Platte # (Auto) 1.50 H (0.00-0.90) K/UL Eos # (Auto) 0.30 (0.00-0.50) K/uL Baso # (Auto) 0.00 (0.00-0.30) K/uL Abs Immat Gran (auto) 0.10 (0.00-0.30) K/uL Imm/Tot Granulo (auto) 1.1 % D-Dimer Quant (PE/DVT) 4.77 H (0.00-0.50) ug/ml Sodium 139 (135-149) mmol/L Potassium 4.8 (3.6-5.1) mmol/L Chloride 100 (96-114) mmol/L Carbon Dioxide 28 (20-32) mmol/L Anion Gap 11 (7-15) mEq/L BUN 48 H (7-30) mg/dL Creatinine 1.7 H (0.5-1.5) mg/dL Estimated GFR 32 ml/min Glucose 75 (60-115) mg/dL Lactate 1.7 (0.5-1.9) mmol/L Calcium 9.3 (8.4-10.6) mg/dL Troponin I < 0.01 L (0.01-0.04) ng/mL NT-Pro-B Natriuret Pep 2590 pg/mL Procalcitonin 0.06 (<0.50) ng/mL SARS-CoV-2 (PCR) Negative SARS-CoV-2 (Negative) Influenza Type A (PCR) Negative PCR FLU A (Negative) Influenza Type B (PCR) Negative PCR FLU B (Negative) RSV (PCR) Negative PCR RSV (Negative) Lab Acknowledgement POC Creatinine 1.8 H (0.6-1.3) mg/dl 04/13/23 04/13/23 Range/Units 17:01 19:15 WBC (4.50-11.00) K/uL RBC (4.00-5.20) m/uL Hgb (12.0-16.0) gm/dL Hct (33.0-51.0) % MCV (80-100) fL MCH (26-34) pg MCHC (32-36) gm/dL RDW Coeff of Trina (11.5-15.5) % Plt Count (140-440) K/uL Neut % (Auto) (42.0-72.0) % Lymph % (Auto) (20-44) % Platte % (Auto) (0.0-11.0) % Eos % (Auto) (0.0-7.0) % Baso % (Auto) (0.0-3.0) % Neut # (Auto) (1.7-7.0) K/uL Lymph # (Auto) (0.90-2.90) K/uL Platte # (Auto) (0.00-0.90) K/UL Eos # (Auto) (0.00-0.50) K/uL Baso # (Auto) (0.00-0.30) K/uL Abs Immat Gran (auto) (0.00-0.30) K/uL Imm/Tot Granulo (auto) % D-Dimer Quant (PE/DVT) (0.00-0.50) ug/ml Sodium (135-149) mmol/L Potassium (3.6-5.1) mmol/L Chloride (96-114) mmol/L Carbon Dioxide (20-32) mmol/L Anion Gap (7-15) mEq/L BUN (7-30) mg/dL Creatinine (0.5-1.5) mg/dL Estimated GFR ml/min Glucose (60-115) mg/dL Lactate (0.5-1.9) mmol/L Calcium (8.4-10.6) mg/dL Troponin I (0.01-0.04) ng/mL NT-Pro-B Natriuret Pep pg/mL Procalcitonin (<0.50) ng/mL SARS-CoV-2 (PCR) (Negative) Influenza Type A (PCR) (Negative) Influenza Type B (PCR) (Negative) RSV (PCR) (Negative) Lab Acknowledgement Test Added Test Added POC Creatinine (0.6-1.3) mg/dl Imaging Data XR right knee: Attestation: I have reviewed the pertinent imaging results. Radiologist's impression: Impression: No acute fracture, dislocation or destructive process. Significant degenerative change. Demineralization. Status post ACL repair. Soft tissue swelling. XR right elbow: Attestation: I have reviewed the pertinent imaging results. Radiologist's impression: Findings/Impression: Bones: Alignment is normal. No fractures or bone lesions. Joint spaces: Unremarkable. Soft tissues: Unremarkable. CT scan - head: Attestation: I have reviewed the pertinent imaging results. My impression: No acute bleed Radiologist's impression: IMPRESSION: Forehead laceration with underlying small foci of gas and small contusion. No intracranial hemorrhage identified. No skull fractures identified. Chest x-ray: Attestation: I have reviewed the pertinent imaging results. Radiologist's impression: IMPRESSION: No discrete consolidation given the above constraints. CT scan - chest: Attestation: I have reviewed the pertinent imaging results. Radiologist's impression: IMPRESSIONS: 1. Moderate enlargement of the main pulmonary artery is present and measures 3.5 cm in maximal short axis. This is likely due to pulmonary hypertension. 2. Severe atherosclerotic calcifications are noted in the coronary arteries. 3. Mild biventricular cardiomegaly is noted. ECG Data Attestation: I personally reviewed and interpreted this ECG as follows: Interpretation: Normal sinus rhythm rate 64. CO [] QRS axis right bundle-branch block. Left anterior fascicular block. Right axis deviation. ST segment/T wave: No ST segment elevation or depression. QTc: 497 Discharge Plan Discharge Clinical Impression: Contusion of elbow, Contusion of knee, Weakness, Hypoxia, Forehead laceration, Fall Patient Disposition: Admitted As Observation Procedures Laceration Forehead laceration: Pre procedure diagnosis: Forehead laceration Verification/time out: correct patient, correct site and correct procedure Site: face (Central forehead) Size (cm): 3 Description: linear Depth: simple, single layer Local Anesthetic: lidocaine 1% and with epi Amount of anesthesia used (mL): 4 Pre-repair: wound explored (No foreign body.) and deep structures intact Size (cm): 6-0 Number of sutures: 7 Technique: simple, interrupted
[2023-04-13 15:45] LABS: Basophils Percent Auto 0.2 % (0.0-3.0); Eosinophils Percent Auto 2.1 % (0.0-7.0); Hematocrit 44.6 % (33.0-51.0); Hemoglobin* 13.7 gm/dL (12.0-16.0); Immature Granulocytes Pct Auto 1.1 %; Lactate* 1.7 mmol/L (0.5-1.9); Lymphocytes Percent Auto 11.8 % (20-44); Mean Corpuscular HGB Conc 31 gm/dL (32-36); Mean Corpuscular Hemoglobin 30 pg (26-34); Mean Corpuscular Volume 96 fL (80-100); Monocytes Percent Auto 11.5 % (0.0-11.0); Neutrophils Percent Auto 73.3 % (42.0-72.0); Platelet Count* 271 K/uL (140-440); RDW Coefficient of Variation % 13.9 % (11.5-15.5); Red Blood Count 4.64 m/uL (4.00-5.20); White Blood Count* 13.18 K/uL (4.50-11.00)
[2023-04-13 15:48] LABS: Slide Review Reflex No
[2023-04-13 15:59] LABS: PCR FLU A Negative PCR FLU A (Negative); PCR FLU B Negative PCR FLU B (Negative); PCR RSV Negative PCR RSV (Negative)
[2023-04-13 16:07] LABS: Chloride* 100 mmol/L (96-114); Sodium* 139 mmol/L (135-149)
[2023-04-13 16:08] LABS: Potassium* 4.8 mmol/L (3.6-5.1)
[2023-04-13 16:10] LABS: Anion Gap 11 mEq/L (7-15); Carbon Dioxide* 28 mmol/L (20-32); Creatinine* 1.7 mg/dL (0.5-1.5); Estimated Glomerular Filt Rate 32 ml/min
[2023-04-13 16:11] LABS: Blood Urea Nitrogen* 48 mg/dL (7-30); Calcium* 9.3 mg/dL (8.4-10.6); Glucose* 75 mg/dL (60-115)
[2023-04-13 16:14] LABS: SARS PCR* Negative SARS-CoV-2 (Negative)
[2023-04-13 16:21] LABS: Creatinine, Point-of-Care* 1.8 mg/dl (0.6-1.3)
[2023-04-13 16:21] LABS: NT Pro B Type NatriureticPept* 2590 pg/mL
--- NOTE | 2023-04-13 16:28 | ED.NURSE ---
is a very difficult iv start or blood draw. iv was placed per rayo richey rn in the right ac. lab was able to get blood and cultures.
[2023-04-13 16:34] LABS: Troponin I* < 0.01 ng/mL (0.01-0.04)
--- NOTE | 2023-04-13 17:11 | CRLHL7_ITS ---
For Patients: As a result of the Century Cures Act, medical imaging exams and procedure reports are released immediately into your electronic medical record. You may view this report before your referring provider. If you have questions, please contact your health care provider. INDICATION: .HYPOXIA,WEAKNESS TECHNIQUE: Chest 1 views. COMPARISON: September 2022. FINDINGS: Underpenetration limits fine detail evaluation Lungs: Normal lung volume. No consolidation. The tracheobronchial tree and hilar structures are unremarkable. Pleura: No pleural effusion or pneumothorax. Heart and Mediastinum: Normal heart size. The great vessels of the thorax are unremarkable. Bones: No acute displaced osseous process. IMPRESSION: No discrete consolidation given the above constraints. Dictated by Carlos Dickinson MD @ 04/13/2023 6:22:00 PM (Electronically Signed)
[2023-04-13] MEDS: ACETAMINOPHEN 500 MG TABLET 1000 MG PO (17:30)
[2023-04-13 17:48] LABS: D Dimer Quantitative* 4.77 ug/ml (0.00-0.50)
--- NOTE | 2023-04-13 18:44 | CRLHL7_ITS ---
For Patients: As a result of the Century Cures Act, medical imaging exams and procedure reports are released immediately into your electronic medical record. You may view this report before your referring provider. If you have questions, please contact your health care provider. INDICATION: Hypoxia, weakness, renal failure TECHNIQUE: CT chest without i.v. contrast. Coronal and sagittal reformats were obtained. COMPARISON: None FINDINGS: Cardiovascular: Mild biventricular cardiomegaly is noted. Moderate enlargement of the main pulmonary artery is present and measures 3.5 cm in maximal short axis. The pulmonary arteries are unremarkable in appearance. Ectasias ascending aorta is noted measuring 3.7 cm in maximal short axis diameter. Severe atherosclerotic calcifications are noted in the coronary arteries. Mediastinum: No mass or adenopathy seen. Lung: Mild linear atelectasis or scarring seen in the lingula. Pleura and pericardium: No sign of pleural effusion seen. No significant pericardial effusion is present. Chest wall and axilla: No mass or adenopathy seen. Bone: Unremarkable for age. Upper abdomen: Unremarkable. IMPRESSIONS: 1. Moderate enlargement of the main pulmonary artery is present and measures 3.5 cm in maximal short axis. This is likely due to pulmonary hypertension. 2. Severe atherosclerotic calcifications are noted in the coronary arteries. 3. Mild biventricular cardiomegaly is noted. Dictated by Ray Enriquez MD @ 04/13/2023 8:22:51 PM Please note that all CT scans at this facility use dose modulation, iterative reconstruction, and/or weight-based dosing when appropriate to reduce radiation dose to as low as reasonably achievable. Dictated by: Ray Enriquez MD @ 04/13/2023 20:24:57 (Electronically Signed)
--- NOTE | 2023-04-13 19:27 | PC.NURSE ---
report giving to [facility] nurse, patient going to room 255
[2023-04-13] MEDS: ENOXAPARIN 120 MG/0.8 ML INJ 140 MG SUBCUT (19:30)
--- NOTE | 2023-04-13 19:43 | PC.NURSE ---
patient taken to room 255 by technical sourcing recruiter all belongings sent with patient to [facility].
[2023-04-13 20:05] LABS: Procalcitonin* 0.06 ng/mL (<0.50)
--- NOTE | 2023-04-13 20:55 | PM.IMHP1 ---
Hospitalist- H&P: HPI History of Present Illness Time Seen by Provider: 20:20 Date Seen: 04/14/23 Chief complaint: Fall, head lac Narrative: Naomie Pena is a 72 year old female with a complicated past medical history who presented through the emergency department for a fall. She tells me that she has been feeling dizzy since she fell and hit her head on the concrete about 5 months ago. Today they had recently cleaned the floor and wiped it up so it was supposed to be dry, but she felt that it was still slippery and ended up slipping on it and hitting her head on her walker. She had a laceration that was stitched up in the emergency department. She denies any headache or vision changes. She says she has been feeling weak for a few days. She also has been feeling nauseous and today complains of diffuse abdominal pain. She has had no change in bowel movements. She felt short of breath yesterday but not today. In the emergency department she was noted to be hypoxic. While I am examining her he had a poor waveform most of the time due to shaking, but when I held her still her sats went up to 96 or 97% while she was on oxygen at 1.5 liters/minute. She complains of bilateral lower extremity pain that started after her fall. She complains that it is the left worse than the right although then she says but right now it is the right more than the left. Review of Systems Status of ROS: Reports: 10 or more systems reviewed and unremarkable except as noted in History and below [facility] Medical History (Updated 04/14/23 @ 00:27 by Chantel Mckeon MD) Pulmonary hypertension ?I27.20 - Pulmonary hypertension, unspecified (ICD-10) Polypharmacy ?Z79.899 - Other halfway (current) drug therapy (ICD-10) Methicillin resistant Staphylococcus aureus infection as the cause of diseases classified elsewhere ?B95.62 - Methicillin resistant Staphylococcus aureus infection as the cause of diseases classified elsewhere (ICD-10) Type 2 diabetes mellitus ?E11.9 - Type 2 diabetes mellitus without complications (ICD-10) Essential hypertension ?I10 - Essential (primary) hypertension (ICD-10) Obstructive sleep apnea ?G47.33 - Obstructive sleep apnea (adult) (pediatric) (ICD-10) Anxiety ?F41.9 - Anxiety disorder, unspecified (ICD-10) Major depression ?F32.9 - Major depressive disorder, single episode, unspecified (ICD-10) Non-pressure 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 limited to breakdown of skin ?L97.501 - Non-pressure 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 limited to breakdown of skin (ICD-10) Erythema ?L53.9 - Erythematous condition, unspecified (ICD-10) Chronic venous hypertension (idiopathic) with inflammation of unspecified lower extremity ?I87.329 - Chronic venous hypertension (idiopathic) with inflammation of unspecified lower extremity (ICD-10) Gastro-esophageal reflux disease with esophagitis ?K21.00 - Gastro-esophageal reflux disease with esophagitis, without bleeding (ICD-10) Lymphedema ?I89.0 - Lymphedema, not elsewhere classified (ICD-10) 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 - Disorder of lipoprotein metabolism, unspecified (ICD-10) Hypothyroid ?E03.9 - Hypothyroidism, unspecified (ICD-10) Iron deficiency anemia ?D50.9 - Iron deficiency anemia, unspecified (ICD-10) Gastroparesis ?K31.84 - Gastroparesis (ICD-10) Chronic CHF (congestive heart failure) ?I50.9 - Heart failure, unspecified (ICD-10) Paroxysmal atrial fibrillation ?I48.0 - Paroxysmal atrial fibrillation (ICD-10) Morbid (severe) obesity due to excess calories ?E66.01 - Morbid (severe) obesity due to excess calories (ICD-10) Social History (Updated 04/13/23 @ 21:20 by Chantel Mckeon MD) Narrative: Lives at [place]. DNR according to [facility] paperwork. Denies tob, alcohol, recreational drug use. What is your current living situation?: I presently have a place to live Problems where you live: no known problems Problems where you live details: none In the past 12 months, utilities in danger of being shut off: no In past 12 months, lack of transportation kept you from medical appts, meetings, work, or getting things needed for daily living: yes In the past 12 mos, have been you worried that your food would run out before you had money to buy more?: never true In the past 12 mos, the food you bought just didn't last and you didn't have money to buy more?: never true Highest level of school completed/degree received: Professional degree (, [employer]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[employer], DVM, DDS) Smoking Status: Former smoker Do you use any of these nicotine containing products: None Second hand tobacco smoke exposure: No How often do you have a drink containing alcohol: never How often do you have six or more drinks on one occasion: Never AUDIT-C Alcohol total score: 0 Non-prescribed substance use: denies use Caffeine: No How often does anyone, including family, friends and others, physically hurt you: never How often does anyone, including family, friends and others, insult or talk down to you: never How often does anyone, including family, friends and others, threaten you with harm: never How often does anyone, including family, friends and others, scream or curse at you: never service: No Meds Home Medications and Allergies Home Medications Medication Instructions Recorded Confirmed Type acetaminophen 500 mg tablet 1,000 mg PO TID 01/24/22 01/24/22 History albuterol sulfate 90 mcg/actuation 2 puff inhalation Q6H PRN 01/24/22 01/24/22 History aerosol inhaler (Ventolin HFA) aluminum-mag hydroxide-simethicone 5 - 10 ml PO TID PRN 01/24/22 01/24/22 History 200 mg-200 mg-20 mg/5 mL oral susp (Advanced Antacid-Antigas) aspirin 81 mg tablet,delayed 81 mg PO DAILY 01/24/22 01/24/22 History release (Adult Low Dose Aspirin) atorvastatin 80 mg tablet 80 mg PO DAILY 01/24/22 01/24/22 History buprenorphine HCl 300 mcg buccal 300 mcg buccal BID 01/24/22 01/24/22 History film (Belbuca) buspirone 30 mg tablet 30 mg PO BID 01/24/22 01/24/22 History calcium carbonate 500 mg calcium 1,000 - 2,000 mg PO TID PRN 01/24/22 01/24/22 History (1,250 mg) chewable tablet (Calcium 500) dextromethorphan HBr 15 mg/5 mL 15 - 30 mg PO Q6H PRN 01/24/22 01/24/22 History oral liquid diclofenac sodium 1 % topical gel 2 g topical QID 01/24/22 01/24/22 History (Arthritis Pain (diclofenac)) diltiazem HCl 120 mg 120 mg PO DAILY 01/24/22 01/24/22 History capsule,extended release 24 hr diphenhydramine HCl 25 mg capsule 25 - 50 mg PO Q8H PRN 01/24/22 01/24/22 History (Aler-Cap) duloxetine 60 mg capsule,delayed 120 mg PO DAILY 01/24/22 01/24/22 History release ferrous gluconate 324 mg (37.5 mg 324 mg PO TIDWM 01/24/22 01/24/22 History iron) tablet fluconazole 150 mg tablet 150 mg PO Q7D 01/24/22 01/24/22 History fluticasone propionate 50 1 spray intranasal DAILY PRN 01/24/22 01/24/22 History mcg/actuation nasal spray,suspension gabapentin 400 mg capsule 400 mg PO DAILY 01/24/22 01/24/22 History guaifenesin 100 mg/5 mL oral 100 - 200 mg PO Q6H PRN 01/24/22 01/24/22 History liquid (Adult Tussin Chest Congestion) ibuprofen 200 mg tablet (Addaprin) 200 - 400 mg PO Q6H PRN 01/24/22 01/24/22 History levothyroxine 50 mcg tablet 50 mcg PO DAILY 01/24/22 01/24/22 History loperamide 2 mg capsule 2 - 4 mg PO Q6H PRN 01/24/22 01/24/22 History magnesium hydroxide 400 mg/5 mL 15 - 30 ml PO DAILY PRN 01/24/22 01/24/22 History oral suspension (Milk of Magnesia) magnesium oxide 400 mg PO DAILY 01/24/22 01/24/22 History metoclopramide HCl 10 mg tablet 10 mg PO ACHS 01/24/22 01/24/22 History montelukast 10 mg tablet 10 mg PO HS 01/24/22 01/24/22 History nystatin 100,000 unit/gram topical 1 applic topical TID 01/24/22 01/24/22 History powder (Nystop) omeprazole 20 mg capsule,delayed 20 mg PO BID 01/24/22 01/24/22 History release ondansetron 4 mg disintegrating 4 mg PO Q8H PRN 01/24/22 01/24/22 History tablet polyethylene glycol 3350 17 17 g PO DAILY 01/24/22 01/24/22 History gram/dose oral powder (Miralax) sumatriptan succinate 50 mg tablet 50 mg PO BID PRN 01/24/22 01/24/22 History tizanidine 4 mg tablet 4 mg PO TID 01/24/22 01/24/22 History torsemide 20 mg tablet 20 mg PO DAILY 01/24/22 01/24/22 History trazodone 100 mg tablet 100 mg PO HS PRN 01/24/22 01/24/22 History Allergies Allergy/AdvReac Type Severity Reaction Status Date / Time amoxicillin Allergy Unknown Verified 10/15/22 13:10 celecoxib Allergy Unknown Verified 10/15/22 13:10 nickel Allergy Unknown Verified 10/15/22 13:10 rofecoxib Allergy Unknown Verified 10/15/22 13:10 clarithromycin [From Biaxin] Allergy Verified 10/15/22 13:10 codeine Allergy Verified 10/15/22 13:10 morphine Allergy Verified 10/15/22 13:10 tramadol [From Ultram] Allergy Verified 10/15/22 13:10 vancomycin Allergy Verified 10/15/22 13:10 Exam Narrative: Exam Narrative: General: No acute distress. Awake alert oriented x3. Morbidly obese. HEENT: Bandage over forehead is clean, dry, and intact, pupils equally round and reactive to light and accommodation. Oropharynx clear. Mucous membranes are moist. No cervical lymphadenopathy, thyromegaly or carotid bruits. No JVD. Cardiovascular: Regular rate and rhythm. No murmurs, gallops, or rubs. Chest: No increased work of breathing. Clear to auscultation bilaterally. No crackles or wheezes. Abdomen: Bowel sounds present. Protuberant, obese. Soft, nondistended, mild diffuse tenderness, no rebound tenderness or guarding. Difficult to palpate hepatosplenomegaly or masses due to body habitus. Genitourinary: Normal external female genitalia with mild candidal rash. Extremities: Bilateral massive lymphedema, erythematous with scale in places, but without warmth or tenderness, no cyanosis or clubbing. Skin: No jaundice, no pallor. Abrasions over right wrist and right knee. Neuro: There are no focal deficits. Romberg is negative. Cranial nerves 2-12 are intact. Extraocular movements are full. No nystagmus. No facial asymmetry. Tongue is midline. Peripheral vision and vision are grossly intact. Strength is 5/5 in all 4 extremities. Const: Vital Signs, click to edit/add: Vital Signs - 24 hr 04/13/23 14:08 04/13/23 14:14 04/13/23 16:08 Temperature 98.4 F Pulse Rate 67 Pulse Rate [Pulse Oximeter] 63 Respiratory Rate 18 Blood Pressure Blood Pressure [Le ft Forearm] 141/68 H Blood Pressure [Ri ght FA] Pulse Oximetry 87 L 92 96 Oxygen Delivery Me thod Room Air Nasal Cannula Oxygen Flow Rate 2 04/13/23 16:15 04/13/23 16:36 04/13/23 16:45 Temperature Pulse Rate 68 70 67 Pulse Rate [Pulse Oximeter] Respiratory Rate Blood Pressure 126/57 L Blood Pressure [Le ft Forearm] Blood Pressure [Ri ght FA] Pulse Oximetry 94 89 98 Oxygen Delivery Me thod Oxygen Flow Rate 04/13/23 16:46 04/13/23 17:14 04/13/23 17:15 Temperature Pulse Rate 67 73 70 Pulse Rate [Pulse Oximeter] Respiratory Rate Blood Pressure Blood Pressure [Le ft Forearm] Blood Pressure [Ri ght FA] Pulse Oximetry 97 90 97 Oxygen Delivery Me thod Oxygen Flow Rate 04/13/23 17:30 04/13/23 17:32 04/13/23 17:35 Temperature Pulse Rate 67 67 Pulse Rate [Pulse Oximeter] Respiratory Rate Blood Pressure 75/64 L 146/73 H Blood Pressure [Le ft Forearm] Blood Pressure [Ri ght FA] Pulse Oximetry 96 96 Oxygen Delivery Me thod Oxygen Flow Rate 04/13/23 17:45 04/13/23 18:00 04/13/23 18:02 Temperature Pulse Rate 68 66 69 Pulse Rate [Pulse Oximeter] Respiratory Rate Blood Pressure 146/130 H Blood Pressure [Le ft Forearm] Blood Pressure [Ri ght FA] Pulse Oximetry 95 94 94 Oxygen Delivery Me thod Oxygen Flow Rate 04/13/23 18:15 04/13/23 18:32 04/13/23 18:51 Temperature Pulse Rate 66 Pulse Rate [Pulse Oximeter] Respiratory Rate Blood Pressure 134/101 H Blood Pressure [Le ft Forearm] Blood Pressure [Ri ght FA] Pulse Oximetry 95 78 L Oxygen Delivery Me thod Oxygen Flow Rate 04/13/23 19:00 04/13/23 19:02 04/13/23 19:57 Temperature 97.6 F Pulse Rate 69 69 Pulse Rate [Pulse Oximeter] 81 Respiratory Rate 18 18 Blood Pressure 135/77 Blood Pressure [Le ft Forearm] Blood Pressure [Ri ght FA] 157/75 H Pulse Oximetry 95 96 95 Oxygen Delivery Me thod Nasal Cannula Nasal Cannula Oxygen Flow Rate 2 1.5 04/13/23 20:07 Temperature Pulse Rate Pulse Rate [Pulse Oximeter] Respiratory Rate 18 Blood Pressure Blood Pressure [Le ft Forearm] Blood Pressure [Ri ght FA] Pulse Oximetry 94 Oxygen Delivery Me thod Nasal Cannula Oxygen Flow Rate 1.5 Hospitalist - H&P: Result Labs Labs: Short CBC 04/13/23 Range/Units 15:35 WBC 13.18 H (4.50-11.00) K/uL Hgb 13.7 (12.0-16.0) gm/dL Hct 44.6 (33.0-51.0) % Plt Count 271 (140-440) K/uL BMP 04/13/23 15:35 Sodium 139 Potassium 4.8 Chloride 100 Carbon Dioxide 28 BUN 48 H Creatinine 1.7 H Glucose 75 Calcium 9.3 Cardiac Enzymes 04/13/23 Range/Units 15:35 Troponin I < 0.01 L (0.01-0.04) ng/mL 04/13/2023 EKG: Sinus rhythm with sinus arrhythmia, first-degree AV block, 64 beats per minute, right bundle-branch block, left anterior fascicular block, bifascicular block. Ordering Physician: Basilio Bell M.D. Date of Service: 04/13/23 Procedure(s): CT chest wo [facility] Accession Number(s): [id number] cc: Basilio Bell M.D.; Provider,Not a Local~ For Patients: As a result of the 21st Century Cures Act, medical imaging exams and procedure reports are released immediately into your electronic medical record. You may view this report before your referring provider. If you have questions, please contact your health care provider. INDICATION: Hypoxia, weakness, renal failure TECHNIQUE: CT chest without i.v. contrast. Coronal and sagittal reformats were obtained. COMPARISON: None FINDINGS: Cardiovascular: Mild biventricular cardiomegaly is noted. Moderate enlargement of the main pulmonary artery is present and measures 3.5 cm in maximal short axis. The pulmonary arteries are unremarkable in appearance. Ectasias ascending aorta is noted measuring 3.7 cm in maximal short axis diameter. Severe atherosclerotic calcifications are noted in the coronary arteries. Mediastinum: No mass or adenopathy seen. Lung: Mild linear atelectasis or scarring seen in the lingula. Pleura and pericardium: No sign of pleural effusion seen. No significant pericardial effusion is present. Chest wall and axilla: No mass or adenopathy seen. Bone: Unremarkable for age. Upper abdomen: Unremarkable. IMPRESSIONS: 1. Moderate enlargement of the main pulmonary artery is present and measures 3.5 cm in maximal short axis. This is likely due to pulmonary hypertension. 2. Severe atherosclerotic calcifications are noted in the coronary arteries. 3. Mild biventricular cardiomegaly is noted. Dictated by Ray Enriquez MD @ 04/13/2023 8:22:51 PM Please note that all CT scans at this facility use dose modulation, iterative reconstruction, and/or weight-based dosing when appropriate to reduce radiation dose to as low as reasonably achievable. Dictated by: Ray Enriquez MD @ 04/13/2023 20:24:57 (Electronically Signed) Ordering Physician: Basilio Bell M.D. Date of Service: 04/13/23 Procedure(s): XR chest 1V portable Accession Number(s): [id number] cc: Basilio Bell M.D.; Provider,Not a Local~ For Patients: As a result of the Cures Act, medical imaging exams and procedure reports are released immediately into your electronic medical record. You may view this report before your referring provider. If you have questions, please contact your health care provider. INDICATION: .HYPOXIA,WEAKNESS TECHNIQUE: Chest 1 views. COMPARISON: September 2022. FINDINGS: Underpenetration limits fine detail evaluation Lungs: Normal lung volume. No consolidation. The tracheobronchial tree and hilar structures are unremarkable. Pleura: No pleural effusion or pneumothorax. Heart and Mediastinum: Normal heart size. The great vessels of the thorax are unremarkable. Bones: No acute displaced osseous process. IMPRESSION: No discrete consolidation given the above constraints. Dictated by Carlos Dickinson MD @ 04/13/2023 6:22:00 PM (Electronically Signed) Ordering Physician: Basilio Bell M.D. Date of Service: 04/13/23 Procedure(s): XR knee RT 3V Accession Number(s): [id number] cc: Basilio Bell M.D.; Provider,Not a Local~ For Patients: As a result of the s Act, medical imaging exams and procedure reports are released immediately into your electronic medical record. You may view this report before your referring provider. If you have questions, please contact your health care provider. Indication: Injury Technique: Three views of the right knee were obtained Comparison: None Findings: Decreased bone mineral density. Significant arthritic changes especially medially. Changes of a prior ACL repair. No significant joint effusion. No definite acute fracture, dislocation or destructive process. Soft tissue swelling is noted. Impression: No acute fracture, dislocation or destructive process. Significant degenerative change. Demineralization. Status post ACL repair. Soft tissue swelling. Dictated by Daniel Clements MD @ 04/13/2023 3:41:25 PM (Electronically Signed) Ordering Physician: Basilio Bell M.D. Date of Service: 04/13/23 Procedure(s): XR elbow RT 2V Accession Number(s): [id number] cc: Basilio Bell M.D.; Provider,Not a Local~ For Patients: As a result of the s , medical imaging exams and procedure reports are released immediately into your electronic medical record. You may view this report before your referring provider. If you have questions, please contact your health care provider. Indication: Fall, pain Technique: Two views Comparison: None Findings/Impression: Bones: Alignment is normal. No fractures or bone lesions. Joint spaces: Unremarkable. Soft tissues: Unremarkable. Dictated by Grant Gomez MD @ 04/13/2023 3:38:47 PM (Electronically Signed) Ordering Physician: Basilio Bell M.D. Date of Service: 04/13/23 Procedure(s): CT head/brain wo con Accession Number(s): [id number] cc: Basilio Bell M.D.; Provider,Not a Local~ For Patients: As a result of the s Act, medical imaging exams and procedure reports are released immediately into your electronic medical record. You may view this report before your referring provider. If you have questions, please contact your health care provider. INDICATION: FALL FOREHEAD TRAUMA. SYNCOPE. TECHNIQUE: Head CT without contrast. COMPARISON: None. FINDINGS: CSF spaces: Within normal limits for age. Brain parenchyma and extra-axial spaces: There are nonspecific low attenuation white matter changes consistent with chronic microvascular disease. No sign of mass, hemorrhage, or midline shift. Skull base and calvarium: The visualized paranasal sinuses and mastoid air cells demonstrate no acute or significant findings. The visualized orbits are grossly unremarkable. No skull fractures. Forehead laceration and underlying small foci of gas and small contusion. IMPRESSION: Forehead laceration with underlying small foci of gas and small contusion. No intracranial hemorrhage identified. No skull fractures identified. Please note that all CT scans at this facility use dose modulation, iterative reconstruction, and/or weight-based dosing when appropriate to reduce radiation dose to as low as reasonably achievable. Dictated by Julieta Rivera MD @ 04/13/2023 5:49:59 PM (Electronically Signed) Assessment and Plan Assessment and plan (1) Fall: Problem comment: PT/OT evaluation Status: Acute (2) Hypoxia: Problem comment: Unclear if this is due to poor wave form or medical cause. D-dimer is elevated. PE cannot be ruled out due to Cr of 1.7. Patient has been started on therapeutic doses of Lovenox until either a CT chest for PE or V/Q scan can be done. Patient does have significant pulmonary hypertension, which may be cause of hypoxia, but other causes need to be ruled out. No evidence of pneumonia or atelectasis. She does not appear to be in acute heart failure at this time, although she does have chronic diastolic heart failure. Status: Acute (3) Forehead laceration: Status: Acute (4) Contusion of knee: Status: Acute (5) Contusion of elbow: Status: Acute (6) Weakness: Problem comment: PT/OT evaluation Status: Acute (7) Pulmonary hypertension: Problem comment: Echocardiogram 01/25/2022 1. Normal left ventricular size, moderately increased wall thickness, normal global systolic function, calculated EF of 69 %. 2. Right ventricular cavity size is normal, global systolic RV function is normal. 3. Mildly enlarged left atrium. 4. The aortic valve is sclerotic, no stenosis and mild regurgitation. 5. The mitral valve is sclerotic, mild to moderate mitral regurgitation. 6. Moderate tricuspid regurgitation. 7. Grade 2 pattern of LV diastolic filling. Tricuspid regurgitation is moderate. The tricuspid regurgitant velocity is 3.4 m/s, the estimated right ventricular systolic pressure is 47 mmHg plus right atrial pressure. There is elevated estimated pulmonary pressure by tricuspid regurgitation velocity and right atrial pressure Status: Chronic (8) Essential hypertension: Problem comment: Continue home antihypertensive Status: Chronic (9) Type 2 diabetes mellitus: Problem comment: Continue usual home medications. Start insulin sliding scale a.c. at bedtime for while she is in the hospital. Status: Chronic (10) Hypothyroid: Problem comment: Continue home med Status: Chronic (11) Stasis dermatitis of lower extremity due to chronic peripheral vascular hypertension: Problem comment: Elevate legs at least 12 hours a day. Status: Chronic (12) Lymphedema: Problem comment: Continue lymphedema wraps as an outpatient. Elevate legs. Status: Chronic (13) Chronic CHF (congestive heart failure): Problem comment: Chronic systolic congestive Heart failure, preserved EF. Primarily pulmonary hypertension. Class 2. No acute exacerbation. Continue torsemide at current dose. Status: Chronic (14) Polypharmacy: Status: Chronic
--- NOTE | 2023-04-13 21:08 | CRLHL7_ITS ---
For Patients: As a result of the Century Cures Act, medical imaging exams and procedure reports are released immediately into your electronic medical record. You may view this report before your referring provider. If you have questions, please contact your health care provider. INDICATION: nausea, diffuse abdominal pain, weakness TECHNIQUE: CT abdomen and pelvis without contrast. COMPARISON: CT abdomen pelvis March 14, 2019 FINDINGS: Kidney/ureters: Mild atrophy of the bilateral kidneys. Left renal hypodensity measuring 1.4 cm most compatible with renal cyst. No evidence of nephroureterolithiasis or hydroureteronephrosis. Decompressed bladder. Liver/gallbladder/bile ducts: The liver is normal in size, shape and attenuation. Status post cholecystectomy. No biliary dilatation. Spleen/pancreas/adrenal glands: Unremarkable spleen. No adrenal nodule. Moderately atrophic pancreas. GI tract: Moderate stool burden throughout the colon and rectum. Unremarkable appearing appendix. No evidence of bowel obstruction. Abdominal wall/omentum/peritoneum: No free air or significant free fluid. Moderate-sized fat containing umbilical hernia with axial defect measuring 2.7 cm. Vasculature: The abdominal aorta is normal in caliber with mild aortoiliac atherosclerosis. Lymph nodes: No lymphadenopathy. Pelvis: Status post hysterectomy. Lower chest: Generalized osteopenia. Multilevel degenerative spondylosis. L4-S1 posterior spinal fusion and interbody disc spacers. IMPRESSION: 1. No evidence of acute intra-abdominal/pelvic process on this unenhanced CT. 2. Moderate stool burden throughout the colon and rectum. 3. Moderate sized fat containing umbilical hernia. Please note that all CT scans at this facility use dose modulation, iterative reconstruction, and/or weight-based dosing when appropriate to reduce radiation dose to as low as reasonably achievable. Dictated by Ezra Patterson MD @ 04/14/2023 9:41:34 AM (Electronically Signed)
--- NOTE | 2023-04-13 23:03 | PC.NURSE ---
End of Shift: Patient pleasant and cooperative. Patient vitally stable, lungs clear, BS WNL, IV SL and intact. Patient reports back and bilateral lower extremity pain 6/10. Patient 2 assist/pivot, walker, gb to bedside commode. Patient on 1.5 L of oxygen NS with sats in low 90's. Patient's legs elevated. Patient incontinent x2 in brief with some urine in commode. Tele=1 degree HB and BBB. Patient's bilateral lower extremities are reddened MD aware.
[2023-04-14] VITALS (9 sets, daily range): BP systolic 152–172; BP diastolic 69–84; PULSE 68–98; RESP 18–22; TEMP 36.6–37.5; O2SAT 90–96; BMI 59.5
[2023-04-14] MEDS: ACETAMINOPHEN 325 MG TABLET 650 MG PO ×2 (01:15→07:52)
--- NOTE | 2023-04-14 04:49 | PC.NURSE ---
Shift note: Pt continue to use bedside commode with A3. dressing to the forehead appeared clean and dry. Denied headache. Vitally stable. Pt has been on 1.5L of oxygen throughout the night. Uses call light appropriately but frequent. Pt asked to be turned and reposition frequently. Pt could not sleep that much.
[2023-04-14] MEDS: LEVOTHYROXINE 50 MCG TABLET PO (06:48)
[2023-04-14 07:40] LABS: HCO3 VBG 26 mmol/L (21-28); PCO2 VBG 39 mmHG (40-50); PO2 VBG 70.2 mmHG (25-47); pH VBG 7.441 (7.32-7.43)
[2023-04-14] MEDS: INSULIN ASPART 100 UNIT/ML SUBCUT ×3 (07:53→17:46)
[2023-04-14 08:24] LABS: Chloride* 102 mmol/L (96-114); Sodium* 136 mmol/L (135-149)
[2023-04-14 08:27] LABS: Anion Gap 9 mEq/L (7-15); Blood Urea Nitrogen* 35 mg/dL (7-30); Calcium* 9.4 mg/dL (8.4-10.6); Carbon Dioxide* 25 mmol/L (20-32); Creatinine* 1.3 mg/dL (0.5-1.5); Estimated Glomerular Filt Rate 44 ml/min; Glucose* 175 mg/dL (60-115)
[2023-04-14 08:46] LABS: Troponin I* < 0.01 ng/mL (0.01-0.04)
--- NOTE | 2023-04-14 10:12 | CRLHL7_ITS ---
For Patients: As a result of the Century Cures Act, medical imaging exams and procedure reports are released immediately into your electronic medical record. You may view this report before your referring provider. If you have questions, please contact your health care provider. INDICATION: Hypoxia of uncertain etiology COMPARISON: A noncontrast chest CT of 04/13/2023 TECHNIQUE: : CT examination of the chest was performed with the uneventful intravenous administration of 95 cc of Isovue 370 while thin axial sections were obtained from above the apices of the lungs to the lung bases. Please note that all CT scans at this facility use dose modulation, iterative reconstruction, and/or weight-based dosing when appropriate to reduce radiation dose to as low as reasonably achievable. FINDINGS: : HEART and MEDIASTINUM: Heart is enlarged. There is no mediastinal or hilar adenopathy or mass. Atherosclerotic vascular and valvular calcifications are noted PULMONARY ARTERIAL CIRCULATION: There is no visible intraluminal filling defect to suggest pulmonary embolus. The central pulmonary arteries are enlarged likely due to pulmonary hypertension LUNGS: Trace basilar atelectasis. The lungs are otherwise unremarkable PLEURAL SPACES: There is no pleural effusion, pneumothorax or pleural based mass. VISUALIZED UPPER ABDOMEN: Enlarged fatty infiltrated liver. Status post cholecystectomy. Otherwise, the limited visualized upper abdominal structures appear normal. OSSEOUS STRUCTURES: Age-appropriate appearance. No acute fracture or destructive process. TUBES and LINES: None. IMPRESSION: 1. There is no indication of acute pulmonary embolus. 2. Enlarged heart. 3. Enlarged central pulmonary arteries likely due to pulmonary hypertension. 4. Aside from trace basilar atelectasis, the lungs appear normal. Please note that all CT scans at this facility use dose modulation, iterative reconstruction, and/or weight-based dosing when appropriate to reduce radiation dose to as low as reasonably achievable. Dictated by Daniel Clements MD @ 04/14/2023 1:36:13 PM (Electronically Signed)
[2023-04-14] MEDS: polyethylene glycoL 3350 17 GM PACK PO (10:47)
[2023-04-14] MEDS: FERROUS SULFATE 325 MG TABLET PO ×2 (10:47)
[2023-04-14] MEDS: METOPROLOL SUCCINATE (XL) 100 MG TAB PO (10:48)
[2023-04-14] MEDS: BUSPIRONE 10 MG TABLET 30 MG PO ×2 (10:48→21:01)
[2023-04-14] MEDS: METOCLOPRAMIDE 10 MG TABLET PO (10:48)
[2023-04-14] MEDS: DULOXETINE 30 MG CAPSULE DR 120 MG PO (10:48)
[2023-04-14] MEDS: ATORVASTATIN CALCIUM 40 MG TABLET 80 MG PO (10:49)
[2023-04-14] MEDS: GABAPENTIN 100 MG CAPSULE 400 MG PO (10:49)
[2023-04-14] MEDS: ENOXAPARIN 80 MG/0.8 ML INJ 160 MG SUBCUT (10:50)
[2023-04-14] MEDS: ASPIRIN 81 MG TABLET EC PO (10:52)
[2023-04-14] MEDS: dilTIAZem 120 MG CAP.ER.24H PO (10:53)
[2023-04-14] MEDS: OMEPRAZOLE 20 MG CAPSULE DR PO ×2 (10:55→21:02)
[2023-04-14] MEDS: SODIUM CHLORIDE 0.9 % (FLUSH) 10 ML SYRINGE 5 ML IVF (10:56)
[2023-04-14] MEDS: TORSEMIDE 20 MG TABLET 40 MG PO (11:21)
[2023-04-14] MEDS: CARBIDOPA-LEVODOPA 25-100 TABLET 1 TAB PO ×3 (14:31→21:02)
[2023-04-14] MEDS: SENNOSIDES/DOCUSATE TABLET 2 TAB PO ×2 (14:31→21:01)
[2023-04-14] MEDS: ACETAMINOPHEN 500 MG TABLET 1000 MG PO ×2 (14:31→21:01)
[2023-04-14] MEDS: NYSTATIN POWDER 1 APPLIC TOPICAL ×3 (14:32→21:03)
[2023-04-14] MEDS: INSULIN ASPART 100 UNIT/ML 6 UNIT SUBCUT ×2 (14:34→17:45)
--- NOTE | 2023-04-14 15:21 | PC.NURSE ---
Please see eMar for meds provided. Eval by Dr. Villegas. Pt remains a 2-3 person assist. BG 155 at bkfst and 177 at lunch. New IV site inserted by radiology staff during CT scan this morning #20 to left wrist. Old IV site R AC discontinued d/to leaking at site. Air mattress used for repositioning and sliding during the day. Up to recliner for bkfst. Updated Ivanna hwang Amagon per pt request at shift change
--- NOTE | 2023-04-14 16:16 | PM.IMPN1 ---
Progress Note: A&P Assessment and plan (1) Hypoxia: Problem details: Patient has been hypoxic since admission. She has had some dyspnea as well. Chest imaging does not show pulmonary emboli or pneumonia or heart failure as the an obvious cause. She does have pulmonary hypertension which could be contributing. Likely she has some chronic hypoxia related to her untreated sleep apnea. Status: Acute (2) Bacteremia: Problem details: Blood culture growing Gram-positive cocci in clusters. Id and sensitivity pending. She has allergy/intolerance to vancomycin. December of 2020 she was getting vancomycin and developed acute kidney injury. Status: Acute (3) Weakness: Problem details: Acute on chronic weakness. The cause of the acute exacerbation is unclear. PT/OT evaluation. Status: Acute (4) Fall: Problem details: PT/OT evaluation Status: Acute (5) Forehead laceration: Status: Acute (6) Pulmonary hypertension: Problem details: Echocardiogram 01/25/2022 1. Normal left ventricular size, moderately increased wall thickness, normal global systolic function, calculated EF of 69 %. 2. Right ventricular cavity size is normal, global systolic RV function is normal. 3. Mildly enlarged left atrium. 4. The aortic valve is sclerotic, no stenosis and mild regurgitation. 5. The mitral valve is sclerotic, mild to moderate mitral regurgitation. 6. Moderate tricuspid regurgitation. 7. Grade 2 pattern of LV diastolic filling. Tricuspid regurgitation is moderate. The tricuspid regurgitant velocity is 3.4 m/s, the estimated right ventricular systolic pressure is 47 mmHg plus right atrial pressure. There is elevated estimated pulmonary pressure by tricuspid regurgitation velocity and right atrial pressure Status: Chronic (7) Type 2 diabetes mellitus: Problem details: Continue usual home medications. Start insulin sliding scale a.c. at bedtime for while she is in the hospital. Status: Chronic (8) Lymphedema: Problem details: Continue lymphedema wraps as an outpatient. Elevate legs. Resume compression Status: Chronic (9) Chronic CHF (congestive heart failure): Problem details: Chronic systolic congestive Heart failure, preserved EF. Primarily pulmonary hypertension. Class 2. No acute exacerbation. Continue torsemide at current dose. Status: Chronic (10) Polypharmacy: Problem details: Review meds to see if polypharmacy can be reduced Status: Chronic (11) Stasis dermatitis of lower extremity due to chronic peripheral vascular hypertension: Problem details: Elevate legs at least 12 hours a day. Restart compression Status: Chronic (12) Sleep apnea: Problem details: Untreated. Nonfunctioning equipment Status: Acute (13) Parkinsonian syndrome: Problem details: Patient has tremor suggestive of parkinsonian syndrome. Because she is on chronic metoclopramide therapy for diabetic gastroparesis this will need to be stopped to assess whether her parkinsonian syndrome gets better. This likely takes months to get better. Will try Sinemet to see if it helps. Status: Acute Plan Continue in hospital for evaluation for acute illness causing her acute weakness, hypoxia, falls. Continue to dress other chronic medical problems simultaneously. Treat bacteremia pending culture and sensitivity. Time Spent With Patient Total time spent: Total time spent today is 55 minutes, 40 minutes in coordination of care and discussing with patient and other providers ongoing evaluation management of bacteremia, falls, hypoxia, weakness, Parkinson's Subjective Date Seen: 04/14/23 Interval history: Naomie Pena is a 72 year old female with a complicated past medical history who presented through the emergency department for a fall. She tells me that she has been feeling dizzy since she fell and hit her head on the concrete about 5 months ago. Today they had recently cleaned the floor and wiped it up so it was supposed to be dry, but she felt that it was still slippery and ended up slipping on it and hitting her head on her walker. She had a laceration that was stitched up in the emergency department. She denies any headache or vision changes. She says she has been feeling weak for 4-5 days. She also has been feeling nauseous and today complains of diffuse abdominal pain. She has had no change in bowel movements. She felt short of breath yesterday but not today. In the emergency department she was noted to be hypoxic. While I am examining her he had a poor waveform most of the time due to shaking, but when I held her still her sats went up to 96 or 97% while she was on oxygen at 1.5 liters/minute. She complains of bilateral lower extremity pain that started after her fall. She complains that it is the left worse than the right although then she says but right now it is the right more than the left. She reports having sleep apnea but not using CPAP because her machine is broken. She reports her chronic lymphedema is about the same. She does not use compression stockings anymore. She has a tremor that has been present for some time. Not previously diagnosed. She reports chronic urinary frequency without other urinary symptoms. She has chronic constipation and reports her stools are dark. She has not had a fever. No chest pain. On and off generalized abdominal pain. No vomiting She reports no change since admission overnight. Exam Narrative: Exam Narrative: She is alert and appears in no distress she is oriented to her circumstances. Oropharynx with very small airway, Mallampati 4, neck is supple without mass or adenopathy. Respirations with diminished breath sounds but no wheezing rales or rhonchi. Cardiovascular: S1, S2, regular rate and rhythm. Abdomen is soft with mild generalized tenderness. No mass. Extremities with bilateral 2 to 3+ edema and chronic venous stasis skin changes including hyperpigmentation and some cobblestoning. Diminished pedal pulse on the right normal pedal pulse on the left and absent sensation in both feet. Const: Vital Signs, click to edit/add: Vital Signs - 24 hr 04/13/23 16:36 04/13/23 16:45 04/13/23 16:46 Temperature Pulse Rate 70 67 67 Pulse Rate [Pulse Oximeter] Respiratory Rate Blood Pressure 126/57 L Blood Pressure [Ri ght FA] Pulse Oximetry 89 98 97 Oxygen Delivery Me thod Oxygen Flow Rate 04/13/23 17:14 04/13/23 17:15 04/13/23 17:30 Temperature Pulse Rate 73 70 67 Pulse Rate [Pulse Oximeter] Respiratory Rate Blood Pressure Blood Pressure [Ri ght FA] Pulse Oximetry 90 97 96 Oxygen Delivery Me thod Oxygen Flow Rate 04/13/23 17:32 04/13/23 17:35 04/13/23 17:45 Temperature Pulse Rate 67 68 Pulse Rate [Pulse Oximeter] Respiratory Rate Blood Pressure 75/64 L 146/73 H Blood Pressure [Ri ght FA] Pulse Oximetry 96 95 Oxygen Delivery Me thod Oxygen Flow Rate 04/13/23 18:00 04/13/23 18:02 04/13/23 18:15 Temperature Pulse Rate 66 69 66 Pulse Rate [Pulse Oximeter] Respiratory Rate Blood Pressure 146/130 H Blood Pressure [Ri ght FA] Pulse Oximetry 94 94 95 Oxygen Delivery Me thod Oxygen Flow Rate 04/13/23 18:32 04/13/23 18:51 04/13/23 19:00 Temperature Pulse Rate 69 Pulse Rate [Pulse Oximeter] Respiratory Rate Blood Pressure 134/101 H Blood Pressure [Ri ght FA] Pulse Oximetry 78 L 95 Oxygen Delivery Me thod Oxygen Flow Rate 04/13/23 19:02 04/13/23 19:57 04/13/23 20:07 Temperature 97.6 F Pulse Rate 69 Pulse Rate [Pulse Oximeter] 81 Respiratory Rate 18 18 18 Blood Pressure 135/77 Blood Pressure [Ri ght FA] 157/75 H Pulse Oximetry 96 95 94 Oxygen Delivery Me thod Nasal Cannula Nasal Cannula Nasal Cannula Oxygen Flow Rate 2 1.5 1.5 04/13/23 21:49 04/13/23 22:58 04/13/23 23:00 Temperature Pulse Rate 79 Pulse Rate [Pulse Oximeter] Respiratory Rate 18 Blood Pressure Blood Pressure [Ri ght FA] Pulse Oximetry 96 92 Oxygen Delivery Me thod Nasal Cannula Oxygen Flow Rate 1.5 04/13/23 23:00 04/14/23 01:33 04/14/23 03:00 Temperature 99 F 98.2 F Pulse Rate 79 Pulse Rate [Pulse Oximeter] 86 88 Respiratory Rate 18 18 Blood Pressure Blood Pressure [Ri ght FA] 129/66 172/69 H Pulse Oximetry 92 93 Oxygen Delivery Me thod Nasal Cannula Nasal Cannula Oxygen Flow Rate 1.5 1.5 04/14/23 11:00 04/14/23 11:00 04/14/23 12:46 Temperature 99.5 F Pulse Rate 94 Pulse Rate [Pulse Oximeter] 91 Respiratory Rate 22 Blood Pressure Blood Pressure [Ri ght FA] 158/81 H Pulse Oximetry 92 92 Oxygen Delivery Me thod Room Air Nasal Cannula Oxygen Flow Rate 1.5 1.5 04/14/23 13:50 Temperature 98.5 F Pulse Rate Pulse Rate [Pulse Oximeter] 86 Respiratory Rate 20 Blood Pressure Blood Pressure [Ri ght FA] 162/74 H Pulse Oximetry 96 Oxygen Delivery Me thod Nasal Cannula Oxygen Flow Rate 1.5 Documenting provider has reviewed patient's vital signs: yes Labs Labs: Laboratory Results - last 24 hr 04/13/23 04/13/23 04/13/23 15:35 16:18 17:01 D-Dimer Quant (PE/DVT) 4.77 H VBG pH VBG pCO2 VBG pO2 VBG HCO3 Sodium Potassium Chloride Carbon Dioxide 28 Anion Gap 11 BUN 48 H Creatinine 1.7 H Estimated Creat Clear Estimated GFR 32 Glucose 75 Calcium 9.3 Troponin I < 0.01 L NT-Pro-B Natriuret Pep 2590 Procalcitonin 0.06 Lab Acknowledgement Test Added POC Creatinine 1.8 H 04/13/23 04/14/23 19:15 07:34 D-Dimer Quant (PE/DVT) VBG pH 7.441 H VBG pCO2 39 L VBG pO2 70.2 H VBG HCO3 26 Sodium 136 Potassium 5.0 Chloride 102 Carbon Dioxide 25 Anion Gap 9 BUN 35 H Creatinine 1.3 Estimated Creat Clear 35.20 Estimated GFR 44 Glucose 175 H Calcium 9.4 Troponin I < 0.01 L NT-Pro-B Natriuret Pep Procalcitonin Lab Acknowledgement Test Added POC Creatinine Imaging CT scan - chest: Radiologist's impression: INDICATION: Hypoxia of uncertain etiology COMPARISON: A noncontrast chest CT of 04/13/2023 TECHNIQUE: : CT examination of the chest was performed with the uneventful intravenous administration of 95 cc of Isovue 370 while thin axial sections were obtained from above the apices of the lungs to the lung bases. Please note that all CT scans at this facility use dose modulation, iterative reconstruction, and/or weight-based dosing when appropriate to reduce radiation dose to as low as reasonably achievable. FINDINGS: : HEART and MEDIASTINUM: Heart is enlarged. There is no mediastinal or hilar adenopathy or mass. Atherosclerotic vascular and valvular calcifications are noted PULMONARY ARTERIAL CIRCULATION: There is no visible intraluminal filling defect to suggest pulmonary embolus. The central pulmonary arteries are enlarged likely due to pulmonary hypertension LUNGS: Trace basilar atelectasis. The lungs are otherwise unremarkable PLEURAL SPACES: There is no pleural effusion, pneumothorax or pleural based mass. VISUALIZED UPPER ABDOMEN: Enlarged fatty infiltrated liver. Status post cholecystectomy. Otherwise, the limited visualized upper abdominal structures appear normal. OSSEOUS STRUCTURES: Age-appropriate appearance. No acute fracture or destructive process. TUBES and LINES: None. IMPRESSION: 1. There is no indication of acute pulmonary embolus. 2. Enlarged heart. 3. Enlarged central pulmonary arteries likely due to pulmonary hypertension. 4. Aside from trace basilar atelectasis, the lungs appear normal.
[2023-04-14] MEDS: INSULIN ASPART 100 UNIT/ML 18 UNIT SUBCUT (17:45)
[2023-04-14] MEDS: ENOXAPARIN 40 MG/0.4 ML INJ SUBCUT (21:01)
[2023-04-14] MEDS: MONTELUKAST 10 MG TABLET PO (21:02)
--- NOTE | 2023-04-14 22:54 | PC.NURSE ---
End of Shift: Patient is alert and orientated.. although slow to respond. Bilateral eyes/ forehead are black and blue from fall. Head laceration is stitched.. although it will saturate gauze. I changed it this shift. The patient is a heavy assist of 2-3 to get to the edge of the bed. We tried Ax3 and pivot to the commode.. this did not go well the patient could not assist at all. Throughout the evening we used the EZ Stand.. the patient tolerated this well. Calls appropriately when she has to go to the BR. BLE have pitting edema and erythema. LEGIHANN wraps were applied to BLE. Patient tolerated this well. Nystatin was applied after each void/ or incontinent episode. Call light within reach.. Rated her chronic back pain @ 5/10 administered scheduled Tylenol... I also offered a lidocaine patch to help with the pain. The patient was requesting trazodone to help with sleep.. I talked to Dr Mckeon regarding this as well as the patch... although no orders yet. YVONNE SOTOMAYOR BSN
[2023-04-15] VITALS (11 sets, daily range): BP systolic 135–175; BP diastolic 60–86; PULSE 84–102; RESP 18–20; TEMP 36.4–36.9; O2SAT 80–95
[2023-04-15] MEDS: ACETAMINOPHEN 325 MG TABLET 650 MG PO (00:08)
[2023-04-15] MEDS: TRAZODONE HCL 50 MG TABLET 100 MG PO (00:33)
[2023-04-15] MEDS: LEVOTHYROXINE 50 MCG TABLET PO (06:15)
[2023-04-15] MEDS: ONDANSETRON ODT 4 MG TAB PO (06:15)
--- NOTE | 2023-04-15 06:31 | PC.NURSE ---
Shift note [id number]: Patient alert & oriented x 4 with no c/o headache nd has been on RA with O2 sat of 90%. She does use bedside commode though is also noted to be incontinent of bladder and needs encouragement to participate in cares. Pt transferred with assist of 2 using EZ stand last evening though was able to pivot from bed to commode earlier this morning with assist of 2 using 4WW and gait belt. Pt requested PRN Tylenol before going to sleep last night and requested heat be applied to lower back as well for ?7/10 lower back pain?. Pt reports Aqua K pad effective for pain control to lower back. IV in place to L wrist with no s/sx of infection observed to surrounding area. Pt noted to have moderate amount of bloody drainage from laceration to forehead and dressing had to be changed two times throughout the shift. No s/sx of infection observed to laceration. Staff reinforced gauze dressings covering laceration with Coban wrap due to continued drainage every time dressing is removed from wound. Pt requested pudding for HS snack which was provided. PRN Zofran administered this morning due to pt c/o nausea. LEIGHANN wraps worn to BLEs due to pitting edema to bilateral lower extremities. Pt slept intermittently throughout the night though was given PRN Trazodone. ?
[2023-04-15 06:46] LABS: Basophils Percent Auto 0.1 % (0.0-3.0); Eosinophils Percent Auto 0.7 % (0.0-7.0); Hematocrit 37.9 % (33.0-51.0); Immature Granulocytes Pct Auto 0.6 %; Lymphocytes Percent Auto 11.1 % (20-44); Mean Corpuscular HGB Conc 32 gm/dL (32-36); Mean Corpuscular Hemoglobin 30 pg (26-34); Mean Corpuscular Volume 93 fL (80-100); Monocytes Percent Auto 8.4 % (0.0-11.0); Neutrophils Percent Auto 79.1 % (42.0-72.0); Platelet Count* 275 K/uL (140-440); RDW Coefficient of Variation % 13.9 % (11.5-15.5); Red Blood Count 4.07 m/uL (4.00-5.20); White Blood Count* 13.64 K/uL (4.50-11.00)
[2023-04-15 07:01] LABS: Chloride* 97 mmol/L (96-114); Potassium* 4.3 mmol/L (3.6-5.1); Sodium* 135 mmol/L (135-149)
[2023-04-15 07:03] LABS: Creatinine* 1.3 mg/dL (0.5-1.5); Estimated Glomerular Filt Rate 44 ml/min
[2023-04-15 07:04] LABS: Anion Gap 11 mEq/L (7-15); Blood Urea Nitrogen* 31 mg/dL (7-30); Carbon Dioxide* 27 mmol/L (20-32); Creatine Kinase* 109 U/L (41-117)
[2023-04-15 07:05] LABS: Calcium* 9.5 mg/dL (8.4-10.6); Glucose* 155 mg/dL (60-115)
[2023-04-15 07:07] LABS: Slide Review Reflex No
[2023-04-15 07:21] LABS: C Reactive Protein* 14.4 mg/dL (0.5-1.0)
[2023-04-15] MEDS: SODIUM CHLORIDE 0.9 % (FLUSH) 10 ML SYRINGE 5 ML IVF ×3 (08:50→22:02)
[2023-04-15] MEDS: polyethylene glycoL 3350 17 GM PACK PO (08:50)
[2023-04-15] MEDS: dilTIAZem 120 MG CAP.ER.24H PO (08:51)
[2023-04-15] MEDS: GABAPENTIN 100 MG CAPSULE 400 MG PO (08:51)
[2023-04-15] MEDS: OMEPRAZOLE 20 MG CAPSULE DR PO ×2 (08:51→21:59)
[2023-04-15] MEDS: EMPAGLIFLOZIN 10 MG TABLET 25 MG PO (08:51)
[2023-04-15] MEDS: MAGNESIUM OXIDE 400 MG TABLET PO (08:51)
[2023-04-15] MEDS: METOPROLOL SUCCINATE (XL) 100 MG TAB PO (08:52)
[2023-04-15] MEDS: buPROPion XL 150 MG TABLET 300 MG PO (08:52)
[2023-04-15] MEDS: BUSPIRONE 10 MG TABLET 30 MG PO ×2 (08:52→21:59)
[2023-04-15] MEDS: LOSARTAN POTASSIUM 50 MG TABLET 100 MG PO (08:52)
[2023-04-15] MEDS: DULOXETINE 30 MG CAPSULE DR 120 MG PO (08:52)
[2023-04-15] MEDS: SPIRONOLACTONE 25 MG TABLET PO (08:52)
[2023-04-15] MEDS: ATORVASTATIN CALCIUM 40 MG TABLET 80 MG PO (08:53)
[2023-04-15] MEDS: ACETAMINOPHEN 500 MG TABLET 1000 MG PO ×3 (08:53→21:58)
[2023-04-15] MEDS: SENNOSIDES/DOCUSATE TABLET 2 TAB PO ×2 (08:53→21:58)
[2023-04-15] MEDS: INSULIN ASPART 100 UNIT/ML 6 UNIT SUBCUT ×3 (08:54→17:07)
[2023-04-15] MEDS: TORSEMIDE 20 MG TABLET 40 MG PO (08:54)
[2023-04-15] MEDS: ASPIRIN 81 MG TABLET EC PO (08:54)
[2023-04-15] MEDS: CARBIDOPA-LEVODOPA 25-100 TABLET 1 TAB PO ×4 (08:56→22:00)
[2023-04-15] MEDS: NYSTATIN POWDER 1 APPLIC TOPICAL ×3 (09:12→22:34)
[2023-04-15] MEDS: DAPTOmycin 50 MG/ML inj 500 MG IVP (09:45)
[2023-04-15 10:33] LABS: Alanine Aminotransferase* 11 U/L (4-35); Alkaline Phosphatase* 149 U/L (40-150); Aspartate Amino Transferase* 25 U/L (12-35); Bilirubin Direct* 0.2 mg/dL (0.0-0.5); Bilirubin Total* 1.1 mg/dL (0.1-1.5); Total Protein* 7.4 g/dL (6.0-8.3)
[2023-04-15] MEDS: INSULIN ASPART 100 UNIT/ML SUBCUT ×2 (12:04→22:24)
--- NOTE | 2023-04-15 12:40 | PM.IMPN1 ---
Progress Note: A&P Assessment and plan (1) Hypoxia: Problem details: Hypoxia better today. Chest imaging does not show pulmonary emboli or pneumonia or heart failure as the an obvious cause. She does have pulmonary hypertension which could be contributing. Likely she has some chronic hypoxia related to her untreated sleep apnea. Status: Acute (2) Bacteremia: Problem details: Blood culture growing Gram-positive cocci in clusters. Id and sensitivity pending. Currently appears to be a contaminant. She has allergy/intolerance to vancomycin. December of 2020 she was getting vancomycin and developed acute kidney injury. Status: Acute (3) Weakness: Problem details: Acute on chronic weakness. The cause of the acute exacerbation is unclear. PT/OT evaluation. Status: Acute (4) Fall: Problem details: PT/OT evaluation Status: Acute (5) Forehead laceration: Problem details: Bandage to protect the wound. Status: Acute (6) Pulmonary hypertension: Problem details: Echocardiogram 01/25/2022 1. Normal left ventricular size, moderately increased wall thickness, normal global systolic function, calculated EF of 69 %. 2. Right ventricular cavity size is normal, global systolic RV function is normal. 3. Mildly enlarged left atrium. 4. The aortic valve is sclerotic, no stenosis and mild regurgitation. 5. The mitral valve is sclerotic, mild to moderate mitral regurgitation. 6. Moderate tricuspid regurgitation. 7. Grade 2 pattern of LV diastolic filling. Tricuspid regurgitation is moderate. The tricuspid regurgitant velocity is 3.4 m/s, the estimated right ventricular systolic pressure is 47 mmHg plus right atrial pressure. There is elevated estimated pulmonary pressure by tricuspid regurgitation velocity and right atrial pressure Status: Chronic (7) Type 2 diabetes mellitus: Problem details: Continue usual home medications. Start insulin sliding scale a.c. at bedtime for while she is in the hospital. Status: Chronic (8) Lymphedema: Problem details: Continue lymphedema wraps as an outpatient. Elevate legs. Resume compression Status: Chronic (9) Chronic CHF (congestive heart failure): Problem details: Chronic systolic congestive Heart failure, preserved EF. Primarily pulmonary hypertension. Class 2. No acute exacerbation. Continue torsemide at current dose. Status: Chronic (10) Polypharmacy: Problem details: Review meds to see if polypharmacy can be reduced Status: Chronic (11) Stasis dermatitis of lower extremity due to chronic peripheral vascular hypertension: Problem details: Elevate legs at least 12 hours a day. Restart compression Status: Chronic (12) Sleep apnea: Problem details: Untreated. Nonfunctioning equipment Status: Acute (13) Parkinsonian syndrome: Problem details: Patient has tremor suggestive of parkinsonian syndrome. Because she is on chronic metoclopramide therapy for diabetic gastroparesis this will need to be stopped to assess whether her parkinsonian syndrome gets better. This likely takes months to get better. Will try Sinemet to see if it helps. Status: Acute (14) Diabetic gastroparesis: Problem details: Discontinue Metoclopramide due to concern about parkinsonian syndrome. Monitor for p.o. intake and recurrent vomiting off metoclopramide Status: Acute (15) Immobility: Problem details: Patient is difficulty with standing and walking. At baseline she walks with a walker. Now needing standby assist. Continue to work with therapy to assess and treat. Status: Acute Plan Continue monitoring cause of acute illness and deterioration in functional status. Continue to have therapy address immobility. Continue to adjust medications and monitor for complications of get diabetic gastroparesis and Parkinson's syndrome. Time Spent With Patient Total time spent: Total time spent today is 50 minutes, 40 minutes in coordination of care discussing with patient other providers ongoing evaluation management of parkinsonian syndrome, diabetic gastroparesis, weakness and disability Subjective Date Seen: 04/15/23 Interval history: Naomie Pena is a 72 year old female with a complicated past medical history who presented through the emergency department for a fall. She tells me that she has been feeling dizzy since she fell and hit her head on the concrete about 5 months ago. Today they had recently cleaned the floor and wiped it up so it was supposed to be dry, but she felt that it was still slippery and ended up slipping on it and hitting her head on her walker. She had a laceration that was stitched up in the emergency department. She denies any headache or vision changes. She says she has been feeling weak for 4-5 days. She also has been feeling nauseous and today complains of diffuse abdominal pain. She has had no change in bowel movements. She felt short of breath yesterday but not today. In the emergency department she was noted to be hypoxic. While I am examining her he had a poor waveform most of the time due to shaking, but when I held her still her sats went up to 96 or 97% while she was on oxygen at 1.5 liters/minute. She complains of bilateral lower extremity pain that started after her fall. She complains that it is the left worse than the right although then she says but right now it is the right more than the left. She reports having sleep apnea but not using CPAP because her machine is broken. She reports her chronic lymphedema is about the same. She does not use compression stockings anymore. She has a tremor that has been present for some time. Not previously diagnosed. She reports chronic urinary frequency without other urinary symptoms. She has chronic constipation and reports her stools are dark. She has not had a fever. No chest pain. On and off generalized abdominal pain. No vomiting Patient reports that last night she had a nonbloody emesis. This apparently during the night, not after a meal. She otherwise reports feeling about the same as she did yesterday. Nurses have wean her off oxygen when she is awake. Her metoclopramide was discontinued and I started her on Sinemet for her parkinsonian syndrome. Her tremor is a little better today. Exam Narrative: Exam Narrative: She is alert and appears in no distress. Small amount of blood on the bandage the middle of her forehead. Bilateral black eyes. No facial asymmetry. Extraocular movements are full. Oropharynx with very small airway. Respirations are clear to auscultation. Cardiovascular: S1, S2, regular rate and rhythm. Abdomen is soft without tenderness or mass. Extremities with chronic venous stasis skin changes in 1 to 2+ edema. Mild resting tremor intermittently more in her legs than in her hands Const: Vital Signs, click to edit/add: Vital Signs - 24 hr 04/14/23 12:46 04/14/23 13:50 04/14/23 15:00 Temperature 98.5 F 98.1 F Pulse Rate 94 Pulse Rate [Left A pical] Pulse Rate [Pulse Oximeter] 86 75 Respiratory Rate 20 18 Blood Pressure [Ri [facility] FA] 162/74 H 159/71 H Pulse Oximetry 96 93 Oxygen Delivery Me thod Nasal Cannula Room Air Oxygen Flow Rate 1.5 04/14/23 15:00 04/14/23 19:00 04/14/23 19:00 Temperature 97.8 F Pulse Rate Pulse Rate [Left A pical] Pulse Rate [Pulse Oximeter] 68 Respiratory Rate 18 22 20 Blood Pressure [Ri ght FA] 152/70 H Pulse Oximetry 91 92 92 Oxygen Delivery Me thod Nasal Cannula Room Air Room Air Oxygen Flow Rate 1.5 04/14/23 21:05 04/14/23 23:00 04/14/23 23:00 Temperature 98.0 F Pulse Rate Pulse Rate [Left A pical] Pulse Rate [Pulse Oximeter] 98 Respiratory Rate 20 20 Blood Pressure [Ri ght FA] 169/84 H Pulse Oximetry 92 90 90 Oxygen Delivery Me thod Room Air Room Air Oxygen Flow Rate 04/15/23 01:32 04/15/23 03:12 04/15/23 07:17 Temperature 97.5 F L Pulse Rate 91 91 Pulse Rate [Left A pical] Pulse Rate [Pulse Oximeter] 91 Respiratory Rate 20 Blood Pressure [Ri ght FA] 152/72 H Pulse Oximetry 90 Oxygen Delivery Me thod Room Air Oxygen Flow Rate 04/15/23 09:00 04/15/23 09:00 04/15/23 09:00 Temperature 98.2 F Pulse Rate Pulse Rate [Left A pical] 102 H Pulse Rate [Pulse Oximeter] 102 H 102 H Respiratory Rate 20 20 20 Blood Pressure [Ri ght FA] 175/86 H Pulse Oximetry 95 95 Oxygen Delivery Me thod Room Air Room Air Oxygen Flow Rate 04/15/23 12:05 Temperature 98.4 F Pulse Rate Pulse Rate [Left A pical] 89 Pulse Rate [Pulse Oximeter] 89 Respiratory Rate 20 Blood Pressure [Ri ght FA] 152/75 H Pulse Oximetry 92 Oxygen Delivery Me thod Room Air Oxygen Flow Rate Documenting provider has reviewed patient's vital signs: yes Labs Labs: Laboratory Results - last 24 hr 04/15/23 04/15/23 04/15/23 06:09 10:15 10:15 WBC 13.64 H RBC 4.07 Hgb 12.0 Hct 37.9 MCV 93 MCH 30 MCHC 32 RDW Coeff of Trina 13.9 Plt Count 275 Neut % (Auto) 79.1 H Lymph % (Auto) 11.1 L [place] % (Auto) 8.4 Eos % (Auto) 0.7 Baso % (Auto) 0.1 Neut # (Auto) 10.80 H Lymph # (Auto) 1.50 [place] # (Auto) 1.10 H Eos # (Auto) 0.10 Baso # (Auto) 0.00 Abs Immat Gran (auto) 0.10 Imm/Tot Granulo (auto) 0.6 Sodium 135 Potassium 4.3 Chloride 97 Carbon Dioxide 27 Anion Gap 11 BUN 31 H Creatinine 1.3 Estimated Creat Clear 35.20 Estimated GFR 44 Glucose 155 H Calcium 9.5 Total Bilirubin 1.1 Direct Bilirubin 0.2 AST 25 ALT 11 Alkaline Phosphatase 149 Total Creatine Kinase 109 C-Reactive Protein 14.4 H Total Protein 7.4 Albumin 4.0 TSH 3.220 Lab Acknowledgement Test Added Test Added
--- NOTE | 2023-04-15 14:20 | PC.SOCIAL ---
Discharge plan: Received call from [facility] nurseIvanna [phone] #[phone], stating they have been trying to convince pt to go to a senior care as she is requiring a higher level of care. Per Ivanna, pt was assigned a conservator on April 03 and has met with her once. At this time, [facility] is not able to meet her needs and is recommending senior care placement for short term rehab. Met with pt who is aware of need for higher level of care and would like to be at [facility] in [place] or as close to [place] as possible. Called [facility] and am awaiting call back regarding bed availability. There are currently no beds at [facility] or [facility]. 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
--- NOTE | 2023-04-15 15:08 | PC.NURSE ---
Please see eMar for multiple medications provided. BG 145 prior to bkfst and 212 at lunch time. Dressing on forehead intact, secured w/kerlix. Contact precautions continue for past hx of MRSA. Pt remains a heavy transfer from bed, to BSC and to recliner. EZ stand utilized in the am. PT consult with Jamil Alfonso and pt was able to stand at bedside for 30 seconds. Pt largely incontinent of urine. Specimen for UA and fecal occult blood ordered and specimens need to be collected. LEIGHANN wraps to BLE. Nystatin powder and intradry utilized under erythemic area under pt's large pannus. Arelis from is checking bed availability for higher level of care for this patient, pt aware that she will not be able to return to [place]. Sleeping this afternoon. Twitching of left lower extremity is patient's baseline. Report to Candida Asencio RN for evening shift.
[2023-04-15 16:02] LABS: Fecal Occult Blood* Negative (Negative)
[2023-04-15] MEDS: INSULIN ASPART 100 UNIT/ML 18 UNIT SUBCUT (17:06)
[2023-04-15 17:51] LABS: Appearance Urine Clear (Clear); Bilirubin Urine Negative (Negative); Blood Urine 1+ (Negative); Color Urine Yellow (Yellow); Glucose Urine 2+ (Negative); Ketones Urine Negative (Negative); Leukocyte Esterase Urine 1+ (Negative); Nitrite Urine Negative (Negative); Protein Urine Negative (Negative); Specific Gravity Urine <= 1.005 (1.000-1.030); Urobilinogen Urine 0.2 (0.2-1.0); pH Urine 5.5 (5.0-8.5)
[2023-04-15 18:00] LABS: Squamous Epithelial Cell Urine Moderate (None-Few); WBC Clumps Urine Moderate
--- NOTE | 2023-04-15 18:33 | PC.NURSE ---
Shift [id number]- Patient napping this afternoon. She is incontinent of stool and urine- pericares provided. She is up to chair with EZ stand and uses bedside commode. Tolerates well. New bandage to forehead.
[2023-04-15] MEDS: MONTELUKAST 10 MG TABLET PO (22:00)
[2023-04-15] MEDS: ENOXAPARIN 40 MG/0.4 ML INJ SUBCUT (22:06)
[2023-04-15] MEDS: LIDOCAINE 5% PATCH 1 PATCH TRANSDERMA (23:07)
[2023-04-16] VITALS (9 sets, daily range): BP systolic 145–164; BP diastolic 57–111; PULSE 85–104; RESP 16–24; TEMP 36.4–37; O2SAT 88–94
[2023-04-16] MEDS: ONDANSETRON ODT 4 MG TAB PO (02:07)
--- NOTE | 2023-04-16 04:22 | PC.NURSE ---
Patient pleasant and cooperative. Given scheduled Tylenol and PRN Lidocaine patch for c/o low back pain. Incontinent of bowel and urine. Transferred from bed to recliner with stand lift.
[2023-04-16] MEDS: LEVOTHYROXINE 50 MCG TABLET PO (06:28)
[2023-04-16 06:37] LABS: Basophils Percent Auto 0.2 % (0.0-3.0); Eosinophils Percent Auto 2.3 % (0.0-7.0); Hematocrit 38.3 % (33.0-51.0); Immature Granulocytes Pct Auto 1.3 %; Mean Corpuscular HGB Conc 31 gm/dL (32-36); Mean Corpuscular Hemoglobin 29 pg (26-34); Mean Corpuscular Volume 94 fL (80-100); Monocytes Percent Auto 9.5 % (0.0-11.0); Neutrophils Percent Auto 73.7 % (42.0-72.0); Platelet Count* 268 K/uL (140-440); Red Blood Count 4.09 m/uL (4.00-5.20); Slide Review Reflex No
[2023-04-16 07:12] LABS: Chloride* 98 mmol/L (96-114); Potassium* 4.4 mmol/L (3.6-5.1); Sodium* 135 mmol/L (135-149)
[2023-04-16 07:15] LABS: Anion Gap 10 mEq/L (7-15); Blood Urea Nitrogen* 35 mg/dL (7-30); Carbon Dioxide* 27 mmol/L (20-32); Creatinine* 1.4 mg/dL (0.5-1.5); Est. Creatinine Clearance* 32.68; Estimated Glomerular Filt Rate 40 ml/min
[2023-04-16 07:16] LABS: Calcium* 9.5 mg/dL (8.4-10.6)
[2023-04-16] MEDS: ATORVASTATIN CALCIUM 40 MG TABLET 80 MG PO (08:29)
[2023-04-16] MEDS: BUSPIRONE 10 MG TABLET 30 MG PO ×2 (08:30→20:40)
[2023-04-16] MEDS: DULOXETINE 30 MG CAPSULE DR 120 MG PO (08:30)
[2023-04-16] MEDS: TORSEMIDE 20 MG TABLET 40 MG PO (08:30)
[2023-04-16 08:31] LABS: Glucose* 162 mg/dL (60-115)
[2023-04-16] MEDS: EMPAGLIFLOZIN 10 MG TABLET 25 MG PO (08:31)
[2023-04-16] MEDS: buPROPion XL 150 MG TABLET 300 MG PO (08:31)
[2023-04-16] MEDS: ACETAMINOPHEN 500 MG TABLET 1000 MG PO ×3 (08:31→20:39)
[2023-04-16] MEDS: SENNOSIDES/DOCUSATE TABLET 2 TAB PO (08:31)
[2023-04-16] MEDS: GABAPENTIN 100 MG CAPSULE 200 MG PO (08:31)
[2023-04-16] MEDS: MAGNESIUM OXIDE 400 MG TABLET PO (08:32)
[2023-04-16] MEDS: FERROUS SULFATE 325 MG TABLET PO (08:32)
[2023-04-16] MEDS: ASPIRIN 81 MG TABLET EC PO (08:32)
[2023-04-16] MEDS: SPIRONOLACTONE 25 MG TABLET PO (08:32)
[2023-04-16] MEDS: OMEPRAZOLE 20 MG CAPSULE DR PO ×2 (08:32→20:40)
[2023-04-16] MEDS: CARBIDOPA-LEVODOPA 25-100 TABLET 1 TAB PO ×4 (08:32→20:40)
[2023-04-16] MEDS: METOPROLOL SUCCINATE (XL) 100 MG TAB PO (08:32)
[2023-04-16] MEDS: dilTIAZem 120 MG CAP.ER.24H PO (08:33)
[2023-04-16] MEDS: LOSARTAN POTASSIUM 50 MG TABLET 100 MG PO (08:33)
[2023-04-16] MEDS: SODIUM CHLORIDE 0.9 % (FLUSH) 10 ML SYRINGE 5 ML IVF ×2 (08:34→20:41)
[2023-04-16] MEDS: INSULIN ASPART 100 UNIT/ML 6 UNIT SUBCUT ×3 (08:34→17:07)
[2023-04-16] MEDS: INSULIN ASPART 100 UNIT/ML SUBCUT ×2 (08:35→17:09)
[2023-04-16 09:29] LABS: Bacteria Urine Moderate
[2023-04-16] MEDS: NYSTATIN POWDER 1 APPLIC TOPICAL ×4 (10:00→20:41)
--- NOTE | 2023-04-16 10:41 | PM.IMPN1 ---
Progress Note: A&P Assessment and plan (1) Hypoxia: Problem details: Hypoxia better today. Chest imaging does not show pulmonary emboli or pneumonia or heart failure as the an obvious cause. She does have pulmonary hypertension which could be contributing. Likely she has some chronic hypoxia related to her untreated sleep apnea. Will work on a plan to restart CPAP. Status: Acute (2) Bacteremia: Problem details: Blood culture growing Gram-positive cocci in clusters. Culture shows Staph epidermidis, likely a contaminant Status: Acute (3) Weakness: Problem details: Acute on chronic weakness. The cause of the acute exacerbation is unclear. PT/OT evaluation. Status: Acute (4) Fall: Problem details: PT/OT evaluation Status: Acute (5) Forehead laceration: Problem details: Bandage to protect the wound. Status: Acute (6) Pulmonary hypertension: Problem details: Echocardiogram 01/25/2022 1. Normal left ventricular size, moderately increased wall thickness, normal global systolic function, calculated EF of 69 %. 2. Right ventricular cavity size is normal, global systolic RV function is normal. 3. Mildly enlarged left atrium. 4. The aortic valve is sclerotic, no stenosis and mild regurgitation. 5. The mitral valve is sclerotic, mild to moderate mitral regurgitation. 6. Moderate tricuspid regurgitation. 7. Grade 2 pattern of LV diastolic filling. Tricuspid regurgitation is moderate. The tricuspid regurgitant velocity is 3.4 m/s, the estimated right ventricular systolic pressure is 47 mmHg plus right atrial pressure. There is elevated estimated pulmonary pressure by tricuspid regurgitation velocity and right atrial pressure Status: Chronic (7) Type 2 diabetes mellitus: Problem details: Continue usual home medications. Start insulin sliding scale ACHS for while she is in the hospital. Status: Chronic (8) Lymphedema: Problem details: Continue lymphedema wraps as an outpatient. Elevate legs. Resume compression Status: Chronic (9) Chronic CHF (congestive heart failure): Problem details: Chronic systolic congestive Heart failure, preserved EF. Primarily pulmonary hypertension. Class 2. No acute exacerbation. Continue torsemide at current dose. Status: Chronic (10) Polypharmacy: Problem details: Review meds to see if polypharmacy can be reduced. Trazodone and gabapentin doses have been cut in half to start. Status: Chronic (11) Stasis dermatitis of lower extremity due to chronic peripheral vascular hypertension: Problem details: Elevate legs at least 12 hours a day. Restart compression Status: Chronic (12) Sleep apnea: Problem details: Untreated. Nonfunctioning equipment. Work on a plan to restart CPAP Status: Acute (13) Parkinsonian syndrome: Problem details: Patient has tremor suggestive of parkinsonian syndrome. Because she is on chronic metoclopramide therapy for diabetic gastroparesis this will need to be stopped to assess whether her parkinsonian syndrome gets better. This likely takes months to get better. Will try Sinemet to see if it helps. Status: Acute (14) Diabetic gastroparesis: Problem details: Discontinue Metoclopramide due to concern about parkinsonian syndrome. Monitor for p.o. intake and recurrent vomiting off metoclopramide. Doing well so far Status: Acute (15) Immobility: Problem details: Patient is difficulty with standing and walking. At baseline she walks with a walker. Now needing standby assist. Continue to work with therapy to assess and treat. Status: Acute (16) Morbid obesity with BMI of 50.0-59.9, adult: Problem details: 11 kg weight gain over past 14 months Status: Acute Plan Patient is hospitalized for management of acute on chronic hypoxia and weakness. Initially patient had bacteremia which turned out to be a contaminant. She is clinically stabilized but with ongoing hypoxia and weakness. Continue in hospital pending safe discharge plan. Continue to modify polypharmacy. Time Spent With Patient Total time spent: Total time spent today is 50 minutes, 30 minutes in coordination of care and discussing with patient and other providers ongoing management of disabilities, sleep apnea, hypoxia, obesity Subjective Date Seen: 04/16/23 Interval history: Naomie Pena is a 72 year old female with a complicated past medical history who presented through the emergency department for a fall. She tells me that she has been feeling dizzy since she fell and hit her head on the concrete about 5 months ago. Today they had recently cleaned the floor and wiped it up so it was supposed to be dry, but she felt that it was still slippery and ended up slipping on it and hitting her head on her walker. She had a laceration that was stitched up in the emergency department. She denies any headache or vision changes. She says she has been feeling weak for 4-5 days. She also has been feeling nauseous and today complains of diffuse abdominal pain. She has had no change in bowel movements. She felt short of breath yesterday but not today. In the emergency department she was noted to be hypoxic. While I am examining her he had a poor waveform most of the time due to shaking, but when I held her still her sats went up to 96 or 97% while she was on oxygen at 1.5 liters/minute. She complains of bilateral lower extremity pain that started after her fall. She complains that it is the left worse than the right although then she says but right now it is the right more than the left. She reports having sleep apnea but not using CPAP because her machine is broken. She reports her chronic lymphedema is about the same. She does not use compression stockings anymore. She has a tremor that has been present for some time. Not previously diagnosed. She reports chronic urinary frequency without other urinary symptoms. She has chronic constipation and reports her stools are dark. She has not had a fever. No chest pain. On and off generalized abdominal pain. No vomiting Patient reports that last night she had a nonbloody emesis. This apparently during the night, not after a meal. She otherwise reports feeling about the same as she did yesterday. Nurses have wean her off oxygen when she is awake. Her metoclopramide was discontinued and I started her on Sinemet for her parkinsonian syndrome. Patient reports that her status is not changed significantly. She still mildly short of breath. She still has mild generalized abdominal pain. She has been able to eat without any difficulties. No postprandial nausea. She reports being weak and requiring standby assist to walk. Therapy reported that she was able to stand and walk with standby assist. Exam Narrative: Exam Narrative: When I walked into the room she was sleeping in the chair with oxygen at 2 L per nasal cannula. Her O2 sats were in the mid 80s. I woke her up and her O2 sats went to the low 90s. I shut off the oxygen and she maintained in the low 90s. She is alert appears in no distress. Bilateral ecchymosis around her eyes noted. Eyes are otherwise normal. Respirations with diminished breath sounds throughout. No wheezing rales or rhonchi. Cardiovascular: Distant S1-S2. Regular rate and rhythm. Abdomen is soft. She has minimal diffuse abdominal tenderness. Extremities with edema. Compression wraps on her legs. Const: Vital Signs, click to edit/add: Vital Signs - 24 hr 04/15/23 12:05 04/15/23 15:02 04/15/23 15:20 Temperature 98.4 F Pulse Rate 90 Pulse Rate [Left A pical] 89 Pulse Rate [Pulse Oximeter] 89 Respiratory Rate 20 Blood Pressure [Ri ght FA] 152/75 H Pulse Oximetry 92 80 L Oxygen Delivery Me thod Room Air Room Air Oxygen Flow Rate 04/15/23 15:20 04/15/23 19:00 04/15/23 19:58 Temperature 98.2 F 97.5 F L Pulse Rate Pulse Rate [Left A pical] 86 Pulse Rate [Pulse Oximeter] 84 Respiratory Rate 18 20 Blood Pressure [Ri ght FA] 160/73 H 135/60 Pulse Oximetry 91 89 89 Oxygen Delivery Me thod Nasal Cannula Nasal Cannula Oxygen Flow Rate 1.5 1 04/15/23 22:42 04/15/23 23:00 04/16/23 00:33 Temperature 97.5 F L Pulse Rate 89 Pulse Rate [Left A pical] Pulse Rate [Pulse Oximeter] 88 Respiratory Rate 20 Blood Pressure [Ri ght FA] 159/82 H Pulse Oximetry 92 92 Oxygen Delivery Me thod Nasal Cannula Nasal Cannula Oxygen Flow Rate 04/16/23 02:41 04/16/23 07:00 04/16/23 07:00 Temperature 97.6 F 98.6 F Pulse Rate Pulse Rate [Left A pical] Pulse Rate [Pulse Oximeter] 88 95 Respiratory Rate 22 16 16 Blood Pressure [Ri ght FA] 164/75 H 145/57 H Pulse Oximetry 94 88 88 Oxygen Delivery Me thod Nasal Cannula Nasal Cannula Nasal Cannula Oxygen Flow Rate 1.5 1.5 04/16/23 07:00 Temperature Pulse Rate 104 H Pulse Rate [Left A pical] Pulse Rate [Pulse Oximeter] Respiratory Rate Blood Pressure [Ri ght FA] Pulse Oximetry Oxygen Delivery Me thod Oxygen Flow Rate Labs Labs: Laboratory Results - last 24 hr 04/14/23 04/15/23 04/15/23 16:08 06:09 17:32 WBC RBC Hgb Hct MCV MCH MCHC RDW Coeff of Trina Plt Count Neut % (Auto) Lymph % (Auto) [place] % (Auto) Eos % (Auto) Baso % (Auto) Neut # (Auto) Lymph # (Auto) [place] # (Auto) Eos # (Auto) Baso # (Auto) Abs Immat Gran (auto) Imm/Tot Granulo (auto) Sodium Potassium Chloride Carbon Dioxide Anion Gap BUN Creatinine Estimated Creat Clear Estimated GFR Glucose Calcium Total Bilirubin 1.1 Direct Bilirubin 0.2 AST 25 ALT 11 Alkaline Phosphatase 149 Total Protein 7.4 Albumin 4.0 TSH 3.220 Urine Color Yellow Urine Appearance Clear Urine pH 5.5 Ur Specific [place] <= 1.005 Urine Protein Negative Urine Glucose (UA) 2+ A Urine Ketones Negative Urine Blood 1+ A Urine Nitrite Negative Urine Bilirubin Negative Urine Urobilinogen 0.2 Ur Leukocyte Esterase 1+ A Urine RBC 2-5 A Urine WBC 10-25 A Urine WBC Clumps Moderate A Ur Squamous Epith Cells Moderate A Urine Bacteria Moderate A Stool Occult Blood Negative 04/16/23 06:10 WBC 12.20 H RBC 4.09 Hgb 12.0 Hct 38.3 MCV 94 MCH 29 MCHC 31 L RDW Coeff of Trina 14.0 Plt Count 268 Neut % (Auto) 73.7 H Lymph % (Auto) 13.0 L [place] % (Auto) 9.5 Eos % (Auto) 2.3 Baso % (Auto) 0.2 Neut # (Auto) 9.00 H Lymph # (Auto) 1.60 [place] # (Auto) 1.20 H Eos # (Auto) 0.30 Baso # (Auto) 0.00 Abs Immat Gran (auto) 0.20 Imm/Tot Granulo (auto) 1.3 Sodium 135 Potassium 4.4 Chloride 98 Carbon Dioxide 27 Anion Gap 10 BUN 35 H Creatinine 1.4 Estimated Creat Clear 32.68 Estimated GFR 40 Glucose 162 H Calcium 9.5 Total Bilirubin Direct Bilirubin AST ALT Alkaline Phosphatase Total Protein Albumin TSH Urine Color Urine Appearance Urine pH Ur Specific [place] Urine Protein Urine Glucose (UA) Urine Ketones Urine Blood Urine Nitrite Urine Bilirubin Urine Urobilinogen Ur Leukocyte Esterase Urine RBC Urine WBC Urine WBC Clumps Ur Squamous Epith Cells Urine Bacteria Stool Occult Blood
--- NOTE | 2023-04-16 15:06 | PC.SOCIAL ---
Addendum entered by ADITI Plasencia 04/16/23 16:01: Received a phone call from admissions at [facility] in [place] informing that they are unable to accept pt. Original Note: Discharge planning- Spoke to Pina at [facility] and they are unable to accept pt due to pt's weight. Met with pt in room to discuss discharge plans. Informed pt that [facility] is unable to meet pt's needs due to pt's weight. Pt was understanding and would like this worker to locate SNF close to [place]. Pt is hopeful she can return to [facility] after rehab. Informed pt that it would depend on pt's progress with rehab. Pt will need to be a 1 assist to transfer to return to [facility]. Contacted the following SNF's to locate placement. 1. [facility]- Phone call to admissions at [phone]. Left a voicemail inquiring on bed availability. Faxed referral to [phone]. 2. [facility]- Phone call to [place] at [phone] [address] (Deanna in admissions is out until 04/27). Left a voicemail inquiring on bed availability. Faxed referral to [phone]. 3. [facility]- Phone call to admissions at [phone]. Left a voicemail inquiring on bed availability. Faxed referral to [phone]. 4. [facility]- Phone call to admissions at [phone]. There are openings and they will assess. Faxed referral to [phone]. Social work will continue to follow up as needed.
[2023-04-16] MEDS: INSULIN ASPART 100 UNIT/ML 18 UNIT SUBCUT (17:10)
--- NOTE | 2023-04-16 18:44 | PC.NURSE ---
End Of Shift: The patient is alert and orientated... intentional tremor when @ rest. Pt will call appropriately. Bilateral eyes have ecchymosis/ head laceration with gauze/ Mepilex CDI w/ no drainage throughout the shift. Up to the chair throughout the day as well as to the commode and BR. The patient does well with Ax1-2 w/ GB and 4 wheeled walker. She will state I can't do this... needs a lot of encouragement with movement. Patients home CPAP was brought in today and was inspected by respiratory.. in good working condition for tonight. Throughout the day when the patient was dozing in the chair there were times where she desaturated into the mid 70's to low 80's. Per Dr Villegas to put on oxygen to maintain stats >85. BLE are wrapped with LEIGHANN wraps around 1000 this AM. Tolerating well.. erythema noted prior to application. Incontinent at times if we can not get her to BR quick enough. Incontinent episode of large soft BM this afternoon. Patient is tolerating a regualr diet well with no nausea/vomiting. Call light within reach. Rin SOTOMAYOR BSN
[2023-04-16] MEDS: ENOXAPARIN 40 MG/0.4 ML INJ SUBCUT (20:39)
[2023-04-16] MEDS: OXYCODONE 5 MG TABLET PO (20:40)
[2023-04-16] MEDS: MONTELUKAST 10 MG TABLET PO (20:41)
[2023-04-17] VITALS (11 sets, daily range): BP systolic 134–185; BP diastolic 55–87; PULSE 71–100; RESP 18–22; TEMP 36.4–37; O2SAT 89–94
[2023-04-17] MEDS: LIDOCAINE 5% PATCH 1 PATCH TRANSDERMA ×2 (00:12→22:34)
--- NOTE | 2023-04-17 06:02 | PC.NURSE ---
End of shift report [id number]: Patient alert and oriented x 3. Pain to low back reported, utilizes lidocaine patch and scheduled tylenol, moderate relief with current regimen. Extensive bruising to face, arms and legs. Laceration to mid forehead currently covered with dressing that is clean, dry and intact. Ambulates with SBA with walker, min assist for transfers. At 0230 patient requested to sit in chair, reporting low back pain while in bed. Patient requested to wear oxygen once in chair for comfort, O2 applied at 1L per NC, O2 sats 92% on 1L.
[2023-04-17 06:09] LABS: Basophils Absolute Auto 0.01 K/uL (0.00-0.30); Basophils Percent Auto 0.1 % (0.0-3.0); Eosinophils Absolute Auto 0.22 K/uL (0.00-0.50); Hematocrit 38.3 % (33.0-51.0); Immature Granulocytes Abs Auto 0.12 K/uL (0.00-0.30); Immature Granulocytes Pct Auto 1.1 %; Lymphocytes Percent Auto 12.2 % (20-44); Mean Corpuscular HGB Conc 31 gm/dL (32-36); Mean Corpuscular Hemoglobin 29 pg (26-34); Mean Corpuscular Volume 94 fL (80-100); Monocytes Percent Auto 9.9 % (0.0-11.0); Neutrophils Percent Auto 74.7 % (42.0-72.0); Platelet Count* 259 K/uL (140-440); RDW Coefficient of Variation % 13.9 % (11.5-15.5); Red Blood Count 4.08 m/uL (4.00-5.20); White Blood Count* 10.98 K/uL (4.50-11.00)
[2023-04-17 06:22] LABS: Chloride* 98 mmol/L (96-114); Sodium* 133 mmol/L (135-149)
[2023-04-17] MEDS: LEVOTHYROXINE 50 MCG TABLET PO (06:22)
[2023-04-17 06:25] LABS: Anion Gap 7 mEq/L (7-15); Blood Urea Nitrogen* 37 mg/dL (7-30); Carbon Dioxide* 28 mmol/L (20-32); Creatinine* 1.3 mg/dL (0.5-1.5); Estimated Glomerular Filt Rate 44 ml/min
[2023-04-17 06:26] LABS: Calcium* 9.3 mg/dL (8.4-10.6); Glucose* 207 mg/dL (60-115)
[2023-04-17 06:27] LABS: Slide Review Reflex No
[2023-04-17] MEDS: INSULIN ASPART 100 UNIT/ML 6 UNIT SUBCUT ×3 (07:50→18:44)
[2023-04-17] MEDS: INSULIN ASPART 100 UNIT/ML SUBCUT ×4 (07:50→20:44)
[2023-04-17] MEDS: DULOXETINE 30 MG CAPSULE DR 120 MG PO (08:59)
[2023-04-17] MEDS: BUSPIRONE 10 MG TABLET 30 MG PO ×2 (09:00→20:35)
[2023-04-17] MEDS: LOSARTAN POTASSIUM 50 MG TABLET 100 MG PO (09:00)
[2023-04-17] MEDS: buPROPion XL 150 MG TABLET 300 MG PO (09:01)
[2023-04-17] MEDS: TORSEMIDE 20 MG TABLET 40 MG PO (09:01)
[2023-04-17] MEDS: CARBIDOPA-LEVODOPA 25-100 TABLET 1 TAB PO ×4 (09:01→20:36)
[2023-04-17] MEDS: MAGNESIUM OXIDE 400 MG TABLET PO (09:01)
[2023-04-17] MEDS: ACETAMINOPHEN 500 MG TABLET 1000 MG PO ×3 (09:01→20:35)
[2023-04-17] MEDS: FERROUS SULFATE 325 MG TABLET PO (09:01)
[2023-04-17] MEDS: OMEPRAZOLE 20 MG CAPSULE DR PO ×2 (09:01→20:36)
[2023-04-17] MEDS: ATORVASTATIN CALCIUM 40 MG TABLET 80 MG PO (09:01)
[2023-04-17] MEDS: SPIRONOLACTONE 25 MG TABLET PO (09:02)
[2023-04-17] MEDS: EMPAGLIFLOZIN 10 MG TABLET 25 MG PO (09:02)
[2023-04-17] MEDS: dilTIAZem 120 MG CAP.ER.24H PO (09:02)
[2023-04-17] MEDS: GABAPENTIN 100 MG CAPSULE 200 MG PO (09:03)
[2023-04-17] MEDS: METOPROLOL SUCCINATE (XL) 100 MG TAB PO (09:03)
[2023-04-17] MEDS: ASPIRIN 81 MG TABLET EC PO (09:03)
[2023-04-17] MEDS: SODIUM CHLORIDE 0.9 % (FLUSH) 10 ML SYRINGE 5 ML IVF ×2 (09:16→20:38)
[2023-04-17] MEDS: NYSTATIN POWDER 1 APPLIC TOPICAL ×3 (11:53→20:43)
--- NOTE | 2023-04-17 14:00 | PC.NURSE ---
Shift Summary: Patient pleasant and cooperative, needs encouragement to ambulate to bathroom. Up with one assist, walker and gait belt. Vitals stable and WNL. Frequently incontinent but will still void on toilet. Zinc oxide applied to bottom, pericare performed, nystatin and intradry to groin x2. Nystatin applied under bilat breats. LEIGHANN wraps off for an hour during shift. Poor pain control, updated, see JUL. Small emesis following lunch, patient reported the milk didn't sit right. Up in recliner most of shift, currently back in bed resting with o2 @ 1L/NC while sleeping to maintain o2 sats 88-92%, otherwise patient is on room air when awake.
--- NOTE | 2023-04-17 15:32 | PM.IMPN1 ---
Progress Note: A&P Assessment and plan (1) Hypoxia: Problem details: Hypoxia better today. Chest imaging does not show pulmonary emboli or pneumonia or heart failure as the an obvious cause. She does have pulmonary hypertension which could be contributing. Likely she has some chronic hypoxia related to her untreated sleep apnea. Will work on a plan to restart CPAP. Status: Acute (2) Bacteremia: Problem details: Blood culture growing Gram-positive cocci in clusters. Culture shows Staph epidermidis, likely a contaminant Status: Acute (3) Weakness: Problem details: Acute on chronic weakness. Continue PT OT Status: Acute (4) Fall: Problem details: PT/OT evaluation Status: Acute (5) Forehead laceration: Problem details: Bandage to protect the wound. Status: Acute (6) Pulmonary hypertension: Problem details: Echocardiogram 01/25/2022 1. Normal left ventricular size, moderately increased wall thickness, normal global systolic function, calculated EF of 69 %. 2. Right ventricular cavity size is normal, global systolic RV function is normal. 3. Mildly enlarged left atrium. 4. The aortic valve is sclerotic, no stenosis and mild regurgitation. 5. The mitral valve is sclerotic, mild to moderate mitral regurgitation. 6. Moderate tricuspid regurgitation. 7. Grade 2 pattern of LV diastolic filling. Tricuspid regurgitation is moderate. The tricuspid regurgitant velocity is 3.4 m/s, the estimated right ventricular systolic pressure is 47 mmHg plus right atrial pressure. There is elevated estimated pulmonary pressure by tricuspid regurgitation velocity and right atrial pressure Status: Chronic (7) Type 2 diabetes mellitus: Problem details: Continue usual home medications. Start insulin sliding scale ACHS for while she is in the hospital. Status: Chronic (8) Lymphedema: Problem details: Continue lymphedema wraps as an outpatient. Elevate legs. Resume compression Status: Chronic (9) Chronic CHF (congestive heart failure): Problem details: Chronic systolic congestive Heart failure, preserved EF. Primarily pulmonary hypertension. Class 2. No acute exacerbation. Continue torsemide at current dose. Status: Chronic (10) Polypharmacy: Problem details: Review meds to see if polypharmacy can be reduced. Trazodone and gabapentin doses have been cut in half to start. Status: Chronic (11) Stasis dermatitis of lower extremity due to chronic peripheral vascular hypertension: Problem details: Elevate legs at least 12 hours a day. Restart compression Status: Chronic (12) Sleep apnea: Problem details: Untreated. Nonfunctioning equipment. Work on a plan to restart CPAP Status: Acute (13) Parkinsonian syndrome: Problem details: Patient has tremor suggestive of parkinsonian syndrome. Because she is on chronic metoclopramide therapy for diabetic gastroparesis this will need to be stopped to assess whether her parkinsonian syndrome gets better. This likely takes months to get better. Trial of Sinemet of uncertain benefit. Status: Acute (14) Diabetic gastroparesis: Problem details: Discontinue Metoclopramide due to concern about parkinsonian syndrome. Monitor for p.o. intake and recurrent vomiting off metoclopramide. Doing well so far Status: Acute (15) Immobility: Problem details: Patient is difficulty with standing and walking. At baseline she walks with a walker. Now needing standby assist. Continue to work with therapy to assess and treat. Status: Acute (16) Morbid obesity with BMI of 50.0-59.9, adult: Problem details: 11 kg weight gain over past 14 months Status: Acute (17) Noncompliance: Problem details: Noncompliance with CPAP. Noncompliance with recommendations to be more physically active. Status: Acute (18) Chronic pain: Problem details: Patient is on chronic buprenorphine. Inadvertently stopped on admission to the hospital due to unavailability of her medication. Now back on her buprenorphine. Status: Acute Plan Continue in hospital pending appropriate discharge plan to half-way facility. Time Spent With Patient Total time spent: Total time spent today is 50 minutes, 40 minutes in coordination of care discussing with patient and other providers ongoing management of disabilities, chronic medical problems and disposition Subjective Date Seen: 04/17/23 Interval history: Naomie Pena is a 72 year old female with a complicated past medical history who presented through the emergency department for a fall. She tells me that she has been feeling dizzy since she fell and hit her head on the concrete about 5 months ago. Today they had recently cleaned the floor and wiped it up so it was supposed to be dry, but she felt that it was still slippery and ended up slipping on it and hitting her head on her walker. She had a laceration that was stitched up in the emergency department. She denies any headache or vision changes. She says she has been feeling weak for 4-5 days. She also has been feeling nauseous and today complains of diffuse abdominal pain. She has had no change in bowel movements. She felt short of breath yesterday but not today. In the emergency department she was noted to be hypoxic. While I am examining her he had a poor waveform most of the time due to shaking, but when I held her still her sats went up to 96 or 97% while she was on oxygen at 1.5 liters/minute. She complains of bilateral lower extremity pain that started after her fall. She complains that it is the left worse than the right although then she says but right now it is the right more than the left. She reports having sleep apnea but not using CPAP because her machine is broken. She reports her chronic lymphedema is about the same. She does not use compression stockings anymore. She has a tremor that has been present for some time. Not previously diagnosed. She reports chronic urinary frequency without other urinary symptoms. She has chronic constipation and reports her stools are dark. She has not had a fever. No chest pain. On and off generalized abdominal pain. No vomiting Patient reports that last night she had a nonbloody emesis. This apparently during the night, not after a meal. She otherwise reports feeling about the same as she did yesterday. Nurses have wean her off oxygen when she is awake. Her metoclopramide was discontinued and I started her on Sinemet for her parkinsonian syndrome. So far unclear if it was beneficial. Patient reports that her status is not changed significantly. She still mildly short of breath. She still has mild generalized abdominal pain. She has been able to eat without any difficulties. No postprandial nausea. She reports being weak and requiring standby assist to walk. Therapy reported that she was able to stand and walk with standby assist. She is resistant to getting out of bed or chair even to go to the bathroom. Her CPAP was acquired from assisted living. The equipment worked appropriately. Staff at assisted living reported that she was not using it. She did use it for the 1st half of the night last night but then took it off. She reports her generalized pain is bothering her. She has been on buprenorphine. We have acquired her buprenorphine from assisted living and have started again. Exam Narrative: Exam Narrative: She is alert appears in no obvious distress. Bruising around her eyes again noted. Laceration on her forehead healing without infection. Possibly excoriated. Respirations are clear to auscultation. Cardiovascular: S1, S2, regular rate and rhythm. Abdomen is soft she has mild diffuse tenderness. Unchanged from previous. Extremities with unchanged edema Const: Vital Signs, click to edit/add: Vital Signs - 24 hr 04/16/23 19:00 04/16/23 21:00 04/16/23 23:00 Temperature 97.9 F Pulse Rate 94 Pulse Rate [Left A pical] 99 Pulse Rate [Pulse Oximeter] 89 Respiratory Rate 22 Blood Pressure [Ri ght FA] 148/111 H Pulse Oximetry 90 88 Oxygen Delivery Me thod Room Air Oxygen Flow Rate 04/16/23 23:00 04/16/23 23:00 04/17/23 03:00 Temperature 98.1 F 97.6 F Pulse Rate Pulse Rate [Left A pical] Pulse Rate [Pulse Oximeter] 95 100 Respiratory Rate 24 24 22 Blood Pressure [Ri ght FA] 146/92 H 185/79 H Pulse Oximetry 89 90 89 Oxygen Delivery Me thod CPAP CPAP Room Air Oxygen Flow Rate 04/17/23 07:32 04/17/23 08:24 04/17/23 09:23 Temperature 98.6 F Pulse Rate 91 Pulse Rate [Left A pical] 93 Pulse Rate [Pulse Oximeter] Respiratory Rate 20 20 Blood Pressure [Ri ght FA] 145/77 H Pulse Oximetry 93 90 Oxygen Delivery Me thod Room Air Nasal Cannula Oxygen Flow Rate 1 04/17/23 11:50 Temperature 98.3 F Pulse Rate Pulse Rate [Left A pical] 82 Pulse Rate [Pulse Oximeter] Respiratory Rate 20 Blood Pressure [Ri ght FA] 143/65 H Pulse Oximetry Oxygen Delivery Me thod Oxygen Flow Rate Documenting provider has reviewed patient's vital signs: yes Labs Labs: Laboratory Results - last 24 hr 04/17/23 05:57 WBC 10.98 RBC 4.08 Hgb 12.0 Hct 38.3 MCV 94 MCH 29 MCHC 31 L RDW Coeff of Trina 13.9 Plt Count 259 Neut % (Auto) 74.7 H Lymph % (Auto) 12.2 L [place] % (Auto) 9.9 Eos % (Auto) 2.0 Baso % (Auto) 0.1 Neut # (Auto) 8.20 H Lymph # (Auto) 1.30 [place] # (Auto) 1.10 H Eos # (Auto) 0.22 Baso # (Auto) 0.01 Abs Immat Gran (auto) 0.12 Imm/Tot Granulo (auto) 1.1 Sodium 133 L Potassium 4.0 Chloride 98 Carbon Dioxide 28 Anion Gap 7 BUN 37 H Creatinine 1.3 Estimated Creat Clear 35.20 Estimated GFR 44 Glucose 207 H Calcium 9.3
[2023-04-17] MEDS: INSULIN ASPART 100 UNIT/ML 18 UNIT SUBCUT (18:43)
--- NOTE | 2023-04-17 20:09 | PC.NURSE ---
Nursing Care Hours: [id number] Pt this shift calm and cooperative with cares, alert and oriented. Did not touch food tray d/t no appetite. Ensure clear given and drank 100%. HTN, stable on room air. Incontinent x1 of void. Ax1 with walker and gait belt. HS cares done in bathroom, new gown provided. C/o low back pain 12/25, heating pad provided, effectiveness pending.
[2023-04-17] MEDS: ENOXAPARIN 40 MG/0.4 ML INJ SUBCUT (20:36)
[2023-04-17] MEDS: MONTELUKAST 10 MG TABLET PO (20:36)
[2023-04-17] MEDS: SENNOSIDES/DOCUSATE TABLET 2 TAB PO (20:36)
[2023-04-17] MEDS: TRAZODONE HCL 50 MG TABLET PO (20:48)
[2023-04-18] VITALS (12 sets, daily range): BP systolic 106–142; BP diastolic 50–78; PULSE 67–83; RESP 14–16; TEMP 36–37.1; O2SAT 90–95
[2023-04-18] MEDS: LEVOTHYROXINE 50 MCG TABLET PO (06:28)
--- NOTE | 2023-04-18 06:34 | PC.NURSE ---
End of shift [id number]: A&O, pleasant and cooperative. VSS on 1L of O2 to maintain sats >88%. Pt did not tolerate home CPAP as saturations would drop to high 70s low 80s. Pt tolerating nasal canula while sleeping. Reports pain in BLE and lower back 12/25. See eMAR for interventions. Lidocaine patch placed on lower back. A1 w/ walker and gait belt to bathroom. Interdry to pannus. Heating pad to lower back. Denies n/v.
[2023-04-18 06:43] LABS: Basophils Percent Auto 0.3 % (0.0-3.0); Eosinophils Percent Auto 5.3 % (0.0-7.0); Hemoglobin* 12.1 gm/dL (12.0-16.0); Immature Granulocytes Pct Auto 2.1 %; Lymphocytes Percent Auto 19.2 % (20-44); Mean Corpuscular HGB Conc 31 gm/dL (32-36); Mean Corpuscular Hemoglobin 30 pg (26-34); Mean Corpuscular Volume 96 fL (80-100); Monocytes Percent Auto 14.3 % (0.0-11.0); Neutrophils Percent Auto 58.8 % (42.0-72.0); Platelet Count* 284 K/uL (140-440); RDW Coefficient of Variation % 14.1 % (11.5-15.5); Red Blood Count 4.08 m/uL (4.00-5.20)
[2023-04-18 06:46] LABS: Slide Review Reflex No
[2023-04-18 06:59] LABS: Chloride* 95 mmol/L (96-114); Potassium* 3.7 mmol/L (3.6-5.1); Sodium* 134 mmol/L (135-149)
[2023-04-18 07:02] LABS: Anion Gap 10 mEq/L (7-15); Carbon Dioxide* 29 mmol/L (20-32); Creatinine* 1.6 mg/dL (0.5-1.5); Estimated Glomerular Filt Rate 34 ml/min
[2023-04-18 07:03] LABS: Blood Urea Nitrogen* 41 mg/dL (7-30); Calcium* 9.2 mg/dL (8.4-10.6); Glucose* 125 mg/dL (60-115)
[2023-04-18] MEDS: ONDANSETRON ODT 4 MG TAB PO (08:24)
[2023-04-18] MEDS: INSULIN ASPART 100 UNIT/ML 6 UNIT SUBCUT ×3 (08:25→17:31)
[2023-04-18] MEDS: DULOXETINE 30 MG CAPSULE DR 120 MG PO (08:58)
[2023-04-18] MEDS: ACETAMINOPHEN 500 MG TABLET 1000 MG PO ×3 (08:59→21:09)
[2023-04-18] MEDS: SPIRONOLACTONE 25 MG TABLET PO (08:59)
[2023-04-18] MEDS: EMPAGLIFLOZIN 10 MG TABLET 25 MG PO (09:00)
[2023-04-18] MEDS: buPROPion XL 150 MG TABLET 300 MG PO (09:00)
[2023-04-18] MEDS: ATORVASTATIN CALCIUM 40 MG TABLET 80 MG PO (09:01)
[2023-04-18] MEDS: MAGNESIUM OXIDE 400 MG TABLET PO (09:01)
[2023-04-18] MEDS: FERROUS SULFATE 325 MG TABLET PO (09:02)
[2023-04-18] MEDS: dilTIAZem 120 MG CAP.ER.24H PO (09:02)
[2023-04-18] MEDS: ASPIRIN 81 MG TABLET EC PO (09:02)
[2023-04-18] MEDS: GABAPENTIN 100 MG CAPSULE 200 MG PO (09:02)
[2023-04-18] MEDS: TORSEMIDE 20 MG TABLET 40 MG PO (09:03)
[2023-04-18] MEDS: LOSARTAN POTASSIUM 50 MG TABLET 100 MG PO (09:03)
[2023-04-18] MEDS: OMEPRAZOLE 20 MG CAPSULE DR PO ×2 (09:03→21:09)
[2023-04-18] MEDS: SENNOSIDES/DOCUSATE TABLET 2 TAB PO ×2 (09:03→21:09)
[2023-04-18] MEDS: CARBIDOPA-LEVODOPA 25-100 TABLET 1 TAB PO ×4 (09:03→21:09)
[2023-04-18] MEDS: BUSPIRONE 10 MG TABLET 30 MG PO ×2 (09:04→21:08)
[2023-04-18] MEDS: NYSTATIN POWDER 1 APPLIC TOPICAL ×3 (09:05→21:10)
[2023-04-18] MEDS: SODIUM CHLORIDE 0.9 % (FLUSH) 10 ML SYRINGE 5 ML IVF ×2 (09:07→21:11)
[2023-04-18] MEDS: METOPROLOL SUCCINATE (XL) 100 MG TAB PO (09:29)
--- NOTE | 2023-04-18 10:31 | PM.IMPN1 ---
Progress Note: A&P Assessment and plan (1) Hypoxia: Problem details: Hypoxia better today. Chest imaging does not show pulmonary emboli or pneumonia or heart failure as the an obvious cause. She does have pulmonary hypertension which could be contributing. Likely she has some chronic hypoxia related to her untreated sleep apnea. -CTA reviewed. hypoxia is much worse when she is asleep. -ensured cpap working correctly. better fit made. -chronic oxygen maybe needed, has had CO2 retention in the past (not currently) Status: Acute (2) ESBL (extended spectrum beta-lactamase) producing bacteria infection: Problem details: UC shows Intermed resis to Unasyn a beta-lactamase inhibitor. UC only grew 20K CFU. will treat with ertapenem. has NUBIA from unknown reason, weakness. Status: Acute (3) Essential hypertension: Problem details: creat up to 1.6 - SBP down to 106 discussed with pharmD - will peel back some of the hypertensives and see if this is pre-renal give bolus no nephrotoxins Status: Chronic (4) NUBIA (acute kidney injury): Problem details: as above in #3 Status: Acute (5) Bacteremia: Problem details: Blood culture growing Gram-positive cocci in clusters. Culture shows Staph epidermidis, likely a contaminant Status: Acute (6) Weakness: Problem details: Acute on chronic weakness. Continue PT OT Status: Acute (7) Fall: Problem details: PT/OT evaluation Status: Acute (8) Forehead laceration: Problem details: Bandage to protect the wound. Status: Acute (9) Pulmonary hypertension: Problem details: Echocardiogram 01/25/2022 1. Normal left ventricular size, moderately increased wall thickness, normal global systolic function, calculated EF of 69 %. 2. Right ventricular cavity size is normal, global systolic RV function is normal. 3. Mildly enlarged left atrium. 4. The aortic valve is sclerotic, no stenosis and mild regurgitation. 5. The mitral valve is sclerotic, mild to moderate mitral regurgitation. 6. Moderate tricuspid regurgitation. 7. Grade 2 pattern of LV diastolic filling. Tricuspid regurgitation is moderate. The tricuspid regurgitant velocity is 3.4 m/s, the estimated right ventricular systolic pressure is 47 mmHg plus right atrial pressure. There is elevated estimated pulmonary pressure by tricuspid regurgitation velocity and right atrial pressure Status: Chronic (10) Type 2 diabetes mellitus: Problem details: Continue usual home medications. Start insulin sliding scale ACHS for while she is in the hospital. Status: Chronic (11) Lymphedema: Problem details: Continue lymphedema wraps as an outpatient. Elevate legs. Resume compression Status: Chronic (12) Chronic CHF (congestive heart failure): Problem details: Chronic diastolic congestive Heart failure, preserved EF. Primarily pulmonary hypertension. Class 2. No acute exacerbation. Continue torsemide at current dose. 02/06 Final Impressions: 1. Normal left ventricular size, moderately increased wall thickness, normal global systolic function, calculated EF of 69 %. 2. Right ventricular cavity size is normal, global systolic RV function is normal. 3. Mildly enlarged left atrium. 4. The aortic valve is sclerotic, no stenosis and mild regurgitation. 5. The mitral valve is sclerotic, mild to moderate mitral regurgitation. 6. Moderate tricuspid regurgitation. 7. Grade 2 pattern of LV diastolic filling. Status: Chronic (13) Polypharmacy: Problem details: Review meds to see if polypharmacy can be reduced. Trazodone and gabapentin doses have been cut in half to start. Status: Chronic (14) Stasis dermatitis of lower extremity due to chronic peripheral vascular hypertension: Problem details: Elevate legs at least 12 hours a day. Restart compression Status: Chronic (15) Sleep apnea: Problem details: Untreated. Nonfunctioning equipment. Work on a plan to restart CPAP Status: Acute (16) Parkinsonian syndrome: Problem details: Patient has tremor suggestive of parkinsonian syndrome. Because she is on chronic metoclopramide therapy for diabetic gastroparesis this will need to be stopped to assess whether her parkinsonian syndrome gets better. This likely takes months to get better. Trial of Sinemet of uncertain benefit. Status: Acute (17) Diabetic gastroparesis: Problem details: Discontinue Metoclopramide due to concern about parkinsonian syndrome. Monitor for p.o. intake and recurrent vomiting off metoclopramide. Doing well so far Status: Acute (18) Immobility: Problem details: Patient is difficulty with standing and walking. At baseline she walks with a walker. Now needing standby assist. Continue to work with therapy to assess and treat. Status: Acute (19) Morbid obesity with BMI of 50.0-59.9, adult: Problem details: 11 kg weight gain over past 14 months Status: Acute (20) Noncompliance: Problem details: Noncompliance with CPAP. Noncompliance with recommendations to be more physically active. Status: Acute (21) Chronic pain: Problem details: Patient is on chronic buprenorphine. Inadvertently stopped on admission to the hospital due to unavailability of her medication. Now back on her buprenorphine. Scheduled tylenol Status: Acute (22) Hypothyroid: Problem details: Continue home med Status: Chronic Subjective Date Seen: 04/18/23 Interval history: Daily Progress Note - Hospital Medicine Day #: 2 CC: Status post fall with laceration, weakness, hypoxic OVERNIGHT UPDATES FROM STAFF & MED, LAB, IMAGING UPDATES resting comfortably with cpap on. RN had adjusted for better fit. while awake 92-94%; when she falls asleep mid 80's. face is bruised with b/l shinners and laceration (repaired) on forehead. RN note End of shift [id number]: A&O, pleasant and cooperative. VSS on 1L of O2 to maintain sats >88%. Pt did not tolerate home CPAP as saturations would drop to high 70s low 80s. Pt tolerating nasal canula while sleeping. Reports pain in BLE and lower back 12/25. See eMAR for interventions. Lidocaine patch placed on lower back. A1 w/ walker and gait belt to bathroom. Interdry to pannus. Heating pad to lower back. Denies n/v. Afebrile Blood pressure 106/55 Pulse rate 80s Respiratory rate 16 92% on 1 L 155.7 kilos, stable weight overnight however down 4 kilos since admission CBC is essentially stable, mild leukocytosis Hemoglobin stable D-dimer admission 4.7 VBG stable from 04/14/admission Mild hyponatremia Creatinine jumped up 1.6 overnight Glucose stable under 200. CRP was 14.4 - much improved overnight. I reviewed admission CTA urine culture - ecoli two blood cultures neg, one with staph epi contaminant Objective: asleep in chair with bipap. bruised. awakens to chat but falls asleep quite fast. Vitals: see above Lungs: Clear. Cardiac: S1S2. legs - lymph edema. wrapped. Disposition/Potential discharge - Likely to need escaled care needs. SNF. Today I spent 50minutes seeing the patient, reviewing Expanse and EPIC notes/diagnostics, discussing the care plan with our care time that includes social work, PT/OT, pharmacy, RT, retirement and documenting my impressions and plan in the medical record. Exam Const: Vital Signs, click to edit/add: Vital Signs - 24 hr 04/17/23 11:50 04/17/23 15:00 04/17/23 15:00 Temperature 98.3 F Pulse Rate Pulse Rate [Left A pical] 82 Pulse Rate [Pulse Oximeter] 71 Respiratory Rate 20 20 20 Blood Pressure [Le ft FA] Blood Pressure [Ri ght FA] 143/65 H Pulse Oximetry 91 Oxygen Delivery Me thod Room Air Oxygen Flow Rate 04/17/23 15:00 04/17/23 15:00 04/17/23 20:03 Temperature 97.8 F Pulse Rate 77 Pulse Rate [Left A pical] Pulse Rate [Pulse Oximeter] 71 75 Respiratory Rate 20 18 Blood Pressure [Le ft FA] Blood Pressure [Ri ght FA] 163/87 H 145/68 H Pulse Oximetry 91 92 Oxygen Delivery Me thod Room Air Nasal Cannula Oxygen Flow Rate 1 04/17/23 21:00 04/17/23 23:00 04/17/23 23:00 Temperature Pulse Rate 75 Pulse Rate [Left A pical] Pulse Rate [Pulse Oximeter] 94 Respiratory Rate 20 Blood Pressure [Le ft FA] Blood Pressure [Ri ght FA] 134/55 L Pulse Oximetry 94 92 Oxygen Delivery Me thod CPAP Oxygen Flow Rate 1 04/17/23 23:16 04/17/23 23:53 04/18/23 01:43 Temperature Pulse Rate Pulse Rate [Left A pical] Pulse Rate [Pulse Oximeter] Respiratory Rate 20 Blood Pressure [Le ft FA] Blood Pressure [Ri ght FA] Pulse Oximetry 92 91 90 Oxygen Delivery Me thod CPAP Nasal Cannula Nasal Cannula Oxygen Flow Rate 1 1.5 1 04/18/23 03:18 04/18/23 08:30 04/18/23 08:30 Temperature 98.7 F Pulse Rate 80 Pulse Rate [Left A pical] Pulse Rate [Pulse Oximeter] 74 83 Respiratory Rate 14 16 Blood Pressure [Le ft FA] 106/55 L Blood Pressure [Ri ght FA] 142/67 H Pulse Oximetry 91 92 Oxygen Delivery Me thod Nasal Cannula Room Air Oxygen Flow Rate 1 04/18/23 08:30 04/18/23 08:30 Temperature Pulse Rate Pulse Rate [Left A pical] Pulse Rate [Pulse Oximeter] 83 Respiratory Rate 16 16 Blood Pressure [Le ft FA] Blood Pressure [Ri ght FA] Pulse Oximetry 92 Oxygen Delivery Me thod Room Air Oxygen Flow Rate 1 Labs Labs: Laboratory Results - last 24 hr 04/18/23 05:47 WBC 11.70 H RBC 4.08 Hgb 12.1 Hct 39.0 MCV 96 MCH 30 MCHC 31 L RDW Coeff of Trina 14.1 Plt Count 284 Neut % (Auto) 58.8 Lymph % (Auto) 19.2 L [place] % (Auto) 14.3 H Eos % (Auto) 5.3 Baso % (Auto) 0.3 Neut # (Auto) 6.90 Lymph # (Auto) 2.20 [place] # (Auto) 1.70 H Eos # (Auto) 0.60 H Baso # (Auto) 0.00 Abs Immat Gran (auto) 0.20 Imm/Tot Granulo (auto) 2.1 Sodium 134 L Potassium 3.7 Chloride 95 L Carbon Dioxide 29 Anion Gap 10 BUN 41 H Creatinine 1.6 H Estimated Creat Clear 28.60 Estimated GFR 34 Glucose 125 H Calcium 9.2
[2023-04-18 10:59] LABS: C Reactive Protein* 3.6 mg/dL (0.5-1.0)
[2023-04-18] MEDS: 0.9 % SODIUM CHLORIDE 500 ML 500 ML IV (11:56)
[2023-04-18] MEDS: ERTAPENEM 1 GM in 0.9 % SODIUM CHLORIDE Mini-bag 100 ML IVPB (11:56)
[2023-04-18] MEDS: INSULIN ASPART 100 UNIT/ML SUBCUT (17:18)
[2023-04-18] MEDS: INSULIN ASPART 100 UNIT/ML 18 UNIT SUBCUT (17:30)
--- NOTE | 2023-04-18 18:15 | PC.NURSE ---
End of Shift: Patient pleasant and cooperative. Patient vitally stable, lungs clear, lower lobes diminished, BS WNL, IV intact and SL. Patient has been up in chair all shift, napping majority of day with cpap on, connected to oxygen at 4 L. When and if patient stays awake patient is on RA, but once patient starts dozing off, sats drop to the mid 70's. Patient tolerating regular diet, eating breakfast and dinner, BS 130, 150, 168. Patient incontinent of urine in brief. Abdominal folds cleans, nystatin applied with new interdry applied. Tele= 1 degree HB and at times BBB.
[2023-04-18] MEDS: MONTELUKAST 10 MG TABLET PO (21:09)
[2023-04-18] MEDS: ENOXAPARIN 40 MG/0.4 ML INJ SUBCUT (21:10)
[2023-04-18] MEDS: TRAZODONE HCL 50 MG TABLET PO (21:24)
[2023-04-18] MEDS: LIDOCAINE 5% PATCH 1 PATCH TRANSDERMA (22:34)
[2023-04-19] VITALS (13 sets, daily range): BP systolic 123–147; BP diastolic 52–81; PULSE 73–82; RESP 16–26; TEMP 36.4–37.2; O2SAT 91–95
[2023-04-19] MEDS: LEVOTHYROXINE 50 MCG TABLET PO (06:37)
--- NOTE | 2023-04-19 06:44 | PC.NURSE ---
End of shift [id number]: A&O, pleasant and cooperative. VSS on 3L of O2 bleed into CPAP overnight to maintain sats >88%. Reports pain in BLE and lower back 10/25. See eMAR for interventions. Lidocaine patch placed on lower back. Denies n/v. A1 w/ walker and gait belt to bathroom. Occasionally incontinent of urine. Interdry to pannus. Heating pad to lower back.
[2023-04-19 06:53] LABS: HCO3 VBG 30 mmol/L (21-28); Ionized Calcium* 1.13 mmol/L (1.11-1.30); PCO2 VBG 56 mmHG (40-50); PO2 VBG 42.4 mmHG (25-47); pH VBG 7.331 (7.32-7.43)
[2023-04-19 07:11] LABS: Basophils Absolute Auto 0.03 K/uL (0.00-0.30); Basophils Percent Auto 0.3 % (0.0-3.0); Eosinophils Absolute Auto 0.62 K/uL (0.00-0.50); Eosinophils Percent Auto 6.7 % (0.0-7.0); Hematocrit 37.9 % (33.0-51.0); Hemoglobin* 11.7 gm/dL (12.0-16.0); Immature Granulocytes Abs Auto 0.16 K/uL (0.00-0.30); Immature Granulocytes Pct Auto 1.7 %; Lymphocytes Absolute Auto 2.02 K/uL (0.90-2.90); Lymphocytes Percent Auto 21.9 % (20-44); Mean Corpuscular HGB Conc 31 gm/dL (32-36); Mean Corpuscular Hemoglobin 30 pg (26-34); Mean Corpuscular Volume 96 fL (80-100); Monocytes Percent Auto 13.1 % (0.0-11.0); Neutrophils Absolute Auto 5.17 K/uL (1.7-7.0); Neutrophils Percent Auto 56.3 % (42.0-72.0); Platelet Count* 295 K/uL (140-440); RDW Coefficient of Variation % 14.2 % (11.5-15.5); Red Blood Count 3.97 m/uL (4.00-5.20); White Blood Count* 9.21 K/uL (4.50-11.00)
[2023-04-19 07:19] LABS: Slide Review Reflex No
--- NOTE | 2023-04-19 07:36 | P.IMPN_ITS ---
Progress Note: A&P Assessment and plan (1) Hypoxia: Problem details: -chronic, severe ANGELI -CTA reviewed. hypoxia is much worse when she is asleep. -ensured cpap working correctly. better fit made. -chronic oxygen maybe needed, has had CO2 retention. -needs new sleep study, likely needs adjustments in CPAP Status: Acute (2) Contrast-induced nephropathy: Problem details: -creat up to 1.9 on 04/19/23 (5 days since contrast) -i/o cath shows hyaline casts -95 cc of Isovue 370 on 04/14/23 for CTA fluid bolus discuss with pharm D (already reduced losartan, metoprolol and sprinolactone) The major clinical manifestations of contrast-induced acute kidney injury (CI- NUBIA) include: -Early, mild increase in serum creatinine ? An increase in serum creatinine that is generally observed within 24 to 48 hours after the iodinated contrast exposure and that is usually mild. The serum creatinine typically starts to decline toward baseline within three to seven days of the exposure to contrast [8,39]. -Urinary sediment consistent with acute tubular necrosis ? The urinary sediment may show classic findings of acute tubular necrosis (ATN), including muddy brown granular and epithelial cell casts and free renal tubular epithelial cells. However, the absence of these urinary findings does not exclude the possibility of CA-NUBIA. Status: Acute (3) ESBL (extended spectrum beta-lactamase) producing bacteria infection: Problem details: UC shows Intermed resistance to Unasyn a beta-lactamase inhibitor. UC only grew 20K CFU. with weakness and increasing falls - will treat with ertapenem. nubia worsening Status: Acute (4) Essential hypertension: Problem details: creat up to 1.9 discussed with pharmD - will peel back some of the hypertensives and see if this is pre-renal give bolus no nephrotoxins Status: Chronic (5) Bacteremia: Problem details: Blood culture growing Gram-positive cocci in clusters. Culture shows Staph epidermidis, likely a contaminant Status: Acute (6) Weakness: Problem details: Acute on chronic weakness. Continue PT OT Status: Acute (7) Fall: Problem details: PT/OT evaluation Status: Acute (8) Forehead laceration: Problem details: Bandage to protect the wound. Status: Acute (9) Pulmonary hypertension: Problem details: echo pending today Echocardiogram 01/25/2022 1. Normal left ventricular size, moderately increased wall thickness, normal global systolic function, calculated EF of 69 %. 2. Right ventricular cavity size is normal, global systolic RV function is normal. 3. Mildly enlarged left atrium. 4. The aortic valve is sclerotic, no stenosis and mild regurgitation. 5. The mitral valve is sclerotic, mild to moderate mitral regurgitation. 6. Moderate tricuspid regurgitation. 7. Grade 2 pattern of LV diastolic filling. Tricuspid regurgitation is moderate. The tricuspid regurgitant velocity is 3.4 m/s, the estimated right ventricular systolic pressure is 47 mmHg plus right atrial pressure. There is elevated estimated pulmonary pressure by tricuspid regurgitation velocity and right atrial pressure Status: Chronic (10) Type 2 diabetes mellitus: Problem details: Continue usual home medications. Start insulin sliding scale ACHS for while she is in the hospital. Status: Chronic (11) Lymphedema: Problem details: Continue lymphedema wraps as an outpatient. Elevate legs. Resume compression Status: Chronic (12) Chronic CHF (congestive heart failure): Problem details: -echo today -Chronic diastolic congestive Heart failure, preserved EF. Primarily pulmonary hypertension. Class 2. -No acute exacerbation. Continue torsemide at current dose. 02/06 Final Impressions: 1. Normal left ventricular size, moderately increased wall thickness, normal global systolic function, calculated EF of 69 %. 2. Right ventricular cavity size is normal, global systolic RV function is nor mal. 3. Mildly enlarged left atrium. 4. The aortic valve is sclerotic, no stenosis and mild regurgitation. 5. The mitral valve is sclerotic, mild to moderate mitral regurgitation. 6. Moderate tricuspid regurgitation. 7. Grade 2 pattern of LV diastolic filling. Status: Chronic (13) Polypharmacy: Problem details: Review meds to see if polypharmacy can be reduced. Trazodone and gabapentin doses have been cut in half to start. Status: Chronic (14) Stasis dermatitis of lower extremity due to chronic peripheral vascular hypertension: Problem details: Elevate legs at least 12 hours a day. Restart compression Status: Chronic (15) Sleep apnea: Problem details: -CPAP working now -will likely need a new sleep study, likely needs higher pressures Status: Acute (16) Parkinsonian syndrome: Problem details: Patient has tremor suggestive of parkinsonian syndrome. Because she is on chronic metoclopramide therapy for diabetic gastroparesis this will need to be stopped to assess whether her parkinsonian syndrome gets better. This likely takes months to get better. Trial of Sinemet of uncertain benefit. Status: Acute (17) Diabetic gastroparesis: Problem details: Discontinue Metoclopramide due to concern about parkinsonian syndrome. Monitor for p.o. intake and recurrent vomiting off metoclopramide. Doing well so far Status: Acute (18) Immobility: Problem details: Patient is difficulty with standing and walking. At baseline she walks with a walker. Now needing standby assist. Continue to work with therapy to assess and treat. Status: Acute (19) Morbid obesity with BMI of 50.0-59.9, adult: Problem details: 11 kg weight gain over past 14 months Status: Acute (20) Noncompliance: Problem details: Noncompliance with CPAP. Noncompliance with recommendations to be more physically active. Status: Acute (21) Chronic pain: Problem details: Patient is on chronic buprenorphine. Inadvertently stopped on admission to the hospital due to unavailability of her medication. Now back on her buprenorphine. Scheduled tylenol Status: Acute (22) Hypothyroid: Problem details: Continue home med Status: Chronic Subjective Date Seen: 04/19/23 Interval history: Daily Progress Note - Hospital Medicine Day #: 3 CC: Status post fall with laceration, weakness, hypoxic resp failure, severe ANGELI, ESBL UTI OVERNIGHT UPDATES FROM STAFF & MED, LAB, IMAGING UPDATES c/o of pain in the left knee and camacho. working with OT and PT to the best of her ability. she thinks she is feeling better. End of shift [id number]: A&O, pleasant and cooperative. VSS on 3L of O2 bleed into CPAP overnight to maintain sats >88%. Reports pain in BLE and lower back 6/10. See eMAR for interventions. Lidocaine patch placed on lower back. Denies n/v. A1 w/ walker and gait belt to bathroom. Occasionally incontinent of urine. Interdry to pannus. Heating pad to lower back. Blood sugars have been 145, [id number], 164, 250 was the highest and was yesterday morning CBC stable, unremarkable. PH is stable. Mild bump in her CO2 but this is not unusual or unexpected. PCO2 56. Sodium is down to 131, creatinine up to 1.9 with an increase in BUN to 50 Blood sugar up to 223, phosphorus 5.1 Down trending CRP I reviewed admission CTA urine culture - ecoli two blood cultures neg, one with staph epi contaminant Objective: asleep in chair with bipap. bruised. awakens to chat but falls asleep quite fast. Vitals: see above Lungs: Clear. Cardiac: S1S2. legs - lymph edema. wrapped. Disposition/Potential discharge - Likely to need escalated care needs. SNF. Today I spent 50minutes seeing the patient, reviewing Expanse and EPIC notes/diagnostics, discussing the care plan with our care time that includes social work, PT/OT, pharmacy, RT, custodial and documenting my impressions and plan in the medical record. Exam Const: Vital Signs, click to edit/add: Vital Signs - 24 hr 04/18/23 08:30 04/18/23 08:30 04/18/23 08:30 Temperature 98.7 F Pulse Rate 80 Pulse Rate [Pulse Oximeter] 83 83 Respiratory Rate 16 16 Blood Pressure [Le ft FA] 106/55 L Blood Pressure [Ri ght FA] Pulse Oximetry 92 Oxygen Delivery Me thod Room Air Oxygen Flow Rate 04/18/23 08:30 04/18/23 11:19 04/18/23 11:33 Temperature 98.1 F Pulse Rate Pulse Rate [Pulse Oximeter] 81 Respiratory Rate 16 16 Blood Pressure [Le ft FA] Blood Pressure [Ri ght FA] 130/64 Pulse Oximetry 92 95 91 Oxygen Delivery Me thod Room Air Room Air Nasal Cannula CPAP Oxygen Flow Rate 1 3 04/18/23 15:06 04/18/23 15:14 04/18/23 15:14 Temperature 97 F L Pulse Rate 69 Pulse Rate [Pulse Oximeter] 67 67 Respiratory Rate 14 14 Blood Pressure [Le ft FA] 142/72 H Blood Pressure [Ri ght FA] Pulse Oximetry 93 Oxygen Delivery Me thod CPAP Oxygen Flow Rate 4 04/18/23 15:14 04/18/23 19:33 04/18/23 21:00 Temperature 96.8 F L Pulse Rate Pulse Rate [Pulse Oximeter] 69 Respiratory Rate 14 16 Blood Pressure [Le ft FA] 120/50 L Blood Pressure [Ri ght FA] Pulse Oximetry 93 92 94 Oxygen Delivery Me thod CPAP CPAP Oxygen Flow Rate 4 3 04/18/23 22:51 04/18/23 23:00 04/18/23 23:02 Temperature 96.9 F L Pulse Rate 73 Pulse Rate [Pulse Oximeter] 74 Respiratory Rate 16 16 Blood Pressure [Le ft FA] 130/78 Blood Pressure [Ri ght FA] Pulse Oximetry 90 90 Oxygen Delivery Me thod CPAP CPAP Oxygen Flow Rate 3 3 04/19/23 03:00 Temperature Pulse Rate Pulse Rate [Pulse Oximeter] 76 Respiratory Rate 18 Blood Pressure [Le ft FA] 141/73 H Blood Pressure [Ri ght FA] Pulse Oximetry 91 Oxygen Delivery Me thod CPAP Oxygen Flow Rate 2 Labs Labs: Laboratory Results - last 24 hr 04/18/23 04/18/23 04/19/23 05:47 10:41 05:31 WBC 9.21 RBC 3.97 L Hgb 11.7 L Hct 37.9 MCV 96 MCH 30 MCHC 31 L RDW Coeff of Trina 14.2 Plt Count 295 Neut % (Auto) 56.3 Lymph % (Auto) 21.9 [place] % (Auto) 13.1 H Eos % (Auto) 6.7 Baso % (Auto) 0.3 Neut # (Auto) 5.17 Lymph # (Auto) 2.02 [place] # (Auto) 1.20 H Eos # (Auto) 0.62 H Baso # (Auto) 0.03 Abs Immat Gran (auto) 0.16 Imm/Tot Granulo (auto) 1.7 VBG pH 7.331 VBG pCO2 56 H VBG pO2 42.4 VBG HCO3 30 H Ionized Calcium Sandra 1.13 C-Reactive Protein 3.6 H Lab Acknowledgement Test Added
[2023-04-19 07:49] LABS: Albumin* 3.8 g/dL (3.3-5.0); Chloride* 95 mmol/L (96-114); Sodium* 131 mmol/L (135-149)
[2023-04-19 07:50] LABS: Potassium* 4.4 mmol/L (3.6-5.1)
[2023-04-19 07:52] LABS: Albumin* 3.6 g/dL (3.3-5.0); Anion Gap 8 mEq/L (7-15); Carbon Dioxide* 28 mmol/L (20-32); Chloride* 95 mmol/L (96-114); Creatinine* 1.9 mg/dL (0.5-1.5); Est. Creatinine Clearance* 24.08; Estimated Glomerular Filt Rate 28 ml/min; Sodium* 133 mmol/L (135-149)
[2023-04-19 07:53] LABS: Blood Urea Nitrogen* 50 mg/dL (7-30); Calcium* 8.8 mg/dL (8.4-10.6); Glucose* 223 mg/dL (60-115); Phosphorus* 5.1 mg/dL (2.5-4.5); Potassium* 4.3 mmol/L (3.6-5.1)
[2023-04-19] MEDS: INSULIN ASPART 100 UNIT/ML SUBCUT ×4 (07:53→20:50)
[2023-04-19] MEDS: INSULIN ASPART 100 UNIT/ML 6 UNIT SUBCUT ×3 (07:54→17:33)
[2023-04-19 07:55] LABS: Alanine Aminotransferase* 11 U/L (4-35); Alkaline Phosphatase* 135 U/L (40-150); Anion Gap 10 mEq/L (7-15); Aspartate Amino Transferase* 22 U/L (12-35); Bilirubin Total* 0.6 mg/dL (0.1-1.5); Blood Urea Nitrogen* 48 mg/dL (7-30); Carbon Dioxide* 28 mmol/L (20-32); Creatinine* 1.9 mg/dL (0.5-1.5); Est. Creatinine Clearance* 24.08; Estimated Glomerular Filt Rate 28 ml/min; Glucose* 217 mg/dL (60-115); Total Protein* 6.4 g/dL (6.0-8.3)
[2023-04-19 07:56] LABS: Calcium* 8.8 mg/dL (8.4-10.6); Magnesium* 2.2 mg/dL (1.5-2.6)
[2023-04-19 07:58] LABS: C Reactive Protein* 3.3 mg/dL (0.5-1.0)
[2023-04-19 08:02] LABS: NT Pro B Type NatriureticPept* 766 pg/mL; Troponin I* < 0.01 ng/mL (0.01-0.04)
[2023-04-19] MEDS: DULOXETINE 30 MG CAPSULE DR 120 MG PO (09:06)
[2023-04-19] MEDS: MAGNESIUM OXIDE 400 MG TABLET PO (09:07)
[2023-04-19] MEDS: FERROUS SULFATE 325 MG TABLET PO (09:08)
[2023-04-19] MEDS: ASPIRIN 81 MG TABLET EC PO (09:08)
[2023-04-19] MEDS: SENNOSIDES/DOCUSATE TABLET 2 TAB PO (09:08)
[2023-04-19] MEDS: TORSEMIDE 20 MG TABLET 40 MG PO (09:09)
[2023-04-19] MEDS: EMPAGLIFLOZIN 10 MG TABLET 25 MG PO (09:09)
[2023-04-19] MEDS: buPROPion XL 150 MG TABLET 300 MG PO (09:10)
[2023-04-19] MEDS: ACETAMINOPHEN 500 MG TABLET 1000 MG PO ×3 (09:11→20:43)
[2023-04-19] MEDS: dilTIAZem 120 MG CAP.ER.24H PO (09:11)
[2023-04-19] MEDS: CARBIDOPA-LEVODOPA 25-100 TABLET 1 TAB PO ×4 (09:11→20:44)
[2023-04-19] MEDS: GABAPENTIN 100 MG CAPSULE 200 MG PO (09:11)
[2023-04-19] MEDS: LOSARTAN POTASSIUM 50 MG TABLET PO (09:12)
[2023-04-19] MEDS: OMEPRAZOLE 20 MG CAPSULE DR PO ×2 (09:12→20:44)
[2023-04-19] MEDS: SPIRONOLACTONE 25 MG TABLET 12.5 MG PO (09:12)
[2023-04-19] MEDS: BUSPIRONE 10 MG TABLET 30 MG PO ×2 (09:16→20:44)
[2023-04-19] MEDS: METOPROLOL SUCCINATE (XL) 50 MG TAB PO (09:16)
[2023-04-19] MEDS: ATORVASTATIN CALCIUM 40 MG TABLET 80 MG PO (09:17)
[2023-04-19] MEDS: NYSTATIN POWDER 1 APPLIC TOPICAL ×3 (09:18→20:54)
[2023-04-19] MEDS: SODIUM CHLORIDE 0.9 % (FLUSH) 10 ML SYRINGE 5 ML IVF (09:20)
[2023-04-19] MEDS: 0.9 % SODIUM CHLORIDE 500 ML 500 ML IV (09:31)
[2023-04-19] MEDS: 0.9 % SODIUM CHLORIDE 1000 ml 1,000 ML 75 ML IV ×2 (09:32→22:12)
[2023-04-19] MEDS: PERFLUTREN LIPID MICROSPHERES 2 ML VIAL IV (10:25)
[2023-04-19 10:58] LABS: Appearance Urine Clear (Clear); Bilirubin Urine Negative (Negative); Blood Urine Negative (Negative); Color Urine Yellow (Yellow); Glucose Urine 2+ (Negative); Ketones Urine Negative (Negative); Leukocyte Esterase Urine Negative (Negative); Nitrite Urine Negative (Negative); Protein Urine Negative (Negative); Specific Gravity Urine 1.015 (1.000-1.030); Urobilinogen Urine 0.2 (0.2-1.0)
[2023-04-19 11:14] LABS: Bacteria Urine Few; Squamous Epithelial Cell Urine Few (None-Few)
[2023-04-19] MEDS: ERTAPENEM 1 GM in 0.9 % SODIUM CHLORIDE Mini-bag 100 ML IVPB (11:14)
[2023-04-19] MEDS: INSULIN ASPART 100 UNIT/ML 18 UNIT SUBCUT (17:32)
--- NOTE | 2023-04-19 18:29 | PC.NURSE ---
End of Shift: Patient pleasant and cooperative. Patient vitally stable, lungs clear, BS WNL, IV running NS at 75. Patient currently on RA but desats when sleeping. Patient 1 assist/walker. Patient rates leg and back pain 6-8/10, scheduled pain meds given. Patient tolerating regular diet and urinating. Patient had 1 large loose incontinent. Patient has been up in chair majority of shift. Blood sugars 250, 166, 185. Tele= 1 degree HB and BBB.
[2023-04-19] MEDS: MONTELUKAST 10 MG TABLET PO (20:44)
[2023-04-19] MEDS: ENOXAPARIN 40 MG/0.4 ML INJ SUBCUT (20:45)
[2023-04-19] MEDS: TRAZODONE HCL 50 MG TABLET PO (20:48)
[2023-04-19] MEDS: LIDOCAINE 5% PATCH 1 PATCH TRANSDERMA (22:11)
[2023-04-20] VITALS (8 sets, daily range): BP systolic 135–166; BP diastolic 53–71; PULSE 80–91; RESP 16–22; TEMP 36.1–36.5; O2SAT 90–96
--- NOTE | 2023-04-20 04:41 | PC.NURSE ---
Pt slept with Cpap on with 2L O2 fed in. Pt able to walk to BR A1 with walker. Incontinent both bowel and urine. Loose stool last evening. Pt rates pain 8/10 at all times. Pt pleasant and cooperative. No headache. Lido patch on LL Back.
[2023-04-20] MEDS: LEVOTHYROXINE 50 MCG TABLET PO (06:10)
[2023-04-20 06:29] LABS: Hematocrit 36.4 % (33.0-51.0); Hemoglobin* 11.3 gm/dL (12.0-16.0); Mean Corpuscular HGB Conc 31 gm/dL (32-36); Mean Corpuscular Hemoglobin 29 pg (26-34); Mean Corpuscular Volume 95 fL (80-100); Platelet Count* 284 K/uL (140-440); Red Blood Count 3.84 m/uL (4.00-5.20)
[2023-04-20 06:43] LABS: Albumin* 3.8 g/dL (3.3-5.0); Chloride* 101 mmol/L (96-114); Slide Review Reflex No; Sodium* 136 mmol/L (135-149)
[2023-04-20 06:44] LABS: Potassium* 3.9 mmol/L (3.6-5.1)
[2023-04-20 06:46] LABS: Anion Gap 10 mEq/L (7-15); Blood Urea Nitrogen* 41 mg/dL (7-30); Carbon Dioxide* 25 mmol/L (20-32); Creatinine* 1.6 mg/dL (0.5-1.5); Estimated Glomerular Filt Rate 34 ml/min
[2023-04-20 06:47] LABS: Glucose* 177 mg/dL (60-115); Phosphorus* 3.3 mg/dL (2.5-4.5)
[2023-04-20] MEDS: DULOXETINE 30 MG CAPSULE DR 120 MG PO (08:33)
[2023-04-20] MEDS: EMPAGLIFLOZIN 10 MG TABLET 25 MG PO (08:33)
[2023-04-20] MEDS: FERROUS SULFATE 325 MG TABLET PO (08:33)
[2023-04-20] MEDS: GABAPENTIN 100 MG CAPSULE 200 MG PO (08:33)
[2023-04-20] MEDS: buPROPion XL 150 MG TABLET 300 MG PO (08:33)
[2023-04-20] MEDS: OMEPRAZOLE 20 MG CAPSULE DR PO ×2 (08:34→22:19)
[2023-04-20] MEDS: TORSEMIDE 20 MG TABLET 40 MG PO (08:34)
[2023-04-20] MEDS: SPIRONOLACTONE 25 MG TABLET 12.5 MG PO (08:34)
[2023-04-20] MEDS: dilTIAZem 120 MG CAP.ER.24H PO (08:34)
[2023-04-20] MEDS: ASPIRIN 81 MG TABLET EC PO (08:34)
[2023-04-20] MEDS: ATORVASTATIN CALCIUM 40 MG TABLET 80 MG PO (08:34)
[2023-04-20] MEDS: MAGNESIUM OXIDE 400 MG TABLET PO (08:34)
[2023-04-20] MEDS: METOPROLOL SUCCINATE (XL) 50 MG TAB PO (08:34)
[2023-04-20] MEDS: ACETAMINOPHEN 500 MG TABLET 1000 MG PO ×3 (08:34→22:19)
[2023-04-20] MEDS: BUSPIRONE 10 MG TABLET 30 MG PO ×2 (08:35→22:18)
[2023-04-20] MEDS: CARBIDOPA-LEVODOPA 25-100 TABLET 1 TAB PO ×4 (08:35→22:19)
[2023-04-20] MEDS: LOSARTAN POTASSIUM 50 MG TABLET PO (08:35)
[2023-04-20] MEDS: INSULIN ASPART 100 UNIT/ML 6 UNIT SUBCUT ×3 (08:36→17:20)
[2023-04-20] MEDS: NYSTATIN POWDER 1 APPLIC TOPICAL ×3 (08:52→22:21)
--- NOTE | 2023-04-20 09:23 | PM.IMPN1 ---
Progress Note: A&P Assessment and plan (1) Hypoxia: Problem details: -chronic, severe ANGELI -CTA reviewed. hypoxia is much worse when she is asleep. -ensured cpap working correctly. better fit made. -chronic oxygen maybe needed, has had CO2 retention. -needs new sleep study, likely needs adjustments in CPAP Status: Acute (2) Urinary tract infection: Problem details: -Initially called ESBL. The ECOLI growing is not ESBL - mislabel by a previous hx in 2020. She will transition to oral Keflex and treated as a routine UTI Status: Acute (3) Contrast-induced nephropathy: Problem details: -downtrending, 1.9 to 1.6 04/20 (6 days since contrast) -i/o cath shows hyaline casts -95 cc of Isovue 370 on 04/14/23 for CTA fluid bolus discuss with pharm D (already reduced losartan, metoprolol and sprinolactone) The major clinical manifestations of contrast-induced acute kidney injury (CI-NUBIA) include: -Early, mild increase in serum creatinine ? An increase in serum creatinine that is generally observed within 24 to 48 hours after the iodinated contrast exposure and that is usually mild. The serum creatinine typically starts to decline toward baseline within three to seven days of the exposure to contrast [8,39]. -Urinary sediment consistent with acute tubular necrosis ? The urinary sediment may show classic findings of acute tubular necrosis (ATN), including muddy brown granular and epithelial cell casts and free renal tubular epithelial cells. However, the absence of these urinary findings does not exclude the possibility of CA-NUBIA. Status: Acute (4) Essential hypertension: Problem details: creat now downtrending discussed with pharmD - will peel back some of the hypertensives and see if this is pre-renal give bolus no nephrotoxins Status: Chronic (5) Bacteremia: Problem details: Blood culture growing Gram-positive cocci in clusters. Culture shows Staph epidermidis, likely a contaminant Status: Acute (6) Weakness: Problem details: Acute on chronic weakness. Continue PT OT Status: Acute (7) Fall: Problem details: PT/OT evaluation Status: Acute (8) Forehead laceration: Problem details: Bandage to protect the wound. Status: Acute (9) Pulmonary hypertension: Problem details: echo pending today Echocardiogram 01/25/2022 1. Normal left ventricular size, moderately increased wall thickness, normal global systolic function, calculated EF of 69 %. 2. Right ventricular cavity size is normal, global systolic RV function is normal. 3. Mildly enlarged left atrium. 4. The aortic valve is sclerotic, no stenosis and mild regurgitation. 5. The mitral valve is sclerotic, mild to moderate mitral regurgitation. 6. Moderate tricuspid regurgitation. 7. Grade 2 pattern of LV diastolic filling. Tricuspid regurgitation is moderate. The tricuspid regurgitant velocity is 3.4 m/s, the estimated right ventricular systolic pressure is 47 mmHg plus right atrial pressure. There is elevated estimated pulmonary pressure by tricuspid regurgitation velocity and right atrial pressure Status: Chronic (10) Type 2 diabetes mellitus: Problem details: Continue usual home medications. Start insulin sliding scale ACHS for while she is in the hospital. Status: Chronic (11) Lymphedema: Problem details: Continue lymphedema wraps as an outpatient. Elevate legs. Resume compression Status: Chronic (12) Chronic CHF (congestive heart failure): Problem details: -echo today -Chronic diastolic congestive Heart failure, preserved EF. Primarily pulmonary hypertension. Class 2. -No acute exacerbation. Continue torsemide at current dose. 02/06 Final Impressions: 1. Normal left ventricular size, moderately increased wall thickness, normal global systolic function, calculated EF of 69 %. 2. Right ventricular cavity size is normal, global systolic RV function is normal. 3. Mildly enlarged left atrium. 4. The aortic valve is sclerotic, no stenosis and mild regurgitation. 5. The mitral valve is sclerotic, mild to moderate mitral regurgitation. 6. Moderate tricuspid regurgitation. 7. Grade 2 pattern of LV diastolic filling. Status: Chronic (13) Polypharmacy: Problem details: Review meds to see if polypharmacy can be reduced. Trazodone and gabapentin doses have been cut in half to start. Status: Chronic (14) Stasis dermatitis of lower extremity due to chronic peripheral vascular hypertension: Problem details: Elevate legs at least 12 hours a day. Restart compression Status: Chronic (15) Sleep apnea: Problem details: -CPAP working now -will likely need a new sleep study, likely needs higher pressures Status: Acute (16) Parkinsonian syndrome: Problem details: Patient has tremor suggestive of parkinsonian syndrome. Because she is on chronic metoclopramide therapy for diabetic gastroparesis this will need to be stopped to assess whether her parkinsonian syndrome gets better. This likely takes months to get better. Trial of Sinemet of uncertain benefit. Status: Acute (17) Diabetic gastroparesis: Problem details: Discontinue Metoclopramide due to concern about parkinsonian syndrome. Monitor for p.o. intake and recurrent vomiting off metoclopramide. Doing well so far Status: Acute (18) Immobility: Problem details: Patient is difficulty with standing and walking. At baseline she walks with a walker. Now needing standby assist. Continue to work with therapy to assess and treat. Status: Acute (19) Morbid obesity with BMI of 50.0-59.9, adult: Problem details: 11 kg weight gain over past 14 months Status: Acute (20) Noncompliance: Problem details: Noncompliance with CPAP. Noncompliance with recommendations to be more physically active. Status: Acute (21) Chronic pain: Problem details: Patient is on chronic buprenorphine. Inadvertently stopped on admission to the hospital due to unavailability of her medication. Now back on her buprenorphine. Scheduled tylenol Status: Acute (22) Hypothyroid: Problem details: Continue home med Status: Chronic Subjective Date Seen: 04/20/23 Interval history: Daily Progress Note - Hospital Medicine Day #: 4 CC: Status post fall with laceration, weakness, hypoxic resp failure, severe ANGELI, UTI OVERNIGHT UPDATES FROM STAFF & MED, LAB, IMAGING UPDATES continues to have chronic pain and feels her left knee is worse today. No new redness, injury. RN note Pt slept with Cpap on with 2L O2 fed in. Pt able to walk to BR A1 with walker. Incontinent both bowel and urine. Loose stool last evening. Pt rates pain 8/10 at all times. Pt pleasant and cooperative. No headache. Lido patch on LL Back. Afebrile. Blood pressure 163/71. Pulse 90. Resp is 18. Pulse ox 95%. Weight initially on 04/14 at 5 in the morning was 162.4 kilos, she is down to 158.3 kilos Her electrolytes look much better today. Her sodium is normal. Her creatinine is down trending to 1.6 with a BUN of 41. Blood sugars 150, 160, 185, 166, Normal CBC, reassuring. CO2 retention at about her baseline the normal pH Phosphorus is normal CRP down trending I reviewed admission CTA urine culture - ecoli - ESBL two blood cultures neg, one with staph epi contaminant Echo 04/19 Final Impressions: 1. Normal LV size, mildly increased wall thickness, normal global systolic function with an estimated EF of 70 - 75%. 2. Right ventricular cavity size is mildly enlarged, global systolic RV function is normal. 3. The aortic valve is trileaflet and sclerotic, no stenosis and mild regurgitation. 4. Echo contrast was administered to enhance visualization of all left ventricular segments. 5. RVSP could not be estimated. Objective: bruised/shinners. forehead lac intact. chronic lymphedema. Vitals: see above Lungs: Clear. Cardiac: S1S2. Knee, left: body habitus and pain limit exam. no obvious effusion, crepitus, redness. swelling. legs - lymph edema. wrapped. Disposition/Potential discharge - Likely to need escalated care needs. SNF. Today I spent 50minutes seeing the patient, reviewing Expanse and EPIC notes/diagnostics, discussing the care plan with our care time that includes social work, PT/OT, pharmacy, RT, group home and documenting my impressions and plan in the medical record. Exam Const: Vital Signs, click to edit/add: Vital Signs - 24 hr 04/19/23 10:14 04/19/23 11:07 04/19/23 15:00 Temperature 99 F Pulse Rate 73 81 Pulse Rate [Left A pical] Pulse Rate [Pulse Oximeter] 77 Respiratory Rate 22 Blood Pressure [Le ft FA] Blood Pressure [Ri ght FA] 147/81 H Pulse Oximetry 91 Oxygen Delivery Me thod Room Air Oxygen Flow Rate 04/19/23 15:50 04/19/23 15:50 04/19/23 15:50 Temperature 97.7 F Pulse Rate Pulse Rate [Left A pical] 82 Pulse Rate [Pulse Oximeter] 80 80 Respiratory Rate 20 20 20 Blood Pressure [Le ft FA] Blood Pressure [Ri ght FA] 123/52 L Pulse Oximetry 94 94 Oxygen Delivery Me thod Room Air Room Air Oxygen Flow Rate 04/19/23 19:14 04/19/23 20:43 04/19/23 21:16 Temperature 97.6 F 97.6 F Pulse Rate Pulse Rate [Left A pical] 78 Pulse Rate [Pulse Oximeter] Respiratory Rate 16 Blood Pressure [Le ft FA] 134/57 L Blood Pressure [Ri ght FA] Pulse Oximetry 91 91 Oxygen Delivery Me thod Nasal Cannula Oxygen Flow Rate 1 04/19/23 21:20 04/19/23 21:42 04/19/23 22:23 Temperature 97.6 F 97.6 F Pulse Rate 74 Pulse Rate [Left A pical] 74 Pulse Rate [Pulse Oximeter] Respiratory Rate 16 Blood Pressure [Le ft FA] 126/54 L Blood Pressure [Ri ght FA] Pulse Oximetry 93 Oxygen Delivery Me thod CPAP Oxygen Flow Rate 2.5 04/19/23 22:26 04/19/23 22:26 04/20/23 04:20 Temperature 97.6 F Pulse Rate Pulse Rate [Left A pical] 74 Pulse Rate [Pulse Oximeter] 80 80 Respiratory Rate 16 16 16 Blood Pressure [Le ft FA] 135/56 L Blood Pressure [Ri ght FA] Pulse Oximetry 93 93 Oxygen Delivery Me thod CPAP Room Air Oxygen Flow Rate 2.5 04/20/23 08:31 04/20/23 08:31 Temperature 96.9 F L Pulse Rate Pulse Rate [Left A pical] Pulse Rate [Pulse Oximeter] 90 Respiratory Rate 18 Blood Pressure [Le ft FA] Blood Pressure [Ri ght FA] 163/71 H Pulse Oximetry 95 95 Oxygen Delivery Me thod Room Air Room Air Oxygen Flow Rate Labs Labs: Laboratory Results - last 24 hr 04/19/23 04/20/23 Unknown 05:57 WBC 9.30 RBC 3.84 L Hgb 11.3 L Hct 36.4 MCV 95 MCH 29 MCHC 31 L Plt Count 284 Sodium 136 Potassium 3.9 Chloride 101 Carbon Dioxide 25 Anion Gap 10 BUN 41 H Creatinine 1.6 H Estimated Creat Clear 28.60 Estimated GFR 34 Glucose 177 H Calcium 9.0 Phosphorus 3.3 Albumin 3.8 Urine Color Yellow Urine Appearance Clear Urine pH 6.0 Ur Specific [place] 1.015 Urine Protein Negative Urine Glucose (UA) 2+ A Urine Ketones Negative Urine Blood Negative Urine Nitrite Negative Urine Bilirubin Negative Urine Urobilinogen 0.2 Ur Leukocyte Esterase Negative Urine RBC 2-5 A Urine WBC 10-25 A Ur Squamous Epith Cells Few Other Sediment Urine Bacteria Few A
--- NOTE | 2023-04-20 10:22 | CRLHL7_ITS ---
For Patients: As a result of the Century Cures Act, medical imaging exams and procedure reports are released immediately into your electronic medical record. You may view this report before your referring provider. If you have questions, please contact your health care provider. Indication: Pain and swelling. Trauma 1 week prior Technique: AP, lateral and patellofemoral sunrise views of the left knee were acquired Comparison: None this knee Findings: Somewhat technically limited due to soft tissue attenuation factors and decreased bone mineral density. No visible acute fracture, dislocation or destructive process. Degenerative changes noted. Small joint effusion. Atherosclerotic vascular calcifications. No foreign body within soft tissues Impression: Demineralization and degenerative change. Small joint effusion. No visible acute fracture, dislocation or destructive process. Dictated by Daniel Clements MD @ 04/21/2023 4:19:08 AM (Electronically Signed)
[2023-04-20] MEDS: cephALEXin 500 MG CAPSULE PO ×4 (10:51→22:19)
[2023-04-20] MEDS: SODIUM CHLORIDE 0.9 % (FLUSH) 10 ML SYRINGE 5 ML IVF ×2 (12:11→22:22)
[2023-04-20] MEDS: INSULIN ASPART 100 UNIT/ML SUBCUT ×2 (12:50→17:21)
--- NOTE | 2023-04-20 16:33 | PC.SOCIAL ---
Discharge planning- Per MD, pt should not be on ESBL precautions and does not need private room/bathroom. MD notes are updated to reflect. Phone call to Yasmin Boo at [facility] at [phone] to discuss updated information. Yasmin requests that documentation be sent to her to show the changes in contact precautions regarding ESBL. Faxed requested MD updated progress note and labs to Yasmin at [facility] at [phone]. Secure e-mailed information to Yasmin also. Social work is awaiting decision from Karina Darling on admitting pt.
[2023-04-20] MEDS: INSULIN ASPART 100 UNIT/ML 18 UNIT SUBCUT (17:20)
--- NOTE | 2023-04-20 19:23 | PC.NURSE ---
[id number]- Patient is alert and orientated.. Tolerating a normal diet fine [address] Calls appropriately. BLE LEIGHANN wraps. Ax1 W 4 wheel walker. CHronic low back pain and BLE pain. Waiting for placement. YVONNE SOTOMAYOR BSN
[2023-04-20] MEDS: MONTELUKAST 10 MG TABLET PO (22:19)
[2023-04-20] MEDS: ENOXAPARIN 40 MG/0.4 ML INJ SUBCUT (22:19)
[2023-04-20] MEDS: LIDOCAINE 5% PATCH 1 PATCH TRANSDERMA (23:10)
[2023-04-21] VITALS (7 sets, daily range): BP systolic 123–186; BP diastolic 64–91; PULSE 75–93; RESP 16–24; TEMP 36–36.6; O2SAT 87–98
[2023-04-21] MEDS: LEVOTHYROXINE 50 MCG TABLET PO (06:43)
[2023-04-21] MEDS: SODIUM CHLORIDE 0.9 % (FLUSH) 10 ML SYRINGE 5 ML IVF ×2 (09:00→20:30)
--- NOTE | 2023-04-21 09:04 | PC.NURSE ---
Pt alert and oriented x3. Afebrile. Pt reports 7/10 pain in lower back, pain managed with scheduled medications. Pt was turned and repositioned throughout night. Pt is up A2 with walker and gait belt to restroom. Pt slept with Cpap on throughout night, O2 via adaptor at 0.5L. Pt O2 stats ranged between 92-98%. Pt slept throughout most of night. Pt has scheduled lidocaine patch placed on right lower back.
[2023-04-21 09:19] LABS: Albumin* 4.3 g/dL (3.3-5.0); Chloride* 100 mmol/L (96-114); Sodium* 137 mmol/L (135-149)
[2023-04-21 09:20] LABS: Potassium* 4.4 mmol/L (3.6-5.1)
[2023-04-21 09:22] LABS: Anion Gap 9 mEq/L (7-15); Blood Urea Nitrogen* 32 mg/dL (7-30); Carbon Dioxide* 28 mmol/L (20-32); Creatinine* 1.3 mg/dL (0.5-1.5); Estimated Glomerular Filt Rate 44 ml/min
[2023-04-21 09:23] LABS: Calcium* 9.6 mg/dL (8.4-10.6); Glucose* 189 mg/dL (60-115); Phosphorus* 3.3 mg/dL (2.5-4.5)
[2023-04-21] MEDS: INSULIN ASPART 100 UNIT/ML 6 UNIT SUBCUT ×3 (09:40→18:35)
[2023-04-21] MEDS: INSULIN ASPART 100 UNIT/ML SUBCUT ×3 (09:41→22:09)
[2023-04-21] MEDS: DULOXETINE 30 MG CAPSULE DR 120 MG PO (09:42)
[2023-04-21] MEDS: ACETAMINOPHEN 500 MG TABLET 1000 MG PO ×3 (09:42→20:29)
[2023-04-21] MEDS: buPROPion XL 150 MG TABLET 300 MG PO (09:43)
[2023-04-21] MEDS: BUSPIRONE 10 MG TABLET 30 MG PO ×2 (09:45→20:28)
[2023-04-21] MEDS: OMEPRAZOLE 20 MG CAPSULE DR PO ×2 (09:45→20:30)
[2023-04-21] MEDS: SPIRONOLACTONE 25 MG TABLET PO (09:46)
[2023-04-21] MEDS: CARBIDOPA-LEVODOPA 25-100 TABLET 1 TAB PO ×4 (09:47→20:30)
[2023-04-21] MEDS: FERROUS SULFATE 325 MG TABLET PO (09:47)
[2023-04-21] MEDS: EMPAGLIFLOZIN 10 MG TABLET 25 MG PO (09:47)
[2023-04-21] MEDS: LOSARTAN POTASSIUM 50 MG TABLET PO (09:48)
[2023-04-21] MEDS: TORSEMIDE 20 MG TABLET 40 MG PO (09:48)
[2023-04-21] MEDS: ASPIRIN 81 MG TABLET EC PO (09:48)
[2023-04-21] MEDS: MAGNESIUM OXIDE 400 MG TABLET PO (09:48)
[2023-04-21] MEDS: METOPROLOL SUCCINATE (XL) 100 MG TAB PO (09:49)
[2023-04-21] MEDS: dilTIAZem 120 MG CAP.ER.24H PO (09:49)
[2023-04-21] MEDS: GABAPENTIN 100 MG CAPSULE 200 MG PO (09:49)
[2023-04-21] MEDS: cephALEXin 500 MG CAPSULE PO ×4 (09:50→20:29)
[2023-04-21] MEDS: ATORVASTATIN CALCIUM 40 MG TABLET 80 MG PO (09:50)
[2023-04-21] MEDS: NYSTATIN POWDER 1 APPLIC TOPICAL ×3 (09:51→20:34)
--- NOTE | 2023-04-21 12:34 | P.IMPN_ITS ---
Progress Note: A&P Assessment and plan (1) Hypoxia: Problem details: -chronic, severe ANGELI -CTA reviewed. hypoxia is much worse when she is asleep. -ensured cpap working correctly. better fit made. -if chronic or intermittent oxygen is needed, keep at 1-1.5L and bleed in with CPAP while sleeping. Otherwise encourage deep breathing, ISP, etc. -needs new sleep study, likely needs adjustments in CPAP Status: Acute (2) Urinary tract infection: Problem details: -Initially called ESBL. The ECOLI growing is not ESBL - mislabel by a previous hx in 2020. She will transition to oral Keflex and treated as a routine UTI Status: Acute (3) Contrast-induced nephropathy: Problem details: -downtrending, peak creat 1.9, / 1.3 -i/o cath showed hyaline casts -95 cc of Isovue 370 on 04/14/23 for CTA Status: Acute (4) Essential hypertension: Problem details: creat now downtrending give bolus no nephrotoxins Status: Chronic (5) Bacteremia: Problem details: Blood culture growing Gram-positive cocci in clusters. Culture shows Staph epidermidis, likely a contaminant Status: Acute (6) Weakness: Problem details: Acute on chronic weakness. Continue PT OT Status: Acute (7) Fall: Problem details: PT/OT evaluation Status: Acute (8) Forehead laceration: Problem details: Bandage to protect the wound. Status: Acute (9) Pulmonary hypertension: Problem details: echo completed. Final Impressions: 1. Normal LV size, mildly increased wall thickness, normal global systolic function with an estimated EF of 70 - 75%. 2. Right ventricular cavity size is mildly enlarged, global systolic RV function is normal. 3. The aortic valve is trileaflet and sclerotic, no stenosis and mild regurgitation. 4. Echo contrast was administered to enhance visualization of all left ventricular segments. 5. RVSP could not be estimated. Status: Chronic (10) Type 2 diabetes mellitus: Problem details: Continue usual home medications. Start insulin sliding scale ACHS for while she is in the hospital. Status: Chronic (11) Lymphedema: Problem details: Continue lymphedema wraps as an outpatient. Elevate legs. Resume compression Status: Chronic (12) Polypharmacy: Problem details: Review meds to see if polypharmacy can be reduced. Trazodone and gabapentin doses have been cut in half to start. Status: Chronic (13) Stasis dermatitis of lower extremity due to chronic peripheral vascular hypertension: Problem details: Elevate legs at least 12 hours a day. Restart compression Status: Chronic (14) Sleep apnea: Problem details: -CPAP working now -will likely need a new sleep study, likely needs higher pressures Status: Acute (15) Parkinsonian syndrome: Problem details: Patient has tremor suggestive of parkinsonian syndrome. Because she is on chronic metoclopramide therapy for diabetic gastroparesis this will need to be stopped to assess whether her parkinsonian syndrome gets better. This likely takes months to get better. Trial of Sinemet of uncertain benefit. Status: Acute (16) Diabetic gastroparesis: Problem details: Discontinue Metoclopramide due to concern about parkinsonian syndrome. Monitor for p.o. intake and recurrent vomiting off metoclopramide. Doing well so far Status: Acute (17) Immobility: Problem details: Patient is difficulty with standing and walking. At baseline she walks with a walker. Now needing standby assist. Continue to work with therapy to assess and treat. Status: Acute (18) Morbid obesity with BMI of 50.0-59.9, adult: Problem details: 11 kg weight gain over past 14 months Status: Acute (19) Noncompliance: Problem details: Noncompliance with CPAP. Noncompliance with recommendations to be more physically active. Status: Acute (20) Chronic pain: Problem details: Patient is on chronic buprenorphine. Inadvertently stopped on admission to the hospital due to unavailability of her medication. Now back on her bupren orphine. Scheduled tylenol Status: Acute (21) Hypothyroid: Problem details: Continue home med Status: Chronic Subjective Date Seen: 04/21/23 Interval history: Daily Progress Note - Hospital Medicine Day #: 5 CC: Status post fall with laceration, weakness, hypoxic resp failure, severe ANGELI, UTI OVERNIGHT UPDATES FROM STAFF & MED, LAB, IMAGING UPDATES continues to have chronic pain and feels her left knee is worse today. No new redness, injury. Xray 04/20 on the left knee unremarkable. Afebrile. Blood pressure 171/78. Pulse 88. Resp is 18. Pulse ox 95%. Weight initially on 04/14 at 5 in the morning was 162.4 kilos, she is down to 158.4 kilos RN overnight note: Pt alert and oriented x3. Afebrile. Pt reports 7/10 pain in lower back, pain managed with scheduled medications. Pt was turned and repositioned throughout night. Pt is up A2 with walker and gait belt to restroom. Pt slept with Cpap on throughout night, O2 via adaptor at 0.5L. Pt O2 stats ranged between 92-98%. Pt slept throughout most of night. Pt has scheduled lidocaine patch placed on right lower back. No new CBC today. Creatinine is back down to 1.3 nearly her baseline. The rest of electrolytes are normal. E coli is now cleared from her urine. The most recent urine culture is negative. I reviewed admission CTA urine culture - ecoli - NOT ESBL. most recent urine culture neg. two blood cultures neg, one with staph epi contaminant Echo 04/19 Final Impressions: 1. Normal LV size, mildly increased wall thickness, normal global systolic function with an estimated EF of 70 - 75%. 2. Right ventricular cavity size is mildly enlarged, global systolic RV function is normal. 3. The aortic valve is trileaflet and sclerotic, no stenosis and mild regurgitation. 4. Echo contrast was administered to enhance visualization of all left ventricular segments. 5. RVSP could not be estimated. Objective: bruised/shinners. forehead lac intact. chronic lymphedema. Vitals: see above Lungs: Clear. Cardiac: S1S2. Knee, left: body habitus and pain limit exam. no obvious effusion, crepitus, redness. swelling. legs - lymph edema. wrapped. Disposition/Potential discharge - Likely to need escalated care needs. SNF. Today I spent 50minutes seeing the patient, reviewing Expanse and EPIC notes/diagnostics, discussing the care plan with our care time that includes social work, PT/OT, pharmacy, RT, fci and documenting my impressions and plan in the medical record. Exam Const: Vital Signs, click to edit/add: Vital Signs - 24 hr 04/20/23 12:48 04/20/23 15:00 04/20/23 15:00 Temperature 97.0 F L 97.0 F L Pulse Rate Pulse Rate [Left A pical] Pulse Rate [Pulse Oximeter] 83 90 Respiratory Rate 18 20 20 Blood Pressure [Le ft FA] 144/61 H Blood Pressure [Ri ght FA] 153/65 H Pulse Oximetry 96 90 90 Oxygen Delivery Me thod Room Air Room Air Room Air Oxygen Flow Rate 04/20/23 15:00 04/20/23 19:50 04/20/23 21:00 Temperature 97.0 F L Pulse Rate 84 Pulse Rate [Left A pical] 85 Pulse Rate [Pulse Oximeter] 91 Respiratory Rate 22 Blood Pressure [Le ft FA] Blood Pressure [Ri ght FA] 166/59 H Pulse Oximetry 91 92 Oxygen Delivery Me thod Room Air Oxygen Flow Rate 04/20/23 22:30 04/20/23 22:30 04/20/23 22:30 Temperature Pulse Rate 86 Pulse Rate [Left A pical] Pulse Rate [Pulse Oximeter] 82 Respiratory Rate 22 22 Blood Pressure [Le ft FA] Blood Pressure [Ri ght FA] Pulse Oximetry 90 Oxygen Delivery Me thod Room Air Oxygen Flow Rate 04/20/23 22:30 04/21/23 02:50 04/21/23 07:00 Temperature 97.7 F 97.7 F 97.5 F L Pulse Rate Pulse Rate [Left A pical] 85 Pulse Rate [Pulse Oximeter] 82 82 93 Respiratory Rate 22 22 24 Blood Pressure [Le ft FA] 141/91 H Blood Pressure [Ri ght FA] 146/53 H 186/77 H Pulse Oximetry 90 94 98 Oxygen Delivery Me thod CPAP CPAP Room Air Oxygen Flow Rate 1.5 1 04/21/23 11:00 Temperature 97.8 F Pulse Rate Pulse Rate [Left A pical] Pulse Rate [Pulse Oximeter] 88 Respiratory Rate 16 Blood Pressure [Le ft FA] Blood Pressure [Ri ght FA] 171/78 H Pulse Oximetry 95 Oxygen Delivery Me thod Room Air Oxygen Flow Rate Labs Labs: Laboratory Results - last 24 hr 04/21/23 07:31 Sodium 137 Potassium 4.4 Chloride 100 Carbon Dioxide 28 Anion Gap 9 BUN 32 H Creatinine 1.3 Estimated Creat Clear 35.20 Estimated GFR 44 Glucose 189 H Calcium 9.6 Phosphorus 3.3 Albumin 4.3
--- NOTE | 2023-04-21 15:43 | PC.SOCIAL ---
Discharge planning- Contacted the following SNF's for possible placement. [facility]- Referral previously sent and facility assessed pt in person. Provided documentation showing pt is not on ESBL precautions. Spoke to Yasmin (KATHRYN) and she is hesitant to take pt. Provided lab culture for pt showing negative results. [facility] will speak with infection control and follow up. 2. [facility]- Referral previously sent (Facility has Covid outbreak and can start accepting pts 04/22/23). Faxed updated referral to [phone]. 3. [facility]- Phone call to admissions at [phone]. Left voicemail inquiring on bed availability. Faxed referral to [phone]. 4. . [facility] in [place]- Phone call to admissions at [phone]. They possibly have openings, faxed referral to [phone]. Social work will follow up as needed.
[2023-04-21] MEDS: INSULIN ASPART 100 UNIT/ML 18 UNIT SUBCUT (18:34)
[2023-04-21] MEDS: SENNOSIDES/DOCUSATE TABLET 2 TAB PO (20:29)
[2023-04-21] MEDS: MONTELUKAST 10 MG TABLET PO (20:29)
[2023-04-21] MEDS: ENOXAPARIN 40 MG/0.4 ML INJ SUBCUT (20:30)
--- NOTE | 2023-04-21 20:31 | PC.NURSE ---
Nursing Care Hours: [id number] Pt this shift alert and cooperative. Oriented to place and person and month but not day of the week. Ax1 with walker and gait belt. Had to use BSC occasionally d/t weak and shaky legs. HTN. C/o low chronic low back pain and leg pain, treated per eMAR. LEIGHANN wraps to bilat legs. Joseline/groin care completed with new intra-dry towels. Refused bowel aids d/t reporting large loose stool yesterday. Pt has fearful look to face at times but states she is ok.
[2023-04-21] MEDS: TRAZODONE HCL 50 MG TABLET PO (20:44)
[2023-04-21] MEDS: LIDOCAINE 5% PATCH 1 PATCH TRANSDERMA (22:09)
[2023-04-22] VITALS (10 sets, daily range): BP systolic 110–160; BP diastolic 57–69; PULSE 74–84; RESP 18–22; TEMP 35.8–36.6; O2SAT 89–96
[2023-04-22] MEDS: LEVOTHYROXINE 50 MCG TABLET PO (06:37)
--- NOTE | 2023-04-22 07:38 | PC.NURSE ---
End of shift report [id number]: Pleasant and cooperative with cares. Pain reported to low back and right leg, pain well managed with current scheduled medications. Transfer with SBA, ambulates with 4WW. CPAP applied at HS, patient required 2L via CPAP to maintain sats >84%. ?
[2023-04-22] MEDS: INSULIN ASPART 100 UNIT/ML 6 UNIT SUBCUT ×3 (08:11→17:36)
[2023-04-22] MEDS: ACETAMINOPHEN 500 MG TABLET 1000 MG PO ×3 (08:15→21:09)
[2023-04-22] MEDS: buPROPion XL 150 MG TABLET 300 MG PO (08:15)
[2023-04-22] MEDS: CARBIDOPA-LEVODOPA 25-100 TABLET 1 TAB PO ×4 (08:15→21:10)
[2023-04-22] MEDS: ASPIRIN 81 MG TABLET EC PO (08:16)
[2023-04-22] MEDS: EMPAGLIFLOZIN 10 MG TABLET 25 MG PO (08:16)
[2023-04-22] MEDS: LOSARTAN POTASSIUM 50 MG TABLET PO (08:16)
[2023-04-22] MEDS: cephALEXin 500 MG CAPSULE PO ×4 (08:16→21:10)
[2023-04-22] MEDS: ATORVASTATIN CALCIUM 40 MG TABLET 80 MG PO (08:17)
[2023-04-22] MEDS: FERROUS SULFATE 325 MG TABLET PO (08:17)
[2023-04-22] MEDS: DULOXETINE 30 MG CAPSULE DR 120 MG PO (08:17)
[2023-04-22] MEDS: SODIUM CHLORIDE 0.9 % (FLUSH) 10 ML SYRINGE 5 ML IVF ×2 (08:18→21:13)
[2023-04-22] MEDS: SPIRONOLACTONE 25 MG TABLET PO (08:18)
[2023-04-22] MEDS: OMEPRAZOLE 20 MG CAPSULE DR PO ×2 (08:18→21:12)
[2023-04-22] MEDS: dilTIAZem 120 MG CAP.ER.24H PO (08:19)
[2023-04-22] MEDS: GABAPENTIN 100 MG CAPSULE 200 MG PO (08:19)
[2023-04-22] MEDS: BUSPIRONE 10 MG TABLET 30 MG PO ×2 (08:20→21:10)
[2023-04-22] MEDS: TORSEMIDE 20 MG TABLET 40 MG PO (08:20)
[2023-04-22] MEDS: MAGNESIUM OXIDE 400 MG TABLET PO (08:20)
[2023-04-22] MEDS: METOPROLOL SUCCINATE (XL) 100 MG TAB PO (08:20)
[2023-04-22] MEDS: NYSTATIN POWDER 1 APPLIC TOPICAL ×3 (11:45→21:11)
[2023-04-22] MEDS: ONDANSETRON ODT 4 MG TAB PO (12:37)
[2023-04-22] MEDS: INSULIN ASPART 100 UNIT/ML SUBCUT ×3 (12:39→21:21)
--- NOTE | 2023-04-22 12:51 | PM.IMPN1 ---
Progress Note: A&P Assessment and plan (1) Hypoxia: Problem details: -chronic, severe ANGELI -CTA reviewed. hypoxia is much worse when she is asleep. -ensured cpap working correctly. better fit made. -if chronic or intermittent oxygen is needed, keep at 1-1.5L and bleed in with CPAP while sleeping. Otherwise encourage deep breathing, ISP, etc. -needs new sleep study, likely needs adjustments in CPAP Status: Acute (2) Urinary tract infection: Problem details: -Initially called ESBL. The ECOLI growing is not ESBL - mislabel by a previous hx in 2020. She will transition to oral Keflex and treated as a routine UTI -f/u culture - negative. Status: Acute (3) Contrast-induced nephropathy: Problem details: -downtrending, peak creat 1.9, / 1.3 -i/o cath showed hyaline casts -95 cc of Isovue 370 on 04/14/23 for CTA Status: Acute (4) Essential hypertension: Problem details: creat now downtrending give bolus no nephrotoxins Status: Chronic (5) Bacteremia: Problem details: Blood culture growing Gram-positive cocci in clusters. Culture shows Staph epidermidis, likely a contaminant Status: Acute (6) Weakness: Problem details: Acute on chronic weakness. Continue PT OT Status: Acute (7) Fall: Problem details: PT/OT evaluation Status: Acute (8) Forehead laceration: Problem details: Bandage to protect the wound. Status: Acute (9) Pulmonary hypertension: Problem details: echo completed. Final Impressions: 1. Normal LV size, mildly increased wall thickness, normal global systolic function with an estimated EF of 70 - 75%. 2. Right ventricular cavity size is mildly enlarged, global systolic RV function is normal. 3. The aortic valve is trileaflet and sclerotic, no stenosis and mild regurgitation. 4. Echo contrast was administered to enhance visualization of all left ventricular segments. 5. RVSP could not be estimated. Status: Chronic (10) Type 2 diabetes mellitus: Problem details: Continue usual home medications. Start insulin sliding scale ACHS for while she is in the hospital. Status: Chronic (11) Lymphedema: Problem details: Continue lymphedema wraps as an outpatient. Elevate legs. Resume compression Status: Chronic (12) Polypharmacy: Problem details: Review meds to see if polypharmacy can be reduced. Trazodone and gabapentin doses have been cut in half to start. Status: Chronic (13) Stasis dermatitis of lower extremity due to chronic peripheral vascular hypertension: Problem details: Elevate legs at least 12 hours a day. Restart compression Status: Chronic (14) Sleep apnea: Problem details: -CPAP working now -will likely need a new sleep study, likely needs higher pressures Status: Acute (15) Parkinsonian syndrome: Problem details: Patient has tremor suggestive of parkinsonian syndrome. Because she is on chronic metoclopramide therapy for diabetic gastroparesis this will need to be stopped to assess whether her parkinsonian syndrome gets better. This likely takes months to get better. Trial of Sinemet of uncertain benefit. Status: Acute (16) Diabetic gastroparesis: Problem details: Discontinue Metoclopramide due to concern about parkinsonian syndrome. Monitor for p.o. intake and recurrent vomiting off metoclopramide. Doing well so far Status: Acute (17) Immobility: Problem details: Patient is difficulty with standing and walking. At baseline she walks with a walker. Now needing standby assist. Continue to work with therapy to assess and treat. Status: Acute (18) Morbid obesity with BMI of 50.0-59.9, adult: Problem details: 11 kg weight gain over past 14 months Status: Acute (19) Noncompliance: Problem details: Noncompliance with CPAP. Noncompliance with recommendations to be more physically active. Status: Acute (20) Chronic pain: Problem details: Patient is on chronic buprenorphine. Inadvertently stopped on admission to the hospital due to unavailability of her medication. Now back on her buprenorphine. Scheduled tylenol Status: Acute (21) Hypothyroid: Problem details: Continue home med Status: Chronic Subjective Date Seen: 04/22/23 Interval history: Daily Progress Note - Hospital Medicine Day #: 6 CC: Status post fall with laceration, weakness, hypoxic resp failure, severe ANGELI, UTI OVERNIGHT UPDATES FROM STAFF & MED, LAB, IMAGING UPDATES large bowel movement - diarrhea - uncontrolled this morning. needed shower. etc. otherwise seems more perked up today. doesn't mention her knee. she is healing from bruising across her arms, face. Afebrile. Blood pressure 171/78. Pulse 88. Resp is 18. Pulse ox 95%. Weight initially on 04/14 at 5 in the morning was 162.4 kilos, she is down to 156. No new CBC today. Creatinine is back down to 1.3 nearly her baseline. The rest of electrolytes are normal. E coli is now cleared from her urine. The most recent urine culture is negative. I reviewed admission CTA urine culture - ecoli - NOT ESBL. most recent urine culture neg. two blood cultures neg, one with staph epi contaminant Echo 04/19 Final Impressions: 1. Normal LV size, mildly increased wall thickness, normal global systolic function with an estimated EF of 70 - 75%. 2. Right ventricular cavity size is mildly enlarged, global systolic RV function is normal. 3. The aortic valve is trileaflet and sclerotic, no stenosis and mild regurgitation. 4. Echo contrast was administered to enhance visualization of all left ventricular segments. 5. RVSP could not be estimated. Objective: bruised/shinners. forehead lac intact. chronic lymphedema. Vitals: see above Lungs: Clear. Cardiac: S1S2. Knee, left: body habitus and pain limit exam. no obvious effusion, crepitus, redness. swelling. legs - lymph edema. wrapped. Disposition/Potential discharge - Likely to need escalated care needs. SNF. Today I spent 50minutes seeing the patient, reviewing Expanse and EPIC notes/diagnostics, discussing the care plan with our care time that includes social work, PT/OT, pharmacy, RT, fci and documenting my impressions and plan in the medical record. Exam Const: Vital Signs, click to edit/add: Vital Signs - 24 hr 04/21/23 15:00 04/21/23 15:00 04/21/23 15:00 Temperature Pulse Rate [Pulse Oximeter] 81 81 Respiratory Rate 18 18 18 Blood Pressure [Le ft FA] 148/69 H Blood Pressure [Ri ght FA] Pulse Oximetry 87 L 87 L Oxygen Delivery Me thod Room Air Room Air Oxygen Flow Rate 04/21/23 19:00 04/21/23 21:00 04/21/23 23:00 Temperature 96.8 F L Pulse Rate [Pulse Oximeter] 75 Respiratory Rate 22 24 Blood Pressure [Le ft FA] 123/64 Blood Pressure [Ri ght FA] Pulse Oximetry 94 94 Oxygen Delivery Me thod Room Air Oxygen Flow Rate 04/21/23 23:00 04/21/23 23:00 04/22/23 03:00 Temperature 97.1 F L 96.5 F L Pulse Rate [Pulse Oximeter] 75 74 Respiratory Rate 24 24 22 Blood Pressure [Le ft FA] Blood Pressure [Ri ght FA] 129/69 142/68 H Pulse Oximetry 94 94 89 Oxygen Delivery Me thod CPAP CPAP CPAP Oxygen Flow Rate 2 2 2 04/22/23 07:47 Temperature 97.9 F Pulse Rate [Pulse Oximeter] 84 Respiratory Rate 21 Blood Pressure [Le ft FA] Blood Pressure [Ri ght FA] 151/69 H Pulse Oximetry 94 Oxygen Delivery Me thod Room Air Oxygen Flow Rate
--- NOTE | 2023-04-22 14:34 | PC.SOCIAL ---
Discharge planning- Received a phone call from the following SNF's regarding referrals sent to them. 1. [facility]- Received a voicemail from [facility] informing that they are declining pt for admission due to not having a bariatric bed. 2. [facility]- Received a phone call from admissions worker (Arlene Case- [phone]) informing that they are declining pt for admission due to not being appropriate for their setting. 3. [facility]- Received a phone call from admissions informing that they are declining pt for admission due to not having a bariatric bed. Phone call to nurse Goncalves at [facility] at [phone]. Ivanna left a voicemail requesting an update on pt's status. Provided update to [facility]. Social work will follow up as needed.
--- NOTE | 2023-04-22 14:45 | NUTR.NU ---
Nutrition Follow-up LOs Note: LOS (length of stay) day 9. Patient in need of SNF placement. Diet is currently Renal due to contrast-induced nephropathy. Intakes have been adequate, mainly 75-100%. Patient reports meals continue to be good. RDN offered diet education related to Renal diet, however patient declined at this time. Weight continues to be stable around 345-350s lb. No nutrition interventions at this time. RDN will continue to monitor and follow-up prn.
--- NOTE | 2023-04-22 14:52 | PC.SOCIAL ---
Addendum entered by ADITI Connors 04/23/23 15:17: Discharge planning: A referral packet was also faxed to [facility] #[phone]. Social work to follow-up as needed. Original Note: Discharge planning: company laundry worker called the following facilities to inquire about short-term rehabilitation bed availability for pt. 1. [facility] #[phone]: left message. 2. [facility] #[phone]: left message. 3. [facility] #[phone]: Declined due to their Bariatric bed being full. 4. [facility] #[phone]: left message. 5. [facility] #[phone]: Faxed referral packet to Admissions for review. They will have an opening this Thursday. They will contact the social work department if they can accept the pt. 6. [facility] #[phone]: left message. [facility] #[phone]: left message and faxed referral packet. Social work to follow-up as needed.
--- NOTE | 2023-04-22 16:16 | PC.NURSE ---
Pt reports chronic back pain that is controlled by scheduled ES Tylenol. Calm and cooperatives with nsg interventions. Please see eMar for multiple meds passed in am by Briseida Leigh RN and by myself during the afternoon. Pt had a large incontinent BM midmorning and she was showered at that time. Lidocaine patch fell off at that time per pt report. No dysphagia with meds. No tray order at lunch. Prn Zofran provided d/to c/o upset stomach. Pt tolerated strawberry ensure for snack. BG before bkfst did not require SS insulin, BG at lunch was 200 and pt received 4 units of sliding scale novolog insulin. Pt had 6 units of scheduled insulin with each meal. Pt continues to have bilateral black eyes and a healing laceration on her forehead. Report to Candida Deleon RN for evening shift.
[2023-04-22] MEDS: INSULIN ASPART 100 UNIT/ML 18 UNIT SUBCUT (17:36)
[2023-04-22] MEDS: ENOXAPARIN 40 MG/0.4 ML INJ SUBCUT (21:11)
[2023-04-22] MEDS: MONTELUKAST 10 MG TABLET PO (21:11)
[2023-04-22] MEDS: TRAZODONE HCL 50 MG TABLET PO (21:21)
[2023-04-22] MEDS: LIDOCAINE 5% PATCH 1 PATCH TRANSDERMA (22:03)
[2023-04-23 03:50] VITALS: BP 122/55; PULSE 71; RESP 18; TEMP 36.3; O2SAT 89
[2023-04-23] MEDS: LEVOTHYROXINE 50 MCG TABLET PO (06:26)
--- NOTE | 2023-04-23 06:37 | PC.NURSE ---
Shift note [id number]: Pt has been alert & oriented x 4 and able to make needs known. She does have urgency urinary incontinence and wears brief. CPAP has required up to 2L oxygen with CPAP to keep O2 sats >84%. Pt has been afebrile and has had no c/o CP or shortness of breath noted. She is able to transfer with assist of 1 using 4WW and GB though needs encouragement to participate in her cares. Discomfort to lower back managed with scheduled medications along with Aqua K pad, rest and repositioning. No loose stools noted this shift and pt has been continent of bladder overnight. 1+ edema to BLEs managed with LEIGHANN wraps and elevation. Healing laceration to forehead open to air with no s/sx of infection observed. ?
[2023-04-23 07:21] LABS: Chloride* 95 mmol/L (96-114); Potassium* 4.1 mmol/L (3.6-5.1); Sodium* 134 mmol/L (135-149)
[2023-04-23 07:24] LABS: Anion Gap 9 mEq/L (7-15); Blood Urea Nitrogen* 42 mg/dL (7-30); Calcium* 9.1 mg/dL (8.4-10.6); Carbon Dioxide* 30 mmol/L (20-32); Est. Creatinine Clearance* 22.88; Estimated Glomerular Filt Rate 26 ml/min; Glucose* 164 mg/dL (60-115)
[2023-04-23 08:54] VITALS: BP 137/61; PULSE 83; RESP 20; TEMP 36.4; O2SAT 91
[2023-04-23 09:25] VITALS: PULSE 83; RESP 21; RESP 22; O2SAT 91
[2023-04-23] MEDS: INSULIN ASPART 100 UNIT/ML SUBCUT ×2 (09:41→12:07)
[2023-04-23] MEDS: INSULIN ASPART 100 UNIT/ML 6 UNIT SUBCUT ×2 (09:42→12:07)
[2023-04-23] MEDS: BUSPIRONE 10 MG TABLET 30 MG PO (09:57)
[2023-04-23] MEDS: GABAPENTIN 100 MG CAPSULE 200 MG PO (09:57)
[2023-04-23] MEDS: SENNOSIDES/DOCUSATE TABLET 2 TAB PO (09:58)
[2023-04-23] MEDS: ACETAMINOPHEN 500 MG TABLET 1000 MG PO (10:00)
[2023-04-23] MEDS: ASPIRIN 81 MG TABLET EC PO (10:00)
[2023-04-23] MEDS: MAGNESIUM OXIDE 400 MG TABLET PO (10:00)
[2023-04-23] MEDS: FERROUS SULFATE 325 MG TABLET PO (10:01)
[2023-04-23] MEDS: METOPROLOL SUCCINATE (XL) 100 MG TAB PO (10:01)
[2023-04-23] MEDS: DULOXETINE 30 MG CAPSULE DR 120 MG PO (10:01)
[2023-04-23] MEDS: buPROPion XL 150 MG TABLET 300 MG PO (10:02)
[2023-04-23] MEDS: TORSEMIDE 20 MG TABLET 40 MG PO (10:03)
[2023-04-23] MEDS: ATORVASTATIN CALCIUM 40 MG TABLET 80 MG PO (10:03)
[2023-04-23] MEDS: SPIRONOLACTONE 25 MG TABLET PO (10:03)
[2023-04-23] MEDS: cephALEXin 500 MG CAPSULE PO ×2 (10:04→12:31)
[2023-04-23] MEDS: dilTIAZem 120 MG CAP.ER.24H PO (10:04)
[2023-04-23] MEDS: LOSARTAN POTASSIUM 50 MG TABLET PO (10:04)
[2023-04-23] MEDS: CARBIDOPA-LEVODOPA 25-100 TABLET 1 TAB PO ×2 (10:05→12:31)
[2023-04-23] MEDS: EMPAGLIFLOZIN 10 MG TABLET 25 MG PO (10:05)
[2023-04-23] MEDS: SODIUM CHLORIDE 0.9 % (FLUSH) 10 ML SYRINGE 5 ML IVF (10:06)
[2023-04-23] MEDS: NYSTATIN POWDER 1 APPLIC TOPICAL (10:07)
[2023-04-23] MEDS: OMEPRAZOLE 20 MG CAPSULE DR PO (10:10)
[2023-04-23 11:05] VITALS: BP 151/82; PULSE 80; RESP 16; TEMP 37.1; O2SAT 90
--- NOTE | 2023-04-23 12:39 | PC.NURSE ---
Discharge note: 300mcg belbuca x12 and 600mcg belbuca x12 placed into discharge packet for SNF, patients own medications, Citlaly SOTOMAYOR and manual writer counted and signed off on medication prior to discharge. Written on front of discharge packet that these medications (along with amount and dosage) are found in packet. EMS made aware. Carolyn SOTOMAYOR updated, patient informed.
--- NOTE | 2023-04-23 13:05 | PC.NURSE ---
Discharge: Patient pleasant and cooperative, alert and oriented x3. Patient vitally stable, lungs clear, BS WNL, IV removed, catheter intact. Patient reports back and lower extremity pain 12/25, scheduled meds given. Patient 1 assist, walker, gb. Patient on RA while up in chair this shift. Patient tolerating regular diet and urinating. Blood sugars 164 and 296. Abdominal folds cleaned, nystatin applied, and new interdry applied. RN to RN report given to Colin at [facility] in [place]. Patient left the floor by EMS at 1252.
--- NOTE | 2023-04-23 14:34 | PC.SOCIAL ---
Discharge planning: typing office worker received a call from [facility] in [place] and they are able to accept pt to their facility today by 5pm or tomorrow. typing office worker informed pt, Hospitalist and Charge Nurse. Charge nurse will set-up transportation. typing office worker completed the pre-admission screening, #[id number]. typing office worker also provided pt with The Important Message from Medicare form.
--- NOTE | 2023-04-28 16:56 | PM.DS1 ---
DS: Providers Provider Date Seen: 04/23/23 Date of admission: 04/14/23 13:55 Primary care physician: Not a Local Provider Admitting Clinician: Chantel Mckeon MD Consults: 04/13/23 21:02 Consult to Physical Therapy [CONS] Routine Comment: Reason(s) for PT Consult:: Evaluate and Treat Any Restrictions?:: No Restrictions Consult to Real Estate Sales Supervisor [CONS] Routine Comment: Reason for Consult:: Discharge Planning Needs 04/13/23 21:07 Consult to Occupational Therapy [CONS] Routine Comment: Reason(s) for OT Consult:: Evaluate and Treat Any Restrictions?:: No Restrictions Attending Physician on discharge: Dayami Washburn MD [facility] Date of Discharge: 04/23/23 DS: Diagnosis Discharge Diagnosis (1) Hypoxia: Status: Acute Problem details: -chronic, severe ANGELI -CTA reviewed. hypoxia is much worse when she is asleep. -ensured cpap working correctly. better fit made. -if chronic or intermittent oxygen is needed, keep at 1-1.5L and bleed in with CPAP while sleeping. Otherwise encourage deep breathing, ISP, etc. -needs new sleep study, likely needs adjustments in CPAP (2) Sleep apnea: Status: Acute Problem details: -CPAP working now -will likely need a new sleep study, likely needs higher pressures (3) Urinary tract infection: Status: Acute Problem details: -Initially called ESBL. The ECOLI growing is not ESBL - mislabel by a previous hx in 2020. She will transition to oral Keflex and treated as a routine UTI -f/u culture - negative. (4) Contrast-induced nephropathy: Status: Acute Problem details: -downtrending, peak creat 1.9, / 1.3 -i/o cath showed hyaline casts -95 cc of Isovue 370 on 04/14/23 for CTA (5) Parkinsonian syndrome: Status: Acute Problem details: Patient has tremor suggestive of parkinsonian syndrome. Because she is on chronic metoclopramide therapy for diabetic gastroparesis this will need to be stopped to assess whether her parkinsonian syndrome gets better. This likely takes months to get better. Trial of Sinemet of uncertain benefit. (6) Weakness: Status: Acute Problem details: Acute on chronic weakness. Continue PT OT (7) Bacteremia: Status: Acute Problem details: Blood culture growing Gram-positive cocci in clusters. Culture shows Staph epidermidis, likely a contaminant (8) Chronic pain: Status: Acute Problem details: Patient is on chronic buprenorphine. Inadvertently stopped on admission to the hospital due to unavailability of her medication. Now back on her buprenorphine. Scheduled tylenol (9) Forehead laceration: Status: Acute Problem details: Bandage to protect the wound. (10) Essential hypertension: Status: Chronic Problem details: creat now downtrending give bolus no nephrotoxins (11) Pulmonary hypertension: Status: Chronic Problem details: echo completed. Final Impressions: 1. Normal LV size, mildly increased wall thickness, normal global systolic function with an estimated EF of 70 - 75%. 2. Right ventricular cavity size is mildly enlarged, global systolic RV function is normal. 3. The aortic valve is trileaflet and sclerotic, no stenosis and mild regurgitation. 4. Echo contrast was administered to enhance visualization of all left ventricular segments. 5. RVSP could not be estimated. (12) Type 2 diabetes mellitus: Status: Chronic Problem details: Continue usual home medications. Start insulin sliding scale ACHS for while she is in the hospital. (13) Hypothyroid: Status: Chronic Problem details: Continue home med (14) Lymphedema: Status: Chronic Problem details: Continue lymphedema wraps as an outpatient. Elevate legs. Resume compression (15) Chronic CHF (congestive heart failure): Status: Chronic Problem details: -echo today -Chronic diastolic congestive Heart failure, preserved EF. Primarily pulmonary hypertension. Class 2. -No acute exacerbation. Continue torsemide at current dose. 02/06 Final Impressions: 1. Normal left ventricular size, moderately increased wall thickness, normal global systolic function, calculated EF of 69 %. 2. Right ventricular cavity size is normal, global systolic RV function is normal. 3. Mildly enlarged left atrium. 4. The aortic valve is sclerotic, no stenosis and mild regurgitation. 5. The mitral valve is sclerotic, mild to moderate mitral regurgitation. 6. Moderate tricuspid regurgitation. 7. Grade 2 pattern of LV diastolic filling. (16) Polypharmacy: Status: Chronic Problem details: Review meds to see if polypharmacy can be reduced. Trazodone and gabapentin doses have been cut in half to start. (17) Stasis dermatitis of lower extremity due to chronic peripheral vascular hypertension: Status: Chronic Problem details: Elevate legs at least 12 hours a day. Restart compression (18) Noncompliance: Status: Acute Problem details: Noncompliance with CPAP. Noncompliance with recommendations to be more physically active. (19) Diabetic gastroparesis: Status: Acute Problem details: Discontinue Metoclopramide due to concern about parkinsonian syndrome. Monitor for p.o. intake and recurrent vomiting off metoclopramide. Doing well so far (20) Immobility: Status: Acute Problem details: Patient is difficulty with standing and walking. At baseline she walks with a walker. Now needing standby assist. Continue to work with therapy to assess and treat. (21) Morbid obesity with BMI of 50.0-59.9, adult: Status: Acute Problem details: 11 kg weight gain over past 14 months DS: Summary Hospital Course Hospital Course: FINAL DIAGNOSIS/FOLLOW UP ISSUES: 1. Chronic hypoxia secondary to severe ANGELI. We did not identify another pulmonary insult causing this hypoxia. We feel her ANGELI has worsened with her weight and likely she needs to increase in her CPAP settings. She qualifies for 1.5 L bleed in at night of O2. We recommended outpatient sleep study to update her settings. 2. Parkinsonian type movements. We initiated her on carbidopa levodopa but at a small dose this can be either tapered up or off if ineffective. 3. We worked with her polypharmacy to decrease sedating medications. I decreased her gabapentin and trazodone. I started her on a lidocaine patch for chronic pain. 4. She was treated with antibiotics for a UTI. She discharged on 5 days of cephalexin. 5. She had a contrast induced nephropathy/NUBIA. This was resolving at discharge. I did decrease her losartan to 50 mg daily. 6. Obesity, weakness, deconditioning, falls. This was the root cause of all of her problems listed above. She continues to gain weight and become weak thus needing more significant support. BRIEF HOSPITAL COURSE: Patient was admitted for 10 days. Synopsis of acute inpatient issues are outlined above. Chronic medical conditions with notable findings outlined above. DISCHARGE MEDICATIONS: See Reconciled list - SIGNIFICANT CHANGES: Trial of carbidopa levodopa Short course of cephalexin to complete antibiotic recommendations for her UTI Lidocaine patches to help her pain P.r.n. loperamide Decreased doses of gabapentin and trazodone to reduce her sedation Decrease losartan in the episode of contrast induced nephropathy Specific instructions to the patient and follow-up are outlined below. REVIEW OF SYSTEMS No new chest pain or dyspnea Pain controlled No voiding difficulties Tolerating diet challenge PHYSICAL EXAM: CONSTITUTIONAL: VITAL SIGNS: see record. HEENT: Normocephalic, atraumatic. PERRL, EOMI, conjunctivae pink, no scleral icterus. Ears and nose externally normal. Pharynx normal. NECK: No JVD. No carotid bruit, no thyromegaly, no adenopathy. CHEST: Clear to auscultation bilaterally. HEART: S1 and S2 normal. Edema ABDOMEN: Soft, nontender. Normal bowel sounds. MUSCULOSKELETAL: No gross joint deformity or swelling. NEURO: Cranial nerves intact. Grossly intact. No asymmetric findings. SKIN: No rashes, petechiae, concerning changes PSYCHIATRIC: Mood euthymic. DISPOSITION: [facility] Time spent on discharge 37 minutes. Status at Discharge Functional status at discharge: uses cane/walker Overall status at discharge: patient is not back to baseline Time Spent with Patient Time attestation: Total time spent providing and/or coordinating discharge services: Time spent: Greater than 30 minutes DS: Data Data Completed and Pending Completed studies during hospitalization: Procedures Introduction of Other Gas into Respiratory Tract, Via Natural or Artificial Opening (01/26/22) Discharge Plan Discharge Disposition: [facility] Date of Admission: 04/14/23 13:55 Attending Provider on Discharge: Dayami Washburn Primary Care Provider: Provider,Not a Local Discharge Medications: New losartan 50 mg Tablet 50 mg PO DAILY Qty: 30 0RF cephalexin 500 mg Capsule 1,000 mg PO BID Qty: 20 0RF lidocaine 5 % Adhesive Patch,Medicated 1 patch transdermal Q24H Qty: 30 0RF Rx Instructions: use OTC - typically running thru insurance doesn't work gabapentin 100 mg Capsule 200 mg PO DAILY Qty: 60 0RF loperamide 2 mg Capsule 2 mg PO Q2H PRNQty: 60 0RF trazodone 50 mg Tablet 50 mg PO HS PRNQty: 30 0RF carbidopa-levodopa 25-100 mg Tablet 1 tab PO QID Qty: 120 0RF insulin degludec 200 unit/mL (3 mL) insulin pen 20 unit subcut QHS Qty: 9 0RF insulin aspart U-100 100 unit/mL (3 mL) insulin pen See Rx Instructions .ROUTE .COMPLEX Qty: 15 0RF Rx Instructions: Sliding scale insulin protocol Glucose 150 or less -no insulin Glucose 151-200 - 2 units Glucose 201-250 - 4 units Glucose 251-300 - 6 units Glucose 301-350 - 8 units Glucose 351-400 -10 units Glucose 401 and higher -12 units and call Continued bupropion HCl 300 mg tablet extended release 24 hr 300 mg PO DAILY Jardiance 25 mg tablet 25 mg PO DAILY spironolactone 25 mg tablet 25 mg PO DAILY insulin degludec 200 unit/mL (3 mL) insulin pen 20 unit subcut HS Qty: 9 0RF buprenorphine HCl [Belbuca] 300 mcg film 300 mcg buccal QAM Qty: 30 0RF buprenorphine HCl [Belbuca] 600 mcg film 600 mcg buccal HS Qty: 30 0RF menthol-zinc oxide [Calmoseptine] 0.44-20.6 % ointment 1 applic topical QID PRN (Reason: skin irritation) Qty: 113 0RF albuterol sulfate [Ventolin HFA] 90 mcg/actuation HFA aerosol inhaler 2 puff INHALATION Q6H PRN aspirin [Adult Low Dose Aspirin] 81 mg tablet,delayed release (DR/EC) 81 mg PO DAILY atorvastatin 80 mg tablet 80 mg PO DAILY buspirone 30 mg tablet 30 mg PO BID diltiazem HCl 120 mg capsule,extended release 24hr 120 mg PO DAILY duloxetine 60 mg capsule,delayed release(DR/EC) 120 mg PO DAILY ferrous gluconate 324 mg (37.5 mg iron) tablet 324 mg PO DAILY levothyroxine 50 mcg tablet 50 mcg PO DAILY fluticasone propionate 50 mcg/actuation spray,suspension 1 spray INTRANASAL DAILY PRN magnesium oxide 400 mg magnesium capsule 400 mg PO DAILY torsemide 20 mg tablet 40 mg PO DAILY tizanidine 4 mg tablet 4 mg PO TID omeprazole 20 mg capsule,delayed release(DR/EC) 20 mg PO BID montelukast 10 mg tablet 10 mg PO HS acetaminophen 500 mg tablet 1,000 mg PO TID diclofenac sodium [Arthritis Pain (diclofenac)] 1 % gel 2 g topical QID nystatin [Nystop] 100,000 unit/gram powder 1 applic TOPICAL TID polyethylene glycol 3350 [Miralax] 17 gram/dose powder 17 g PO DAILY alum-mag hydroxide-simeth [Advanced Antacid-Antigas] 200-200-20 mg/5 mL suspension 5 - 10 ml PO TID PRN loperamide 2 mg capsule 2 - 4 mg PO Q6H PRN calcium carbonate [Calcium 500] 500 mg calcium (1,250 mg) tablet,chewable 1,000 - 2,000 mg PO TID PRN magnesium hydroxide [Milk of Magnesia] 400 mg/5 mL suspension 15 - 30 ml PO DAILY PRN ondansetron 4 mg tablet,disintegrating 4 mg PO DAILY PRN metoprolol succinate 100 mg Tablet Extended Release 24 Hr 100 mg PO DAILY Qty: 30 0RF Changed metoclopramide HCl 10 mg tablet 10 mg PO ACHS Qty: 120 0RF Fiasp FlexTouch U-100 Insulin 100 unit/mL (3 mL) insulin pen 18 unit SUBCUT BID Qty: 15 0RF Rx Instructions: PLUS SLIDING SCALE Discontinued losartan 100 mg tablet 100 mg PO DAILY gabapentin 400 mg capsule 400 mg PO DAILY sumatriptan succinate 50 mg tablet 50 mg PO BID PRN Hold Instructions: . trazodone 100 mg tablet 100 mg PO HS PRN dextromethorphan HBr 15 mg/5 mL liquid 15 - 30 mg PO Q6H PRN diphenhydramine HCl [Aler-Cap] 25 mg capsule 25 - 50 mg PO Q8H PRN Patient Comments: PRN ALLERGIES ibuprofen [Addaprin] 200 mg tablet 200 - 400 mg PO Q6H PRN Discharge Orders: Discharge Order (Routine); Ordered 04/23/23 Ordered By: Dayami Washburn Additional Instructions: 1. we decreased several medications that are sedating in order to increase her energy and decrease her fall risk Activity Level: Activity as Tolerated Discharge Diet: Regular Follow Up Appointments: Provider,Not a Local [Primary Care Provider] - Forms: [facility] Info Instructions Admit to: SNF Discharge Potential: Fair Length of Stay: 30-90 days Can use facility standing orders?: Yes Code Status: DNR/DNI Rehab Potential: Fair Therapy: Physical Therapy and Occupational Therapy Therapy Orders: Evaluate and Treat Oxygen: Yes Oxygen Delivery Method: Nasal Cannula Urinary Catheter: No Orders are good >30 days: Yes
== END 2023-04-23 12:52 | DRG 189 ==
LOC: ED 18:46 → MEDSURG 19:33
PROVIDERS: Family Medicine; Admitting Provider Family Medicine; Emergency Provider Emergency Medicine; Visit Provider Family Medicine
DX: J96.11 Chronic respiratory failure with hypoxia (principal); I27.0 Primary pulmonary hypertension; I13.0 Hypertensive heart and chronic kidney disease with heart failure and stage 1 through stage 4 chronic kidney disease, or unspecified chronic kidney disease; I50.42 Chronic combined systolic (congestive) and diastolic (congestive) heart failure; Z68.43 Body mass index [BMI] 50.0-59.9, adult; N17.9 Acute kidney failure, unspecified; N39.0 Urinary tract infection, site not specified; R78.81 Bacteremia; Z99.81 Dependence on supplemental oxygen; S01.81XA Laceration without foreign body of other part of head, initial encounter; Y92.002 Bathroom of unspecified non-institutional (private) residence as the place of occurrence of the external cause; W01.0XXA Fall on same level from slipping, tripping and stumbling without subsequent striking against object, initial encounter; G47.33 Obstructive sleep apnea (adult) (pediatric); F41.9 Anxiety disorder, unspecified; F32.9 Major depressive disorder, single episode, unspecified; I89.0 Lymphedema, not elsewhere classified; I48.0 Paroxysmal atrial fibrillation; E66.01 Morbid (severe) obesity due to excess calories; K21.00 Gastro-esophageal reflux disease with esophagitis, without bleeding; I87.399 Chronic venous hypertension (idiopathic) with other complications of unspecified lower extremity; S50.01XA Contusion of right elbow, initial encounter; S80.01XA Contusion of right knee, initial encounter; E03.9 Hypothyroidism, unspecified; D50.9 Iron deficiency anemia, unspecified; I08.3 Combined rheumatic disorders of mitral, aortic and tricuspid valves; I87.2 Venous insufficiency (chronic) (peripheral); N18.9 Chronic kidney disease, unspecified; E11.22 Type 2 diabetes mellitus with diabetic chronic kidney disease; Z79.85 Long-term (current) use of injectable non-insulin antidiabetic drugs; G20.C Parkinsonism, unspecified; E11.43 Type 2 diabetes mellitus with diabetic autonomic (poly)neuropathy; K31.84 Gastroparesis; G89.29 Other chronic pain; Z91.198 Patient's noncompliance with other medical treatment and regimen for other reason; N14.11 Contrast-induced nephropathy; T50.8X5A Adverse effect of diagnostic agents, initial encounter; Y92.238 Other place in hospital as the place of occurrence of the external cause; B96.20 Unspecified Escherichia coli [E. coli] as the cause of diseases classified elsewhere; R19.7 Diarrhea, unspecified; Z99.89 Dependence on other enabling machines and devices; B96.89 Other specified bacterial agents as the cause of diseases classified elsewhere
CPT/HCPCS: 12013; 36415; 70450; 71045; 71250; 71275; 73070; 73562; 74176; 80048; 80069; 80076; 81001; 81003; 81015; 82270; 82330; 82550; 82565; 82803; 82962; 83605; 83735; 83880; 84145; 84443; 84484; 85025; 85027; 85379; 86140; 87040; 87086; 87186; 87493; 87631; 93005; 93306; 94761; 97110; 97116; 97161; 97165; 97530; 97535; 99285; G0378; A9270; J0878; J1335; J1650; J7030; J7120; Q9957; Q9967

== ENCOUNTER 2023-04-23 12:31 | Outpatient (CLI) | payer MEDICARE, BC, SELFPAY ==
--- OUTSIDE RECORDS SUMMARY | 2023-04-24 09:24 | XMS_ITS | CCD ---
Author Name Luisa Dwyer PA-C Address [address] [place] [address] Phone Organization [facility] Phone Care Team Providers Care Marketing Associate Name Role Phone Kenneth SCRUM PRODUCT OWNER, Duglas Primary Care Provider Unavaila ble Unavailable Chronic Care Management Unavaila ble Summary Purpose DataExchange Insurance Providers Payer name Policy type / Coverage type Covered alliance party ID Effective Begin Date Effective End Date [place] Blue Cross/Blue Shield [id number] Unknown Family History Family History data not found Problems Condition Codes Effective Dates Condition St atus Diabetes Unknown 11/26/2022 Active Diabetes mellitus Type 2 Unknown 11/26/2022 Act travis 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 ICD-9: 344.1 11/26/2022 Active Chronic pain ICD-10: G89.29 ICD-9: 338.29 11/26/2022 Active Drug-induced constipation ICD-10: K59.03 ICD-9: 564.09 11/26/2022 Active Hypercoagulable state ICD-10: D68.59 ICD-9: 289.81 11/26/2022 Active Iron deficiency anemia ICD-10: D50.9 ICD-9: 280.9 11/26/2022 Active terminal supervisor (current) use of insulin ICD-10: Z79.4 11/26 Active Morbidly obese ICD-10: E66.01 ICD-9: 278.01 11/26/2022 Active ANGELI (obstructive sleep apnea) ICD-10: G4 7.33 ICD-9: 327.23 11/26/2022 Active Paroxysmal A-fib ICD-10: I48.0 ICD-9: 427.31 11/26/2022 Active Recurrent major depressive d isorder, remission status unspecified ICD-10: F33.9 ICD-9: 296.30 11/26/2022 Active Type 2 diabetes mellitus wit h hyperglycemia, with long-term current use of insulin ICD-10: E11.65 ICD-9: 250.00 11/26/2022 Active Medications Medication Codes Instructions Start Date Stop Date Status Fill Instructions Qulipta 60 mg tablet RxNorm: 4954003 Take 1 Tablet(s) Oral QHS every night at bedtime 11/27/19 No Stop Date Active Ventolin HFA 90 mcg/actuation aerosol inhaler RxNorm: 025122 Inhale 2 Puff(s) Inhalation QID as needed 11/27/19 No Stop Date Active montelukast 10 mg tablet RxNorm: 640998 Take 1 Tablet(s) Oral QHS every night at bedtime 11/27/19 No Stop Date Active Narcan 4 mg/actuation nasal spray RxNorm: 7219034 [place] Nasal Use as directed as needed for accidental overdose, then call 911 11/27/19 No Stop Date Active gabapentin 400 mg capsule RxNorm: 321832 Take 1 Capsule(s) Oral QAM every morning 11/27/19 023 Inactive Milk of Magnesia 400 mg/5 mL oral suspension RxNorm: 118191 Take 15-30 Milliliter(s) Oral QD as needed 11/27/19 No Stop Date Active acetaminophen 500 mg capsule RxNorm: 808215 Take 2 Capsule(s) Oral TID 11/27/19 No Stop Date Active spironolactone 25 mg tablet RxNorm: 740869 Take 1 Tablet(s) Oral QAM every morning 11/27/19 No Stop Date Active Gavilax 17 gram/dose oral powder RxNorm: 115283 Take 17 Gram(s) Oral QD 11/27/19 No Stop Date Active atorvastatin 80 mg tablet RxNorm: 506428 Take 1 Tablet(s) Oral QAM every morning 11/27/19 23 No Stop Date Active losartan 100 mg tablet RxNorm: 593267 Take 1 Tablet(s) Oral QD 11/27/19 23 No Stop Date Active ferrous gluconate 324 mg (38 mg iron) tablet RxNorm: 993073 Take 1 Tablet(s) Oral QD with a meal 11/27/19 23 023 Inactive duloxetine 60 mg capsule,delayed release RxNorm: 748979 Take 2 Capsule(s) Oral QAM every morning 11/27/19 23 No Stop Date Active trazodone 100 mg tablet RxNorm: 871720 Take 1 Tablet(s) Oral QHS every night at bedtime as needed 11/27/19 23 No Stop Date Active dextromethorphan HBr 15 mg/5 mL oral syrup RxNorm: 4360900 Take 5-10 Milliliter(s) Oral Q4-6H every 4-6 hours as needed 11/27/19 23 No Stop Date Active Calcium Antacid 200 mg calcium (500 mg) chewable tablet RxNorm: 729454 Take 2-4 Tablet(s) Oral as needed between meals and at bedtime 11/27/19 No Stop Date Active omeprazole 20 mg capsule,delayed release RxNorm: 830906 Take 1 Capsule(s) Oral BID 11/27/19 23 023 Inactive levothyroxine 50 mcg tablet RxNorm: 412938 Take 1 Tablet(s) Oral QAM every morning 11/27/19 No Stop Date Active metoprolol succinate ER 100 mg tablet,extended release 24 hr RxNorm: 342354 Take 1 Tablet(s) Oral QD 11/27/19 23 023 Inactive Tresiba FlexTouch U-100 insulin 100 unit/mL (3 mL) subcutaneous pen RxNorm: 1375026 Inject 118 Unit(s) Subcutaneous QHS every night at bedtime (+2 units for priming) 11/27/19 23 023 Inactive fluticasone propionate 50 mcg/actuation nasal spray,suspension RxNorm: 3427383 Instill 1 [place] Nasal QD as needed 11/27/19 23 No Stop Date Active CalProtect 0.44 %-20.6 % topical ointment RxNorm: 6970888 Apply 1 Application Topical QID as needed 11/27/19 23 023 Inactive Jardiance 25 mg tablet RxNorm: 2729931 Take 1 Tablet(s) Oral QD 11/27/19 23 023 Inactive diphenhydramine 25 mg capsule RxNorm: 4431328 Take 1-2 Capsule(s) Oral Q8H every 8 hours as needed 11/27/19 23 No Stop Date Active metoclopramide 10 mg tablet RxNorm: 068629 Take 1 Tablet(s) Oral QID (before meals and at bedtime) 11/27/19 Inactive magnesium oxide 400 mg (241.3 mg magnesium) tablet RxNorm: 542654 Take 1 Tablet(s) Oral QD 11/27/19 023 Inactive ondansetron 4 mg disintegrating tablet RxNorm: 438408 Take 1 Tablet(s) Oral QD as needed 11/27/19 No Stop Date Active aspirin 81 mg tablet,delayed release RxNorm: 377382 Take 1 Tablet(s) Oral QD with a meal 11/27/19 No Stop Date Active Anti-Diarrheal (loperamide) 2 mg tablet RxNorm: 390224 Take 2 Tablet(s) Oral as needed after 1st loose stool, then take 1 tablet as needed after each subsequent loose stool, not to exceed 8 tablets/24 hours 11/27/19 No Stop Date Active Fiasp FlexTouch U-100 Insulin 100 unit/mL (3 mL) subcutaneous pen RxNorm: 8662453 Inject 18 Unit(s) Subcutaneous BID before lunch and dinner, in addition to 0-12 units per sliding scale 11/27/19 023 Inactive Diabetic Tussin DM 10 mg-100 mg/5 mL oral liquid RxNorm: 023364 Take 5-10 Milliliter(s) Oral Q4-6H every 4-6 hours as needed 11/27/19 No Stop Date Active torsemide 20 mg tablet RxNorm: 637555 Take 2 Tablet(s) Oral QD 11/27/19 No Stop Date Active tizanidine 4 mg tablet RxNorm: 663260 Take 1 Tablet(s) Oral TID 11/27/19 023 Inactive Antacid Liquid 200 mg-200 mg-20 mg/5 mL oral suspension RxNorm: 900598 Take 5-10 Milliliter(s) Oral as needed one time between meals and at bedtime 11/27/19 No Stop Date Active diltiazem ER (XR/XT) 120 mg capsule,extended release 24 hr, controlled RxNorm: 590305 Take 1 Capsule(s) Oral QAM every morning 11/27/19 No Stop Date Active Ubrelvy 100 mg tablet RxNorm: 5936260 Take 1 Tablet(s) Oral QD as needed 11/27/19 No Stop Date Active bupropion HCl XL 300 mg 24 hr tablet, extended release RxNorm: 516207 Take 1 Tablet(s) Oral QAM every morning 11/27/19 No Stop Date Active sumatriptan 50 mg tablet RxNorm: 812992 Take 1 Tablet(s) Oral BID as needed 11/27/19 No Stop Date Active diclofenac 1 % topical gel RxNorm: 711271 Apply 2 Gram(s) Topical QID to affected area(s) 11/27/19 No Stop Date Active buspirone 30 mg tablet RxNorm: 127457 Take 1 Tablet(s) Oral BID 11/27/19 No Stop Date Active Medication Administered No Medication Administered data Procedures Procedure Codes Date SYS BP > OR = 140 CPT-4: G8753 11/26/2022 ACUÑA BP LESS 90 CPT-4: G8754 11/26/2022 Vital Signs Date Vital 11/26/2022 Blood Pressure 1: 149/76 Code: 8480-6 BMI: NaN Code: 38819-8 Height: 5'6 Code: 8302-2 Weight: 364 lbs Code: 3141-9 Reason For Visit No Reason For Visit data Encounters Encounter Performer Location Location Address Codes Date () Home or Residence Visit SCRUM PRODUCT OWNER - Moderate Level, 60 mins Diagnosis: Type 2 diabetes mellitus with hyperglycemia, with long-term current use of insulin[ICD10: E11.65] Diagnosis: nursing home (current) use of insulin[ICD10: Z79.4] Diagnosis: Recurrent major depressive disorder, remission status unspecified[ICD10: F33.9] Diagnosis: Morbidly obese[ICD10: E66.01] Diagnosis: Bilateral paraparesis[ICD10: G82.20] Diagnosis: Iron deficiency anemia[ICD10: D50.9] Diagnosis: Drug-induced constipation[ICD10: K59.03] Diagnosis: Chronic pain[ICD10: G89.29] Diagnosis: Paroxysmal A-fib[ICD10: I48.0] Diagnosis: Hypercoagulable state[ICD10: D68.59] Diagnosis: ANGELI (obstructive sleep apnea)[ICD10: G47.33] Luisa Dwyer [address] [address] CPT-4: 00600 11/26/2022 Plan of Care Planned Activity Notes Codes Status Date Patient Education: Patient Medication Summary Completed 11/26/2022 Patient Education: Influenza Vaccine Completed 11/26/2022 Instructions Comment Date Moved to [facility] joanne MULLER 02/05/21. Initial BPS visit 11/26/22.??Patient is morbidly obese and noncompliant to cares. Chronic pain and is on belbuca film- managed by pain clinic. Multiple chronic conditions including DM2, MDD, ANGELI.??She is her own guardian.?? 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 BGs look good, continue aspart 12u plus SS with bfast and 18u plus SS with lunch and dinner, jardiance 25mg qday. Monitor for hypoglycemia.?? Hypercoagulable state 2/2 afib . 11/26/2022
--- OUTSIDE RECORDS SUMMARY | 2023-04-24 09:24 | XMS_ITS | CCD ---
Author Name Luisa Dwyer PA-C Address [address] [place] [address] Phone Organization [facility] Phone Care Team Providers Care Core Maker Name Role Phone Kenneth COAGULANT DIPPER, Jailene Primary Care Provider Unavaila ble Unavailable Chronic Care Management Unavaila ble Summary Purpose DataExchange Insurance Providers Payer name Policy type / Coverage type Covered democrat ID Effective Begin Date Effective End Date [place] Blue Cross/Blue Shield [id number] Unknown Family History Family History data not found Problems Condition Codes Effective Dates Condition St atus 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 ICD-9: 344.1 12/24/2022 Active Chronic pain ICD-10: G89.29 ICD-9: 338.29 12/24/2022 Active Type 2 diabetes mellitus wit h hyperglycemia, with long-term current use of insulin ICD-10: E11.65 ICD-9: 250.00 12/24/2022 Active Diabetes Unknown 11/26/2022 Active Diabetes mellitus Type 2 Unknown 11/26/2022 Act travis Drug-induced constipation ICD-10: K59.03 ICD-9: 564.09 11/26/2022 Active Hypercoagulable state ICD-10: D68.59 ICD-9: 289.81 11/26/2022 Active Iron deficiency anemia ICD-10: D50.9 ICD-9: 280.9 11/26/2022 Active termite control service representative (current) use of insulin ICD-10: Z79.4 11/26 Active Morbidly obese ICD-10: E66.01 ICD-9: 278.01 11/26/2022 Active ANGELI (obstructive sleep apnea) ICD-10: G4 7.33 ICD-9: 327.23 11/26/2022 Active Paroxysmal A-fib ICD-10: I48.0 ICD-9: 427.31 11/26/2022 Active Recurrent major depressive d isorder, remission status unspecified ICD-10: F33.9 ICD-9: 296.30 11/26/2022 Active Medications Medication Codes Instructions Start Date Stop Date Status Fill Instructions Qulipta 60 mg tablet RxNorm: 2141063 Take 1 Tablet(s) Oral QHS every night at bedtime 11/27/19 No Stop Date Active Ventolin HFA 90 mcg/actuation aerosol inhaler RxNorm: 280984 Inhale 2 Puff(s) Inhalation QID as needed 11/27/19 No Stop Date Active montelukast 10 mg tablet RxNorm: 370558 Take 1 Tablet(s) Oral QHS every night at bedtime 11/27/19 No Stop Date Active Narcan 4 mg/actuation nasal spray RxNorm: 9353488 [place] Nasal Use as directed as needed for accidental overdose, then call 911 11/27/19 No Stop Date Active gabapentin 400 mg capsule RxNorm: 619459 Take 1 Capsule(s) Oral QAM every morning 11/27/19 023 Inactive Milk of Magnesia 400 mg/5 mL oral suspension RxNorm: 834156 Take 15-30 Milliliter(s) Oral QD as needed 11/27/19 No Stop Date Active acetaminophen 500 mg capsule RxNorm: 931132 Take 2 Capsule(s) Oral TID 11/27/19 No Stop Date Active spironolactone 25 mg tablet RxNorm: 936048 Take 1 Tablet(s) Oral QAM every morning 11/27/19 No Stop Date Active Gavilax 17 gram/dose oral powder RxNorm: 065393 Take 17 Gram(s) Oral QD 11/27/19 23 No Stop Date Active atorvastatin 80 mg tablet RxNorm: 476528 Take 1 Tablet(s) Oral QAM every morning 11/27/19 23 No Stop Date Active losartan 100 mg tablet RxNorm: 116548 Take 1 Tablet(s) Oral QD 11/27/19 23 No Stop Date Active ferrous gluconate 324 mg (38 mg iron) tablet RxNorm: 332266 Take 1 Tablet(s) Oral QD with a meal 11/27/19 23 023 Inactive duloxetine 60 mg capsule,delayed release RxNorm: 379908 Take 2 Capsule(s) Oral QAM every morning 11/27/19 23 No Stop Date Active trazodone 100 mg tablet RxNorm: 796208 Take 1 Tablet(s) Oral QHS every night at bedtime as needed 11/27/19 23 No Stop Date Active dextromethorphan HBr 15 mg/5 mL oral syrup RxNorm: 3073347 Take 5-10 Milliliter(s) Oral Q4-6H every 4-6 hours as needed 11/27/19 23 No Stop Date Active Calcium Antacid 200 mg calcium (500 mg) chewable tablet RxNorm: 366453 Take 2-4 Tablet(s) Oral as needed between meals and at bedtime 11/27/19 No Stop Date Active omeprazole 20 mg capsule,delayed release RxNorm: 012666 Take 1 Capsule(s) Oral BID 11/27/19 23 023 Inactive levothyroxine 50 mcg tablet RxNorm: 767788 Take 1 Tablet(s) Oral QAM every morning 11/27/19 No Stop Date Active metoprolol succinate ER 100 mg tablet,extended release 24 hr RxNorm: 085643 Take 1 Tablet(s) Oral QD 11/27/19 23 023 Inactive Tresiba FlexTouch U-100 insulin 100 unit/mL (3 mL) subcutaneous pen RxNorm: 0544251 Inject 118 Unit(s) Subcutaneous QHS every night at bedtime (+2 units for priming) 11/27/19 23 023 Inactive fluticasone propionate 50 mcg/actuation nasal spray,suspension RxNorm: 7877930 Instill 1 [place] Nasal QD as needed 11/27/19 23 No Stop Date Active CalProtect 0.44 %-20.6 % topical ointment RxNorm: 4400098 Apply 1 Application Topical QID as needed 11/27/19 23 023 Inactive Jardiance 25 mg tablet RxNorm: 1498971 Take 1 Tablet(s) Oral QD 11/27/19 23 023 Inactive diphenhydramine 25 mg capsule RxNorm: 7810738 Take 1-2 Capsule(s) Oral Q8H every 8 hours as needed 11/27/19 23 No Stop Date Active metoclopramide 10 mg tablet RxNorm: 888113 Take 1 Tablet(s) Oral QID (before meals and at bedtime) 11/27/19 Inactive magnesium oxide 400 mg (241.3 mg magnesium) tablet RxNorm: 284141 Take 1 Tablet(s) Oral QD 11/27/19 023 Inactive ondansetron 4 mg disintegrating tablet RxNorm: 411626 Take 1 Tablet(s) Oral QD as needed 11/27/19 No Stop Date Active aspirin 81 mg tablet,delayed release RxNorm: 973917 Take 1 Tablet(s) Oral QD with a meal 11/27/19 No Stop Date Active Anti-Diarrheal (loperamide) 2 mg tablet RxNorm: 040168 Take 2 Tablet(s) Oral as needed after 1st loose stool, then take 1 tablet as needed after each subsequent loose stool, not to exceed 8 tablets/24 hours 11/27/19 No Stop Date Active Fiasp FlexTouch U-100 Insulin 100 unit/mL (3 mL) subcutaneous pen RxNorm: 7312497 Inject 18 Unit(s) Subcutaneous BID before lunch and dinner, in addition to 0-12 units per sliding scale 11/27/19 023 Inactive Diabetic Tussin DM 10 mg-100 mg/5 mL oral liquid RxNorm: 314723 Take 5-10 Milliliter(s) Oral Q4-6H every 4-6 hours as needed 11/27/19 No Stop Date Active torsemide 20 mg tablet RxNorm: 130411 Take 2 Tablet(s) Oral QD 11/27/19 No Stop Date Active tizanidine 4 mg tablet RxNorm: 396743 Take 1 Tablet(s) Oral TID 11/27/19 023 Inactive Antacid Liquid 200 mg-200 mg-20 mg/5 mL oral suspension RxNorm: 822801 Take 5-10 Milliliter(s) Oral as needed one time between meals and at bedtime 11/27/19 No Stop Date Active diltiazem ER (XR/XT) 120 mg capsule,extended release 24 hr, controlled RxNorm: 729923 Take 1 Capsule(s) Oral QAM every morning 11/27/19 No Stop Date Active Ubrelvy 100 mg tablet RxNorm: 4040631 Take 1 Tablet(s) Oral QD as needed 11/27/19 No Stop Date Active bupropion HCl XL 300 mg 24 hr tablet, extended release RxNorm: 079646 Take 1 Tablet(s) Oral QAM every morning 11/27/19 No Stop Date Active sumatriptan 50 mg tablet RxNorm: 272288 Take 1 Tablet(s) Oral BID as needed 11/27/19 No Stop Date Active diclofenac 1 % topical gel RxNorm: 781251 Apply 2 Gram(s) Topical QID to affected area(s) 11/27/19 No Stop Date Active buspirone 30 mg tablet RxNorm: 618680 Take 1 Tablet(s) Oral BID 11/27/19 No Stop Date Active Medication Administered No Medication Administered data Reason For Visit No Reason For Visit data Encounters Encounter Performer Location Location Address Codes Marcio e ([id number]) Home or Residence Visit Est Pt - Moderate Level, 40 mins Diagnosis: Bilateral paraparesis[ICD10 : G82.20] Diagnosis: Type 2 diabetes mellitus with hyperglycemia, with long-term current use of insulin[ICD10: E11.65] Diagnosis: Chronic pain[ICD10: G89.29] Luisa Dwyer [address] [address] CPT-4: 72474 12/24/2022 Plan of Care Planned Activity Notes Codes Status Date Patient Education: Patient Medication Summary Completed 12/24/2022 Patient Education: Influenza Vaccine Completed 12/24/2022 Instructions Comment Date Moved to [facility] 02/05/21. Initial BPS visit 11/26/22.??Patient is morbidly obese and noncompliant to cares. Chronic pain and is on belbuca film- managed by pain clinic. Multiple chronic conditions including DM2, MDD, ANGELI.??She is her own guardian.?? 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 Requires a wheelchair?? Chronic Pain Consider alternative meds (or different forms of belbuca as currently paying out of pocket for film - try tabs?). Deferring management to jailene brambila NP due to him being a specialist in this area.?? Diabetes BGs look good, continue aspart 12u plus SS with bfast and 18u plus SS with lunch and dinner, jardiance 25mg qday. Monitor for hypoglycemia. Due for a1c, order nex visit.?? . 12/24/2022
--- OUTSIDE RECORDS SUMMARY | 2023-04-24 09:24 | XMS_ITS | CCD ---
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 ICD-9: 344.1 12/24/2022 [...] D50.9 ICD-9: 280.9 11/26/2022 Active 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 11/26 Active Morbidly obese ICD-10: E66.01 ICD-9: 278.01 11/26/2022 Active ANGELI (obstructive sleep apnea) ICD-10: G4 7.33 ICD-9: 327.23 11/26/2022 Active Paroxysmal A-fib ICD-10: I48.0 ICD-9: 427.31 11/26/2022 Active Recurrent major depressive d isorder, remission status unspecified ICD-10: F33.9 ICD-9: 296.30 11/26/2022 Active Medications Medication Codes Instructions Start Date Stop Date Status Fill Instructions CalProtect 0.44 %-20.6 % topical ointment RxNorm: 0944066 Apply 1 Application Topical QID as needed 01/14/20 23 023 Inactive Qulipta 60 mg tablet RxNorm: 2370391 Take 1 Tablet(s) Oral QHS every night at bedtime 11/27/19 23 No Stop Date Active Ventolin HFA 90 mcg/actuation aerosol inhaler RxNorm: 451255 Inhale 2 Puff(s) Inhalation QID as needed 11/27/19 23 No Stop Date Active montelukast 10 mg tablet RxNorm: 655916 Take 1 Tablet(s) Oral QHS every night at bedtime 11/27/19 No Stop Date Active Narcan 4 mg/actuation nasal spray RxNorm: 8764417 [place] Nasal Use as directed as needed for accidental overdose, then call 911 11/27/19 No Stop Date Active gabapentin 400 mg capsule RxNorm: 682600 Take 1 Capsule(s) Oral QAM every morning 11/27/19 23 023 Inactive Milk of Magnesia 400 mg/5 mL oral suspension RxNorm: 525648 Take 15-30 Milliliter(s) Oral QD as needed 11/27/19 No Stop Date Active acetaminophen 500 mg capsule RxNorm: 870544 Take 2 Capsule(s) Oral TID 11/27/19 No Stop Date Active spironolactone 25 mg tablet RxNorm: 159343 Take 1 Tablet(s) Oral QAM every morning 11/27/19 23 No Stop Date Active Gavilax 17 gram/dose oral powder RxNorm: 748173 Take 17 Gram(s) Oral QD 11/27/19 23 No Stop Date Active atorvastatin 80 mg tablet RxNorm: 023829 Take 1 Tablet(s) Oral QAM every morning 11/27/19 23 No Stop Date Active losartan 100 mg tablet RxNorm: 218084 Take 1 Tablet(s) Oral QD 11/27/19 23 No Stop Date Active ferrous gluconate 324 mg (38 mg iron) tablet RxNorm: 725118 Take 1 Tablet(s) Oral QD with a meal 11/27/19 23 023 Inactive duloxetine 60 mg capsule,delayed release RxNorm: 303364 Take 2 Capsule(s) Oral QAM every morning 11/27/19 23 No Stop Date Active trazodone 100 mg tablet RxNorm: 273784 Take 1 Tablet(s) Oral QHS every night at bedtime as needed 11/27/19 23 No Stop Date Active dextromethorphan HBr 15 mg/5 mL oral syrup RxNorm: 2288177 Take 5-10 Milliliter(s) Oral Q4-6H every 4-6 hours as needed 11/27/19 23 No Stop Date Active Calcium Antacid 200 mg calcium (500 mg) chewable tablet RxNorm: 754121 Take 2-4 Tablet(s) Oral as needed between meals and at bedtime 11/27/19 No Stop Date Active omeprazole 20 mg capsule,delayed release RxNorm: 100524 Take 1 Capsule(s) Oral BID 11/27/19 23 023 Inactive levothyroxine 50 mcg tablet RxNorm: 374498 Take 1 Tablet(s) Oral QAM every morning 11/27/19 23 No Stop Date Active metoprolol succinate ER 100 mg tablet,extended release 24 hr RxNorm: 660859 Take 1 Tablet(s) Oral QD 11/27/19 023 Inactive Tresiba FlexTouch U-100 insulin 100 unit/mL (3 mL) subcutaneous pen RxNorm: 3766017 Inject 118 Unit(s) Subcutaneous QHS every night at bedtime (+2 units for priming) 11/27/19 023 Inactive fluticasone propionate 50 mcg/actuation nasal spray,suspension RxNorm: 4670717 Instill 1 [place] Nasal QD as needed 11/27/19 No Stop Date Active CalProtect 0.44 %-20.6 % topical ointment RxNorm: 5144018 Apply 1 Application Topical QID as needed 11/27/19 23 023 Inactive Jardiance 25 mg tablet RxNorm: 6156048 Take 1 Tablet(s) Oral QD 11/27/19 23 023 Inactive diphenhydramine 25 mg capsule RxNorm: 6087431 Take 1-2 Capsule(s) Oral Q8H every 8 hours as needed 11/27/19 No Stop Date Active metoclopramide 10 mg tablet RxNorm: 436780 Take 1 Tablet(s) Oral QID (before meals and at bedtime) 11/27/19 Inactive magnesium oxide 400 mg (241.3 mg magnesium) tablet RxNorm: 320506 Take 1 Tablet(s) Oral QD 11/27/19 023 Inactive ondansetron 4 mg disintegrating tablet RxNorm: 540392 Take 1 Tablet(s) Oral QD as needed 11/27/19 No Stop Date Active aspirin 81 mg tablet,delayed release RxNorm: 321057 Take 1 Tablet(s) Oral QD with a meal 11/27/19 No Stop Date Active Anti-Diarrheal (loperamide) 2 mg tablet RxNorm: 090835 Take 2 Tablet(s) Oral as needed after 1st loose stool, then take 1 tablet as needed after each subsequent loose stool, not to exceed 8 tablets/24 hours 11/27/19 No Stop Date Active Fiasp FlexTouch U-100 Insulin 100 unit/mL (3 mL) subcutaneous pen RxNorm: 9782503 Inject 18 Unit(s) Subcutaneous BID before lunch and dinner, in addition to 0-12 units per sliding scale 11/27/19 023 Inactive Diabetic Tussin DM 10 mg-100 mg/5 mL oral liquid RxNorm: 878725 Take 5-10 Milliliter(s) Oral Q4-6H every 4-6 hours as needed 11/27/19 No Stop Date Active torsemide 20 mg tablet RxNorm: 735898 Take 2 Tablet(s) Oral QD 11/27/19 No Stop Date Active tizanidine 4 mg tablet RxNorm: 961843 Take 1 Tablet(s) Oral TID 11/27/19 023 Inactive Antacid Liquid 200 mg-200 mg-20 mg/5 mL oral suspension RxNorm: 274787 Take 5-10 Milliliter(s) Oral as needed one time between meals and at bedtime 11/27/19 No Stop Date Active diltiazem ER (XR/XT) 120 mg capsule,extended release 24 hr, controlled RxNorm: 166870 Take 1 Capsule(s) Oral QAM every morning 11/27/19 No Stop Date Active Ubrelvy 100 mg tablet RxNorm: 4270049 Take 1 Tablet(s) Oral QD as needed 11/27/19 No Stop Date Active bupropion HCl XL 300 mg 24 hr tablet, extended release RxNorm: 282028 Take 1 Tablet(s) Oral QAM every morning 11/27/19 No Stop Date Active sumatriptan 50 mg tablet RxNorm: 411517 Take 1 Tablet(s) Oral BID as needed 11/27/19 No Stop Date Active diclofenac 1 % topical gel RxNorm: 923411 Apply 2 Gram(s) Topical QID to affected area(s) 11/27/19 No Stop Date Active buspirone 30 mg tablet RxNorm: 606800 Take 1 Tablet(s) Oral BID 11/27/19 No Stop Date Active Medication Administered No Medication Administered data Reason For Visit No Reason For Visit data Instructions Comment Date Moved to [facility] 02/05/21. Initial BPS visit 11/26/22.??Patient is morbidly obese and noncompliant to cares. Chronic pain and is on belbuca film- managed by pain clinic. Multiple chronic conditions including DM2, MDD, ANGELI.??She is her own guardian.?? 12/25/2022
--- OUTSIDE RECORDS SUMMARY | 2023-04-24 09:25 | XMS_ITS | CCD ---
Author Name Unknown Organization Unknown Care Team Providers Care Stra[employer] Name Role Phone Duglas Cooper NP Primary Care Provider Unavaila ble Unavailable Chronic Care Management Unavaila ble Summary Purpose DataExchange Insurance Providers Payer name Policy type / Coverage type Covered republican ID Effective Begin Date Effective End Date [place]Blue [place] [id number] Unknown Family History Family History data not [...] anemia ICD-10: D50.9 ICD-9: 280.9 11/26/2022 Active snf (current) use of insulin ICD-10: Z79.4 11/26 Active Morbidly obese ICD-10: E66.01 ICD-9: 278.01 11/26/2022 Active ANGELI (obstructive sleep apnea) ICD-10: G4 7.33 ICD-9: 327.23 11/26/2022 Active Paroxysmal A-fib ICD-10: I48.0 ICD-9: 427.31 11/26/2022 Active Recurrent major depressive d isorder, remission status unspecified ICD-10: F33.9 ICD-9: 296.30 11/26/2022 Active Medications Medication Codes Instructions Start Date Stop Date Status Fill Instructions Fiasp FlexTouch U-100 Insulin 100 unit/mL (3 mL) subcutaneous pen RxNorm: 3683710 Inject 18 Unit(s) Subcutaneous BID before lunch and dinner, in addition to 0-12 units per sliding scale 01/22/20 23 023 Inactive Tresiba FlexTouch U-100 insulin 100 unit/mL (3 mL) subcutaneous pen RxNorm: 1499878 Inject 118 Unit(s) Subcutaneous QHS every night at bedtime (+2 units for priming) 01/16/20 23 024 Active Fiasp FlexTouch U-100 Insulin 100 unit/mL (3 mL) subcutaneous pen RxNorm: 1607410 Inject 18 Unit(s) Subcutaneous BID before lunch and dinner, in addition to 0-12 units per sliding scale 01/15/20 23 023 Inactive CalProtect 0.44 %-20.6 % topical ointment RxNorm: 3402861 Apply 1 Application Topical QID as needed 01/14/20 23 023 Inactive Qulipta 60 mg tablet RxNorm: 9129660 Take 1 Tablet(s) Oral QHS every night at bedtime 11/27/19 23 No Stop Date Active Ventolin HFA 90 mcg/actuation aerosol inhaler RxNorm: 832964 Inhale 2 Puff(s) Inhalation QID as needed 11/27/19 23 No Stop Date Active montelukast 10 mg tablet RxNorm: 345206 Take 1 Tablet(s) Oral QHS every night at bedtime 11/27/19 23 No Stop Date Active Narcan 4 mg/actuation nasal spray RxNorm: 4100253 [place] Nasal Use as directed as needed for accidental overdose, then call 911 11/27/19 23 No Stop Date Active gabapentin 400 mg capsule RxNorm: 904697 Take 1 Capsule(s) Oral QAM every morning 11/27/19 23 023 Inactive Milk of Magnesia 400 mg/5 mL oral suspension RxNorm: 027836 Take 15-30 Milliliter(s) Oral QD as needed 11/27/19 23 No Stop Date Active acetaminophen 500 mg capsule RxNorm: 450256 Take 2 Capsule(s) Oral TID 11/27/19 No Stop Date Active spironolactone 25 mg tablet RxNorm: 735964 Take 1 Tablet(s) Oral QAM every morning 11/27/19 No Stop Date Active Gavilax 17 gram/dose oral powder RxNorm: 384092 Take 17 Gram(s) Oral QD 11/27/19 No Stop Date Active atorvastatin 80 mg tablet RxNorm: 459006 Take 1 Tablet(s) Oral QAM every morning 11/27/19 No Stop Date Active losartan 100 mg tablet RxNorm: 406482 Take 1 Tablet(s) Oral QD 11/27/19 No Stop Date Active ferrous gluconate 324 mg (38 mg iron) tablet RxNorm: 947159 Take 1 Tablet(s) Oral QD with a meal 11/27/19 023 Inactive duloxetine 60 mg capsule,delayed release RxNorm: 306762 Take 2 Capsule(s) Oral QAM every morning 11/27/19 No Stop Date Active trazodone 100 mg tablet RxNorm: 882066 Take 1 Tablet(s) Oral QHS every night at bedtime as needed 11/27/19 No Stop Date Active dextromethorphan HBr 15 mg/5 mL oral syrup RxNorm: 4592314 Take 5-10 Milliliter(s) Oral Q4-6H every 4-6 hours as needed 11/27/19 No Stop Date Active Calcium Antacid 200 mg calcium (500 mg) chewable tablet RxNorm: 137552 Take 2-4 Tablet(s) Oral as needed between meals and at bedtime 11/27/19 No Stop Date Active omeprazole 20 mg capsule,delayed release RxNorm: 102404 Take 1 Capsule(s) Oral BID 11/27/19 23 023 Inactive levothyroxine 50 mcg tablet RxNorm: 034350 Take 1 Tablet(s) Oral QAM every morning 11/27/19 No Stop Date Active metoprolol succinate ER 100 mg tablet,extended release 24 hr RxNorm: 487777 Take 1 Tablet(s) Oral QD 11/27/19 23 023 Inactive fluticasone propionate 50 mcg/actuation nasal spray,suspension RxNorm: 4340184 Instill 1 [place] Nasal QD as needed 11/27/19 No Stop Date Active Jardiance 25 mg tablet RxNorm: 4910850 Take 1 Tablet(s) Oral QD 11/27/19 023 Inactive diphenhydramine 25 mg capsule RxNorm: 9843038 Take 1-2 Capsule(s) Oral Q8H every 8 hours as needed 11/27/19 No Stop Date Active metoclopramide 10 mg tablet RxNorm: 051928 Take 1 Tablet(s) Oral QID (before meals and at bedtime) 11/27/19 023 Inactive magnesium oxide 400 mg (241.3 mg magnesium) tablet RxNorm: 310721 Take 1 Tablet(s) Oral QD 11/27/19 023 Inactive ondansetron 4 mg disintegrating tablet RxNorm: 087920 Take 1 Tablet(s) Oral QD as needed 11/27/19 No Stop Date Active aspirin 81 mg tablet,delayed release RxNorm: 355322 Take 1 Tablet(s) Oral QD with a meal 11/27/19 No Stop Date Active Anti-Diarrheal (loperamide) 2 mg tablet RxNorm: 222559 Take 2 Tablet(s) Oral as needed after 1st loose stool, then take 1 tablet as needed after each subsequent loose stool, not to exceed 8 tablets/24 hours 11/27/19 No Stop Date Active Diabetic Tussin DM 10 mg-100 mg/5 mL oral liquid RxNorm: 177441 Take 5-10 Milliliter(s) Oral Q4-6H every 4-6 hours as needed 11/27/19 No Stop Date Active torsemide 20 mg tablet RxNorm: 050593 Take 2 Tablet(s) Oral QD 11/27/19 No Stop Date Active tizanidine 4 mg tablet RxNorm: 410844 Take 1 Tablet(s) Oral TID 11/27/19 023 Inactive Antacid Liquid 200 mg-200 mg-20 mg/5 mL oral suspension RxNorm: 202549 Take 5-10 Milliliter(s) Oral as needed one time between meals and at bedtime 11/27/19 No Stop Date Active diltiazem ER (XR/XT) 120 mg capsule,extended release 24 hr, controlled RxNorm: 296267 Take 1 Capsule(s) Oral QAM every morning 11/27/19 No Stop Date Active Ubrelvy 100 mg tablet RxNorm: 4807706 Take 1 Tablet(s) Oral QD as needed 11/27/19 No Stop Date Active bupropion HCl XL 300 mg 24 hr tablet, extended release RxNorm: 039270 Take 1 Tablet(s) Oral QAM every morning 11/27/19 No Stop Date Active sumatriptan 50 mg tablet RxNorm: 226209 Take 1 Tablet(s) Oral BID as needed 11/27/19 No Stop Date Active diclofenac 1 % topical gel RxNorm: 652186 Apply 2 Gram(s) Topical QID to affected area(s) 11/27/19 No Stop Date Active buspirone 30 mg tablet RxNorm: 064302 Take 1 Tablet(s) Oral BID 11/27/19 No Stop Date Active Tresiba FlexTouch U-100 insulin 100 unit/mL (3 mL) subcutaneous pen RxNorm: 8608216 Inject 118 Unit(s) Subcutaneous QHS every night at bedtime (+2 units for priming) 11/27/19 023 Inactive CalProtect 0.44 %-20.6 % topical ointment RxNorm: 8149353 Apply 1 Application Topical QID as needed 11/27/19 23 023 Inactive Fiasp FlexTouch U-100 Insulin 100 unit/mL (3 mL) subcutaneous pen RxNorm: 3038900 Inject 18 Unit(s) Subcutaneous BID before lunch and dinner, in addition to 0-12 units per sliding scale 11/27/19 23 023 Inactive Medication Administered No Medication Administered data Reason For Visit No Reason For Visit data Instructions Comment Date Moved to [facility] 02/05/21. Initial BPS visit 11/26/22.??Patient is morbidly obese and noncompliant to cares. Chronic pain and is on belbuca film- managed by pain clinic. Multiple chronic conditions including DM2, MDD, ANGELI.??She is her own guardian.?? 12/25/2022
--- OUTSIDE RECORDS SUMMARY | 2023-04-24 09:25 | XMS_ITS | CCD ---
Author Name Unknown Organization Unknown Care Team Providers Care Investigative Reporter Name Role Phone Duglas Cooper NP Primary Care Provider Unavaila ble Unavailable Chronic Care Management Unavaila ble Summary Purpose DataExchange Insurance Providers Payer name Policy type / Coverage type Covered constitution party ID Effective Begin Date Effective End Date [place] Blue [place]Blue [place] [id number] Unknown Family History Family History data not found Social History Social History Element Codes Description Effec tive Dates Tobacco history SNOMED CT: 9482893 Former smoker 01/28 Allergies, Adverse Reactions, Alerts Substance Reaction Codes Entered Date Inactivated Date Status codeine Unknown 01/28/2023 No Inactive Date Ac tive clarithromycin RxNorm: 33677 01/28/2023 No Inactiv e Date Active rofecoxib RxNorm: 703060 01/28/2023 No Inactive Da te Active Celecoxib Unknown 01/28/2023 No Inactive Date Ac tive GLYCERIN Unknown 01/28/2023 No Inactive Date Ac tive tramadol RxNorm: 70192 01/28/2023 No Inactive Marcio e Active vancomycin Unknown 01/28/2023 No Inactive Date A ctive MORPHINE RxNorm: 36722 01/28/2023 No Inactive Marcio e Active amoxicillin RxNorm: 043152 01/28/2023 No Inactive Date Active Problems Condition Codes Effective Dates Condition St atus Chronic pain ICD-10: G89.29 ICD-9: 338.29 01/28/2023 Active Morbidly obese ICD-10: E66.01 ICD-9: 278.01 01/28/2023 Active Obesity ICD-10: E66.9 ICD-9: 278.00 01/14/2023 Active 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 ICD-9: 344.1 12/24/2022 Active Type 2 diabetes mellitus wit h hyperglycemia, with long-term current use of insulin ICD-10: E11.65 ICD-9: 250.00 12/24/2022 Active Diabetes Unknown 11/26/2022 Active Diabetes mellitus Type 2 Unknown 11/26/2022 Act travis Drug-induced constipation ICD-10: K59.03 ICD-9: 564.09 11/26/2022 Active Hypercoagulable state ICD-10: D68.59 ICD-9: 289.81 11/26/2022 Active Iron deficiency anemia ICD-10: D50.9 ICD-9: 280.9 11/26/2022 Active correction (current) use of insulin ICD-10: Z79.4 11/26 Active ANGELI (obstructive sleep apnea) ICD-10: G4 7.33 ICD-9: 327.23 11/26/2022 Active Paroxysmal A-fib ICD-10: I48.0 ICD-9: 427.31 11/26/2022 Active Recurrent major depressive d isorder, remission status unspecified ICD-10: F33.9 ICD-9: 296.30 11/26/2022 Active Medications Medication Codes Instructions Start Date Stop Date Status Fill Instructions metoprolol succinate ER 100 mg tablet,extended release 24 hr RxNorm: 506976 Take 1 Tablet(s) Oral QD 01/31/20 23 024 Active 01/30/2023 PROACTIVE REFILL REQUEST FOR NEXT CYCLE PLEASE THANK YOU ferrous gluconate 324 mg (38 mg iron) tablet RxNorm: 337931 TAKE 1 TABLET BY MOUTH DAILY WITH MEAL 01/31/20 23 024 Active 01/30/2023 PROACTIVE REFILL REQUEST FOR NEXT CYCLE PLEASE THANK YOU RX has/will before cycle date Fiasp FlexTouch U-100 Insulin 100 unit/mL (3 mL) subcutaneous pen RxNorm: 1838147 Inject 18 Unit(s) Subcutaneous BID before lunch and dinner, in addition to 0-12 units per sliding scale 01/22/20 23 023 Inactive Tresiba FlexTouch U-100 insulin 100 unit/mL (3 mL) subcutaneous pen RxNorm: 6930274 Inject 118 Unit(s) Subcutaneous QHS every night at bedtime (+2 units for priming) 01/16/20 23 024 Active Fiasp FlexTouch U-100 Insulin 100 unit/mL (3 mL) subcutaneous pen RxNorm: 7753213 Inject 18 Unit(s) Subcutaneous BID before lunch and dinner, in addition to 0-12 units per sliding scale 01/15/20 23 023 Inactive CalProtect 0.44 %-20.6 % topical ointment RxNorm: 4943448 Apply 1 Application Topical QID as needed 01/14/20 23 023 Inactive Qulipta 60 mg tablet RxNorm: 7151874 Take 1 Tablet(s) Oral QHS every night at bedtime 11/27/19 No Stop Date Active Ventolin HFA 90 mcg/actuation aerosol inhaler RxNorm: 156006 Inhale 2 Puff(s) Inhalation QID as needed 11/27/19 No Stop Date Active montelukast 10 mg tablet RxNorm: 234797 Take 1 Tablet(s) Oral QHS every night at bedtime 11/27/19 No Stop Date Active Narcan 4 mg/actuation nasal spray RxNorm: 2316031 [place] Nasal Use as directed as needed for accidental overdose, then call 911 11/27/19 No Stop Date Active gabapentin 400 mg capsule RxNorm: 517926 Take 1 Capsule(s) Oral QAM every morning 11/27/19 23 023 Inactive Milk of Magnesia 400 mg/5 mL oral suspension RxNorm: 696052 Take 15-30 Milliliter(s) Oral QD as needed 11/27/19 No Stop Date Active acetaminophen 500 mg capsule RxNorm: 386569 Take 2 Capsule(s) Oral TID 11/27/19 No Stop Date Active spironolactone 25 mg tablet RxNorm: 747192 Take 1 Tablet(s) Oral QAM every morning 11/27/19 23 No Stop Date Active Gavilax 17 gram/dose oral powder RxNorm: 721557 Take 17 Gram(s) Oral QD 11/27/19 23 No Stop Date Active atorvastatin 80 mg tablet RxNorm: 942179 Take 1 Tablet(s) Oral QAM every morning 11/27/19 23 No Stop Date Active losartan 100 mg tablet RxNorm: 101099 Take 1 Tablet(s) Oral QD 11/27/19 23 No Stop Date Active ferrous gluconate 324 mg (38 mg iron) tablet RxNorm: 428673 Take 1 Tablet(s) Oral QD with a meal 07/12 023 Inactive duloxetine 60 mg capsule,delayed release RxNorm: 753446 Take 2 Capsule(s) Oral QAM every morning 11/27/19 No Stop Date Active trazodone 100 mg tablet RxNorm: 696318 Take 1 Tablet(s) Oral QHS every night at bedtime as needed 11/27/19 No Stop Date Active dextromethorphan HBr 15 mg/5 mL oral syrup RxNorm: 9356522 Take 5-10 Milliliter(s) Oral Q4-6H every 4-6 hours as needed 11/27/19 No Stop Date Active Calcium Antacid 200 mg calcium (500 mg) chewable tablet RxNorm: 956380 Take 2-4 Tablet(s) Oral as needed between meals and at bedtime 11/27/19 No Stop Date Active omeprazole 20 mg capsule,delayed release RxNorm: 267592 Take 1 Capsule(s) Oral BID 11/27/19 023 Inactive levothyroxine 50 mcg tablet RxNorm: 179984 Take 1 Tablet(s) Oral QAM every morning 11/27/19 No Stop Date Active metoprolol succinate ER 100 mg tablet,extended release 24 hr RxNorm: 682590 Take 1 Tablet(s) Oral QD 11/27/19 023 Inactive fluticasone propionate 50 mcg/actuation nasal spray,suspension RxNorm: 2317558 Instill 1 [place] Nasal QD as needed 11/27/19 No Stop Date Active Jardiance 25 mg tablet RxNorm: 6054332 Take 1 Tablet(s) Oral QD 11/27/19 023 Inactive diphenhydramine 25 mg capsule RxNorm: 1134848 Take 1-2 Capsule(s) Oral Q8H every 8 hours as needed 11/27/19 No Stop Date Active metoclopramide 10 mg tablet RxNorm: 166390 Take 1 Tablet(s) Oral QID (before meals and at bedtime) 11/27/19 023 Inactive magnesium oxide 400 mg (241.3 mg magnesium) tablet RxNorm: 395883 Take 1 Tablet(s) Oral QD 11/27/19 023 Inactive ondansetron 4 mg disintegrating tablet RxNorm: 316936 Take 1 Tablet(s) Oral QD as needed 11/27/19 23 No Stop Date Active aspirin 81 mg tablet,delayed release RxNorm: 396574 Take 1 Tablet(s) Oral QD with a meal 11/27/19 23 No Stop Date Active Anti-Diarrheal (loperamide) 2 mg tablet RxNorm: 656451 Take 2 Tablet(s) Oral as needed after 1st loose stool, then take 1 tablet as needed after each subsequent loose stool, not to exceed 8 tablets/24 hours 11/27/19 23 No Stop Date Active Diabetic Tussin DM 10 mg-100 mg/5 mL oral liquid RxNorm: 309372 Take 5-10 Milliliter(s) Oral Q4-6H every 4-6 hours as needed 11/27/19 23 No Stop Date Active torsemide 20 mg tablet RxNorm: 265030 Take 2 Tablet(s) Oral QD 11/27/19 23 No Stop Date Active tizanidine 4 mg tablet RxNorm: 221236 Take 1 Tablet(s) Oral TID 11/27/19 23 023 Inactive Antacid Liquid 200 mg-200 mg-20 mg/5 mL oral suspension RxNorm: 193537 Take 5-10 Milliliter(s) Oral as needed one time between meals and at bedtime 11/27/19 No Stop Date Active diltiazem ER (XR/XT) 120 mg capsule,extended release 24 hr, controlled RxNorm: 620594 Take 1 Capsule(s) Oral QAM every morning 11/27/19 23 No Stop Date Active Ubrelvy 100 mg tablet RxNorm: 3121288 Take 1 Tablet(s) Oral QD as needed 11/27/19 23 No Stop Date Active bupropion HCl XL 300 mg 24 hr tablet, extended release RxNorm: 574593 Take 1 Tablet(s) Oral QAM every morning 11/27/19 23 No Stop Date Active sumatriptan 50 mg tablet RxNorm: 807659 Take 1 Tablet(s) Oral BID as needed 11/27/19 23 No Stop Date Active diclofenac 1 % topical gel RxNorm: 460502 Apply 2 Gram(s) Topical QID to affected area(s) 11/27/19 23 No Stop Date Active buspirone 30 mg tablet RxNorm: 726856 Take 1 Tablet(s) Oral BID 11/27/19 No Stop Date Active Tresiba FlexTouch U-100 insulin 100 unit/mL (3 mL) subcutaneous pen RxNorm: 7645525 Inject 118 Unit(s) Subcutaneous QHS every night at bedtime (+2 units for priming) 11/27/19 023 Inactive CalProtect 0.44 %-20.6 % topical ointment RxNorm: 8355023 Apply 1 Application Topical QID as needed 11/27/19 023 Inactive Fiasp FlexTouch U-100 Insulin 100 unit/mL (3 mL) subcutaneous pen RxNorm: 2171164 Inject 18 Unit(s) Subcutaneous BID before lunch and dinner, in addition to 0-12 units per sliding scale 11/27/19 023 Inactive Medication Administered No Medication Administered data Reason For Visit No Reason For Visit data Instructions Comment Date Moved to [facility] 02/05/21. Initial BPS visit 11/26/22.??Patient is morbidly obese and noncompliant to cares. Chronic pain and is on belbuca film- managed by pain clinic. Multiple chronic conditions including DM2, MDD, ANGELI.??She is her own guardian.?? 12/25/2022
--- OUTSIDE RECORDS SUMMARY | 2023-04-24 09:25 | XMS_ITS | CCD ---
Author Name Unknown Organization Unknown Care Team Providers Care Partner Marketing Manager Name Role Phone Duglas Cooper NP Primary Care Provider Unavaila ble Unavailable Chronic Care Management Unavaila ble Summary Purpose DataExchange Insurance Providers Payer name Policy type / Coverage type Covered libertarian ID Effective Begin Date Effective End Date [place] Blue Cross/Blue Shield [id number] Unknown Family History Family History data not [...] anemia ICD-10: D50.9 ICD-9: 280.9 11/26/2022 Active oysterman (current) use of insulin ICD-10: Z79.4 11/26 Active Morbidly obese ICD-10: E66.01 ICD-9: 278.01 11/26/2022 Active ANGELI (obstructive sleep apnea) ICD-10: G4 7.33 ICD-9: 327.23 11/26/2022 Active Paroxysmal A-fib ICD-10: I48.0 ICD-9: 427.31 11/26/2022 Active Recurrent major depressive d isorder, remission status unspecified ICD-10: F33.9 ICD-9: 296.30 11/26/2022 Active Medications Medication Codes Instructions Start Date Stop Date Status Fill Instructions Tresiba FlexTouch U-100 insulin 100 unit/mL (3 mL) subcutaneous pen RxNorm: 2425301 Inject 118 Unit(s) Subcutaneous QHS every night at bedtime (+2 units for priming) 01/16/20 23 024 Active Fiasp FlexTouch U-100 Insulin 100 unit/mL (3 mL) subcutaneous pen RxNorm: 9745419 Inject 18 Unit(s) Subcutaneous BID before lunch and dinner, in addition to 0-12 units per sliding scale 01/15/20 23 023 Inactive CalProtect 0.44 %-20.6 % topical ointment RxNorm: 0220957 Apply 1 Application Topical QID as needed 01/14/20 23 023 Inactive Qulipta 60 mg tablet RxNorm: 6444958 Take 1 Tablet(s) Oral QHS every night at bedtime 11/27/19 23 No Stop Date Active Ventolin HFA 90 mcg/actuation aerosol inhaler RxNorm: 309037 Inhale 2 Puff(s) Inhalation QID as needed 11/27/19 23 No Stop Date Active montelukast 10 mg tablet RxNorm: 326639 Take 1 Tablet(s) Oral QHS every night at bedtime 11/27/19 23 No Stop Date Active Narcan 4 mg/actuation nasal spray RxNorm: 5417087 [place] Nasal Use as directed as needed for accidental overdose, then call 911 11/27/19 23 No Stop Date Active gabapentin 400 mg capsule RxNorm: 135180 Take 1 Capsule(s) Oral QAM every morning 11/27/19 23 023 Inactive Milk of Magnesia 400 mg/5 mL oral suspension RxNorm: 190893 Take 15-30 Milliliter(s) Oral QD as needed 11/27/19 23 No Stop Date Active acetaminophen 500 mg capsule RxNorm: 273057 Take 2 Capsule(s) Oral TID 11/27/19 23 No Stop Date Active spironolactone 25 mg tablet RxNorm: 375861 Take 1 Tablet(s) Oral QAM every morning 11/27/19 23 No Stop Date Active Gavilax 17 gram/dose oral powder RxNorm: 182146 Take 17 Gram(s) Oral QD 11/27/19 23 No Stop Date Active atorvastatin 80 mg tablet RxNorm: 163173 Take 1 Tablet(s) Oral QAM every morning 11/27/19 23 No Stop Date Active losartan 100 mg tablet RxNorm: 054612 Take 1 Tablet(s) Oral QD 11/27/19 23 No Stop Date Active ferrous gluconate 324 mg (38 mg iron) tablet RxNorm: 828288 Take 1 Tablet(s) Oral QD with a meal 11/27/19 23 023 Inactive duloxetine 60 mg capsule,delayed release RxNorm: 038376 Take 2 Capsule(s) Oral QAM every morning 11/27/19 No Stop Date Active trazodone 100 mg tablet RxNorm: 952412 Take 1 Tablet(s) Oral QHS every night at bedtime as needed 11/27/19 No Stop Date Active dextromethorphan HBr 15 mg/5 mL oral syrup RxNorm: 5641728 Take 5-10 Milliliter(s) Oral Q4-6H every 4-6 hours as needed 11/27/19 No Stop Date Active Calcium Antacid 200 mg calcium (500 mg) chewable tablet RxNorm: 736467 Take 2-4 Tablet(s) Oral as needed between meals and at bedtime 11/27/19 No Stop Date Active omeprazole 20 mg capsule,delayed release RxNorm: 345412 Take 1 Capsule(s) Oral BID 11/27/19 23 023 Inactive levothyroxine 50 mcg tablet RxNorm: 567187 Take 1 Tablet(s) Oral QAM every morning 11/27/19 23 No Stop Date Active metoprolol succinate ER 100 mg tablet,extended release 24 hr RxNorm: 647589 Take 1 Tablet(s) Oral QD 11/27/19 23 023 Inactive Tresiba FlexTouch U-100 insulin 100 unit/mL (3 mL) subcutaneous pen RxNorm: 3427811 Inject 118 Unit(s) Subcutaneous QHS every night at bedtime (+2 units for priming) 11/27/19 23 023 Inactive fluticasone propionate 50 mcg/actuation nasal spray,suspension RxNorm: 9646706 Instill 1 [place] Nasal QD as needed 11/27/19 No Stop Date Active Jardiance 25 mg tablet RxNorm: 1008242 Take 1 Tablet(s) Oral QD 11/27/19 023 Inactive diphenhydramine 25 mg capsule RxNorm: 7361538 Take 1-2 Capsule(s) Oral Q8H every 8 hours as needed 11/27/19 No Stop Date Active metoclopramide 10 mg tablet RxNorm: 895979 Take 1 Tablet(s) Oral QID (before meals and at bedtime) 11/27/19 023 Inactive magnesium oxide 400 mg (241.3 mg magnesium) tablet RxNorm: 336272 Take 1 Tablet(s) Oral QD 11/27/19 023 Inactive ondansetron 4 mg disintegrating tablet RxNorm: 371715 Take 1 Tablet(s) Oral QD as needed 11/27/19 No Stop Date Active aspirin 81 mg tablet,delayed release RxNorm: 980633 Take 1 Tablet(s) Oral QD with a meal 11/27/19 No Stop Date Active Anti-Diarrheal (loperamide) 2 mg tablet RxNorm: 913576 Take 2 Tablet(s) Oral as needed after 1st loose stool, then take 1 tablet as needed after each subsequent loose stool, not to exceed 8 tablets/24 hours 11/27/19 No Stop Date Active Fiasp FlexTouch U-100 Insulin 100 unit/mL (3 mL) subcutaneous pen RxNorm: 4836307 Inject 18 Unit(s) Subcutaneous BID before lunch and dinner, in addition to 0-12 units per sliding scale 11/27/19 023 Inactive Diabetic Tussin DM 10 mg-100 mg/5 mL oral liquid RxNorm: 902959 Take 5-10 Milliliter(s) Oral Q4-6H every 4-6 hours as needed 11/27/19 No Stop Date Active torsemide 20 mg tablet RxNorm: 374731 Take 2 Tablet(s) Oral QD 11/27/19 No Stop Date Active tizanidine 4 mg tablet RxNorm: 093380 Take 1 Tablet(s) Oral TID 11/27/19 023 Inactive Antacid Liquid 200 mg-200 mg-20 mg/5 mL oral suspension RxNorm: 983834 Take 5-10 Milliliter(s) Oral as needed one time between meals and at bedtime 11/27/19 No Stop Date Active diltiazem ER (XR/XT) 120 mg capsule,extended release 24 hr, controlled RxNorm: 953609 Take 1 Capsule(s) Oral QAM every morning 11/27/19 23 No Stop Date Active Ubrelvy 100 mg tablet RxNorm: 2347502 Take 1 Tablet(s) Oral QD as needed 11/27/19 23 No Stop Date Active bupropion HCl XL 300 mg 24 hr tablet, extended release RxNorm: 471392 Take 1 Tablet(s) Oral QAM every morning 11/27/19 23 No Stop Date Active sumatriptan 50 mg tablet RxNorm: 730044 Take 1 Tablet(s) Oral BID as needed 11/27/19 23 No Stop Date Active diclofenac 1 % topical gel RxNorm: 566283 Apply 2 Gram(s) Topical QID to affected area(s) 11/27/19 23 No Stop Date Active buspirone 30 mg tablet RxNorm: 571167 Take 1 Tablet(s) Oral BID 11/27/19 23 No Stop Date Active CalProtect 0.44 %-20.6 % topical ointment RxNorm: 9066280 Apply 1 Application Topical QID as needed 11/27/19 23 023 Inactive Medication Administered No Medication Administered data Reason For Visit No Reason For Visit data Instructions Comment Date Moved to [facility] 02/05/21. Initial BPS visit 11/26/22.??Patient is morbidly obese and noncompliant to cares. Chronic pain and is on belbuca film- managed by pain clinic. Multiple chronic conditions including DM2, MDD, ANGELI.??She is her own guardian.?? 12/25/2022
--- OUTSIDE RECORDS SUMMARY | 2023-04-24 09:25 | XMS_ITS | CCD ---
Author Name Unknown Organization Unknown Care Team Providers Care Discharge Door Operator Name Role Phone Duglas Cooper NP Primary Care Provider Unavaila ble Unavailable Chronic Care Management Unavaila ble Summary Purpose DataExchange Insurance Providers Payer name Policy type / Coverage type Covered democrat ID Effective Begin Date Effective End Date [place] Blue [place]Blue [place] [id number] Unknown Family History Family History data not [...] anemia ICD-10: D50.9 ICD-9: 280.9 11/26/2022 Active intermediate frame tender (current) use of insulin ICD-10: Z79.4 11/26 [...] 100 unit/mL (3 mL) subcutaneous pen RxNorm: 9218701 Inject 118 Unit(s) Subcutaneous QHS every night at bedtime (+2 units for priming) 01/16/20 23 024 Active Fiasp FlexTouch U-100 Insulin 100 unit/mL (3 mL) subcutaneous pen RxNorm: 2401339 Inject 18 Unit(s) Subcutaneous BID before lunch and dinner, in addition to 0-12 units per sliding scale 01/15/20 23 023 Inactive CalProtect 0.44 %-20.6 % topical ointment RxNorm: 2004726 Apply 1 Application Topical QID as needed 01/14/20 23 023 Inactive Qulipta 60 mg tablet RxNorm: 0923586 Take 1 Tablet(s) Oral QHS every night at bedtime 11/27/19 23 No Stop Date Active Ventolin HFA 90 mcg/actuation aerosol inhaler RxNorm: 332433 Inhale 2 Puff(s) Inhalation QID as needed 11/27/19 23 No Stop Date Active montelukast 10 mg tablet RxNorm: 410638 Take 1 Tablet(s) Oral QHS every night at bedtime 11/27/19 23 No Stop Date Active Narcan 4 mg/actuation nasal spray RxNorm: 4012044 [place] Nasal Use as directed as needed for accidental overdose, then call 911 11/27/19 23 No Stop Date Active gabapentin 400 mg capsule RxNorm: 199170 Take 1 Capsule(s) Oral QAM every morning 11/27/19 23 023 Inactive Milk of Magnesia 400 mg/5 mL oral suspension RxNorm: 930978 Take 15-30 Milliliter(s) Oral QD as needed 11/27/19 23 No Stop Date Active acetaminophen 500 mg capsule RxNorm: 675855 Take 2 Capsule(s) Oral TID 11/27/19 23 No Stop Date Active spironolactone 25 mg tablet RxNorm: 955984 Take 1 Tablet(s) Oral QAM every morning 11/27/19 23 No Stop Date Active Gavilax 17 gram/dose oral powder RxNorm: 904356 Take 17 Gram(s) Oral QD 11/27/19 23 No Stop Date Active atorvastatin 80 mg tablet RxNorm: 499756 Take 1 Tablet(s) Oral QAM every morning 11/27/19 23 No Stop Date Active losartan 100 mg tablet RxNorm: 306923 Take 1 Tablet(s) Oral QD 11/27/19 23 No Stop Date Active ferrous gluconate 324 mg (38 mg iron) tablet RxNorm: 652172 Take 1 Tablet(s) Oral QD with a meal 11/27/19 23 023 Inactive duloxetine 60 mg capsule,delayed release RxNorm: 068538 Take 2 Capsule(s) Oral QAM every morning 11/27/19 No Stop Date Active trazodone 100 mg tablet RxNorm: 280382 Take 1 Tablet(s) Oral QHS every night at bedtime as needed 11/27/19 No Stop Date Active dextromethorphan HBr 15 mg/5 mL oral syrup RxNorm: 6595089 Take 5-10 Milliliter(s) Oral Q4-6H every 4-6 hours as needed 11/27/19 No Stop Date Active Calcium Antacid 200 mg calcium (500 mg) chewable tablet RxNorm: 776316 Take 2-4 Tablet(s) Oral as needed between meals and at bedtime 11/27/19 No Stop Date Active omeprazole 20 mg capsule,delayed release RxNorm: 202238 Take 1 Capsule(s) Oral BID 11/27/19 23 023 Inactive levothyroxine 50 mcg tablet RxNorm: 707192 Take 1 Tablet(s) Oral QAM every morning 11/27/19 23 No Stop Date Active metoprolol succinate ER 100 mg tablet,extended release 24 hr RxNorm: 795249 Take 1 Tablet(s) Oral QD 11/27/19 23 023 Inactive Tresiba FlexTouch U-100 insulin 100 unit/mL (3 mL) subcutaneous pen RxNorm: 0149831 Inject 118 Unit(s) Subcutaneous QHS every night at bedtime (+2 units for priming) 11/27/19 23 023 Inactive fluticasone propionate 50 mcg/actuation nasal spray,suspension RxNorm: 7517132 Instill 1 [place] Nasal QD as needed 11/27/19 No Stop Date Active Jardiance 25 mg tablet RxNorm: 5072464 Take 1 Tablet(s) Oral QD 11/27/19 023 Inactive diphenhydramine 25 mg capsule RxNorm: 7800119 Take 1-2 Capsule(s) Oral Q8H every 8 hours as needed 11/27/19 No Stop Date Active metoclopramide 10 mg tablet RxNorm: 556680 Take 1 Tablet(s) Oral QID (before meals and at bedtime) 11/27/19 023 Inactive magnesium oxide 400 mg (241.3 mg magnesium) tablet RxNorm: 035024 Take 1 Tablet(s) Oral QD 11/27/19 023 Inactive ondansetron 4 mg disintegrating tablet RxNorm: 214392 Take 1 Tablet(s) Oral QD as needed 11/27/19 No Stop Date Active aspirin 81 mg tablet,delayed release RxNorm: 735787 Take 1 Tablet(s) Oral QD with a meal 11/27/19 No Stop Date Active Anti-Diarrheal (loperamide) 2 mg tablet RxNorm: 416489 Take 2 Tablet(s) Oral as needed after 1st loose stool, then take 1 tablet as needed after each subsequent loose stool, not to exceed 8 tablets/24 hours 11/27/19 No Stop Date Active Fiasp FlexTouch U-100 Insulin 100 unit/mL (3 mL) subcutaneous pen RxNorm: 2231153 Inject 18 Unit(s) Subcutaneous BID before lunch and dinner, in addition to 0-12 units per sliding scale 11/27/19 023 Inactive Diabetic Tussin DM 10 mg-100 mg/5 mL oral liquid RxNorm: 572112 Take 5-10 Milliliter(s) Oral Q4-6H every 4-6 hours as needed 11/27/19 No Stop Date Active torsemide 20 mg tablet RxNorm: 218691 Take 2 Tablet(s) Oral QD 11/27/19 No Stop Date Active tizanidine 4 mg tablet RxNorm: 687980 Take 1 Tablet(s) Oral TID 11/27/19 023 Inactive Antacid Liquid 200 mg-200 mg-20 mg/5 mL oral suspension RxNorm: 503091 Take 5-10 Milliliter(s) Oral as needed one time between meals and at bedtime 11/27/19 No Stop Date Active diltiazem ER (XR/XT) 120 mg capsule,extended release 24 hr, controlled RxNorm: 235707 Take 1 Capsule(s) Oral QAM every morning 11/27/19 23 No Stop Date Active Ubrelvy 100 mg tablet RxNorm: 4713348 Take 1 Tablet(s) Oral QD as needed 11/27/19 23 No Stop Date Active bupropion HCl XL 300 mg 24 hr tablet, extended release RxNorm: 699537 Take 1 Tablet(s) Oral QAM every morning 11/27/19 23 No Stop Date Active sumatriptan 50 mg tablet RxNorm: 209175 Take 1 Tablet(s) Oral BID as needed 11/27/19 23 No Stop Date Active diclofenac 1 % topical gel RxNorm: 673794 Apply 2 Gram(s) Topical QID to affected area(s) 11/27/19 23 No Stop Date Active buspirone 30 mg tablet RxNorm: 566310 Take 1 Tablet(s) Oral BID 11/27/19 23 No Stop Date Active CalProtect 0.44 %-20.6 % topical ointment RxNorm: 1655079 Apply 1 Application Topical QID as needed 11/27/19 23 023 Inactive Medication Administered No Medication Administered data Reason For Visit No Reason For Visit data Instructions Comment Date Moved to [facility] 02/05/21. Initial BPS visit 11/26/22.??Patient is morbidly obese and noncompliant to cares. Chronic pain and is on belbuca film- managed by pain clinic. Multiple chronic conditions including DM2, MDD, ANGELI.??She is her own guardian.?? 12/25/2022
--- OUTSIDE RECORDS SUMMARY | 2023-04-24 09:25 | XMS_ITS | CCD ---
Author Name Duglas Cooper NP Address [address] [place] [address] Phone Organization [facility] Phone Care Team Providers Care Director Learning Services Name Role Phone Duglas Cooper NP Primary Care Provider Unavaila ble Unavailable Chronic Care Management Unavaila ble Summary Purpose DataExchange Insurance Providers Payer name Policy type / Coverage type Covered constitution party ID Effective Begin Date Effective End Date [place] Blue [place]Blue [place] [id number] Unknown Family History Family History data not found Social History Social History Element Codes Description Effec tive Dates Tobacco history SNOMED CT: 3997658 Former smoker 01/28 Allergies, Adverse Reactions, Alerts Substance Reaction Codes Entered Date Inactivated Date Status codeine Unknown 01/28/2023 No Inactive Date Ac tive clarithromycin RxNorm: 71119 01/28/2023 No Inactiv e Date Active rofecoxib RxNorm: 538331 01/28/2023 No Inactive Da te Active Celecoxib Unknown 01/28/2023 No Inactive Date Ac tive GLYCERIN Unknown 01/28/2023 No Inactive Date Ac tive tramadol RxNorm: 54477 01/28/2023 No Inactive Marcio e Active vancomycin Unknown 01/28/2023 No Inactive Date A ctive MORPHINE RxNorm: 55299 01/28/2023 No Inactive Marcio e Active amoxicillin RxNorm: 813813 01/28/2023 No Inactive Date Active Problems Condition [...] ICD-10: D50.9 ICD-9: 280.9 11/26/2022 Active intermediate (current) use of insulin ICD-10: Z79.4 11/26 Active ANGELI (obstructive sleep apnea) ICD-10: G4 7.33 ICD-9: 327.23 11/26/2022 Active Paroxysmal A-fib ICD-10: I48.0 ICD-9: 427.31 11/26/2022 Active Recurrent major depressive d isorder, remission status unspecified ICD-10: F33.9 ICD-9: 296.30 11/26/2022 Active Medications Medication Codes Instructions Start Date Stop Date Status Fill Instructions Fiasp FlexTouch U-100 Insulin 100 unit/mL (3 mL) subcutaneous pen RxNorm: 2648706 Inject 18 Unit(s) Subcutaneous BID before lunch and dinner, in addition to 0-12 units per sliding scale 01/22/20 23 023 Inactive Tresiba FlexTouch U-100 insulin 100 unit/mL (3 mL) subcutaneous pen RxNorm: 1562967 Inject 118 Unit(s) Subcutaneous QHS every night at bedtime (+2 units for priming) 01/16/20 23 024 Active Fiasp FlexTouch U-100 Insulin 100 unit/mL (3 mL) subcutaneous pen RxNorm: 0703777 Inject 18 Unit(s) Subcutaneous BID before lunch and dinner, in addition to 0-12 units per sliding scale 01/15/20 23 023 Inactive CalProtect 0.44 %-20.6 % topical ointment RxNorm: 5191917 Apply 1 Application Topical QID as needed 01/14/20 23 023 Inactive Qulipta 60 mg tablet RxNorm: 4582725 Take 1 Tablet(s) Oral QHS every night at bedtime 11/27/19 23 No Stop Date Active Ventolin HFA 90 mcg/actuation aerosol inhaler RxNorm: 256382 Inhale 2 Puff(s) Inhalation QID as needed 11/27/19 23 No Stop Date Active montelukast 10 mg tablet RxNorm: 150477 Take 1 Tablet(s) Oral QHS every night at bedtime 11/27/19 23 No Stop Date Active Narcan 4 mg/actuation nasal spray RxNorm: 7188967 [place] Nasal Use as directed as needed for accidental overdose, then call 911 11/27/19 No Stop Date Active gabapentin 400 mg capsule RxNorm: 633504 Take 1 Capsule(s) Oral QAM every morning 11/27/19 23 023 Inactive Milk of Magnesia 400 mg/5 mL oral suspension RxNorm: 059805 Take 15-30 Milliliter(s) Oral QD as needed 11/27/19 No Stop Date Active acetaminophen 500 mg capsule RxNorm: 126695 Take 2 Capsule(s) Oral TID 11/27/19 23 No Stop Date Active spironolactone 25 mg tablet RxNorm: 651723 Take 1 Tablet(s) Oral QAM every morning 11/27/19 23 No Stop Date Active Gavilax 17 gram/dose oral powder RxNorm: 455185 Take 17 Gram(s) Oral QD 11/27/19 23 No Stop Date Active atorvastatin 80 mg tablet RxNorm: 660412 Take 1 Tablet(s) Oral QAM every morning 11/27/19 23 No Stop Date Active losartan 100 mg tablet RxNorm: 773049 Take 1 Tablet(s) Oral QD 11/27/19 23 No Stop Date Active ferrous gluconate 324 mg (38 mg iron) tablet RxNorm: 517723 Take 1 Tablet(s) Oral QD with a meal 11/27/19 23 023 Inactive duloxetine 60 mg capsule,delayed release RxNorm: 159895 Take 2 Capsule(s) Oral QAM every morning 11/27/19 23 No Stop Date Active trazodone 100 mg tablet RxNorm: 132442 Take 1 Tablet(s) Oral QHS every night at bedtime as needed 07/12/20 23 No Stop Date Active dextromethorphan HBr 15 mg/5 mL oral syrup RxNorm: 1047492 Take 5-10 Milliliter(s) Oral Q4-6H every 4-6 hours as needed 11/27/19 No Stop Date Active Calcium Antacid 200 mg calcium (500 mg) chewable tablet RxNorm: 552222 Take 2-4 Tablet(s) Oral as needed between meals and at bedtime 11/27/19 No Stop Date Active omeprazole 20 mg capsule,delayed release RxNorm: 334537 Take 1 Capsule(s) Oral BID 11/27/19 023 Inactive levothyroxine 50 mcg tablet RxNorm: 717098 Take 1 Tablet(s) Oral QAM every morning 11/27/19 No Stop Date Active metoprolol succinate ER 100 mg tablet,extended release 24 hr RxNorm: 852823 Take 1 Tablet(s) Oral QD 11/27/19 Inactive fluticasone propionate 50 mcg/actuation nasal spray,suspension RxNorm: 0520653 Instill 1 [place] Nasal QD as needed 11/27/19 No Stop Date Active Jardiance 25 mg tablet RxNorm: 9122997 Take 1 Tablet(s) Oral QD 11/27/19 023 Inactive diphenhydramine 25 mg capsule RxNorm: 8706727 Take 1-2 Capsule(s) Oral Q8H every 8 hours as needed 11/27/19 No Stop Date Active metoclopramide 10 mg tablet RxNorm: 963765 Take 1 Tablet(s) Oral QID (before meals and at bedtime) 11/27/19 023 Inactive magnesium oxide 400 mg (241.3 mg magnesium) tablet RxNorm: 187825 Take 1 Tablet(s) Oral QD 11/27/19 023 Inactive ondansetron 4 mg disintegrating tablet RxNorm: 631395 Take 1 Tablet(s) Oral QD as needed 11/27/19 No Stop Date Active aspirin 81 mg tablet,delayed release RxNorm: 746933 Take 1 Tablet(s) Oral QD with a meal 11/27/19 No Stop Date Active Anti-Diarrheal (loperamide) 2 mg tablet RxNorm: 329497 Take 2 Tablet(s) Oral as needed after 1st loose stool, then take 1 tablet as needed after each subsequent loose stool, not to exceed 8 tablets/24 hours 11/27/19 23 No Stop Date Active Diabetic Tussin DM 10 mg-100 mg/5 mL oral liquid RxNorm: 108915 Take 5-10 Milliliter(s) Oral Q4-6H every 4-6 hours as needed 11/27/19 23 No Stop Date Active torsemide 20 mg tablet RxNorm: 322653 Take 2 Tablet(s) Oral QD 11/27/19 23 No Stop Date Active tizanidine 4 mg tablet RxNorm: 769316 Take 1 Tablet(s) Oral TID 11/27/19 23 023 Inactive Antacid Liquid 200 mg-200 mg-20 mg/5 mL oral suspension RxNorm: 274547 Take 5-10 Milliliter(s) Oral as needed one time between meals and at bedtime 11/27/19 No Stop Date Active diltiazem ER (XR/XT) 120 mg capsule,extended release 24 hr, controlled RxNorm: 619423 Take 1 Capsule(s) Oral QAM every morning 11/27/19 23 No Stop Date Active Ubrelvy 100 mg tablet RxNorm: 9428317 Take 1 Tablet(s) Oral QD as needed 11/27/19 23 No Stop Date Active bupropion HCl XL 300 mg 24 hr tablet, extended release RxNorm: 211712 Take 1 Tablet(s) Oral QAM every morning 11/27/19 23 No Stop Date Active sumatriptan 50 mg tablet RxNorm: 913832 Take 1 Tablet(s) Oral BID as needed 11/27/19 23 No Stop Date Active diclofenac 1 % topical gel RxNorm: 256893 Apply 2 Gram(s) Topical QID to affected area(s) 11/27/19 23 No Stop Date Active buspirone 30 mg tablet RxNorm: 747786 Take 1 Tablet(s) Oral BID 11/27/19 23 No Stop Date Active Tresiba FlexTouch U-100 insulin 100 unit/mL (3 mL) subcutaneous pen RxNorm: 1739237 Inject 118 Unit(s) Subcutaneous QHS every night at bedtime (+2 units for priming) 07/12 023 Inactive CalProtect 0.44 %-20.6 % topical ointment RxNorm: 8239730 Apply 1 Application Topical QID as needed 11/27/19 023 Inactive Fiasp FlexTouch U-100 Insulin 100 unit/mL (3 mL) subcutaneous pen RxNorm: 5424153 Inject 18 Unit(s) Subcutaneous BID before lunch and dinner, in addition to 0-12 units per sliding scale 11/27/19 023 Inactive Medication Administered No Medication Administered data Procedures Procedure Codes Date SYST BP LT 130 MM HG CPT-4: 3074F 01/28/2023 DIAST BP <80 MM HG CPT-4: 3078F 01/28/2023 Vital Signs Date Vital 01/28/2023 Blood Pressure 1: 106/51 Code: 8480-6 BMI: 59.7 Code: 25076-8 Heart Rate 1: 46 bpm Code: 8867-4 Height: 5'6 Code: 8302-2 Respiratory Rate: 18 bpm SpO2: 91% Temperature: 36.4 (C) / 97.6 (F) Weight: 364 lbs Code: 3141-9 Reason For Visit No Reason For Visit data Encounters Encounter Performer Location Location Address Codes Date (13419) Home or Residence Visit Est Pt - Moderate Level, 40 mins Diagnosis: Morbidly obese[ICD10: E66.01] Diagnosis: Chronic pain[ICD10: G89.29] Duglas Cooper [address] [address] CPT-4: 44855 01/28/2023 Plan of Care Planned Activity Notes Codes Status Date Patient Education: Patient Medication Summary Completed 01/28/2023 Patient Education: Influenza Vaccine Completed 01/28/2023 Instructions Comment Date Moved to [facility] 02/05/21. Initial BPS visit 11/26/22.??Patient is morbidly obese and noncompliant to cares. Chronic pain and is on belbuca film- managed by pain clinic. Multiple chronic conditions including DM2, MDD, ANGELI.??She is her own guardian.?? 12/25/2022
--- OUTSIDE RECORDS SUMMARY | 2023-04-24 09:25 | XMS_ITS | CCD ---
Author Name Unknown Organization Unknown Care Team Providers Care Web Master Name Role Phone Duglas Cooper NP Primary Care Provider Unavaila ble Unavailable Chronic Care Management Unavaila ble Summary Purpose DataExchange Insurance Providers Payer name Policy type / Coverage type Covered republican ID Effective Begin Date Effective End Date [place]Blue [place] [id number] Unknown Family History Family History data not found Social History Social History Element Codes Description Effec tive Dates Tobacco history SNOMED CT: 4030137 Former smoker 01/28 Allergies, Adverse Reactions, Alerts Substance Reaction Codes Entered Date Inactivated Date Status codeine Unknown 01/28/2023 No Inactive Date Ac tive clarithromycin RxNorm: 19664 01/28/2023 No Inactiv e Date Active rofecoxib RxNorm: 156036 01/28/2023 No Inactive Da te Active Celecoxib Unknown 01/28/2023 No Inactive Date Ac tive GLYCERIN Unknown 01/28/2023 No Inactive Date Ac tive tramadol RxNorm: 54292 01/28/2023 No Inactive Marcio e Active vancomycin Unknown 01/28/2023 No Inactive Date A ctive MORPHINE RxNorm: 44140 01/28/2023 No Inactive Marcio e Active amoxicillin RxNorm: 424744 01/28/2023 No Inactive Date Active Problems Condition [...] anemia ICD-10: D50.9 ICD-9: 280.9 11/26/2022 Active care home (current) use of insulin ICD-10: Z79.4 11/26 Active ANGELI (obstructive sleep apnea) ICD-10: G4 7.33 ICD-9: 327.23 11/26/2022 Active Paroxysmal A-fib ICD-10: I48.0 ICD-9: 427.31 11/26/2022 Active Recurrent major depressive d isorder, remission status unspecified ICD-10: F33.9 ICD-9: 296.30 11/26/2022 Active Medications Medication Codes Instructions Start Date Stop Date Status Fill Instructions menthol 0.44 %-zinc oxide 20.6 % topical ointment RxNorm: 8260943 APPLY TO AFFECTED AREA(S) FOUR TIMES DAILY NEEDED 03/03/20 23 024 Active Belbuca 600 mcg buccal film RxNorm: 3392114 Melt 1 Miscellaneous Buccal BID 02/25/20 23 023 Inactive Belbuca 600 mcg buccal film RxNorm: 2361032 Melt 1 Miscellaneous Buccal BID 02/25/20 23 023 Inactive metoprolol succinate ER 100 mg tablet,extended release 24 hr RxNorm: 223990 Take 1 Tablet(s) Oral QD 01/31/20 23 024 Active 01/30/2023 PROACTIVE REFILL REQUEST FOR NEXT CYCLE PLEASE THANK YOU ferrous gluconate 324 mg (38 mg iron) tablet RxNorm: 123834 TAKE 1 TABLET BY MOUTH DAILY WITH MEAL 01/31/20 024 Active 01/30/2023 PROACTIVE REFILL REQUEST FOR NEXT CYCLE PLEASE THANK YOU RX has/will before cycle date Fiasp FlexTouch U-100 Insulin 100 unit/mL (3 mL) subcutaneous pen RxNorm: 8764834 Inject 18 Unit(s) Subcutaneous BID before lunch and dinner, in addition to 0-12 units per sliding scale 01/22/20 23 023 Inactive Tresiba FlexTouch U-100 insulin 100 unit/mL (3 mL) subcutaneous pen RxNorm: 9642250 Inject 118 Unit(s) Subcutaneous QHS every night at bedtime (+2 units for priming) 01/16/20 23 024 Active Fiasp FlexTouch U-100 Insulin 100 unit/mL (3 mL) subcutaneous pen RxNorm: 1780641 Inject 18 Unit(s) Subcutaneous BID before lunch and dinner, in addition to 0-12 units per sliding scale 01/15/20 23 023 Inactive CalProtect 0.44 %-20.6 % topical ointment RxNorm: 4243332 Apply 1 Application Topical QID as needed 01/14/20 23 023 Inactive Qulipta 60 mg tablet RxNorm: 6522303 Take 1 Tablet(s) Oral QHS every night at bedtime 11/27/19 23 No Stop Date Active Ventolin HFA 90 mcg/actuation aerosol inhaler RxNorm: 074720 Inhale 2 Puff(s) Inhalation QID as needed 11/27/19 23 No Stop Date Active montelukast 10 mg tablet RxNorm: 863371 Take 1 Tablet(s) Oral QHS every night at bedtime 11/27/19 23 No Stop Date Active Narcan 4 mg/actuation nasal spray RxNorm: 1933819 [place] Nasal Use as directed as needed for accidental overdose, then call 911 11/27/19 No Stop Date Active gabapentin 400 mg capsule RxNorm: 283273 Take 1 Capsule(s) Oral QAM every morning 11/27/19 23 023 Inactive Milk of Magnesia 400 mg/5 mL oral suspension RxNorm: 048820 Take 15-30 Milliliter(s) Oral QD as needed 11/27/19 No Stop Date Active acetaminophen 500 mg capsule RxNorm: 314948 Take 2 Capsule(s) Oral TID 11/27/19 23 No Stop Date Active spironolactone 25 mg tablet RxNorm: 697670 Take 1 Tablet(s) Oral QAM every morning 11/27/19 23 No Stop Date Active Gavilax 17 gram/dose oral powder RxNorm: 319470 Take 17 Gram(s) Oral QD 11/27/19 No Stop Date Active atorvastatin 80 mg tablet RxNorm: 265683 Take 1 Tablet(s) Oral QAM every morning 11/27/19 No Stop Date Active losartan 100 mg tablet RxNorm: 934544 Take 1 Tablet(s) Oral QD 11/27/19 No Stop Date Active duloxetine 60 mg capsule,delayed release RxNorm: 479211 Take 2 Capsule(s) Oral QAM every morning 11/27/19 No Stop Date Active trazodone 100 mg tablet RxNorm: 305843 Take 1 Tablet(s) Oral QHS every night at bedtime as needed 11/27/19 No Stop Date Active dextromethorphan HBr 15 mg/5 mL oral syrup RxNorm: 6453441 Take 5-10 Milliliter(s) Oral Q4-6H every 4-6 hours as needed 11/27/19 No Stop Date Active Calcium Antacid 200 mg calcium (500 mg) chewable tablet RxNorm: 335123 Take 2-4 Tablet(s) Oral as needed between meals and at bedtime 11/27/19 No Stop Date Active omeprazole 20 mg capsule,delayed release RxNorm: 647769 Take 1 Capsule(s) Oral BID 11/27/19 023 Inactive levothyroxine 50 mcg tablet RxNorm: 696494 Take 1 Tablet(s) Oral QAM every morning 11/27/19 No Stop Date Active fluticasone propionate 50 mcg/actuation nasal spray,suspension RxNorm: 5739482 Instill 1 [place] Nasal QD as needed 11/27/19 No Stop Date Active Jardiance 25 mg tablet RxNorm: 0653034 Take 1 Tablet(s) Oral QD 11/27/19 023 Inactive diphenhydramine 25 mg capsule RxNorm: 9061037 Take 1-2 Capsule(s) Oral Q8H every 8 hours as needed 11/27/19 No Stop Date Active metoclopramide 10 mg tablet RxNorm: 507174 Take 1 Tablet(s) Oral QID (before meals and at bedtime) 11/27/19 023 Inactive magnesium oxide 400 mg (241.3 mg magnesium) tablet RxNorm: 165696 Take 1 Tablet(s) Oral QD 11/27/19 023 Inactive ondansetron 4 mg disintegrating tablet RxNorm: 715550 Take 1 Tablet(s) Oral QD as needed 11/27/19 23 No Stop Date Active aspirin 81 mg tablet,delayed release RxNorm: 816829 Take 1 Tablet(s) Oral QD with a meal 11/27/19 No Stop Date Active Anti-Diarrheal (loperamide) 2 mg tablet RxNorm: 474507 Take 2 Tablet(s) Oral as needed after 1st loose stool, then take 1 tablet as needed after each subsequent loose stool, not to exceed 8 tablets/24 hours 11/27/19 No Stop Date Active Diabetic Tussin DM 10 mg-100 mg/5 mL oral liquid RxNorm: 010102 Take 5-10 Milliliter(s) Oral Q4-6H every 4-6 hours as needed 11/27/19 No Stop Date Active torsemide 20 mg tablet RxNorm: 343128 Take 2 Tablet(s) Oral QD 11/27/19 23 No Stop Date Active tizanidine 4 mg tablet RxNorm: 549737 Take 1 Tablet(s) Oral TID 11/27/19 023 Inactive Antacid Liquid 200 mg-200 mg-20 mg/5 mL oral suspension RxNorm: 745530 Take 5-10 Milliliter(s) Oral as needed one time between meals and at bedtime 11/27/19 No Stop Date Active diltiazem ER (XR/XT) 120 mg capsule,extended release 24 hr, controlled RxNorm: 835906 Take 1 Capsule(s) Oral QAM every morning 11/27/19 23 No Stop Date Active Ubrelvy 100 mg tablet RxNorm: 6938548 Take 1 Tablet(s) Oral QD as needed 11/27/19 23 No Stop Date Active bupropion HCl XL 300 mg 24 hr tablet, extended release RxNorm: 695999 Take 1 Tablet(s) Oral QAM every morning 11/27/19 23 No Stop Date Active sumatriptan 50 mg tablet RxNorm: 734922 Take 1 Tablet(s) Oral BID as needed 11/27/19 23 No Stop Date Active diclofenac 1 % topical gel RxNorm: 421752 Apply 2 Gram(s) Topical QID to affected area(s) 11/27/19 No Stop Date Active buspirone 30 mg tablet RxNorm: 396722 Take 1 Tablet(s) Oral BID 11/27/19 No Stop Date Active ferrous gluconate 324 mg (38 mg iron) tablet RxNorm: 337893 Take 1 Tablet(s) Oral QD with a meal 11/27/19 023 Inactive metoprolol succinate ER 100 mg tablet,extended release 24 hr RxNorm: 916978 Take 1 Tablet(s) Oral QD 11/27/19 023 Inactive Tresiba FlexTouch U-100 insulin 100 unit/mL (3 mL) subcutaneous pen RxNorm: 2401273 Inject 118 Unit(s) Subcutaneous QHS every night at bedtime (+2 units for priming) 11/27/19 023 Inactive CalProtect 0.44 %-20.6 % topical ointment RxNorm: 9026441 Apply 1 Application Topical QID as needed 11/27/19 023 Inactive Fiasp FlexTouch U-100 Insulin 100 unit/mL (3 mL) subcutaneous pen RxNorm: 1102213 Inject 18 Unit(s) Subcutaneous BID before lunch and dinner, in addition to 0-12 units per sliding scale 11/27/19 023 Inactive Medication Administered No Medication Administered data Reason For Visit No Reason For Visit data Instructions Comment Date Moved to [facility] 02/05/21. Initial BPS visit 11/26/22.??Patient is morbidly obese and noncompliant to cares. Chronic pain and is on belbuca film- managed by pain clinic. Multiple chronic conditions including DM2, MDD, ANGELI.??She is her own guardian.?? 12/25/2022
--- OUTSIDE RECORDS SUMMARY | 2023-04-24 09:25 | XMS_ITS | CCD ---
Author Name Unknown Organization Unknown Care Team Providers Care Polysomnographer Name Role Phone Duglas Cooper NP Primary Care Provider Unavaila ble Unavailable Chronic Care Management Unavaila ble Summary Purpose DataExchange Insurance Providers Payer name Policy type / Coverage type Covered alliance party ID Effective Begin Date Effective End Date [place]Blue [place] [id number] Unknown Family History Family History data not found Social History Social History Element Codes Description Effec tive Dates Tobacco history SNOMED CT: 5392269 Former smoker 01/28 Allergies, Adverse Reactions, Alerts Substance Reaction Codes Entered Date Inactivated Date Status codeine Unknown 01/28/2023 No Inactive Date Ac tive clarithromycin RxNorm: 09630 01/28/2023 No Inactiv e Date Active rofecoxib RxNorm: 390758 01/28/2023 No Inactive Da te Active Celecoxib Unknown 01/28/2023 No Inactive Date Ac tive GLYCERIN Unknown 01/28/2023 No Inactive Date Ac tive tramadol RxNorm: 12323 01/28/2023 No Inactive Marcio e Active vancomycin Unknown 01/28/2023 No Inactive Date A ctive MORPHINE RxNorm: 68804 01/28/2023 No Inactive Marcio e Active amoxicillin RxNorm: 581878 01/28/2023 No Inactive Date Active Problems Condition [...] Start Date Stop Date Status Fill Instructions Belbuca 600 mcg buccal film RxNorm: 4578437 Melt 1 Miscellaneous Buccal BID 02/25/20 23 023 Inactive Belbuca 600 mcg buccal film RxNorm: 4259239 Melt 1 Miscellaneous Buccal BID 02/25/20 23 023 Inactive metoprolol succinate ER 100 mg tablet,extended release 24 hr RxNorm: 918608 Take 1 Tablet(s) Oral QD 01/31/20 23 024 Active 01/30/2023 PROACTIVE REFILL REQUEST FOR NEXT CYCLE PLEASE THANK YOU ferrous gluconate 324 mg (38 mg iron) tablet RxNorm: 585275 TAKE 1 TABLET BY MOUTH DAILY WITH MEAL 01/31/20 23 024 Active 01/30/2023 PROACTIVE REFILL REQUEST FOR NEXT CYCLE PLEASE THANK YOU RX has/will before cycle date Fiasp FlexTouch U-100 Insulin 100 unit/mL (3 mL) subcutaneous pen RxNorm: 5526066 Inject 18 Unit(s) Subcutaneous BID before lunch and dinner, in addition to 0-12 units per sliding scale 01/22/20 23 023 Inactive Tresiba FlexTouch U-100 insulin 100 unit/mL (3 mL) subcutaneous pen RxNorm: 5007381 Inject 118 Unit(s) Subcutaneous QHS every night at bedtime (+2 units for priming) 01/16/20 23 024 Active Fiasp FlexTouch U-100 Insulin 100 unit/mL (3 mL) subcutaneous pen RxNorm: 8769471 Inject 18 Unit(s) Subcutaneous BID before lunch and dinner, in addition to 0-12 units per sliding scale 01/15/20 23 023 Inactive CalProtect 0.44 %-20.6 % topical ointment RxNorm: 9103747 Apply 1 Application Topical QID as needed 01/14/20 23 023 Inactive Qulipta 60 mg tablet RxNorm: 3567653 Take 1 Tablet(s) Oral QHS every night at bedtime 11/27/19 23 No Stop Date Active Ventolin HFA 90 mcg/actuation aerosol inhaler RxNorm: 258104 Inhale 2 Puff(s) Inhalation QID as needed 11/27/19 23 No Stop Date Active montelukast 10 mg tablet RxNorm: 541053 Take 1 Tablet(s) Oral QHS every night at bedtime 11/27/19 23 No Stop Date Active Narcan 4 mg/actuation nasal spray RxNorm: 5248335 [place] Nasal Use as directed as needed for accidental overdose, then call 911 11/27/19 23 No Stop Date Active gabapentin 400 mg capsule RxNorm: 174633 Take 1 Capsule(s) Oral QAM every morning 11/27/19 23 023 Inactive Milk of Magnesia 400 mg/5 mL oral suspension RxNorm: 687698 Take 15-30 Milliliter(s) Oral QD as needed 11/27/19 23 No Stop Date Active acetaminophen 500 mg capsule RxNorm: 443936 Take 2 Capsule(s) Oral TID 11/27/19 23 No Stop Date Active spironolactone 25 mg tablet RxNorm: 817256 Take 1 Tablet(s) Oral QAM every morning 11/27/19 23 No Stop Date Active Gavilax 17 gram/dose oral powder RxNorm: 847276 Take 17 Gram(s) Oral QD 11/27/19 23 No Stop Date Active atorvastatin 80 mg tablet RxNorm: 287818 Take 1 Tablet(s) Oral QAM every morning 11/27/19 23 No Stop Date Active losartan 100 mg tablet RxNorm: 691811 Take 1 Tablet(s) Oral QD 11/27/19 No Stop Date Active duloxetine 60 mg capsule,delayed release RxNorm: 369597 Take 2 Capsule(s) Oral QAM every morning 11/27/19 No Stop Date Active trazodone 100 mg tablet RxNorm: 377162 Take 1 Tablet(s) Oral QHS every night at bedtime as needed 11/27/19 No Stop Date Active dextromethorphan HBr 15 mg/5 mL oral syrup RxNorm: 2171935 Take 5-10 Milliliter(s) Oral Q4-6H every 4-6 hours as needed 11/27/19 No Stop Date Active Calcium Antacid 200 mg calcium (500 mg) chewable tablet RxNorm: 580588 Take 2-4 Tablet(s) Oral as needed between meals and at bedtime 11/27/19 No Stop Date Active omeprazole 20 mg capsule,delayed release RxNorm: 435567 Take 1 Capsule(s) Oral BID 11/27/19 023 Inactive levothyroxine 50 mcg tablet RxNorm: 817059 Take 1 Tablet(s) Oral QAM every morning 11/27/19 No Stop Date Active fluticasone propionate 50 mcg/actuation nasal spray,suspension RxNorm: 1458542 Instill 1 [place] Nasal QD as needed 11/27/19 No Stop Date Active Jardiance 25 mg tablet RxNorm: 6468298 Take 1 Tablet(s) Oral QD 11/27/19 023 Inactive diphenhydramine 25 mg capsule RxNorm: 3718638 Take 1-2 Capsule(s) Oral Q8H every 8 hours as needed 11/27/19 No Stop Date Active metoclopramide 10 mg tablet RxNorm: 902726 Take 1 Tablet(s) Oral QID (before meals and at bedtime) 11/27/19 023 Inactive magnesium oxide 400 mg (241.3 mg magnesium) tablet RxNorm: 844859 Take 1 Tablet(s) Oral QD 11/27/19 023 Inactive ondansetron 4 mg disintegrating tablet RxNorm: 946293 Take 1 Tablet(s) Oral QD as needed 11/27/19 23 No Stop Date Active aspirin 81 mg tablet,delayed release RxNorm: 196866 Take 1 Tablet(s) Oral QD with a meal 11/27/19 No Stop Date Active Anti-Diarrheal (loperamide) 2 mg tablet RxNorm: 902972 Take 2 Tablet(s) Oral as needed after 1st loose stool, then take 1 tablet as needed after each subsequent loose stool, not to exceed 8 tablets/24 hours 11/27/19 No Stop Date Active Diabetic Tussin DM 10 mg-100 mg/5 mL oral liquid RxNorm: 057995 Take 5-10 Milliliter(s) Oral Q4-6H every 4-6 hours as needed 11/27/19 No Stop Date Active torsemide 20 mg tablet RxNorm: 169208 Take 2 Tablet(s) Oral QD 11/27/19 23 No Stop Date Active tizanidine 4 mg tablet RxNorm: 874241 Take 1 Tablet(s) Oral TID 11/27/19 023 Inactive Antacid Liquid 200 mg-200 mg-20 mg/5 mL oral suspension RxNorm: 374661 Take 5-10 Milliliter(s) Oral as needed one time between meals and at bedtime 11/27/19 No Stop Date Active diltiazem ER (XR/XT) 120 mg capsule,extended release 24 hr, controlled RxNorm: 865428 Take 1 Capsule(s) Oral QAM every morning 11/27/19 23 No Stop Date Active Ubrelvy 100 mg tablet RxNorm: 8785639 Take 1 Tablet(s) Oral QD as needed 11/27/19 23 No Stop Date Active bupropion HCl XL 300 mg 24 hr tablet, extended release RxNorm: 563556 Take 1 Tablet(s) Oral QAM every morning 11/27/19 23 No Stop Date Active sumatriptan 50 mg tablet RxNorm: 931935 Take 1 Tablet(s) Oral BID as needed 11/27/19 23 No Stop Date Active diclofenac 1 % topical gel RxNorm: 075336 Apply 2 Gram(s) Topical QID to affected area(s) 11/27/19 23 No Stop Date Active buspirone 30 mg tablet RxNorm: 350211 Take 1 Tablet(s) Oral BID 07/12/20 23 No Stop Date Active ferrous gluconate 324 mg (38 mg iron) tablet RxNorm: 744792 Take 1 Tablet(s) Oral QD with a meal 11/27/19 023 Inactive metoprolol succinate ER 100 mg tablet,extended release 24 hr RxNorm: 880688 Take 1 Tablet(s) Oral QD 11/27/19 023 Inactive Tresiba FlexTouch U-100 insulin 100 unit/mL (3 mL) subcutaneous pen RxNorm: 4817241 Inject 118 Unit(s) Subcutaneous QHS every night at bedtime (+2 units for priming) 11/27/19 023 Inactive CalProtect 0.44 %-20.6 % topical ointment RxNorm: 0055257 Apply 1 Application Topical QID as needed 11/27/19 023 Inactive Fiasp FlexTouch U-100 Insulin 100 unit/mL (3 mL) subcutaneous pen RxNorm: 7487291 Inject 18 Unit(s) Subcutaneous BID before lunch and dinner, in addition to 0-12 units per sliding scale 11/27/19 023 Inactive Medication Administered No Medication Administered data Reason For Visit No Reason For Visit data Instructions Comment Date [facility] 02[facility]. Initial [facility] visit 11/26/22.??Patient is morbidly obese and noncompliant to cares. Chronic pain and is on belbuca film- managed by pain clinic. Multiple chronic conditions including DM2, MDD, ANGELI.??She is her own guardian.?? 12/25/2022
--- OUTSIDE RECORDS SUMMARY | 2023-04-24 09:25 | XMS_ITS | CCD ---
Author Name Unknown Organization Unknown Care Team Providers Care Cash Sales Audit Clerk Name Role Phone Duglas Cooper NP Primary Care Provider Unavaila ble Unavailable Chronic Care Management Unavaila ble Summary Purpose DataExchange Insurance Providers Payer name Policy type / Coverage type Covered republican ID Effective Begin Date Effective End Date [place] Blue [place]Blue [place] [id number] Unknown Family History Family History data not found Social History Social History Element Codes Description Effec tive Dates Tobacco history SNOMED CT: 2801036 Former smoker 01/28 Allergies, Adverse Reactions, Alerts Substance Reaction Codes Entered Date Inactivated Date Status codeine Unknown 01/28/2023 No Inactive Date Ac tive clarithromycin RxNorm: 96430 01/28/2023 No Inactiv e Date Active rofecoxib RxNorm: 091905 01/28/2023 No Inactive Da te Active Celecoxib Unknown 01/28/2023 No Inactive Date Ac tive GLYCERIN Unknown 01/28/2023 No Inactive Date Ac tive tramadol RxNorm: 34215 01/28/2023 No Inactive Marcio e Active vancomycin Unknown 01/28/2023 No Inactive Date A ctive MORPHINE RxNorm: 94906 01/28/2023 No Inactive Marcio e Active amoxicillin RxNorm: 932235 01/28/2023 No Inactive Date Active Problems Condition [...] anemia ICD-10: D50.9 ICD-9: 280.9 11/26/2022 Active FDC (current) use of insulin ICD-10: Z79.4 11/26 Active ANGELI (obstructive sleep apnea) ICD-10: G4 7.33 ICD-9: 327.23 11/26/2022 Active Paroxysmal A-fib ICD-10: I48.0 ICD-9: 427.31 11/26/2022 Active Recurrent major depressive d isorder, remission status unspecified ICD-10: F33.9 ICD-9: 296.30 11/26/2022 Active Medications Medication Codes Instructions Start Date Stop Date Status Fill Instructions Belbuca 600 mcg buccal film RxNorm: 1046011 Melt 1 Miscellaneous Buccal BID 02/25/20 23 023 Inactive Belbuca 600 mcg buccal film RxNorm: 7206645 Melt 1 Miscellaneous Buccal BID 02/25/20 23 023 Inactive metoprolol succinate ER 100 mg tablet,extended release 24 hr RxNorm: 417883 Take 1 Tablet(s) Oral QD 01/31/20 23 024 Active 01/30/2023 PROACTIVE REFILL REQUEST FOR NEXT CYCLE PLEASE THANK YOU ferrous gluconate 324 mg (38 mg iron) tablet RxNorm: 045618 TAKE 1 TABLET BY MOUTH DAILY WITH MEAL 01/31/20 23 024 Active 01/30/2023 PROACTIVE REFILL REQUEST FOR NEXT CYCLE PLEASE THANK YOU RX has/will before cycle date Fiasp FlexTouch U-100 Insulin 100 unit/mL (3 mL) subcutaneous pen RxNorm: 8881218 Inject 18 Unit(s) Subcutaneous BID before lunch and dinner, in addition to 0-12 units per sliding scale 01/22/20 23 023 Inactive Tresiba FlexTouch U-100 insulin 100 unit/mL (3 mL) subcutaneous pen RxNorm: 3678460 Inject 118 Unit(s) Subcutaneous QHS every night at bedtime (+2 units for priming) 01/16/20 23 024 Active Fiasp FlexTouch U-100 Insulin 100 unit/mL (3 mL) subcutaneous pen RxNorm: 1681385 Inject 18 Unit(s) Subcutaneous BID before lunch and dinner, in addition to 0-12 units per sliding scale 01/15/20 23 023 Inactive CalProtect 0.44 %-20.6 % topical ointment RxNorm: 0003245 Apply 1 Application Topical QID as needed 01/14/20 23 023 Inactive Qulipta 60 mg tablet RxNorm: 8253024 Take 1 Tablet(s) Oral QHS every night at bedtime 11/27/19 23 No Stop Date Active Ventolin HFA 90 mcg/actuation aerosol inhaler RxNorm: 198867 Inhale 2 Puff(s) Inhalation QID as needed 11/27/19 23 No Stop Date Active montelukast 10 mg tablet RxNorm: 252712 Take 1 Tablet(s) Oral QHS every night at bedtime 11/27/19 23 No Stop Date Active Narcan 4 mg/actuation nasal spray RxNorm: 0423523 [place] Nasal Use as directed as needed for accidental overdose, then call 911 11/27/19 23 No Stop Date Active gabapentin 400 mg capsule RxNorm: 634734 Take 1 Capsule(s) Oral QAM every morning 11/27/19 23 023 Inactive Milk of Magnesia 400 mg/5 mL oral suspension RxNorm: 893154 Take 15-30 Milliliter(s) Oral QD as needed 11/27/19 23 No Stop Date Active acetaminophen 500 mg capsule RxNorm: 885661 Take 2 Capsule(s) Oral TID 11/27/19 23 No Stop Date Active spironolactone 25 mg tablet RxNorm: 443514 Take 1 Tablet(s) Oral QAM every morning 11/27/19 23 No Stop Date Active Gavilax 17 gram/dose oral powder RxNorm: 034003 Take 17 Gram(s) Oral QD 11/27/19 23 No Stop Date Active atorvastatin 80 mg tablet RxNorm: 905560 Take 1 Tablet(s) Oral QAM every morning 11/27/19 23 No Stop Date Active losartan 100 mg tablet RxNorm: 432547 Take 1 Tablet(s) Oral QD 11/27/19 No Stop Date Active duloxetine 60 mg capsule,delayed release RxNorm: 564072 Take 2 Capsule(s) Oral QAM every morning 11/27/19 No Stop Date Active trazodone 100 mg tablet RxNorm: 296546 Take 1 Tablet(s) Oral QHS every night at bedtime as needed 11/27/19 No Stop Date Active dextromethorphan HBr 15 mg/5 mL oral syrup RxNorm: 0268878 Take 5-10 Milliliter(s) Oral Q4-6H every 4-6 hours as needed 11/27/19 No Stop Date Active Calcium Antacid 200 mg calcium (500 mg) chewable tablet RxNorm: 569520 Take 2-4 Tablet(s) Oral as needed between meals and at bedtime 11/27/19 No Stop Date Active omeprazole 20 mg capsule,delayed release RxNorm: 083876 Take 1 Capsule(s) Oral BID 11/27/19 023 Inactive levothyroxine 50 mcg tablet RxNorm: 220502 Take 1 Tablet(s) Oral QAM every morning 11/27/19 No Stop Date Active fluticasone propionate 50 mcg/actuation nasal spray,suspension RxNorm: 9594291 Instill 1 [place] Nasal QD as needed 11/27/19 No Stop Date Active Jardiance 25 mg tablet RxNorm: 2346611 Take 1 Tablet(s) Oral QD 11/27/19 023 Inactive diphenhydramine 25 mg capsule RxNorm: 8079198 Take 1-2 Capsule(s) Oral Q8H every 8 hours as needed 11/27/19 No Stop Date Active metoclopramide 10 mg tablet RxNorm: 464593 Take 1 Tablet(s) Oral QID (before meals and at bedtime) 11/27/19 023 Inactive magnesium oxide 400 mg (241.3 mg magnesium) tablet RxNorm: 741652 Take 1 Tablet(s) Oral QD 11/27/19 023 Inactive ondansetron 4 mg disintegrating tablet RxNorm: 472818 Take 1 Tablet(s) Oral QD as needed 11/27/19 23 No Stop Date Active aspirin 81 mg tablet,delayed release RxNorm: 896093 Take 1 Tablet(s) Oral QD with a meal 11/27/19 No Stop Date Active Anti-Diarrheal (loperamide) 2 mg tablet RxNorm: 291926 Take 2 Tablet(s) Oral as needed after 1st loose stool, then take 1 tablet as needed after each subsequent loose stool, not to exceed 8 tablets/24 hours 11/27/19 No Stop Date Active Diabetic Tussin DM 10 mg-100 mg/5 mL oral liquid RxNorm: 758617 Take 5-10 Milliliter(s) Oral Q4-6H every 4-6 hours as needed 11/27/19 No Stop Date Active torsemide 20 mg tablet RxNorm: 780390 Take 2 Tablet(s) Oral QD 11/27/19 23 No Stop Date Active tizanidine 4 mg tablet RxNorm: 036905 Take 1 Tablet(s) Oral TID 11/27/19 023 Inactive Antacid Liquid 200 mg-200 mg-20 mg/5 mL oral suspension RxNorm: 148676 Take 5-10 Milliliter(s) Oral as needed one time between meals and at bedtime 11/27/19 No Stop Date Active diltiazem ER (XR/XT) 120 mg capsule,extended release 24 hr, controlled RxNorm: 796001 Take 1 Capsule(s) Oral QAM every morning 11/27/19 23 No Stop Date Active Ubrelvy 100 mg tablet RxNorm: 9786248 Take 1 Tablet(s) Oral QD as needed 11/27/19 23 No Stop Date Active bupropion HCl XL 300 mg 24 hr tablet, extended release RxNorm: 163521 Take 1 Tablet(s) Oral QAM every morning 11/27/19 23 No Stop Date Active sumatriptan 50 mg tablet RxNorm: 237479 Take 1 Tablet(s) Oral BID as needed 11/27/19 23 No Stop Date Active diclofenac 1 % topical gel RxNorm: 276897 Apply 2 Gram(s) Topical QID to affected area(s) 11/27/19 23 No Stop Date Active buspirone 30 mg tablet RxNorm: 077809 Take 1 Tablet(s) Oral BID 07/12/20 23 No Stop Date Active ferrous gluconate 324 mg (38 mg iron) tablet RxNorm: 650318 Take 1 Tablet(s) Oral QD with a meal 11/27/19 023 Inactive metoprolol succinate ER 100 mg tablet,extended release 24 hr RxNorm: 405749 Take 1 Tablet(s) Oral QD 11/27/19 023 Inactive Tresiba FlexTouch U-100 insulin 100 unit/mL (3 mL) subcutaneous pen RxNorm: 5028348 Inject 118 Unit(s) Subcutaneous QHS every night at bedtime (+2 units for priming) 11/27/19 023 Inactive CalProtect 0.44 %-20.6 % topical ointment RxNorm: 2850251 Apply 1 Application Topical QID as needed 11/27/19 023 Inactive Fiasp FlexTouch U-100 Insulin 100 unit/mL (3 mL) subcutaneous pen RxNorm: 9685888 Inject 18 Unit(s) Subcutaneous BID before lunch and dinner, in addition to 0-12 units per sliding scale 11/27/19 023 Inactive Medication Administered No Medication Administered data Reason For Visit No Reason For Visit data Instructions Comment Date M[facility] [place] 02[place]. Initial BPS visit 11/26/22.??Patient is morbidly obese and noncompliant to cares. Chronic pain and is on belbuca film- managed by pain clinic. Multiple chronic conditions including DM2, MDD, ANGELI.??She is her own guardian.?? 12/25/2022
--- OUTSIDE RECORDS SUMMARY | 2023-04-24 09:26 | XMS_ITS | CCD ---
Author Name Unknown Organization Unknown Care Team Providers Care Processing Technician Name Role Phone Duglas Cooper NP Primary Care Provider Unavaila ble Unavailable Chronic Care Management Unavaila ble Summary Purpose DataExchange Insurance Providers Payer name Policy type / Coverage type Covered constitution party ID Effective Begin Date Effective End Date [place]Blue [place] [id number] Unknown Family History Family History data not found Social History Social History Element Codes Description Effec tive Dates Tobacco history SNOMED CT: 0016847 Former smoker 01/28 Allergies, Adverse Reactions, Alerts Substance Reaction Codes Entered Date Inactivated Date Status codeine Unknown 01/28/2023 No Inactive Date Ac tive clarithromycin RxNorm: 10084 01/28/2023 No Inactiv e Date Active rofecoxib RxNorm: 768029 01/28/2023 No Inactive Da te Active Celecoxib Unknown 01/28/2023 No Inactive Date Ac tive GLYCERIN Unknown 01/28/2023 No Inactive Date Ac tive tramadol RxNorm: 42703 01/28/2023 No Inactive Marcio e Active vancomycin Unknown 01/28/2023 No Inactive Date A ctive MORPHINE RxNorm: 81186 01/28/2023 No Inactive Marcio e Active amoxicillin RxNorm: 136939 01/28/2023 No Inactive Date Active Problems Condition [...] ICD-10: D50.9 ICD-9: 280.9 11/26/2022 Active terminal operations supervisor (current) use of insulin ICD-10: Z79.4 11/26 Active ANGELI (obstructive sleep apnea) ICD-10: G4 7.33 ICD-9: 327.23 11/26/2022 Active Paroxysmal A-fib ICD-10: I48.0 ICD-9: 427.31 11/26/2022 Active Recurrent major depressive d isorder, remission status unspecified ICD-10: F33.9 ICD-9: 296.30 11/26/2022 Active Medications Medication Codes Instructions Start Date Stop Date Status Fill Instructions metoclopramide 10 mg tablet RxNorm: 809350 TAKE 1 TABLET BY MOUTH 4 TIMES DAILY -BEFORE MEALS & AT BEDTIME- 03/05/20 024 Active 03/05/2023 PROACTIVE REFILL REQUEST FOR NEXT CYCLE PLEASE THANK YOU RX has/will before cycle date tizanidine 4 mg tablet RxNorm: 067927 Take 1 Tablet(s) Oral TID 03/05/20 024 Active 03/05/2023 PROACTIVE REFILL REQUEST FOR NEXT CYCLE PLEASE THANK YOU RX has/will before cycle date Jardiance 25 mg tablet RxNorm: 1091117 Take 1 Tablet(s) Oral QD 03/05/20 23 024 Active 03/05/2023 PROACTIVE REFILL REQUEST FOR NEXT CYCLE PLEASE THANK YOU RX has/will before cycle date magnesium oxide 400 mg (241.3 mg magnesium) tablet RxNorm: 042845 Take 1 Tablet(s) Oral QD 03/05/20 23 024 Active 03/05/2023 PROACTIVE REFILL REQUEST FOR NEXT CYCLE PLEASE THANK YOU RX has/will before cycle date omeprazole 20 mg capsule,delayed release RxNorm: 717905 Take 1 Capsule(s) Oral BID 03/05/20 23 024 Active 03/05/2023 PROACTIVE REFILL REQUEST FOR NEXT CYCLE PLEASE THANK YOU RX has/will before cycle date gabapentin 400 mg capsule RxNorm: 207005 Take 1 Capsule(s) Oral QAM every morning 03/05/20 024 Active 03/05/2023 PROACTIVE REFILL REQUEST FOR NEXT CYCLE PLEASE THANK YOU RX has/will before cycle date menthol 0.44 %-zinc oxide 20.6 % topical ointment RxNorm: 0591279 APPLY TO AFFECTED AREA(S) FOUR TIMES DAILY NEEDED 03/03/20 024 Active Belbuca 600 mcg buccal film RxNorm: 3554845 Melt 1 Miscellaneous Buccal BID 02/25/20 023 Inactive Belbuca 600 mcg buccal film RxNorm: 1375071 Melt 1 Miscellaneous Buccal BID 02/25/20 23 023 Inactive metoprolol succinate ER 100 mg tablet,extended release 24 hr RxNorm: 373086 Take 1 Tablet(s) Oral QD 01/31/20 23 024 Active 01/30/2023 PROACTIVE REFILL REQUEST FOR NEXT CYCLE PLEASE THANK YOU ferrous gluconate 324 mg (38 mg iron) tablet RxNorm: 471434 TAKE 1 TABLET BY MOUTH DAILY WITH MEAL 01/31/20 024 Active 01/30/2023 PROACTIVE REFILL REQUEST FOR NEXT CYCLE PLEASE THANK YOU RX has/will before cycle date Fiasp FlexTouch U-100 Insulin 100 unit/mL (3 mL) subcutaneous pen RxNorm: 0249935 Inject 18 Unit(s) Subcutaneous BID before lunch and dinner, in addition to 0-12 units per sliding scale 01/22/20 23 023 Inactive Tresiba FlexTouch U-100 insulin 100 unit/mL (3 mL) subcutaneous pen RxNorm: 3047714 Inject 118 Unit(s) Subcutaneous QHS every night at bedtime (+2 units for priming) 01/16/20 23 024 Active Fiasp FlexTouch U-100 Insulin 100 unit/mL (3 mL) subcutaneous pen RxNorm: 4809070 Inject 18 Unit(s) Subcutaneous BID before lunch and dinner, in addition to 0-12 units per sliding scale 01/15/20 23 023 Inactive CalProtect 0.44 %-20.6 % topical ointment RxNorm: 0158966 Apply 1 Application Topical QID as needed 01/14/20 23 023 Inactive Qulipta 60 mg tablet RxNorm: 3892936 Take 1 Tablet(s) Oral QHS every night at bedtime 11/27/19 23 No Stop Date Active Ventolin HFA 90 mcg/actuation aerosol inhaler RxNorm: 443526 Inhale 2 Puff(s) Inhalation QID as needed 11/27/19 No Stop Date Active montelukast 10 mg tablet RxNorm: 537122 Take 1 Tablet(s) Oral QHS every night at bedtime 11/27/19 No Stop Date Active Narcan 4 mg/actuation nasal spray RxNorm: 3426364 [place] Nasal Use as directed as needed for accidental overdose, then call 911 11/27/19 No Stop Date Active gabapentin 400 mg capsule RxNorm: 940556 Take 1 Capsule(s) Oral QAM every morning 11/27/19 23 023 Inactive Milk of Magnesia 400 mg/5 mL oral suspension RxNorm: 926836 Take 15-30 Milliliter(s) Oral QD as needed 11/27/19 No Stop Date Active acetaminophen 500 mg capsule RxNorm: 634233 Take 2 Capsule(s) Oral TID 11/27/19 No Stop Date Active spironolactone 25 mg tablet RxNorm: 866494 Take 1 Tablet(s) Oral QAM every morning 11/27/19 23 No Stop Date Active Gavilax 17 gram/dose oral powder RxNorm: 228365 Take 17 Gram(s) Oral QD 11/27/19 23 No Stop Date Active atorvastatin 80 mg tablet RxNorm: 903689 Take 1 Tablet(s) Oral QAM every morning 11/27/19 23 No Stop Date Active losartan 100 mg tablet RxNorm: 090475 Take 1 Tablet(s) Oral QD 11/27/19 23 No Stop Date Active duloxetine 60 mg capsule,delayed release RxNorm: 595984 Take 2 Capsule(s) Oral QAM every morning 11/27/19 23 No Stop Date Active trazodone 100 mg tablet RxNorm: 743872 Take 1 Tablet(s) Oral QHS every night at bedtime as needed 11/27/19 No Stop Date Active dextromethorphan HBr 15 mg/5 mL oral syrup RxNorm: 2747505 Take 5-10 Milliliter(s) Oral Q4-6H every 4-6 hours as needed 11/27/19 No Stop Date Active Calcium Antacid 200 mg calcium (500 mg) chewable tablet RxNorm: 539064 Take 2-4 Tablet(s) Oral as needed between meals and at bedtime 11/27/19 No Stop Date Active omeprazole 20 mg capsule,delayed release RxNorm: 093337 Take 1 Capsule(s) Oral BID 11/27/19 023 Inactive levothyroxine 50 mcg tablet RxNorm: 213362 Take 1 Tablet(s) Oral QAM every morning 11/27/19 No Stop Date Active fluticasone propionate 50 mcg/actuation nasal spray,suspension RxNorm: 1301913 Instill 1 [place] Nasal QD as needed 11/27/19 No Stop Date Active Jardiance 25 mg tablet RxNorm: 4793266 Take 1 Tablet(s) Oral QD 11/27/19 023 Inactive diphenhydramine 25 mg capsule RxNorm: 4407238 Take 1-2 Capsule(s) Oral Q8H every 8 hours as needed 11/27/19 No Stop Date Active metoclopramide 10 mg tablet RxNorm: 214917 Take 1 Tablet(s) Oral QID (before meals and at bedtime) 11/27/19 023 Inactive magnesium oxide 400 mg (241.3 mg magnesium) tablet RxNorm: 625733 Take 1 Tablet(s) Oral QD 11/27/19 023 Inactive ondansetron 4 mg disintegrating tablet RxNorm: 877549 Take 1 Tablet(s) Oral QD as needed 11/27/19 No Stop Date Active aspirin 81 mg tablet,delayed release RxNorm: 782115 Take 1 Tablet(s) Oral QD with a meal 11/27/19 No Stop Date Active Anti-Diarrheal (loperamide) 2 mg tablet RxNorm: 330678 Take 2 Tablet(s) Oral as needed after 1st loose stool, then take 1 tablet as needed after each subsequent loose stool, not to exceed 8 tablets/24 hours 11/27/19 23 No Stop Date Active Diabetic Tussin DM 10 mg-100 mg/5 mL oral liquid RxNorm: 940764 Take 5-10 Milliliter(s) Oral Q4-6H every 4-6 hours as needed 11/27/19 23 No Stop Date Active torsemide 20 mg tablet RxNorm: 540140 Take 2 Tablet(s) Oral QD 11/27/19 23 No Stop Date Active tizanidine 4 mg tablet RxNorm: 581341 Take 1 Tablet(s) Oral TID 11/27/19 23 023 Inactive Antacid Liquid 200 mg-200 mg-20 mg/5 mL oral suspension RxNorm: 198095 Take 5-10 Milliliter(s) Oral as needed one time between meals and at bedtime 11/27/19 No Stop Date Active diltiazem ER (XR/XT) 120 mg capsule,extended release 24 hr, controlled RxNorm: 267788 Take 1 Capsule(s) Oral QAM every morning 11/27/19 23 No Stop Date Active Ubrelvy 100 mg tablet RxNorm: 2698186 Take 1 Tablet(s) Oral QD as needed 11/27/19 23 No Stop Date Active bupropion HCl XL 300 mg 24 hr tablet, extended release RxNorm: 779484 Take 1 Tablet(s) Oral QAM every morning 11/27/19 23 No Stop Date Active sumatriptan 50 mg tablet RxNorm: 122070 Take 1 Tablet(s) Oral BID as needed 11/27/19 23 No Stop Date Active diclofenac 1 % topical gel RxNorm: 936428 Apply 2 Gram(s) Topical QID to affected area(s) 11/27/19 23 No Stop Date Active buspirone 30 mg tablet RxNorm: 949640 Take 1 Tablet(s) Oral BID 11/27/19 23 No Stop Date Active ferrous gluconate 324 mg (38 mg iron) tablet RxNorm: 586171 Take 1 Tablet(s) Oral QD with a meal 11/27/19 23 023 Inactive metoprolol succinate ER 100 mg tablet,extended release 24 hr RxNorm: 202558 Take 1 Tablet(s) Oral QD 11/27/19 023 Inactive Tresiba FlexTouch U-100 insulin 100 unit/mL (3 mL) subcutaneous pen RxNorm: 7372242 Inject 118 Unit(s) Subcutaneous QHS every night at bedtime (+2 units for priming) 11/27/19 023 Inactive CalProtect 0.44 %-20.6 % topical ointment RxNorm: 8772974 Apply 1 Application Topical QID as needed 11/27/19 023 Inactive Fiasp FlexTouch U-100 Insulin 100 unit/mL (3 mL) subcutaneous pen RxNorm: 2649831 Inject 18 Unit(s) Subcutaneous BID before lunch and dinner, in addition to 0-12 units per sliding scale 11/27/19 023 Inactive Medication Administered No Medication Administered data Reason For Visit No Reason For Visit data Instructions Comment Date Moved to [facility] 02/05/21. Initial [facility]PS visit 11/26/22.??Patient is morbidly obese and noncompliant to cares. Chronic pain and is on belbuca film- managed by pain clinic. Multiple chronic conditions including DM2, MDD, ANGELI.??She is her own guardian.?? 12/25/2022
--- OUTSIDE RECORDS SUMMARY | 2023-04-24 09:26 | XMS_ITS | CCD ---
Author Name Unknown Organization Unknown Care Team Providers Care Automatic Mold Sander Name Role Phone Duglas Cooper NP Primary Care Provider Unavaila ble Unavailable Chronic Care Management Unavaila ble Summary Purpose DataExchange Insurance Providers Payer name Policy type / Coverage type Covered republican ID Effective Begin Date Effective End Date [place]Blue [place] [id number] Unknown Family History Family History data not found Social History Social History Element Codes Description Effec tive Dates Tobacco history SNOMED CT: 4057371 Former smoker 01/28 Allergies, Adverse Reactions, Alerts Substance Reaction Codes Entered Date Inactivated Date Status codeine Unknown 01/28/2023 No Inactive Date Ac tive clarithromycin RxNorm: 77938 01/28/2023 No Inactiv e Date Active rofecoxib RxNorm: 537461 01/28/2023 No Inactive Da te Active Celecoxib Unknown 01/28/2023 No Inactive Date Ac tive GLYCERIN Unknown 01/28/2023 No Inactive Date Ac tive tramadol RxNorm: 29285 01/28/2023 No Inactive Marcio e Active vancomycin Unknown 01/28/2023 No Inactive Date A ctive MORPHINE RxNorm: 49547 01/28/2023 No Inactive Marcio e Active amoxicillin RxNorm: 655196 01/28/2023 No Inactive Date Active Problems Condition [...] anemia ICD-10: D50.9 ICD-9: 280.9 11/26/2022 Active shelter (current) use of insulin ICD-10: Z79.4 11/26 Active ANGELI (obstructive sleep apnea) ICD-10: G4 7.33 ICD-9: 327.23 11/26/2022 Active Paroxysmal A-fib ICD-10: I48.0 ICD-9: 427.31 11/26/2022 Active Recurrent major depressive d isorder, remission status unspecified ICD-10: F33.9 ICD-9: 296.30 11/26/2022 Active Medications Medication Codes Instructions Start Date Stop Date Status Fill Instructions Belbuca 300 mcg buccal film RxNorm: 1010539 Take 1 Application Buccal QD 03/28/20 23 023 Inactive Belbuca 300 mcg buccal film RxNorm: 6236837 Take 1 Application Buccal QD 03/28/20 23 023 Inactive Belbuca 600 mcg buccal film RxNorm: 6647630 Melt 1 Miscellaneous Buccal QD 03/28/20 23 023 Inactive Belbuca 300 mcg buccal film RxNorm: 0535769 Take 1 Application Buccal QD 03/28/20 023 Inactive Accu-Chek Guide test strips RxNorm: Use 1 Test Strip QID 03/10/20 23 024 Active Accu-Chek Guide test strips RxNorm: Use 1 Test Strip QID 03/10/20 23 023 Inactive metoclopramide 10 mg tablet RxNorm: 514531 TAKE 1 TABLET BY MOUTH 4 TIMES DAILY -BEFORE MEALS & AT BEDTIME- 03/05/20 23 024 Active 03/05/2023 PROACTIVE REFILL REQUEST FOR NEXT CYCLE PLEASE THANK YOU RX has/will before cycle date tizanidine 4 mg tablet RxNorm: 955051 Take 1 Tablet(s) Oral TID 03/05/20 024 Active 03/05/2023 PROACTIVE REFILL REQUEST FOR NEXT CYCLE PLEASE THANK YOU RX has/will before cycle date Jardiance 25 mg tablet RxNorm: 8782306 Take 1 Tablet(s) Oral QD 03/05/20 024 Active 03/05/2023 PROACTIVE REFILL REQUEST FOR NEXT CYCLE PLEASE THANK YOU RX has/will before cycle date magnesium oxide 400 mg (241.3 mg magnesium) tablet RxNorm: 080957 Take 1 Tablet(s) Oral QD 03/05/20 024 Active 03/05/2023 PROACTIVE REFILL REQUEST FOR NEXT CYCLE PLEASE THANK YOU RX has/will before cycle date omeprazole 20 mg capsule,delayed release RxNorm: 038351 Take 1 Capsule(s) Oral BID 03/05/20 024 Active 03/05/2023 PROACTIVE REFILL REQUEST FOR NEXT CYCLE PLEASE THANK YOU RX has/will before cycle date gabapentin 400 mg capsule RxNorm: 347118 Take 1 Capsule(s) Oral QAM every morning 03/05/20 024 Active 03/05/2023 PROACTIVE REFILL REQUEST FOR NEXT CYCLE PLEASE THANK YOU RX has/will before cycle date menthol 0.44 %-zinc oxide 20.6 % topical ointment RxNorm: 1788290 APPLY TO AFFECTED AREA(S) FOUR TIMES DAILY NEEDED 03/03/20 024 Active Belbuca 600 mcg buccal film RxNorm: 2282734 Melt 1 Miscellaneous Buccal BID 02/25/20 23 023 Inactive Belbuca 600 mcg buccal film RxNorm: 0945433 Melt 1 Miscellaneous Buccal BID 02/25/20 23 023 Inactive metoprolol succinate ER 100 mg tablet,extended release 24 hr RxNorm: 480300 Take 1 Tablet(s) Oral QD 01/31/20 23 024 Active 01/30/2023 PROACTIVE REFILL REQUEST FOR NEXT CYCLE PLEASE THANK YOU ferrous gluconate 324 mg (38 mg iron) tablet RxNorm: 892041 TAKE 1 TABLET BY MOUTH DAILY WITH MEAL 01/31/20 024 Active 01/30/2023 PROACTIVE REFILL REQUEST FOR NEXT CYCLE PLEASE THANK YOU RX has/will before cycle date Fiasp FlexTouch U-100 Insulin 100 unit/mL (3 mL) subcutaneous pen RxNorm: 8088335 Inject 18 Unit(s) Subcutaneous BID before lunch and dinner, in addition to 0-12 units per sliding scale 01/22/20 23 023 Inactive Tresiba FlexTouch U-100 insulin 100 unit/mL (3 mL) subcutaneous pen RxNorm: 0071657 Inject 118 Unit(s) Subcutaneous QHS every night at bedtime (+2 units for priming) 01/16/20 23 024 Active Fiasp FlexTouch U-100 Insulin 100 unit/mL (3 mL) subcutaneous pen RxNorm: 9110684 Inject 18 Unit(s) Subcutaneous BID before lunch and dinner, in addition to 0-12 units per sliding scale 01/15/20 23 023 Inactive CalProtect 0.44 %-20.6 % topical ointment RxNorm: 6843137 Apply 1 Application Topical QID as needed 01/14/20 23 023 Inactive Qulipta 60 mg tablet RxNorm: 7241913 Take 1 Tablet(s) Oral QHS every night at bedtime 11/27/19 23 No Stop Date Active Ventolin HFA 90 mcg/actuation aerosol inhaler RxNorm: 017444 Inhale 2 Puff(s) Inhalation QID as needed 11/27/19 23 No Stop Date Active montelukast 10 mg tablet RxNorm: 345528 Take 1 Tablet(s) Oral QHS every night at bedtime 11/27/19 23 No Stop Date Active Narcan 4 mg/actuation nasal spray RxNorm: 7801941 [employer] [place] Nasal Use as directed as needed for accidental overdose, then call 911 11/27/19 23 No Stop Date Active Milk of Magnesia 400 mg/5 mL oral suspension RxNorm: 275730 Take 15-30 Milliliter(s) Oral QD as needed 11/27/19 23 No Stop Date Active acetaminophen 500 mg capsule RxNorm: 713728 Take 2 Capsule(s) Oral TID 11/27/19 23 No Stop Date Active spironolactone 25 mg tablet RxNorm: 079176 Take 1 Tablet(s) Oral QAM every morning 11/27/19 23 No Stop Date Active Gavilax 17 gram/dose oral powder RxNorm: 491727 Take 17 Gram(s) Oral QD 11/27/19 23 No Stop Date Active atorvastatin 80 mg tablet RxNorm: 140850 Take 1 Tablet(s) Oral QAM every morning 11/27/19 23 No Stop Date Active losartan 100 mg tablet RxNorm: 933266 Take 1 Tablet(s) Oral QD 11/27/19 23 No Stop Date Active duloxetine 60 mg capsule,delayed release RxNorm: 922180 Take 2 Capsule(s) Oral QAM every morning 11/27/19 23 No Stop Date Active trazodone 100 mg tablet RxNorm: 159553 Take 1 Tablet(s) Oral QHS every night at bedtime as needed 11/27/19 No Stop Date Active dextromethorphan HBr 15 mg/5 mL oral syrup RxNorm: 5469120 Take 5-10 Milliliter(s) Oral Q4-6H every 4-6 hours as needed 11/27/19 No Stop Date Active Calcium Antacid 200 mg calcium (500 mg) chewable tablet RxNorm: 810831 Take 2-4 Tablet(s) Oral as needed between meals and at bedtime 11/27/19 No Stop Date Active levothyroxine 50 mcg tablet RxNorm: 618492 Take 1 Tablet(s) Oral QAM every morning 11/27/19 23 No Stop Date Active fluticasone propionate 50 mcg/actuation nasal spray,suspension RxNorm: 8861710 Instill 1 [employer] [place] Nasal QD as needed 11/27/19 23 No Stop Date Active diphenhydramine 25 mg capsule RxNorm: 1795531 Take 1-2 Capsule(s) Oral Q8H every 8 hours as needed 11/27/19 23 No Stop Date Active ondansetron 4 mg disintegrating tablet RxNorm: 384240 Take 1 Tablet(s) Oral QD as needed 11/27/19 23 No Stop Date Active aspirin 81 mg tablet,delayed release RxNorm: 800311 Take 1 Tablet(s) Oral QD with a meal 11/27/19 23 No Stop Date Active Anti-Diarrheal (loperamide) 2 mg tablet RxNorm: 812797 Take 2 Tablet(s) Oral as needed after 1st loose stool, then take 1 tablet as needed after each subsequent loose stool, not to exceed 8 tablets/24 hours 11/27/19 23 No Stop Date Active Diabetic Tussin DM 10 mg-100 mg/5 mL oral liquid RxNorm: 536218 Take 5-10 Milliliter(s) Oral Q4-6H every 4-6 hours as needed 11/27/19 23 No Stop Date Active torsemide 20 mg tablet RxNorm: 878053 Take 2 Tablet(s) Oral QD 11/27/19 23 No Stop Date Active Antacid Liquid 200 mg-200 mg-20 mg/5 mL oral suspension RxNorm: 402462 Take 5-10 Milliliter(s) Oral as needed one time between meals and at bedtime 11/27/19 23 No Stop Date Active diltiazem ER (XR/XT) 120 mg capsule,extended release 24 hr, controlled RxNorm: 093636 Take 1 Capsule(s) Oral QAM every morning 11/27/19 23 No Stop Date Active Ubrelvy 100 mg tablet RxNorm: 5997837 Take 1 Tablet(s) Oral QD as needed 11/27/19 23 No Stop Date Active bupropion HCl XL 300 mg 24 hr tablet, extended release RxNorm: 668117 Take 1 Tablet(s) Oral QAM every morning 11/27/19 23 No Stop Date Active sumatriptan 50 mg tablet RxNorm: 669240 Take 1 Tablet(s) Oral BID as needed 11/27/19 23 No Stop Date Active diclofenac 1 % topical gel RxNorm: 243851 Apply 2 Gram(s) Topical QID to affected area(s) 11/27/19 23 No Stop Date Active buspirone 30 mg tablet RxNorm: 669276 Take 1 Tablet(s) Oral BID 11/27/19 23 No Stop Date Active gabapentin 400 mg capsule RxNorm: 362713 Take 1 Capsule(s) Oral QAM every morning 11/27/19 23 023 Inactive ferrous gluconate 324 mg (38 mg iron) tablet RxNorm: 582628 Take 1 Tablet(s) Oral QD with a meal 11/27/19 23 023 Inactive omeprazole 20 mg capsule,delayed release RxNorm: 274014 Take 1 Capsule(s) Oral BID 07 023 Inactive metoprolol succinate ER 100 mg tablet,extended release 24 hr RxNorm: 205736 Take 1 Tablet(s) Oral QD 11/27/19 023 Inactive Tresiba FlexTouch U-100 insulin 100 unit/mL (3 mL) subcutaneous pen RxNorm: 1542192 Inject 118 Unit(s) Subcutaneous QHS every night at bedtime (+2 units for priming) 11/27/19 023 Inactive CalProtect 0.44 %-20.6 % topical ointment RxNorm: 0078905 Apply 1 Application Topical QID as needed 11/27/19 Inactive Jardiance 25 mg tablet RxNorm: 8641943 Take 1 Tablet(s) Oral QD 11/27/19 023 Inactive metoclopramide 10 mg tablet RxNorm: 270636 Take 1 Tablet(s) Oral QID (before meals and at bedtime) 11/27/19 023 Inactive magnesium oxide 400 mg (241.3 mg magnesium) tablet RxNorm: 375816 Take 1 Tablet(s) Oral QD 11/27/19 023 Inactive Fiasp FlexTouch U-100 Insulin 100 unit/mL (3 mL) subcutaneous pen RxNorm: 5977217 Inject 18 Unit(s) Subcutaneous BID before lunch and dinner, in addition to 0-12 units per sliding scale 11/27/19 023 Inactive tizanidine 4 mg tablet RxNorm: 109484 Take 1 Tablet(s) Oral TID 11/27/19 023 Inactive Medication Administered No Medication Administered data Reason For Visit No Reason For Visit data Instructions Comment Date Moved to [facility] 02/05/21. Initial [facility] visit 11/26/22.??Patient is morbidly obese and noncompliant to cares. Chronic pain and is on belbuca film- managed by pain clinic. Multiple chronic conditions including DM2, MDD, ANGELI.??She is her own guardian.?? 12/25/2022
--- OUTSIDE RECORDS SUMMARY | 2023-04-24 09:26 | XMS_ITS | CCD ---
Author Name Unknown Organization Unknown Care Team Providers Care Barrel Repairer Name Role Phone Duglas Cooper NP Primary Care Provider Unavaila ble Unavailable Chronic Care Management Unavaila ble Summary Purpose DataExchange Insurance Providers Payer name Policy type / Coverage type Covered green party ID Effective Begin Date Effective End Date [place]Blue [place] [id number] Unknown Family History Family History data not found Social History Social History Element Codes Description Effec tive Dates Tobacco history SNOMED CT: 2246563 Former smoker 01/28 Allergies, Adverse Reactions, Alerts Substance Reaction Codes Entered Date Inactivated Date Status codeine Unknown 01/28/2023 No Inactive Date Ac tive clarithromycin RxNorm: 97766 01/28/2023 No Inactiv e Date Active rofecoxib RxNorm: 680507 01/28/2023 No Inactive Da te Active Celecoxib Unknown 01/28/2023 No Inactive Date Ac tive GLYCERIN Unknown 01/28/2023 No Inactive Date Ac tive tramadol RxNorm: 26339 01/28/2023 No Inactive Marcio e Active vancomycin Unknown 01/28/2023 No Inactive Date A ctive MORPHINE RxNorm: 75124 01/28/2023 No Inactive Marcio e Active amoxicillin RxNorm: 830833 01/28/2023 No Inactive Date Active Problems Condition [...] anemia ICD-10: D50.9 ICD-9: 280.9 11/26/2022 Active group home (current) use of insulin ICD-10: Z79.4 11/26 Active ANGELI (obstructive sleep apnea) ICD-10: G4 7.33 ICD-9: 327.23 11/26/2022 Active Paroxysmal A-fib ICD-10: I48.0 ICD-9: 427.31 11/26/2022 Active Recurrent major depressive d isorder, remission status unspecified ICD-10: F33.9 ICD-9: 296.30 11/26/2022 Active Medications Medication Codes Instructions Start Date Stop Date Status Fill Instructions Belbuca 300 mcg buccal film RxNorm: 5374276 Take 1 Application Buccal QD 03/28/20 23 023 Inactive Belbuca 300 mcg buccal film RxNorm: 9128604 Take 1 Application Buccal QD 03/28/20 23 023 Inactive Belbuca 600 mcg buccal film RxNorm: 1576883 Melt 1 Miscellaneous Buccal QD 03/28/20 23 023 Inactive Belbuca 300 mcg buccal film RxNorm: 2778225 Take 1 Application Buccal QD 03/28/20 023 Inactive Accu-Chek Guide test strips RxNorm: Use 1 Test Strip QID 03/10/20 23 024 Active Accu-Chek Guide test strips RxNorm: Use 1 Test Strip QID 03/10/20 23 023 Inactive metoclopramide 10 mg tablet RxNorm: 417998 TAKE 1 TABLET BY MOUTH 4 TIMES DAILY -BEFORE MEALS & AT BEDTIME- 03/05/20 23 024 Active 03/05/2023 PROACTIVE REFILL REQUEST FOR NEXT CYCLE PLEASE THANK YOU RX has/will before cycle date tizanidine 4 mg tablet RxNorm: 093908 Take 1 Tablet(s) Oral TID 03/05/20 024 Active 03/05/2023 PROACTIVE REFILL REQUEST FOR NEXT CYCLE PLEASE THANK YOU RX has/will before cycle date Jardiance 25 mg tablet RxNorm: 2045573 Take 1 Tablet(s) Oral QD 03/05/20 024 Active 03/05/2023 PROACTIVE REFILL REQUEST FOR NEXT CYCLE PLEASE THANK YOU RX has/will before cycle date magnesium oxide 400 mg (241.3 mg magnesium) tablet RxNorm: 846105 Take 1 Tablet(s) Oral QD 03/05/20 024 Active 03/05/2023 PROACTIVE REFILL REQUEST FOR NEXT CYCLE PLEASE THANK YOU RX has/will before cycle date omeprazole 20 mg capsule,delayed release RxNorm: 882574 Take 1 Capsule(s) Oral BID 03/05/20 024 Active 03/05/2023 PROACTIVE REFILL REQUEST FOR NEXT CYCLE PLEASE THANK YOU RX has/will before cycle date gabapentin 400 mg capsule RxNorm: 105790 Take 1 Capsule(s) Oral QAM every morning 03/05/20 024 Active 03/05/2023 PROACTIVE REFILL REQUEST FOR NEXT CYCLE PLEASE THANK YOU RX has/will before cycle date menthol 0.44 %-zinc oxide 20.6 % topical ointment RxNorm: 4323862 APPLY TO AFFECTED AREA(S) FOUR TIMES DAILY NEEDED 03/03/20 024 Active Belbuca 600 mcg buccal film RxNorm: 6424697 Melt 1 Miscellaneous Buccal BID 02/25/20 23 023 Inactive Belbuca 600 mcg buccal film RxNorm: 9766940 Melt 1 Miscellaneous Buccal BID 02/25/20 23 023 Inactive metoprolol succinate ER 100 mg tablet,extended release 24 hr RxNorm: 410509 Take 1 Tablet(s) Oral QD 01/31/20 23 024 Active 01/30/2023 PROACTIVE REFILL REQUEST FOR NEXT CYCLE PLEASE THANK YOU ferrous gluconate 324 mg (38 mg iron) tablet RxNorm: 505898 TAKE 1 TABLET BY MOUTH DAILY WITH MEAL 01/31/20 024 Active 01/30/2023 PROACTIVE REFILL REQUEST FOR NEXT CYCLE PLEASE THANK YOU RX has/will before cycle date Fiasp FlexTouch U-100 Insulin 100 unit/mL (3 mL) subcutaneous pen RxNorm: 0284925 Inject 18 Unit(s) Subcutaneous BID before lunch and dinner, in addition to 0-12 units per sliding scale 01/22/20 23 023 Inactive Tresiba FlexTouch U-100 insulin 100 unit/mL (3 mL) subcutaneous pen RxNorm: 0547677 Inject 118 Unit(s) Subcutaneous QHS every night at bedtime (+2 units for priming) 01/16/20 23 024 Active Fiasp FlexTouch U-100 Insulin 100 unit/mL (3 mL) subcutaneous pen RxNorm: 2070879 Inject 18 Unit(s) Subcutaneous BID before lunch and dinner, in addition to 0-12 units per sliding scale 01/15/20 23 023 Inactive CalProtect 0.44 %-20.6 % topical ointment RxNorm: 7646156 Apply 1 Application Topical QID as needed 01/14/20 23 023 Inactive Qulipta 60 mg tablet RxNorm: 9666937 Take 1 Tablet(s) Oral QHS every night at bedtime 11/27/19 23 No Stop Date Active Ventolin HFA 90 mcg/actuation aerosol inhaler RxNorm: 970231 Inhale 2 Puff(s) Inhalation QID as needed 11/27/19 23 No Stop Date Active montelukast 10 mg tablet RxNorm: 090198 Take 1 Tablet(s) Oral QHS every night at bedtime 11/27/19 23 No Stop Date Active Narcan 4 mg/actuation nasal spray RxNorm: 8080313 [place] Nasal Use as directed as needed for accidental overdose, then call 911 11/27/19 23 No Stop Date Active Milk of Magnesia 400 mg/5 mL oral suspension RxNorm: 301341 Take 15-30 Milliliter(s) Oral QD as needed 11/27/19 23 No Stop Date Active acetaminophen 500 mg capsule RxNorm: 265691 Take 2 Capsule(s) Oral TID 11/27/19 23 No Stop Date Active spironolactone 25 mg tablet RxNorm: 568993 Take 1 Tablet(s) Oral QAM every morning 11/27/19 23 No Stop Date Active Gavilax 17 gram/dose oral powder RxNorm: 833544 Take 17 Gram(s) Oral QD 11/27/19 23 No Stop Date Active atorvastatin 80 mg tablet RxNorm: 955826 Take 1 Tablet(s) Oral QAM every morning 11/27/19 23 No Stop Date Active losartan 100 mg tablet RxNorm: 740306 Take 1 Tablet(s) Oral QD 11/27/19 23 No Stop Date Active duloxetine 60 mg capsule,delayed release RxNorm: 254549 Take 2 Capsule(s) Oral QAM every morning 11/27/19 23 No Stop Date Active trazodone 100 mg tablet RxNorm: 245735 Take 1 Tablet(s) Oral QHS every night at bedtime as needed 11/27/19 No Stop Date Active dextromethorphan HBr 15 mg/5 mL oral syrup RxNorm: 6808222 Take 5-10 Milliliter(s) Oral Q4-6H every 4-6 hours as needed 11/27/19 No Stop Date Active Calcium Antacid 200 mg calcium (500 mg) chewable tablet RxNorm: 448761 Take 2-4 Tablet(s) Oral as needed between meals and at bedtime 11/27/19 No Stop Date Active levothyroxine 50 mcg tablet RxNorm: 563740 Take 1 Tablet(s) Oral QAM every morning 11/27/19 23 No Stop Date Active fluticasone propionate 50 mcg/actuation nasal spray,suspension RxNorm: 4345031 Instill 1 [place] Nasal QD as needed 11/27/19 23 No Stop Date Active diphenhydramine 25 mg capsule RxNorm: 6523322 Take 1-2 Capsule(s) Oral Q8H every 8 hours as needed 11/27/19 23 No Stop Date Active ondansetron 4 mg disintegrating tablet RxNorm: 496840 Take 1 Tablet(s) Oral QD as needed 11/27/19 23 No Stop Date Active aspirin 81 mg tablet,delayed release RxNorm: 692266 Take 1 Tablet(s) Oral QD with a meal 11/27/19 23 No Stop Date Active Anti-Diarrheal (loperamide) 2 mg tablet RxNorm: 012076 Take 2 Tablet(s) Oral as needed after 1st loose stool, then take 1 tablet as needed after each subsequent loose stool, not to exceed 8 tablets/24 hours 11/27/19 23 No Stop Date Active Diabetic Tussin DM 10 mg-100 mg/5 mL oral liquid RxNorm: 087318 Take 5-10 Milliliter(s) Oral Q4-6H every 4-6 hours as needed 11/27/19 23 No Stop Date Active torsemide 20 mg tablet RxNorm: 069001 Take 2 Tablet(s) Oral QD 11/27/19 23 No Stop Date Active Antacid Liquid 200 mg-200 mg-20 mg/5 mL oral suspension RxNorm: 698948 Take 5-10 Milliliter(s) Oral as needed one time between meals and at bedtime 11/27/19 23 No Stop Date Active diltiazem ER (XR/XT) 120 mg capsule,extended release 24 hr, controlled RxNorm: 012036 Take 1 Capsule(s) Oral QAM every morning 11/27/19 23 No Stop Date Active Ubrelvy 100 mg tablet RxNorm: 0595506 Take 1 Tablet(s) Oral QD as needed 11/27/19 23 No Stop Date Active bupropion HCl XL 300 mg 24 hr tablet, extended release RxNorm: 807694 Take 1 Tablet(s) Oral QAM every morning 11/27/19 23 No Stop Date Active sumatriptan 50 mg tablet RxNorm: 883291 Take 1 Tablet(s) Oral BID as needed 11/27/19 23 No Stop Date Active diclofenac 1 % topical gel RxNorm: 062190 Apply 2 Gram(s) Topical QID to affected area(s) 11/27/19 23 No Stop Date Active buspirone 30 mg tablet RxNorm: 103735 Take 1 Tablet(s) Oral BID 11/27/19 23 No Stop Date Active gabapentin 400 mg capsule RxNorm: 786855 Take 1 Capsule(s) Oral QAM every morning 11/27/19 23 023 Inactive ferrous gluconate 324 mg (38 mg iron) tablet RxNorm: 526145 Take 1 Tablet(s) Oral QD with a meal 11/27/19 23 023 Inactive omeprazole 20 mg capsule,delayed release RxNorm: 312043 Take 1 Capsule(s) Oral BID 07 023 Inactive metoprolol succinate ER 100 mg tablet,extended release 24 hr RxNorm: 794374 Take 1 Tablet(s) Oral QD 11/27/19 023 Inactive Tresiba FlexTouch U-100 insulin 100 unit/mL (3 mL) subcutaneous pen RxNorm: 9598534 Inject 118 Unit(s) Subcutaneous QHS every night at bedtime (+2 units for priming) 11/27/19 023 Inactive CalProtect 0.44 %-20.6 % topical ointment RxNorm: 1927295 Apply 1 Application Topical QID as needed 11/27/19 Inactive Jardiance 25 mg tablet RxNorm: 9074855 Take 1 Tablet(s) Oral QD 11/27/19 023 Inactive metoclopramide 10 mg tablet RxNorm: 265024 Take 1 Tablet(s) Oral QID (before meals and at bedtime) 11/27/19 023 Inactive magnesium oxide 400 mg (241.3 mg magnesium) tablet RxNorm: 932888 Take 1 Tablet(s) Oral QD 11/27/19 023 Inactive Fiasp FlexTouch U-100 Insulin 100 unit/mL (3 mL) subcutaneous pen RxNorm: 2319437 Inject 18 Unit(s) Subcutaneous BID before lunch and dinner, in addition to 0-12 units per sliding scale 11/27/19 023 Inactive tizanidine 4 mg tablet RxNorm: 256661 Take 1 Tablet(s) Oral TID 11/27/19 023 Inactive Medication Administered No Medication Administered data Reason For Visit No Reason For Visit data Instructions Comment Date Moved to [facility] 02/05/21. Initial [facility] visit 11/26/22.??Patient is morbidly obese and noncompliant to cares. Chronic pain and is on belbuca film- managed by pain clinic. Multiple chronic conditions including DM2, MDD, ANGELI.??She is her own guardian.?? 12/25/2022
--- OUTSIDE RECORDS SUMMARY | 2023-04-24 09:26 | XMS_ITS | CCD ---
Author Name Unknown Organization Unknown Care Team Providers Care Advertising Agency Manager Name Role Phone Duglas Cooper NP Primary Care Provider Unavaila ble Unavailable Chronic Care Management Unavaila ble Summary Purpose DataExchange Insurance Providers Payer name Policy type / Coverage type Covered libertarian ID Effective Begin Date Effective End Date [place]Blue [place] [id number] Unknown Family History Family History data not found Social History Social History Element Codes Description Effec tive Dates Tobacco history SNOMED CT: 5377249 Former smoker 01/28 Allergies, Adverse Reactions, Alerts Substance Reaction Codes Entered Date Inactivated Date Status codeine Unknown 01/28/2023 No Inactive Date Ac tive clarithromycin RxNorm: 73248 01/28/2023 No Inactiv e Date Active rofecoxib RxNorm: 460958 01/28/2023 No Inactive Da te Active Celecoxib Unknown 01/28/2023 No Inactive Date Ac tive GLYCERIN Unknown 01/28/2023 No Inactive Date Ac tive tramadol RxNorm: 23040 01/28/2023 No Inactive Marcio e Active vancomycin Unknown 01/28/2023 No Inactive Date A ctive MORPHINE RxNorm: 29169 01/28/2023 No Inactive Marcio e Active amoxicillin RxNorm: 250805 01/28/2023 No Inactive Date Active Problems Condition [...] anemia ICD-10: D50.9 ICD-9: 280.9 11/26/2022 Active [facility] (current) use of insulin ICD-10: Z79.4 11/26 Active ANGELI (obstructive sleep apnea) ICD-10: G4 7.33 ICD-9: 327.23 11/26/2022 Active Paroxysmal A-fib ICD-10: I48.0 ICD-9: 427.31 11/26/2022 Active Recurrent major depressive d isorder, remission status unspecified ICD-10: F33.9 ICD-9: 296.30 11/26/2022 Active Medications Medication Codes Instructions Start Date Stop Date Status Fill Instructions Accu-Chek Guide test strips RxNorm: Use 1 Test Strip QID 03/10/20 23 024 Active Accu-Chek Guide test strips RxNorm: Use 1 Test Strip QID 03/10/20 23 023 Inactive metoclopramide 10 mg tablet RxNorm: 747379 TAKE 1 TABLET BY MOUTH 4 TIMES DAILY -BEFORE MEALS & AT BEDTIME- 03/05/20 23 024 Active 03/05/2023 PROACTIVE REFILL REQUEST FOR NEXT CYCLE PLEASE THANK YOU RX has/will before cycle date tizanidine 4 mg tablet RxNorm: 840016 Take 1 Tablet(s) Oral TID 03/05/20 23 024 Active 03/05/2023 PROACTIVE REFILL REQUEST FOR NEXT CYCLE PLEASE THANK YOU RX has/will before cycle date Jardiance 25 mg tablet RxNorm: 4708915 Take 1 Tablet(s) Oral QD 03/05/20 23 024 Active 03/05/2023 PROACTIVE REFILL REQUEST FOR NEXT CYCLE PLEASE THANK YOU RX has/will before cycle date magnesium oxide 400 mg (241.3 mg magnesium) tablet RxNorm: 904500 Take 1 Tablet(s) Oral QD 03/05/20 024 Active 03/05/2023 PROACTIVE REFILL REQUEST FOR NEXT CYCLE PLEASE THANK YOU RX has/will before cycle date omeprazole 20 mg capsule,delayed release RxNorm: 782806 Take 1 Capsule(s) Oral BID 03/05/20 024 Active 03/05/2023 PROACTIVE REFILL REQUEST FOR NEXT CYCLE PLEASE THANK YOU RX has/will before cycle date gabapentin 400 mg capsule RxNorm: 959120 Take 1 Capsule(s) Oral QAM every morning 03/05/20 024 Active 03/05/2023 PROACTIVE REFILL REQUEST FOR NEXT CYCLE PLEASE THANK YOU RX has/will before cycle date menthol 0.44 %-zinc oxide 20.6 % topical ointment RxNorm: 9127860 APPLY TO AFFECTED AREA(S) FOUR TIMES DAILY NEEDED 03/03/20 024 Active Belbuca 600 mcg buccal film RxNorm: 1403394 Melt 1 Miscellaneous Buccal BID 02/25/20 23 023 Inactive Belbuca 600 mcg buccal film RxNorm: 3993006 Melt 1 Miscellaneous Buccal BID 02/25/20 23 023 Inactive metoprolol succinate ER 100 mg tablet,extended release 24 hr RxNorm: 114256 Take 1 Tablet(s) Oral QD 01/31/20 23 024 Active 01/30/2023 PROACTIVE REFILL REQUEST FOR NEXT CYCLE PLEASE THANK YOU ferrous gluconate 324 mg (38 mg iron) tablet RxNorm: 092770 TAKE 1 TABLET BY MOUTH DAILY WITH MEAL 01/31/20 024 Active 01/30/2023 PROACTIVE REFILL REQUEST FOR NEXT CYCLE PLEASE THANK YOU RX has/will before cycle date Fiasp FlexTouch U-100 Insulin 100 unit/mL (3 mL) subcutaneous pen RxNorm: 2470897 Inject 18 Unit(s) Subcutaneous BID before lunch and dinner, in addition to 0-12 units per sliding scale 01/22/20 23 023 Inactive Tresiba FlexTouch U-100 insulin 100 unit/mL (3 mL) subcutaneous pen RxNorm: 8650792 Inject 118 Unit(s) Subcutaneous QHS every night at bedtime (+2 units for priming) 01/16/20 23 024 Active Fiasp FlexTouch U-100 Insulin 100 unit/mL (3 mL) subcutaneous pen RxNorm: 9890494 Inject 18 Unit(s) Subcutaneous BID before lunch and dinner, in addition to 0-12 units per sliding scale 01/15/20 23 023 Inactive CalProtect 0.44 %-20.6 % topical ointment RxNorm: 8056754 Apply 1 Application Topical QID as needed 01/14/20 23 023 Inactive Qulipta 60 mg tablet RxNorm: 6424208 Take 1 Tablet(s) Oral QHS every night at bedtime 11/27/19 23 No Stop Date Active Ventolin HFA 90 mcg/actuation aerosol inhaler RxNorm: 845393 Inhale 2 Puff(s) Inhalation QID as needed 11/27/19 23 No Stop Date Active montelukast 10 mg tablet RxNorm: 373766 Take 1 Tablet(s) Oral QHS every night at bedtime 11/27/19 23 No Stop Date Active Narcan 4 mg/actuation nasal spray RxNorm: 8549660 [place] Nasal Use as directed as needed for accidental overdose, then call 911 11/27/19 23 No Stop Date Active Milk of Magnesia 400 mg/5 mL oral suspension RxNorm: 295216 Take 15-30 Milliliter(s) Oral QD as needed 11/27/19 23 No Stop Date Active acetaminophen 500 mg capsule RxNorm: 860465 Take 2 Capsule(s) Oral TID 11/27/19 23 No Stop Date Active spironolactone 25 mg tablet RxNorm: 553374 Take 1 Tablet(s) Oral QAM every morning 11/27/19 23 No Stop Date Active Gavilax 17 gram/dose oral powder RxNorm: 091791 Take 17 Gram(s) Oral QD 11/27/19 23 No Stop Date Active atorvastatin 80 mg tablet RxNorm: 948896 Take 1 Tablet(s) Oral QAM every morning 11/27/19 23 No Stop Date Active losartan 100 mg tablet RxNorm: 356666 Take 1 Tablet(s) Oral QD 11/27/19 23 No Stop Date Active duloxetine 60 mg capsule,delayed release RxNorm: 248356 Take 2 Capsule(s) Oral QAM every morning 11/27/19 23 No Stop Date Active trazodone 100 mg tablet RxNorm: 984565 Take 1 Tablet(s) Oral QHS every night at bedtime as needed 11/27/19 23 No Stop Date Active dextromethorphan HBr 15 mg/5 mL oral syrup RxNorm: 2018874 Take 5-10 Milliliter(s) Oral Q4-6H every 4-6 hours as needed 11/27/19 23 No Stop Date Active Calcium Antacid 200 mg calcium (500 mg) chewable tablet RxNorm: 788934 Take 2-4 Tablet(s) Oral as needed between meals and at bedtime 11/27/19 23 No Stop Date Active levothyroxine 50 mcg tablet RxNorm: 542104 Take 1 Tablet(s) Oral QAM every morning 11/27/19 23 No Stop Date Active fluticasone propionate 50 mcg/actuation nasal spray,suspension RxNorm: 0346750 Instill 1 [place] Nasal QD as needed 11/27/19 23 No Stop Date Active diphenhydramine 25 mg capsule RxNorm: 8728965 Take 1-2 Capsule(s) Oral Q8H every 8 hours as needed 11/27/19 23 No Stop Date Active ondansetron 4 mg disintegrating tablet RxNorm: 620813 Take 1 Tablet(s) Oral QD as needed 11/27/19 23 No Stop Date Active aspirin 81 mg tablet,delayed release RxNorm: 693185 Take 1 Tablet(s) Oral QD with a meal 11/27/19 23 No Stop Date Active Anti-Diarrheal (loperamide) 2 mg tablet RxNorm: 760714 Take 2 Tablet(s) Oral as needed after 1st loose stool, then take 1 tablet as needed after each subsequent loose stool, not to exceed 8 tablets/24 hours 11/27/19 23 No Stop Date Active Diabetic Tussin DM 10 mg-100 mg/5 mL oral liquid RxNorm: 692941 Take 5-10 Milliliter(s) Oral Q4-6H every 4-6 hours as needed 11/27/19 23 No Stop Date Active torsemide 20 mg tablet RxNorm: 414340 Take 2 Tablet(s) Oral QD 11/27/19 23 No Stop Date Active Antacid Liquid 200 mg-200 mg-20 mg/5 mL oral suspension RxNorm: 380708 Take 5-10 Milliliter(s) Oral as needed one time between meals and at bedtime 11/27/19 23 No Stop Date Active diltiazem ER (XR/XT) 120 mg capsule,extended release 24 hr, controlled RxNorm: 192801 Take 1 Capsule(s) Oral QAM every morning 11/27/19 23 No Stop Date Active Ubrelvy 100 mg tablet RxNorm: 0809559 Take 1 Tablet(s) Oral QD as needed 11/27/19 23 No Stop Date Active bupropion HCl XL 300 mg 24 hr tablet, extended release RxNorm: 889366 Take 1 Tablet(s) Oral QAM every morning 11/27/19 23 No Stop Date Active sumatriptan 50 mg tablet RxNorm: 424807 Take 1 Tablet(s) Oral BID as needed 11/27/19 23 No Stop Date Active diclofenac 1 % topical gel RxNorm: 722838 Apply 2 Gram(s) Topical QID to affected area(s) 11/27/19 23 No Stop Date Active buspirone 30 mg tablet RxNorm: 405874 Take 1 Tablet(s) Oral BID 11/27/19 23 No Stop Date Active gabapentin 400 mg capsule RxNorm: 865954 Take 1 Capsule(s) Oral QAM every morning 11/27/19 23 023 Inactive ferrous gluconate 324 mg (38 mg iron) tablet RxNorm: 618260 Take 1 Tablet(s) Oral QD with a meal 11/27/19 023 Inactive omeprazole 20 mg capsule,delayed release RxNorm: 041491 Take 1 Capsule(s) Oral BID 11/27/19 23 023 Inactive metoprolol succinate ER 100 mg tablet,extended release 24 hr RxNorm: 081830 Take 1 Tablet(s) Oral QD 11/27/19 023 Inactive Tresiba FlexTouch U-100 insulin 100 unit/mL (3 mL) subcutaneous pen RxNorm: 0735359 Inject 118 Unit(s) Subcutaneous QHS every night at bedtime (+2 units for priming) 11/27/19 023 Inactive CalProtect 0.44 %-20.6 % topical ointment RxNorm: 9196364 Apply 1 Application Topical QID as needed 11/27/19 023 Inactive Jardiance 25 mg tablet RxNorm: 6826190 Take 1 Tablet(s) Oral QD 11/27/19 023 Inactive metoclopramide 10 mg tablet RxNorm: 275118 Take 1 Tablet(s) Oral QID (before meals and at bedtime) 11/27/19 023 Inactive magnesium oxide 400 mg (241.3 mg magnesium) tablet RxNorm: 390337 Take 1 Tablet(s) Oral QD 11/27/19 023 Inactive Fiasp FlexTouch U-100 Insulin 100 unit/mL (3 mL) subcutaneous pen RxNorm: 8123768 Inject 18 Unit(s) Subcutaneous BID before lunch and dinner, in addition to 0-12 units per sliding scale 11/27/19 023 Inactive tizanidine 4 mg tablet RxNorm: 561760 Take 1 Tablet(s) Oral TID 11/27/19 023 Inactive Medication Administered No Medication Administered data Reason For Visit No Reason For Visit data Instructions Comment Date Moved to [facility] 02/05/21. Initial BPS visit 11/26/22.??Patient is morbidly obese and noncompliant to cares. Chronic pain and is on belbuca film- managed by pain clinic. Multiple chronic conditions including DM2, MDD, ANGELI.??She is her own guardian.?? 12/25/2022
--- OUTSIDE RECORDS SUMMARY | 2023-04-24 09:26 | XMS_ITS | CCD ---
Author Name Unknown Organization Unknown Care Team Providers Care Desktop Support Technician Name Role Phone Duglas Cooper NP Primary Care Provider Unavaila ble Unavailable Chronic Care Management Unavaila ble Summary Purpose DataExchange Insurance Providers Payer name Policy type / Coverage type Covered libertarian ID Effective Begin Date Effective End Date [place]Blue [place] [id number] Unknown Family History Family History data not found Social History Social History Element Codes Description Effec tive Dates Tobacco history SNOMED CT: 7841020 Former smoker 01/28 Allergies, Adverse Reactions, Alerts Substance Reaction Codes Entered Date Inactivated Date Status codeine Unknown 01/28/2023 No Inactive Date Ac tive clarithromycin RxNorm: 15625 01/28/2023 No Inactiv e Date Active rofecoxib RxNorm: 498468 01/28/2023 No Inactive Da te Active Celecoxib Unknown 01/28/2023 No Inactive Date Ac tive GLYCERIN Unknown 01/28/2023 No Inactive Date Ac tive tramadol RxNorm: 00305 01/28/2023 No Inactive Marcio e Active vancomycin Unknown 01/28/2023 No Inactive Date A ctive MORPHINE RxNorm: 16330 01/28/2023 No Inactive Marcio e Active amoxicillin RxNorm: 934331 01/28/2023 No Inactive Date Active Problems Condition [...] anemia ICD-10: D50.9 ICD-9: 280.9 11/26/2022 Active skilled nursing (current) use of insulin ICD-10: Z79.4 11/26 Active ANGELI (obstructive sleep apnea) ICD-10: G4 7.33 ICD-9: 327.23 11/26/2022 Active Paroxysmal A-fib ICD-10: I48.0 ICD-9: 427.31 11/26/2022 Active Recurrent major depressive d isorder, remission status unspecified ICD-10: F33.9 ICD-9: 296.30 11/26/2022 Active Medications Medication Codes Instructions Start Date Stop Date Status Fill Instructions Belbuca 300 mcg buccal film RxNorm: 2134568 Take 1 Application Buccal QD 03/28/20 23 023 Inactive Belbuca 300 mcg buccal film RxNorm: 2620346 Take 1 Application Buccal QD 03/28/20 23 023 Inactive Belbuca 600 mcg buccal film RxNorm: 0033397 Melt 1 Miscellaneous Buccal QD 03/28/20 23 023 Inactive Belbuca 300 mcg buccal film RxNorm: 9457754 Take 1 Application Buccal QD 03/28/20 023 Inactive Accu-Chek Guide test strips RxNorm: Use 1 Test Strip QID 03/10/20 23 024 Active Accu-Chek Guide test strips RxNorm: Use 1 Test Strip QID 03/10/20 23 023 Inactive metoclopramide 10 mg tablet RxNorm: 067548 TAKE 1 TABLET BY MOUTH 4 TIMES DAILY -BEFORE MEALS & AT BEDTIME- 03/05/20 23 024 Active 03/05/2023 PROACTIVE REFILL REQUEST FOR NEXT CYCLE PLEASE THANK YOU RX has/will before cycle date tizanidine 4 mg tablet RxNorm: 499656 Take 1 Tablet(s) Oral TID 03/05/20 024 Active 03/05/2023 PROACTIVE REFILL REQUEST FOR NEXT CYCLE PLEASE THANK YOU RX has/will before cycle date Jardiance 25 mg tablet RxNorm: 1117906 Take 1 Tablet(s) Oral QD 03/05/20 024 Active 03/05/2023 PROACTIVE REFILL REQUEST FOR NEXT CYCLE PLEASE THANK YOU RX has/will before cycle date magnesium oxide 400 mg (241.3 mg magnesium) tablet RxNorm: 673625 Take 1 Tablet(s) Oral QD 03/05/20 024 Active 03/05/2023 PROACTIVE REFILL REQUEST FOR NEXT CYCLE PLEASE THANK YOU RX has/will before cycle date omeprazole 20 mg capsule,delayed release RxNorm: 789209 Take 1 Capsule(s) Oral BID 03/05/20 024 Active 03/05/2023 PROACTIVE REFILL REQUEST FOR NEXT CYCLE PLEASE THANK YOU RX has/will before cycle date gabapentin 400 mg capsule RxNorm: 475772 Take 1 Capsule(s) Oral QAM every morning 03/05/20 024 Active 03/05/2023 PROACTIVE REFILL REQUEST FOR NEXT CYCLE PLEASE THANK YOU RX has/will before cycle date menthol 0.44 %-zinc oxide 20.6 % topical ointment RxNorm: 2763093 APPLY TO AFFECTED AREA(S) FOUR TIMES DAILY NEEDED 03/03/20 024 Active Belbuca 600 mcg buccal film RxNorm: 3737844 Melt 1 Miscellaneous Buccal BID 02/25/20 23 023 Inactive Belbuca 600 mcg buccal film RxNorm: 9205093 Melt 1 Miscellaneous Buccal BID 02/25/20 23 023 Inactive metoprolol succinate ER 100 mg tablet,extended release 24 hr RxNorm: 519771 Take 1 Tablet(s) Oral QD 01/31/20 23 024 Active 01/30/2023 PROACTIVE REFILL REQUEST FOR NEXT CYCLE PLEASE THANK YOU ferrous gluconate 324 mg (38 mg iron) tablet RxNorm: 232255 TAKE 1 TABLET BY MOUTH DAILY WITH MEAL 01/31/20 024 Active 01/30/2023 PROACTIVE REFILL REQUEST FOR NEXT CYCLE PLEASE THANK YOU RX has/will before cycle date Fiasp FlexTouch U-100 Insulin 100 unit/mL (3 mL) subcutaneous pen RxNorm: 9844669 Inject 18 Unit(s) Subcutaneous BID before lunch and dinner, in addition to 0-12 units per sliding scale 01/22/20 23 023 Inactive Tresiba FlexTouch U-100 insulin 100 unit/mL (3 mL) subcutaneous pen RxNorm: 8962410 Inject 118 Unit(s) Subcutaneous QHS every night at bedtime (+2 units for priming) 01/16/20 23 024 Active Fiasp FlexTouch U-100 Insulin 100 unit/mL (3 mL) subcutaneous pen RxNorm: 6248106 Inject 18 Unit(s) Subcutaneous BID before lunch and dinner, in addition to 0-12 units per sliding scale 01/15/20 23 023 Inactive CalProtect 0.44 %-20.6 % topical ointment RxNorm: 5046551 Apply 1 Application Topical QID as needed 01/14/20 23 023 Inactive Qulipta 60 mg tablet RxNorm: 9559498 Take 1 Tablet(s) Oral QHS every night at bedtime 11/27/19 23 No Stop Date Active Ventolin HFA 90 mcg/actuation aerosol inhaler RxNorm: 371883 Inhale 2 Puff(s) Inhalation QID as needed 11/27/19 23 No Stop Date Active montelukast 10 mg tablet RxNorm: 283070 Take 1 Tablet(s) Oral QHS every night at bedtime 11/27/19 23 No Stop Date Active Narcan 4 mg/actuation nasal spray RxNorm: 9706261 [place] Nasal Use as directed as needed for accidental overdose, then call 911 11/27/19 23 No Stop Date Active Milk of Magnesia 400 mg/5 mL oral suspension RxNorm: 463846 Take 15-30 Milliliter(s) Oral QD as needed 11/27/19 23 No Stop Date Active acetaminophen 500 mg capsule RxNorm: 413793 Take 2 Capsule(s) Oral TID 11/27/19 23 No Stop Date Active spironolactone 25 mg tablet RxNorm: 785294 Take 1 Tablet(s) Oral QAM every morning 11/27/19 23 No Stop Date Active Gavilax 17 gram/dose oral powder RxNorm: 245349 Take 17 Gram(s) Oral QD 11/27/19 23 No Stop Date Active atorvastatin 80 mg tablet RxNorm: 586926 Take 1 Tablet(s) Oral QAM every morning 11/27/19 23 No Stop Date Active losartan 100 mg tablet RxNorm: 801817 Take 1 Tablet(s) Oral QD 11/27/19 23 No Stop Date Active duloxetine 60 mg capsule,delayed release RxNorm: 745898 Take 2 Capsule(s) Oral QAM every morning 11/27/19 23 No Stop Date Active trazodone 100 mg tablet RxNorm: 338886 Take 1 Tablet(s) Oral QHS every night at bedtime as needed 11/27/19 No Stop Date Active dextromethorphan HBr 15 mg/5 mL oral syrup RxNorm: 0248477 Take 5-10 Milliliter(s) Oral Q4-6H every 4-6 hours as needed 11/27/19 No Stop Date Active Calcium Antacid 200 mg calcium (500 mg) chewable tablet RxNorm: 909113 Take 2-4 Tablet(s) Oral as needed between meals and at bedtime 11/27/19 No Stop Date Active levothyroxine 50 mcg tablet RxNorm: 114003 Take 1 Tablet(s) Oral QAM every morning 11/27/19 23 No Stop Date Active fluticasone propionate 50 mcg/actuation nasal spray,suspension RxNorm: 8851113 Instill 1 [place] Nasal QD as needed 11/27/19 23 No Stop Date Active diphenhydramine 25 mg capsule RxNorm: 4341395 Take 1-2 Capsule(s) Oral Q8H every 8 hours as needed 11/27/19 23 No Stop Date Active ondansetron 4 mg disintegrating tablet RxNorm: 261577 Take 1 Tablet(s) Oral QD as needed 11/27/19 23 No Stop Date Active aspirin 81 mg tablet,delayed release RxNorm: 277911 Take 1 Tablet(s) Oral QD with a meal 11/27/19 23 No Stop Date Active Anti-Diarrheal (loperamide) 2 mg tablet RxNorm: 975470 Take 2 Tablet(s) Oral as needed after 1st loose stool, then take 1 tablet as needed after each subsequent loose stool, not to exceed 8 tablets/24 hours 11/27/19 23 No Stop Date Active Diabetic Tussin DM 10 mg-100 mg/5 mL oral liquid RxNorm: 203259 Take 5-10 Milliliter(s) Oral Q4-6H every 4-6 hours as needed 11/27/19 23 No Stop Date Active torsemide 20 mg tablet RxNorm: 014211 Take 2 Tablet(s) Oral QD 11/27/19 23 No Stop Date Active Antacid Liquid 200 mg-200 mg-20 mg/5 mL oral suspension RxNorm: 915624 Take 5-10 Milliliter(s) Oral as needed one time between meals and at bedtime 11/27/19 23 No Stop Date Active diltiazem ER (XR/XT) 120 mg capsule,extended release 24 hr, controlled RxNorm: 323014 Take 1 Capsule(s) Oral QAM every morning 11/27/19 23 No Stop Date Active Ubrelvy 100 mg tablet RxNorm: 8878862 Take 1 Tablet(s) Oral QD as needed 11/27/19 23 No Stop Date Active bupropion HCl XL 300 mg 24 hr tablet, extended release RxNorm: 488790 Take 1 Tablet(s) Oral QAM every morning 11/27/19 23 No Stop Date Active sumatriptan 50 mg tablet RxNorm: 188594 Take 1 Tablet(s) Oral BID as needed 11/27/19 23 No Stop Date Active diclofenac 1 % topical gel RxNorm: 710426 Apply 2 Gram(s) Topical QID to affected area(s) 11/27/19 23 No Stop Date Active buspirone 30 mg tablet RxNorm: 662953 Take 1 Tablet(s) Oral BID 11/27/19 23 No Stop Date Active gabapentin 400 mg capsule RxNorm: 754165 Take 1 Capsule(s) Oral QAM every morning 11/27/19 23 023 Inactive ferrous gluconate 324 mg (38 mg iron) tablet RxNorm: 344350 Take 1 Tablet(s) Oral QD with a meal 11/27/19 23 023 Inactive omeprazole 20 mg capsule,delayed release RxNorm: 307191 Take 1 Capsule(s) Oral BID 07 023 Inactive metoprolol succinate ER 100 mg tablet,extended release 24 hr RxNorm: 254678 Take 1 Tablet(s) Oral QD 11/27/19 023 Inactive Tresiba FlexTouch U-100 insulin 100 unit/mL (3 mL) subcutaneous pen RxNorm: 4815817 Inject 118 Unit(s) Subcutaneous QHS every night at bedtime (+2 units for priming) 11/27/19 023 Inactive CalProtect 0.44 %-20.6 % topical ointment RxNorm: 3405822 Apply 1 Application Topical QID as needed 11/27/19 Inactive Jardiance 25 mg tablet RxNorm: 7144324 Take 1 Tablet(s) Oral QD 11/27/19 023 Inactive metoclopramide 10 mg tablet RxNorm: 057406 Take 1 Tablet(s) Oral QID (before meals and at bedtime) 11/27/19 023 Inactive magnesium oxide 400 mg (241.3 mg magnesium) tablet RxNorm: 159629 Take 1 Tablet(s) Oral QD 11/27/19 023 Inactive Fiasp FlexTouch U-100 Insulin 100 unit/mL (3 mL) subcutaneous pen RxNorm: 5318479 Inject 18 Unit(s) Subcutaneous BID before lunch and dinner, in addition to 0-12 units per sliding scale 11/27/19 023 Inactive tizanidine 4 mg tablet RxNorm: 330123 Take 1 Tablet(s) Oral TID 11/27/19 023 Inactive Medication Administered No Medication Administered data Reason For Visit No Reason For Visit data Instructions Comment Date Moved to [facility] 02/05/21. Initial BPS visit 11/26/22.??Patient is morbidly obese and noncompliant to cares. Chronic pain and is on belbuca film- managed by pain clinic. Multiple chronic conditions including DM2, MDD, ANGELI.??She is her own guardian.?? 12/25/2022
--- OUTSIDE RECORDS SUMMARY | 2023-04-24 09:26 | XMS_ITS | CCD ---
Author Name Unknown Organization Unknown Care Team Providers Care Batch Tester Name Role Phone Duglas Cooper NP Primary Care Provider Unavaila ble Unavailable Chronic Care Management Unavaila ble Summary Purpose DataExchange Insurance Providers Payer name Policy type / Coverage type Covered libertarian ID Effective Begin Date Effective End Date [employer] [employer]/Blue Shield [id number] Unknown Family History Family History data not found Social History Social History Element Codes Description Effec tive Dates Tobacco history SNOMED CT: 6917487 Former smoker 01/28 Allergies, Adverse Reactions, Alerts Substance Reaction Codes Entered Date Inactivated Date Status codeine Unknown 01/28/2023 No Inactive Date Ac tive clarithromycin RxNorm: 94914 01/28/2023 No Inactiv e Date Active rofecoxib RxNorm: 880034 01/28/2023 No Inactive Da te Active Celecoxib Unknown 01/28/2023 No Inactive Date Ac tive GLYCERIN Unknown 01/28/2023 No Inactive Date Ac tive tramadol RxNorm: 91110 01/28/2023 No Inactive Marcio e Active vancomycin Unknown 01/28/2023 No Inactive Date A ctive MORPHINE RxNorm: 40121 01/28/2023 No Inactive Marcio e Active amoxicillin RxNorm: 146569 01/28/2023 No Inactive Date Active Problems Condition [...] anemia ICD-10: D50.9 ICD-9: 280.9 11/26/2022 Active penitentiary (current) use of insulin ICD-10: Z79.4 11/26 Active ANGELI (obstructive sleep apnea) ICD-10: G4 7.33 ICD-9: 327.23 11/26/2022 Active Paroxysmal A-fib ICD-10: I48.0 ICD-9: 427.31 11/26/2022 Active Recurrent major depressive d isorder, remission status unspecified ICD-10: F33.9 ICD-9: 296.30 11/26/2022 Active Medications Medication Codes Instructions Start Date Stop Date Status Fill Instructions Belbuca 300 mcg buccal film RxNorm: 9085194 Insert 300 Microgram(s) Buccal BID 04/12/20 23 023 Active Belbuca 300 mcg buccal film RxNorm: 9399212 Insert 300 Microgram(s) Buccal BID 04/12/20 23 023 Inactive Belbuca 300 mcg buccal film RxNorm: 7674397 Take 1 Application Buccal QD 03/28/20 23 023 Inactive Belbuca 300 mcg buccal film RxNorm: 1408048 Take 1 Application Buccal QD 03/28/20 23 023 Inactive Belbuca 600 mcg buccal film RxNorm: 9867688 Melt 1 Miscellaneous Buccal QD 03/28/20 023 Inactive Belbuca 300 mcg buccal film RxNorm: 3416751 Take 1 Application Buccal QD 03/28/20 23 023 Inactive Accu-Chek Guide test strips RxNorm: Use 1 Test Strip QID 03/10/20 23 024 Active Accu-Chek Guide test strips RxNorm: Use 1 Test Strip QID 03/10/20 23 023 Inactive metoclopramide 10 mg tablet RxNorm: 965403 TAKE 1 TABLET BY MOUTH 4 TIMES DAILY -BEFORE MEALS & AT BEDTIME- 03/05/20 024 Active 03/05/2023 PROACTIVE REFILL REQUEST FOR NEXT CYCLE PLEASE THANK YOU RX has/will before cycle date tizanidine 4 mg tablet RxNorm: 278982 Take 1 Tablet(s) Oral TID 03/05/20 024 Active 03/05/2023 PROACTIVE REFILL REQUEST FOR NEXT CYCLE PLEASE THANK YOU RX has/will before cycle date Jardiance 25 mg tablet RxNorm: 5658925 Take 1 Tablet(s) Oral QD 03/05/20 024 Active 03/05/2023 PROACTIVE REFILL REQUEST FOR NEXT CYCLE PLEASE THANK YOU RX has/will before cycle date magnesium oxide 400 mg (241.3 mg magnesium) tablet RxNorm: 329731 Take 1 Tablet(s) Oral QD 03/05/20 024 Active 03/05/2023 PROACTIVE REFILL REQUEST FOR NEXT CYCLE PLEASE THANK YOU RX has/will before cycle date omeprazole 20 mg capsule,delayed release RxNorm: 246577 Take 1 Capsule(s) Oral BID 03/05/20 024 Active 03/05/2023 PROACTIVE REFILL REQUEST FOR NEXT CYCLE PLEASE THANK YOU RX has/will before cycle date gabapentin 400 mg capsule RxNorm: 219746 Take 1 Capsule(s) Oral QAM every morning 03/05/20 024 Active 03/05/2023 PROACTIVE REFILL REQUEST FOR NEXT CYCLE PLEASE THANK YOU RX has/will before cycle date menthol 0.44 %-zinc oxide 20.6 % topical ointment RxNorm: 4815009 APPLY TO AFFECTED AREA(S) FOUR TIMES DAILY NEEDED 03/03/20 024 Active Belbuca 600 mcg buccal film RxNorm: 0305827 Melt 1 Miscellaneous Buccal BID 02/25/20 23 023 Inactive Belbuca 600 mcg buccal film RxNorm: 5561343 Melt 1 Miscellaneous Buccal BID 02/25/20 023 Inactive metoprolol succinate ER 100 mg tablet,extended release 24 hr RxNorm: 370166 Take 1 Tablet(s) Oral QD 01/31/20 024 Active 01/30/2023 PROACTIVE REFILL REQUEST FOR NEXT CYCLE PLEASE THANK YOU ferrous gluconate 324 mg (38 mg iron) tablet RxNorm: 521994 TAKE 1 TABLET BY MOUTH DAILY WITH MEAL 01/31/20 23 024 Active 01/30/2023 PROACTIVE REFILL REQUEST FOR NEXT CYCLE PLEASE THANK YOU RX has/will before cycle date Fiasp FlexTouch U-100 Insulin 100 unit/mL (3 mL) subcutaneous pen RxNorm: 0792665 Inject 18 Unit(s) Subcutaneous BID before lunch and dinner, in addition to 0-12 units per sliding scale 01/22/20 23 023 Inactive Tresiba FlexTouch U-100 insulin 100 unit/mL (3 mL) subcutaneous pen RxNorm: 2073811 Inject 118 Unit(s) Subcutaneous QHS every night at bedtime (+2 units for priming) 01/16/20 23 024 Active Fiasp FlexTouch U-100 Insulin 100 unit/mL (3 mL) subcutaneous pen RxNorm: 1026576 Inject 18 Unit(s) Subcutaneous BID before lunch and dinner, in addition to 0-12 units per sliding scale 01/15/20 23 023 Inactive CalProtect 0.44 %-20.6 % topical ointment RxNorm: 5184106 Apply 1 Application Topical QID as needed 01/14/20 23 023 Inactive Qulipta 60 mg tablet RxNorm: 1925471 Take 1 Tablet(s) Oral QHS every night at bedtime 11/27/19 23 No Stop Date Active Ventolin HFA 90 mcg/actuation aerosol inhaler RxNorm: 729374 Inhale 2 Puff(s) Inhalation QID as needed 11/27/19 23 No Stop Date Active montelukast 10 mg tablet RxNorm: 569471 Take 1 Tablet(s) Oral QHS every night at bedtime 11/27/19 23 No Stop Date Active Narcan 4 mg/actuation nasal spray RxNorm: 3459466 [place] Nasal Use as directed as needed for accidental overdose, then call 911 11/27/19 23 No Stop Date Active Milk of Magnesia 400 mg/5 mL oral suspension RxNorm: 067144 Take 15-30 Milliliter(s) Oral QD as needed 11/27/19 23 No Stop Date Active acetaminophen 500 mg capsule RxNorm: 648906 Take 2 Capsule(s) Oral TID 11/27/19 23 No Stop Date Active spironolactone 25 mg tablet RxNorm: 464830 Take 1 Tablet(s) Oral QAM every morning 11/27/19 23 No Stop Date Active Gavilax 17 gram/dose oral powder RxNorm: 739059 Take 17 Gram(s) Oral QD 11/27/19 23 No Stop Date Active atorvastatin 80 mg tablet RxNorm: 656512 Take 1 Tablet(s) Oral QAM every morning 11/27/19 23 No Stop Date Active losartan 100 mg tablet RxNorm: 643004 Take 1 Tablet(s) Oral QD 11/27/19 23 No Stop Date Active duloxetine 60 mg capsule,delayed release RxNorm: 512457 Take 2 Capsule(s) Oral QAM every morning 11/27/19 23 No Stop Date Active trazodone 100 mg tablet RxNorm: 082356 Take 1 Tablet(s) Oral QHS every night at bedtime as needed 11/27/19 23 No Stop Date Active dextromethorphan HBr 15 mg/5 mL oral syrup RxNorm: 2309680 Take 5-10 Milliliter(s) Oral Q4-6H every 4-6 hours as needed 11/27/19 23 No Stop Date Active Calcium Antacid 200 mg calcium (500 mg) chewable tablet RxNorm: 977748 Take 2-4 Tablet(s) Oral as needed between meals and at bedtime 11/27/19 No Stop Date Active levothyroxine 50 mcg tablet RxNorm: 891116 Take 1 Tablet(s) Oral QAM every morning 11/27/19 23 No Stop Date Active fluticasone propionate 50 mcg/actuation nasal spray,suspension RxNorm: 0849722 Instill 1 [place] Nasal QD as needed 11/27/19 23 No Stop Date Active diphenhydramine 25 mg capsule RxNorm: 7822394 Take 1-2 Capsule(s) Oral Q8H every 8 hours as needed 11/27/19 23 No Stop Date Active ondansetron 4 mg disintegrating tablet RxNorm: 068427 Take 1 Tablet(s) Oral QD as needed 11/27/19 23 No Stop Date Active aspirin 81 mg tablet,delayed release RxNorm: 407686 Take 1 Tablet(s) Oral QD with a meal 11/27/19 23 No Stop Date Active Anti-Diarrheal (loperamide) 2 mg tablet RxNorm: 679061 Take 2 Tablet(s) Oral as needed after 1st loose stool, then take 1 tablet as needed after each subsequent loose stool, not to exceed 8 tablets/24 hours 11/27/19 23 No Stop Date Active Diabetic Tussin DM 10 mg-100 mg/5 mL oral liquid RxNorm: 021641 Take 5-10 Milliliter(s) Oral Q4-6H every 4-6 hours as needed 11/27/19 23 No Stop Date Active torsemide 20 mg tablet RxNorm: 399256 Take 2 Tablet(s) Oral QD 11/27/19 23 No Stop Date Active Antacid Liquid 200 mg-200 mg-20 mg/5 mL oral suspension RxNorm: 038868 Take 5-10 Milliliter(s) Oral as needed one time between meals and at bedtime 11/27/19 23 No Stop Date Active diltiazem ER (XR/XT) 120 mg capsule,extended release 24 hr, controlled RxNorm: 911860 Take 1 Capsule(s) Oral QAM every morning 11/27/19 23 No Stop Date Active Ubrelvy 100 mg tablet RxNorm: 7188689 Take 1 Tablet(s) Oral QD as needed 11/27/19 23 No Stop Date Active bupropion HCl XL 300 mg 24 hr tablet, extended release RxNorm: 179178 Take 1 Tablet(s) Oral QAM every morning 11/27/19 23 No Stop Date Active sumatriptan 50 mg tablet RxNorm: 485883 Take 1 Tablet(s) Oral BID as needed 11/27/19 23 No Stop Date Active diclofenac 1 % topical gel RxNorm: 920009 Apply 2 Gram(s) Topical QID to affected area(s) 11/27/19 23 No Stop Date Active buspirone 30 mg tablet RxNorm: 369841 Take 1 Tablet(s) Oral BID 11/27/19 23 No Stop Date Active gabapentin 400 mg capsule RxNorm: 393432 Take 1 Capsule(s) Oral QAM every morning 11/27/19 23 023 Inactive ferrous gluconate 324 mg (38 mg iron) tablet RxNorm: 652633 Take 1 Tablet(s) Oral QD with a meal 11/27/19 023 Inactive omeprazole 20 mg capsule,delayed release RxNorm: 148856 Take 1 Capsule(s) Oral BID 11/27/19 Inactive metoprolol succinate ER 100 mg tablet,extended release 24 hr RxNorm: 445378 Take 1 Tablet(s) Oral QD 11/27/19 023 Inactive Tresiba FlexTouch U-100 insulin 100 unit/mL (3 mL) subcutaneous pen RxNorm: 9664367 Inject 118 Unit(s) Subcutaneous QHS every night at bedtime (+2 units for priming) 11/27/19 023 Inactive CalProtect 0.44 %-20.6 % topical ointment RxNorm: 2558579 Apply 1 Application Topical QID as needed 11/27/19 023 Inactive Jardiance 25 mg tablet RxNorm: 9251704 Take 1 Tablet(s) Oral QD 11/27/19 023 Inactive metoclopramide 10 mg tablet RxNorm: 307080 Take 1 Tablet(s) Oral QID (before meals and at bedtime) 11/27/19 Inactive magnesium oxide 400 mg (241.3 mg magnesium) tablet RxNorm: 355091 Take 1 Tablet(s) Oral QD 11/27/19 Inactive Fiasp FlexTouch U-100 Insulin 100 unit/mL (3 mL) subcutaneous pen RxNorm: 4410469 Inject 18 Unit(s) Subcutaneous BID before lunch and dinner, in addition to 0-12 units per sliding scale 11/27/19 023 Inactive tizanidine 4 mg tablet RxNorm: 917760 Take 1 Tablet(s) Oral TID 11/27/19 023 Inactive Medication Administered No Medication Administered data Reason For Visit No Reason For Visit data Instructions Comment Date Moved to [facility] 02/05/21. Initial [facility] visit 11/26/22.??Patient is morbidly obese and noncompliant to cares. Chronic pain and is on belbuca film- managed by pain clinic. Multiple chronic conditions including DM2, MDD, ANGLEI.??She is her own guardian.?? 12/25/2022
--- OUTSIDE RECORDS SUMMARY | 2023-04-24 09:26 | XMS_ITS | Continuity of Care Document ---
Author Name Unknown Organization [facility] Address [address] [address] [place] [address] Phone Care Team Providers Care Relay Tester Helper Name Role Phone Chu Morris MD Unavailable Unavailable Allergies, Adverse Reactions, Alerts Substance Reaction Status Criticality clarithromycin Active No Informatio n TRAMADOL HCL Active No Information celecoxib Active No Information morphine Active No Information Medications Medication Instructions Dosage Effective Dates (start - stop) Status Comments Lopressor 100 mg tablet take 1 tablet by oral route 2 times every day with meals 100 MG - Active Nyamyc 100,000 unit/gram topical powder apply by topical route 3 times every day to the affected area(s) Not Available - Active Reglan 10 mg tablet take as instructed - Active Novolin 70/30 U-100 Insulin 100 unit/mL subcutaneous suspension inject by subcutaneous route as per insulin protocol 0.00 - Active Roxicodone 5 mg tablet take 1 tablet by oral route every 4 - 6 hours as needed - Active Zofran ODT 4 mg disintegrating tablet take 1 tablet by oral route every [address] on top of the tongue where they will dissolve, then swallow 4 MG - Active Lexapro 20 mg tablet take 1 tablet by oral route every day 20 MG - Active Lipitor 80 mg tablet take 1 tablet by oral route every day 80 MG - Active Zanaflex 4 mg capsule take 1 capsule by oral route up to 4 times every day - Active furosemide 40 mg tablet take 1 tablet by oral route 2 times every day 40 MG - Active montelukast 10 mg tablet take 1 tablet by oral route every day in the evening 10 MG - Active omeprazole 20 mg capsule,delayed release take 1 capsule by oral route 2 times every day 30 minutes to 1 hour before a meal 20 MG - Active levothyroxine 25 mcg tablet take 1 tablet by oral route every day 25 MCG - Active magnesium oxide 400 mg tablet take once per day - Active potassium chloride ER 20 mEq tablet,extended release take 1 tablet by oral route every day with food 20 MEQ - Active trazodone 50 mg tablet take 1 tablet by oral route every day at bedtime 50 MG - Active gabapentin 800 mg tablet take 1 tablet by oral route 2 times every day 800 MG - Active ProAir HFA 90 mcg/actuation aerosol inhaler inhale 2 puff by inhalation route every 4 - 6 hours as needed - Active Imitrex 50 mg tablet take 1 tablet by oral route after onset of migraine; may repeat after 2 hours if headache returns,not to exceed 200mg in 24hrs 50 MG - Active Pamelor 10 mg capsule take 2 capsule by oral route every day at bedtime 20 MG - Active buspirone 10 mg tablet take 3 tablet by oral route 2 times every day 30 MG - Active Miralax 17 gram oral powder packet take 1 packet by oral route every day mixed with 8 oz. water, juice, soda, coffee or tea - Active Tylenol 325 mg tablet take 2 tablet by oral route every 6 hours as needed 650 MG - Active Benefiber Clear Sugar Free(dextrin) 3 gram/3.5 gram oral powder packet take 1 tbsp by mouth once daily - Active Advair Diskus 500 mcg-50 mcg/dose powder for inhalation inhale 1 puff by inhalation route 2 times every day in the morning and evening approximately 12 hours apart 1.00 puff - Active Ecotrin Low Strength 81 mg tablet,enteric coated take 1 tablet by oral route every day 81 MG - Active Lidocare 4 % topical patch apply 2 patches every 24 hours. - Active ferrous sulfate 325 mg (65 mg iron) tablet take 1 tablet by oral route 2 times every day 325 MG - Active Procedures Procedure Date Ugi Endo; W/bx 1/mx Offic/outpt E&m [facility] Advance Directives Directive Yes / No Effective Date File Name No Information Encounters Encounter Description Practice Location Reason(s) For Visit Diagnoses Date Provider Providers Copied on Encounter [facility], [address] [address], [facility] [place], [id number], [place] tel:[phone] [facility] No Information Alexandra Sage. [address] [facility], [facility] [address], [place], [id number], [place]. tel:[phone] [facility], [address] [address], [place], [address], [place] tel:[phone] [facility] No Information Alexandra Sage. [address] [facility], [address], [place], [place], [id number], [place]. tel:[phone] Referring Provider: Chu Salmon, [address] [facility] [address], [place], [address] . tel:[phone] Offic/outpt E&m [facility], [address] [address], [facility] [place], [id number], [place] tel:[phone] [facility] GI Symptoms or Concerns (chief complaint) Intractable vomiting with nausea, unspecified vomiting typeAbdominal pain, chronic, left upper quadrantOther chronic pain 8 No Information Referring Provider: Referral Self, USE FOR SELF REFERRALS. Family History Family Member Type Diagnosis Age At Onset Mother Problem (finding) gallbladder disease Sister Problem (finding) asthma Payers Payer name Insurance type Covered democrat ID Authoriza tion(s) Blue [employer] [place] [employer] [place] [id number] Social History Type Description Quantity Date Captured Comments Sex Female Smoking Status No Information Chief Complaint And Reason For Visit No Information Reason For Referral Reason For Referral No Information Plan Of Treatment Date Type Action Status Referral Ordered: EGD Appointment date/timeframe: 05/12/2018 ordered History Of Present Illness Encounter Date Complaint History Of Prese nt Illness GI Symptoms or Concerns The grazyna ent is a 67-year-old female who is referred today for evaluation of chronic nausea, vomiting, and abdominal pain. The patient states that for approximately the last 2 to 3 years, she has had almost daily issues with nausea, oftentimes leading to vomiting. She states that most days she wakes up and is able to eat breakfast, but typically throughout the day and into the evening develops episodes of waves of nausea that result in vomiting. Oftentimes, she vomits once with relief of symptoms, but on occasion, she has had intractable episodes of vomiting resulting in dehydration and need to seek medical treatment. Most recently, she was seen in the emergency room locally for IV fluid rehydration due to multiple episodes of vomiting. She states the emesis typically contains her recent food that she has ingested, but sometimes will consist mostly of bile. Despite these frequent episodes of nausea and vomiting, her p.o. intake remains adequate as demonstrated by the fact that Functional Status Date Functional Assessmen t No Information Instructions Date Instruction Additional Infor mation No Information Assessments Type Assessment Date No Information Patient Care Teams Name Effective Dates (start - stop) Status Members No Information
--- OUTSIDE RECORDS SUMMARY | 2023-04-24 09:27 | XMS_ITS | Continuity of Care Document ---
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 Name Role Phone She Gualberto PAUL Unavailable Unavailable Allergies, Adverse Reactions, Alerts Substance Reaction Status Criticality vancomycin Active No Information TRAMADOL HCL Active No Information tramadol Active No Information rofecoxib Active No Information nickel Active No Information POTASSIUM CLAVULANATE Active No Inf ormation AMOXICILLIN TRIHYDRATE Active No In formation clarithromycin Confusional state Active No Infor mation celecoxib Swelling Active No Information morphine Seizure Active No Information Medications Medication Instructions Dosage Effective Dates (start - stop) Status Comments atorvastatin 80 mg tablet take 1 tablet by oral route every day 80 MG - Active buspirone 30 mg tablet take 1 tablet by oral route 2 times every day 30 MG - Active magnesium 400 mg (as magnesium oxide) tablet - Active Calcium Antacid 200 mg calcium (500 mg) chewable tablet as needed - Active Diabetic Tussin EX 100 mg/5 mL oral liquid take 10 milliliter by oral route every 4 hours as needed as needed 200 MG - Active Antacid [place] 400 mg-135 mg/5 mL oral suspension take 10 milliliter by oral route between meals, at bedtime, or as directed. not to exceed 90 mL in 24hrs as needed 10.00 milliliter - Active ASPIRIN (unknown strength) chew 2 tablet by oral route every day Not Available - Active DICLOFENAC SODIUM (unknown strength) apply 2 gram by topical route 4 times every day to the affected area(s) Not Available - Active DILTIAZEM 24HR ER (unknown strength) take 1 capsule by oral route every day Not Available - Active FIASP FLEXTOUCH (unknown strength) inject by subcutaneous route per prescriber's instructions. Insulin dosing requires individualizatio n. Not Available - Active GABAPENTIN (unknown strength) take 2 capsule by oral route 3 times every day Not Available - Active JARDIANCE (unknown strength) take 1 tablet by oral route every day in the morning Not Available - Active LEVOTHYROXINE SODIUM (unknown strength) take 1 capsule by oral route every day Not Available - Active METOCLOPRAMIDE HCL (unknown strength) take 1 tablet by oral route 4 times every day 30 minutes before meals and at bedtime Not Available - Active METOPROLOL SUCCINATE (unknown strength) take 1 tablet by oral route every day Not Available - Active MONTELUKAST SODIUM (unknown strength) take 1 tablet by oral route every day in the evening Not Available - Active OMEPRAZOLE (unknown strength) take 1 capsule by oral route every day 30 minutes to 1 hour before a meal Not Available - Active TIZANIDINE HCL (unknown strength) take 1 capsule by oral route every 6 - 8 hours as needed not to exceed 3 doses in 24 hours Not Available - Active TORSEMIDE (unknown strength) take 1 tablet by oral route every day Not Available - Active TRAZODONE HCL (unknown strength) take 2 tablet by oral route every day at bedtime Not Available - Active TRESIBA FLEXTOUCH U-100 (unknown strength) inject by subcutaneous route as per insulin protocol Not Available - Active ACETAMINOPHEN (unknown strength) take 1 capsule by oral route 3 times every day for 1 month Not Available - Active AMMONIUM LACTATE (unknown strength) Not Available - Active ANTI-DIARRHEAL (unknown strength) take 2 capsule by oral route after 1st loose stool, followed by 1 capsule after each subsequent loose stool not to exceed 16 mg/day Not Available - Active DIPHENHYDRAMINE HCL (unknown strength) take 1 capsule by oral route every 4 - 6 hours as needed Not Available - Active FLUTICASONE PROPIONATE (unknown strength) spray 1 - 2 spray by intranasal route every day in each nostril as needed Not Available - Active GAVILAX (unknown strength) take by oral route every day mixed with 8 oz. water, juice, soda, coffee or tea Not Available - Active IBUPROFEN (unknown strength) take 4 capsule by oral route every 6 hours as needed Not Available - Active MILK OF MAGNESIA (unknown strength) take 30 milliliter by oral route every day as needed, followed by a full glass (8 oz) of liquid Not Available - Active NYSTATIN-TRIAMCINOLO NE (unknown strength) apply by topical route 3 times every day to the affected area(s) in the morning and evening Not Available - Active OXYCODONE HCL (unknown strength) take 1 capsule by oral route every 8 hours as needed for pain Not Available - Active ONDANSETRON HCL (unknown strength) take 1 tablet by oral route 3 times every day Not Available - Active SCOT-MYLES SENIOR (unknown strength) Not Available - Active SUMATRIPTAN SUCCINATE (unknown strength) take 1 tablet by oral route after onset of migraine; may repeat after 2 hours if headache returns,not to exceed 200mg in 24hrs Not Available - Active VENTOLIN HFA (unknown strength) inhale 2 puff by inhalation route every 4 - 6 hours as needed Not Available - Active Belbuca [address] 1 film by buccal route 2 times every day against the inside of the cheek, holding in place for 5 seconds, 600 MCG - No Longer Active Chronic pain, Procedures Procedure Date Est Pt Eval 25 Min Telehealth 3 Est Pt Eval 25 Min PT Eval - Moderate Complexity 2 Therapeutic Exercise No Show Visit Fee No Show Visit Fee Est Pt Eval 25 Min Telehealth 2 Est Pt Eval 25 Min Est Pt Eval 25 Min Telehealth 2 Est Pt Eval 25 Min Telehealth 2 Est Pt Eval 25 Min Toxicology Test Group B Implant SCS Epi Lead Moderate Sedation (older Than 5 Years) J Moderate Sedation (older Than 5 Years) A ddl 15 Min Implant SCS Epi Lead Implant SCS Epidi Lead Est Pt Eval 25 Min Est Pt Eval 25 Min Global Postop Visit Global Postop Visit Toxicology Test Group B No Show Visit Fee Implant SCS Epidi Lead Implant SCS Epi Lead Implant SCS Epi Lead No Show Visit Fee No Show Visit Fee Est Pt Eval 25 Min Telehealth 2 Est Pt Eval 25 Min Telehealth 2 Est Pt Eval 25 Min Toxicology Test Group C Est Pt Eval 25 Min Psychiatric Diagnostic Evaluation Telehe alth Inject, Spine, Lumb/sacr, Epi/subarc w/ img Guid Methylprednisolone Acetate-40 1 Change Control for [employer] Inject, Spine, Lumb/sacr, Epi/subarc w/ img Guid New Pt Eval 45 Min Toxicology Test Group C Advance Directives Directive Yes / No Effective Date File Name Intubation Not Answered N/A N/A Antibiotics Not Answered N/A N/A IV Fluid Support Not Answered N/A N/A Tube Feed Not Answered N/A N/A Other Directive No N/A N/A WARNING:The information contained in this section is historical and is provided for information only and does not constitute a legal document or any assurance that the information is still accurate. Please verify the information with the stinson of the legal document before using it for clinical purposes. Encounters Encounter Description Practice Location Reason(s) For Visit Diagnoses Date Provider Providers Copied on Encounter Est Pt Eval 25 Min Telehealth [facility], [address], [place], [place], [address], [place] tel:[phone] [facility] back pain (chief complaint) Radiculopathy, lumbar regionPostlaminect lu syndrome, not elsewhere classified [address], [place], [address], [place]. tel:[phone] Referring Provider: Hilary Forman, [address], [place], [address]. tel:[phone] Est Pt Eval 25 Min [facility], [address], [place], [place], [address], [place] tel:[phone] [facility] back pain (chief complaint) Radiculopathy, lumbar regionPostlaminect lu syndrome, not elsewhere classified 2 Carlynlisadestinee Aure. [address], [address], [place], [address], [place]. tel:[phone] Referring Provider: Hilary Forman, [address], [place], [address]. tel:[phone] [facility] [address], [place], [place], [address], [place] tel:[phone] [facility] Radiculopathy, lumbar regionPostlaminect lu syndrome, not elsewhere classified 2 Dianna Phillips. [address], [place], [place], [address], [place]. tel:[phone] Referring Provider: Hilary Forman, [address] , [place], [address]. tel:[phone] [facility], [address], [place], [place], [address], [place] tel:[phone] [facility] No Information 2 Rebecca Cevallos. [address], [place], [address], [place]. tel:[phone] Referring Provider: Hilary Forman, [address] , [place], [address]. tel:[phone] [facility], [address], [place], [place], [address], [place] tel:[phone] [facility] No Information 2 Dianna Kelvin Phillips. [address], [place], [place], [address], [place]. tel:[phone] Referring Provider: Hilary Fomran, [address], [place], [address]. tel:[phone] Est Pt Eval 25 Min [facility]health [facility], [address], [place], [place], [address], [place] tel:[phone] [facility] back pain (chief complaint) Body mass index (BMI) 50-59.9 , adultRadiculopathy , lumbar regionPostlaminect lu syndrome, not elsewhere classified 2 Amarilis Looney. [address], [address], [place], [address], [place]. tel:[phone] Referring Provider: Hilary Forman, [address], [place], [address]. tel:[phone] Est Pt Eval 25 Min [facility], [address], [place], [place], [address], [place] tel:[phone] [facility] back pain (chief complaint) Body mass index (BMI) 50-59.9 , adultOther intervertebral disc degeneration, lumbar regionRadiculopath y, lumbar region 2 Amarilis Looney. [address], [address], [place], [address], [place]. tel:[phone] Referring Provider: Hilary Forman, [address], [place], [address]. tel:[phone] Est Pt Eval 25 Min Telehealth [facility], [address], [place], [place], [address], [place] tel:[phone] [facility] back pain (chief complaint) Body mass index (BMI) 50-59.9 , adultOther intervertebral disc degeneration, lumbar region Jan- 2 Melllisamoen Aure. [address], [address], [place], [address], [place]. tel:[phone] Referring Provider: Hilary Forman, [address], [place], [address]. tel:[phone] Est Pt Eval 25 Min Telehealth [facility], [address], [place], [place], [address], [place] tel:[phone] [facility] pain (chief complaint) Other intervertebral disc degeneration, lumbar regionRadiculopath y, lumbar regionBody mass index (BMI) 50-59.9 , adult Dec- 2 Mellesmoen Aure. [address], [address], [place], [address], [place]. tel:[phone] Referring Provider: Hilary Forman, [address] , [place], [address]. tel:[phone] Est Pt Eval 25 Min [facility], [address], [place], [place], [address], [place] tel:[phone] [facility] back pain (chief complaint) Other intervertebral disc degeneration, lumbar regionRadiculopath y, lumbar regionBody mass index (BMI) 50-59.9 , adult 2 She Qiying. [address], [address], [place], [address], [place]. tel:[phone] Referring Provider: Hilary Forman, [address], [place], [address]. tel:[phone] [facility], [address], [place], [place], [address], [place] tel:[phone] [facility] No Information 2 She Qiying. [address], [address], [place], [address], [place]. tel:[phone] Referring Provider: Hilary Forman, [address], [place], [address]. tel:[phone] [facility], [address], [place], [address], [place] tel:[phone] [facility] back pain (chief complaint) Postlaminectomy syndrome, not elsewhere classifiedRadiculo misbah, lumbar regionOther intervertebral disc degeneration, lumbar regionOpioid dependence, uncomplicated 2 [facility]. [address], [place], [place], [address], [place]. tel:[phone] Referring Provider: Duglas Elmore, [address], [place], [address]. tel:[phone] [facility], [address], [place], [place], [address], [place] tel:[phone] [facility] No Information 2 Oly Ardon. [address], [place], [address], [place]. tel:[phone] Referring Provider: Hilary Forman, [address], [place], [address]. tel:[phone] Est Pt Eval 25 Min [facility], [address], [place], [place], [address], [place] tel:[phone] [facility] back pain (chief complaint) Radiculopathy, lumbar regionOther intervertebral disc degeneration, lumbar regionPostlaminect lu syndrome, not elsewhere classifiedBody mass index (BMI) 50-59.9 , adult 2 Adia Burciaga. [address], [address], [place], [address], [place]. tel:[phone] Referring Provider: Hilary Forman, [address], [place], [address]. tel:[phone] Est Pt Eval 25 Min [facility], [address], [place], [place], [address], [place] tel:[phone] [facility] back pain (chief complaint) Radiculopathy, lumbar regionPostlaminect lu syndrome, not elsewhere classifiedOther intervertebral disc degeneration, lumbar regionBody mass index (BMI) 50-59.9 , adult Apr- [address], [place], [address], [place]. tel:[phone] Referring Provider: Hilary Forman, [address], [place], [address]. tel:[phone] [facility], [address], [place], [place], [address], [place] tel:[phone] [facility] back pain (chief complaint) Radiculopathy, lumbar regionPostlaminect lu syndrome, not elsewhere classifiedRadiculo misbah, lumbar region Aug- 2 RN RN. [address], [place], [address], [place]. tel:[phone] Referring Provider: Hilary Forman, [address], [place], [address]. tel:[phone] [facility], [address], [place], [place], [address], [place] tel:[phone] [facility] No Information Aug- 2 She Qiying. [address] , [address], [place], [address], [place]. tel:[phone] Referring Provider: Hilary Forman, [address], [place], [address]. tel:[phone] [facility], [address], [place], [place], [address], [place] tel:[phone] [facility] No Information 2 Charlette Balderasidy. [address], [place], [address], [place]. tel:[phone] Referring Provider: Hilary Forman, [address], [place], [address]. tel:[phone] [facility], [address], [place], [place], [address], [place] tel:[phone] [facility] No Information 2 Stayner Duglas. [address], [address], [place]. tel:[phone] Referring Provider: Hilary Forman, [address], [place], [address]. tel:[phone] [facility], [address], [place], [address], [place] tel:[phone] [facility] back pain (chief complaint) Postlaminectomy syndromeRadiculopa thy, lumbar regionLow back pain, unspecifiedOther intervertebral disc degeneration, lumbar regionRadiculopath y, lumbar regionPostlaminect lu syndrome, not elsewhere classifiedLow back pain, unspecifiedOther intervertebral disc degeneration, lumbar region 2 [facility]. [address], [place], [place], [address], [place]. tel:[phone] Referring Provider: REFERRAL ESPINOZA, DOMO. [facility], [address], [place], [place], [address], [place] tel:[phone] [facility] No Information Jul- 2 Stayner Duglas. [address] [facility] [address], [place], [address], [place]. tel:[phone] Referring Provider: Hilary Forman, [address], [place], [address]. tel:[phone] [facility], [address], [place], [address], [place] tel:[phone] [facility] [place] No Information Jul- 2 Stayner Duglas. [address], [place], [address], [place]. tel:[phone] Referring Provider: REFERRAL ESPINOZA, DOMO. Est Pt Eval 25 Min Telehealth [facility], [address], [place], [place], [address], [place] tel:[phone] [facility] back pain (chief complaint) Radiculopathy, lumbar regionLong term (current) use of opiate analgesicBody mass index (BMI) 50-59.9 , adult Jul- 2 She Qiying. [address], [address], [place], [address], [place]. tel:[phone] Referring Provider: Hilary Forman, [address], [place], [address]. tel:[phone] Est Pt Eval 25 Min Telehealth [facility], [address], [place], [place], [address], [place] tel:[phone] [facility] back pain (chief complaint) Radiculopathy, lumbar regionPostlaminect lu syndromeLong term (current) use of opiate analgesicHeadache, unspecified 2 She Qiying. [address], [address], [place], [address], [place]. tel:[phone] Referring Provider: Hilary Forman, [address], [place], [address]. tel:[phone] Est Pt Eval 25 Min [facility], [address], [place], [place], [address], [place] tel:[phone] [facility] back pain (chief complaint) Radiculopathy, lumbar regionPain in left legPostlaminectomy syndromeLong term (current) use of opiate analgesic She Qiying. [address], [address], [place], [address], [place]. tel:[phone] Referring Provider: Hilary Forman, [address], [place], [address]. tel:[phone] [facility], [address], [place], [place], [address], [place] tel:[phone] [facility] No Information She Qiying. [address], [address], [place], [address], [place]. tel:[phone] Referring Provider: Hilary Forman, [address], [place], [address]. tel:[phone] Est Pt Eval 25 Min [facility], [address] [facility] [address], [place], [place], [address], [place] tel:[phone] [facility] back pain (chief complaint) Radiculopathy, lumbar regionOther spondylosis with radiculopathy, lumbosacral regionPostlaminect lu syndromeLong term (current) use of opiate analgesic She Qiying. [address], [address], [place], [address], [place]. tel:[phone] Referring Provider: Hilary Forman, [address], [place], [address]. tel:[phone] Psychiatric Diagnostic Evaluation Telehealth [facility], [address], [place], [place], [address], [place] tel:[phone] [facility] Pain disorder with related psychological factors 1 Tori Paz. [address], [place], [place], [address], [place]. tel:[phone] Referring Provider: Maty Neal , [place], [address]. tel:[phone] [facility], [address], [place], [address], [place] tel:[phone] [facility] back pain (chief complaint) left leg pain (chief complaint) Other spondylosis with radiculopathy, lumbosacral regionOther spondylosis with radiculopathy, lumbosacral region 1 [facility]. [address], [place], [place], [address], [place]. tel:[phone] Referring Provider: Duglas Elmore, [address], [place], [address]. tel:[phone] [facility], [facility], [address], [place], [address], [place] tel:[phone] [facility] [place] No Information 1 Oly Ardon. [address], [address], [place]. tel:[phone] Referring Provider: Duglas Elmore, [address], [place], [address]. tel:[phone] New Pt Eval 45 Min [facility], [facility], [address], [place], [place], [address], [place] tel:[phone] [facility] back pain (chief complaint) Low back pain, unspecifiedRadicul opathy, lumbar regionPostlaminect lu syndromeLong term (current) use of opiate analgesicFibromyal giaChronic pain syndromeType 2 diabetes mellitus with unspecified complicationsBody mass index (BMI) 50-59.9 , adultPain in thoracic spine 1 Lissette Singh. [address], [place], [address], [place]. tel:[phone] Referring Provider: Hilary Forman, [address], [place], [address]. tel:[phone] [facility], [address], [place], [address], [place] tel:[phone] [facility] No Information Lissette Singh. [address], [place], [address], [place]. tel:[phone] Referring Provider: Hilary Forman, [address], [place], [address]. tel:[phone] Family History Family Member Type Diagnosis Age At Onset No Information Payers Payer name Insurance type Covered alliance party ID Luke mendez(s) [employer] Medicare 16 [id number] Social History Type Description Quantity Date Captured Comments Alcohol Use Details No Caffeine Use Details No Tobacco Use Status Current non-smoker Smoking Status Former smoker Non-Smoking Tobacco Use Details : No Details Available : No Details Available Sex Female Chief Complaint And Reason For Visit From encounter dated '06/04/2022 10:00'. back pain (chief complaint). Description: Location of pain is lower back. Pain is radiated to the legs. Symptoms are aggravated by bending, standing and walking. Symptoms are relieved by pain meds/drugs. Reason For Referral Reason For Referral No Information Plan Of Treatment Date Type Action Status Goal Lifestyle education regardin g diet completed Goal Dietary manageme nt education, guidance, and counseling completed Goal Lifestyle education regardin g diet completed Goal Lifestyle education regardin g diet completed Goal Lifestyle education regardin g diet completed Referral Ordered: Pain Management (related to Postlaminectomy syndrome, not elsewhere classified) ordered Referral Ordered: Referrals: Pain Management. Location: [facility] ordered Referral Ordered: Behavioral Health (related to Radiculopathy, lumbar region) ordered Referral Ordered: Referrals: Behavioral Health. Evaluate and treat ordered Referral Referred To: Physical Therapy Ordered: Physical Therapy. Evaluate and treat ordered Referral Ordered: Behavioral Health (related to Low back pain, unspecified) ordered Referral Ordered: Medical Records Request [facility] ordered Referral Ordered: spinal cord stimulation ordered Referral Referred To: lumbar epidural steroid injection Ordered: lumbar epidural steroid injection on both sides L4-5 ordered Referral Referred To: [facility] LSO (OTS FIT) Ordered: [facility]SO (OTS FIT) ordered Referral Ordered: Referrals: Behavioral Health ordered Referral Referred To: Physical Therapy Ordered: Physical Therapy ordered Future Order: Lab Order Confirma tory Urine Drug Screen (UDT) (7-Drug Class), Ordered on: Ordered Future Order: Lab Order Alcohol (Ethyl Glucuronide) (Alcohol), Ordered on: Ordered History Of Present Illness Encounter Date Complaint History Of Prese nt Illness back pain Location of pain is lower back. Pain is radiated to the legs. Symptoms are aggravated by bending, standing and walking. Symptoms are relieved by pain meds/drugs. back pain Location of pain is lower back.There is no radiation of pain. The patient's Self describes the pain as an ache, stabbing and throbbing.The patient's Self denies aggravating factors. The patient's Self denies relieving factors. back pain Location of pain is lower back.The patient describes the pain as an ache, stabbing and throbbing. Symptoms are aggravated by daily activities, standing and walking. Symptoms are relieved by pain meds/drugs and rest. back pain Location of pain is lower back.The patient describes the pain as an ache, stabbing and throbbing. Symptoms are aggravated by daily activities, standing and walking. Symptoms are relieved by pain meds/drugs and rest. back pain Location of pain is lower back.The patient describes the pain as an ache and dull. Symptoms are aggravated by daily activities, standing and walking. Symptoms are relieved by heat, ice, pain meds/drugs and rest. back pain The problem is w orsening. It occurs persistently. Location of pain is lower back. Pain is radiated to the CANDY legs and feet.The patient describes the pain as pulsing. Symptoms are aggravated by daily activities. Symptoms are relieved by heat and pain meds/drugs. back pain Location of pain is lower back and legs. Pain is radiated to the both feet.The patient describes the pain as an ache. Symptoms are aggravated by daily activities. Symptoms are relieved by heat and pain meds/drugs. back pain Location of pain is lower back. Pain is radiated to the legs and to the feet. back pain Location of pain is lower back and legs. Pain is radiated to the left foot and right foot. back pain The problem is s table. It occurs persistently. Location of pain is lower back. Pain is radiated to the left calf and left thigh.The patient describes the pain as an ache. Symptoms are aggravated by daily activities. Symptoms are relieved by heat. back pain Location of pain is lower back and legs. back pain Location of pain is lower back. Pain is radiated to the left thigh. back pain The problem is s table. It occurs persistently. Location of pain is lower back and right shoulder. Pain is radiated to the neck.The patient denies aggravating factors. The patient denies relieving factors. back pain Location of pain is lower back and head.The patient describes the pain as sharp. Symptoms are aggravated by daily activities. Symptoms are relieved by pain meds/drugs and rest. back pain It occurs persis tently. Location of pain is lower back and left leg.The patient describes the pain as an ache. Additional information: 02/24. back pain Location of pain is lower back. Pain is radiated to the left leg.The patient describes the pain as an ache and shooting. Symptoms are aggravated by daily activities. Symptoms are relieved by lying down and sitting. back pain Location of pain is middle back and gluteal area. left leg pain Location: left. back pain Severity level i s 8. It occurs persistently. Location of pain is lower back. Pain is radiated to the left calf, left foot and left thigh.The patient describes the pain as an ache and shooting. Symptoms are aggravated by daily activities, lying/rest, sitting, standing and walking. Symptoms are relieved by heat, ice and pain meds/drugs. Functional Status Date Functional Assessmen t No Information Instructions Date Instruction Additional Infor abhay - Refill and continu e Belbuca 600mcg 2x/day. Fill on 06/05/22- Follow up with [facility] as scheduled- Follow up with [facility] if interested in interventions Related to Radiculopathy, lumbar region Same plan of care as statement for above diagnosis, no changes Related to Postlaminectomy syndrome, not elsewhere classified - Refill and continu e Belbuca, 600mcg 2x/day, for fill today- Schedule annual behavior health assessment, this can be telehealth - Follow up with [facility] in one month, telehealth okay if unable to follow up with [facility]-Referral sent to [facility] for medication management Related to Radiculopathy, lumbar region Same plan of care as statement for above diagnosis, no changes Related to Postlaminectomy syndrome, not elsewhere classified - Refill and continu e Belbuca, increased to 600mcg 2x/day, for fill on 04/08- Schedule annual physical therapy, this can be on the same day as next in person visit - Schedule annual behavior health assessment, this can be telehealth - Follow up with [facility] in one month in clinic Related to Radiculopathy, lumbar region Same plan of care as statement for above diagnosis, no changes Related to Postlaminectomy syndrome, not elsewhere classified Lifestyle education regarding di et Related to Body mass index [BMI] 50.0-59.9, adult -Refill and continue Belbuca to 450mcg 2x/day, for fill today*Discuss Belbuca with PCP to see if they will take over prescription-Continue gabapentin as prescribed through outside provider-Consider intrathecal pain pump. 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, lumbar region Lifestyle education regarding di et Related to Body mass index [BMI] 50.0-59.9, adult - Follow up as sched uled for the duration of the trialFollow up with PCP for low oxygen levels Related to Postlaminectomy syndrome, not elsewhere classified Same plan of care as statement for above diagnosis, no changes Related to Postlaminectomy syndrome, not elsewhere classified -Decrease Belbuca to 150mcg 2x/day, for fill today-Schedule DRG spinal stimulator trial when infection is cleared up -Continue Gabapentin 800mg 3x/day as prescribed from outside provider-Follow up in 4 weeks IN CLINIC Related to Radiculopathy, lumbar region Same plan of care as statement for above diagnosis, no changes 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 We will contact you to schedule your next trial when authorization is received from your insurance company. You may shower, but don't soak your wounds until healed. Call with any additional questions. 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 Related to Postlaminectomy syndrome -Discontinue Oxycodo ne due to side effects -Refill and continue Belbuca 300mcg 2x/day as prescribed, for fill on 07/30/21-Schedule Spinal Cord Stimulator trial -Follow up in 4 weeks or as scheduled The risks and benefits of the procedure will be reviewed with the physician on the day of the procedure. 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 Related to Radiculopathy, lumbar region Same plan of care as statement for above diagnosis, no changes Related to Headache, unspecified Same plan of care as statement for above diagnosis, no changes Related to jail (current) use of opiate analgesic Same plan of care as statement for above diagnosis, no changes Related to Postlaminectomy syndrome -Prescribed Belbuca 300mcg 2x/day, both for fill today, 05/30/21-Refill and continue Oxycodone 5mg 2x/day, at 730am and 730pm-Schedule Spinal Stimulator trial once approved, implant team will call -Follow up in one month via telehealth or as scheduled for SCS trial The risks and benefits of the procedure will be reviewed with the physician on the day of the procedure. Related to Radiculopathy, lumbar region Same plan of care as statement for above diagnosis, no changes Related to jail (current) use of opiate analgesic Same plan of care as statement for above diagnosis, no changes Related to Postlaminectomy syndrome Same plan of care as statement for above diagnosis, no changes Related to Pain in left leg -Refill and continue Belbuca 150mcg, 2x/day as prescribed, for fill on 04/14/2021-Refill and continue Oxycodone 5mg, up to 2 tabs/day as prescribed, for fill on 04/21/2021-Continue outside medications as prescribed -Schedule Spinal Stimulator trial when approved by insurance -Schedule Physical Therapy implant eval -Follow up with provider in 4 weeks Related to Radiculopathy, lumbar region Same plan of care as statement for above diagnosis, no changes 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 Same plan of care as statement for above diagnosis, no changes Related to Postlaminectomy syndrome Same plan of care as statement for above diagnosis, no changes Related to Other spondylosis with radiculopathy, lumbosacral region -Repeat caudal injec tion in 3-4 weeks-Continue with spinal stimulator trial -Follow up in 2 weeks with [facility] Related to Other spondylosis with radiculopathy, lumbosacral region - order MRI of the t horacic spine at [facility] Related to Pain in thoracic spine Same plan of care as statement for above diagnosis, no changes Related to Fibromyalgia - records from [facility] - order MRI of the lumbar spine at [facility] - order stationary neutral A/P and lateral views x rays at [facility]. - order lateral flexion vs extension x ray of the lumbar spine at [facility].- schedule lumbar epidural steroid injection at L4-5, will plan for a series if successful - begin prior authorization for trial of spinal stimulation - refer to physical therapy for implant evaluation - refer to behavioral health for implant evaluation - prescribe Belbuca 150mcg 2x/day, enough for one month - prescribe Oxycodone 5mg 2x/day as needed, enough for one month - return in one month with advanced practice provider to discuss imaging and plan of care moving forward- UDT and OA today The risks and benefits of the procedure will be reviewed with the physician on the day of the procedure. 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 Patient Care Teams Name Effective Dates (start - stop) Status Members No Information
== END 2023-04-23 12:32 | disposition home or self-care (01) ==
LOC: AMB 04-24 09:19
PROVIDERS: Visit Provider Family Medicine
DX: R53.1 Weakness (principal)
CPT/HCPCS: A0425; A0428